=== PATIENT | male | born 1950 | race Caucasian/White ===

== ENCOUNTER 2019-08-08 20:47 | Emergency (ER) | payer MEDICARE, MEDICAID, SELFPAY ==
[2019-08-08 20:58] VITALS: BP 158/92; PULSE 85; RESP 20; TEMP 36.7; O2SAT 97; BMI 25.8
--- NOTE | 2019-08-08 21:12 | XR_ITS ---
PROCEDURE: XR HUMERUS RT CLINICAL INDICATION: fell off see-saw Posttraumatic pain COMPARISON: XR ELBOW RT MIN 3V from 08/08/2019 FINDINGS: No fracture or dislocation. No lytic or blastic change. There is normal mineralization. The joint spaces are well-preserved. No significant degenerative/arthritic changes. No erosive changes evident. Other findings:None. IMPRESSION: No acute findings. Dictated by: Andrea Calloway MD 08/09/2019 06:14 Electronically signed by Andrea Calloway MD in [place] 08/09/2019 06:14
--- NOTE | 2019-08-08 21:12 | XR_ITS ---
PROCEDURE: XR SHOULDER RT MIN 2V CLINICAL INDICATION: fell off see-saw Posttraumatic pain COMPARISON: No exams were available for comparison FINDINGS: No fracture, dislocation, lytic change, or blastic change evident. No significant degenerative change IMPRESSION: No acute findings. Dictated by: Andrea Calloway MD 08/09/2019 06:13 Electronically signed by Andrea Calloway MD in [place] 08/09/2019 06:13
--- NOTE | 2019-08-08 21:12 | CT_ITS ---
PROCEDURE: CT CHEST WO CON CLINICAL INDICATION: fell of see-saw Posttraumatic pain, fall with injury and pain, right anterior lower rib and chest pain COMPARISON: No exams were available for comparison TECHNIQUE: Axial images obtained with sagittal and coronal reformats. All CT scans at the facility use one or more dose reduction, viz: automated exposure control, ma/kV adjustment per patient size (including targeted exams where dose is matched to indication, i.e. head), or iterative reconstruction technique. FINDINGS: HEART AND MEDIASTINAL STRUCTURES: Coronary artery stents are noted. Mild dilatation ascending thoracic aorta at 4.3 cm LUNGS AND PLEURAL SPACES: Changes of COPD. There is some interlobular septal thickening in the periphery aspect of the lower lobes. 8 mm noncalcified nodules present in the central aspect of the right upper lobe image number 30. There is nodular thickening of the right major fissure medially. 3 mm subpleural nodules present in the left lower lobe image 49 BONY STRUCTURES: Mild wedging involves T8 vertebral body which may be chronic. UPPER ABDOMEN: Horseshoe kidney incompletely imaged ADDITIONAL FINDINGS: Gynecomastia IMPRESSION: 1. No acute finding. 2. COPD with 8 mm right upper lobe nodule. Suggest dedicated CT chest in 3 months without and with contrast. 3. Mild dilatation of the ascending aorta at 4.3 cm. 4. Mild wedging of T8 vertebral body. This may be chronic. This could be confirmed with MRI if clinically warranted. Dictated by: Andrea Calloway MD 08/09/2019 09:56 Electronically signed by Andrea Calloway MD in [facility] 08/09/2019 09:56
--- NOTE | 2019-08-08 21:12 | XR_ITS ---
PROCEDURE: XR PELVIS 1-2V CLINICAL INDICATION: fell off see-saw Posttraumatic pain COMPARISON: No exams were available for comparison TECHNIQUE: XR Pelvis AP View FINDINGS: No fracture or dislocation is evident. No significant degenerative change. No lytic or blastic change. IMPRESSION: No acute findings. Dictated by: Andrea Calloway MD 08/09/2019 06:15 Electronically signed by Andrea Calloway MD in [facility] 08/09/2019 06:15
--- NOTE | 2019-08-08 21:12 | XR_ITS ---
PROCEDURE: XR CHEST AP CLINICAL HISTORY: fell off see-saw Posttraumatic pain COMPARISON: CXR CHEST(2 VIEWS-NOT PORTABLE) from 11/10/2013 CT CHEST WO CON from 08/08/2019 FINDINGS: Borderline cardiomegaly without failure. The lungs are clear without infiltrates, suspicious nodules, or pleural effusions. No acute bony abnormalities. IMPRESSION: Borderline cardiomegaly otherwise negative Dictated by: Andrea Calloway MD 08/09/2019 06:16 Electronically signed by Andrea Calloway MD in [place] 08/09/2019 06:16
--- NOTE | 2019-08-08 21:12 | CT_ITS ---
PROCEDURE: CT CERVICAL SPINE WO CON CLINICAL INDICATION: fell of see-saw Neck injury with pain, contusion/abrasion or hematoma, cervical sprain/strain the COMPARISON: No exams were available for comparison TECHNIQUE: Axial images obtained with sagittal and coronal reformats. All CT scans at the facility use one or more dose reduction, viz: automated exposure control, ma/kV adjustment per patient size (including targeted exams where dose is matched to indication, i.e. head), or iterative reconstruction technique. Axial spiral CT scanning performed of the cervical spine beginning at the base of the skull and continuing to the upper T-spine. 3-D multiplanar reconstruction with 3-D manipulation of volumetric data set in image rendering was completed by the radiologist and/or technologist with the supervision of the radiologist on independent workstation. FINDINGS: Normal alignment. No fracture or dislocation. C2-C3: Mild bilateral foraminal narrowing from uncovertebral hypertrophy. C3-C4: Unremarkable. C4-C5: Mild left foraminal narrowing from uncovertebral hypertrophy. C5-C6: Degenerative disc disease with bulging disc with mild canal stenosis. Mild bilateral foraminal narrowing. C6-C7: Degenerative disc disease with bulging disc eccentric toward the left with mild canal stenosis. C7-T1: Unremarkable. There is 8 mm isodense left thyroid nodule IMPRESSION: 1. No acute fracture. 2. Cervical spondylosis as detailed above Dictated by: Andrea Calloway MD 08/09/2019 09:37 Electronically signed by Andrea Calloway MD in [place] 08/09/2019 09:37
--- NOTE | 2019-08-08 21:12 | CT_ITS ---
PROCEDURE: CT HEAD/BRAIN WO CON CLINICAL INDICATION: fell of see-saw , Head injury with headache/pain, contusion, abrasion or hematoma COMPARISON: [facility] CT HEAD W/O CONTRAST from 12/09/2013 TECHNIQUE: Axial images obtained. All CT scans at the facility use one or more dose reduction, viz: automated exposure control, ma/kV adjustment per patient size (including targeted exams where dose is matched to indication, i.e. head), or iterative reconstruction technique. FINDINGS: No midline shift, mass effect, intracranial hemorrhage, hydrocephalus, or extra-axial fluid collection is evident. The calvarium has an unremarkable appearance. No mastoid effusion. No sinus air-fluid level. IMPRESSION: No acute intracranial finding Dictated by: Andrea Calloway MD 08/09/2019 09:17 Electronically signed by Andrea Calloway MD in [place] 08/09/2019 09:17
--- NOTE | 2019-08-08 22:07 | HMH.EDFALL ---
ED Disposition Clinical Impression: Right shoulder injury Qualifiers: Encounter type: initial encounter Qualified Code(s): S49.91XA - Unspecified injury of right shoulder and upper arm, initial encounter Contusion of right chest wall Qualifiers: Encounter type: initial encounter Qualified Code(s): S20.211A - Contusion of right front wall of thorax, initial encounter Disposition: Home, Self-Care Condition on Discharge: Good Instructions: DI for Shoulder Pain Additional Instructions: ice and see pcp and ortho Referrals: Provider,MD Massiel [Primary Care Provider] - Sloane Garcia MD [Physician] - - Critical Care Critical Care Time: No Attestation: On 08/08/19, the high probability of a clinically significant, sudden or life threatening deterioration of the following system(s) required my full and direct attention, intervention and personal management. The time I documented below is in addition to time spent performing reported procedures but includes the following listed in this critical care notation. Medical Decision Making - Medical Records Medical records reviewed: Yes: I reviewed the patient's medical records. - Bobby Inquiry Pt receiving controlled substance: No Vital Signs: 08/08/19 20:58 Temperature 98.1 F Temperature Source Oral Pulse Rate [Right] 85 Respiratory Rate 20 Blood Pressure [Right Arm] 158/92 H Blood Pressure Mean [Right Arm] 114 Blood Pressure Source [Right Arm] Automatic Cuff Blood Pressure Position [Right Arm] Supine 02 Sat by Pulse Oximetry 97 Oxygen Delivery Method Room Air Orders (Tests/Meds): ED MEDICATIONS Generic Name Dose Route Start Last Admin Trade Name Freq PRN Reason Stop Dose Admin Sodium Chloride 1,000 mls @ 999 mls/hr 08/08/19 21:15 08/08/19 21:18 Sod Chlor 0.9% 1000ml Bag IV 08/08/19 22:15 999 mls/hr .Q1H1M MEMO Administration Discontinued Medications Generic Name Dose Route Start Last Admin Trade Name Freq PRN Reason Stop Dose Admin Ketorolac Tromethamine 30 mg 08/08/19 21:12 08/08/19 21:17 Toradol 30mg/Ml Vial IV 08/08/19 21:13 30 mg ONCE ONE Administration Morphine Sulfate 4 mg 08/08/19 21:16 08/08/19 21:18 Morphine 4mg/Ml Syringe IV 08/08/19 21:17 4 mg ONCE ONE Administration Ondansetron HCl 4 mg 08/08/19 21:12 08/08/19 21:17 Zofran 4mg/2ml Vial IV 08/08/19 21:13 4 mg ONCE ONE Administration ORDERS Category Date Time Status CT cervical spine wo con Stat Cat Scan 08/08/19 21:[address] chest wo con Stat Cat Scan 08/08/19 21:[address] head/brain wo con Stat Cat Scan 08/08/19 21:12 Taken XR chest AP Stat Exams 08/08/19 21:12 Taken XR elbow RT min 3V Stat Exams 08/08/19 21:12 Taken XR humerus RT Stat Exams 08/08/19 21:12 Taken XR pelvis 1-2V Stat Exams 08/08/19 21:12 Taken XR shoulder RT min 2V Stat Exams 08/08/19 21:12 Taken - Radiology Data #1 Image(s): Chest, Shoulder, Humerus, Elbow, Pelvis Image Reviewed: Yes I reviewed the patient's radiology image Preliminary Findings: No Fracture Seen - CT Data CT Scan: Head, C-Spine, Chest Time Received: 23:[address] Reviewed: Yes: I have viewed the radiologist's interpretation Preliminary Findings: No Fracture Seen Fall HPI - General Chief Complaint: Fall Stated Complaint: AO 0614 fell off injured R shoulder Time Seen by Provider: 08/08/19 21:15 Mode of Arrival: Wheelchair Source of Information: Patient, Medical Record Limitations: No Limitations Description of Symptoms (Recalled from ER Triage Doc. by RN): Pt states he fell off a see-saw and has right shoulder and rib pain, denies head injury. - History of Present Illness HPI Narrative: fell off see-saw with rt shoulder and rt rib pain - no loc and no abd pain - MD complaint: fall Onset (ago): hour(s) Fall from: from height (distance) Fall witnessed: yes, by family Place fall occurred: home Loss of consciousness: none Prolonged down time: no Contex
[2019-08-08 23:30] VITALS: BP 155/78; PULSE 82; RESP 18; TEMP 36.7; O2SAT 97
== END 2019-08-08 23:33 | disposition home or self-care (01) ==
PROVIDERS: Emergency Provider Emergency Medicine
DX: S20.211A Contusion of right front wall of thorax, initial encounter (principal); S49.91XA Unspecified injury of right shoulder and upper arm, initial encounter; W09.8XXA Fall on or from other playground equipment, initial encounter; Y92.019 Unspecified place in single-family (private) house as the place of occurrence of the external cause
CPT/HCPCS: 70450; 71045; 71250; 72125; 72170; 73030; 73060; 73080; 96365; 96367; 96375; 99282; J2405

== ENCOUNTER 2020-11-03 19:23 | Inpatient (IN) | payer MEDICAID, MEDICARE, SELFPAY ==
[2020-11-03] VITALS (13 sets, daily range): BP systolic 115–147; BP diastolic 63–83; PULSE 66–103; RESP 12–34; TEMP 38.6–39.5; O2SAT 90–99; BMI 33.1; BMI 33.3
--- NOTE | 2020-11-03 19:28 | ECG_ITS ---
APPROVED REPORT Exam: Resting ECG HR:101 bpm ECG Measurements Heart Rate 101 AXES MN 142 P 53 QRSd 144 QRS 47 QT 394 T 118 QTc 510 Conclusion Sinus tachycardia Left bundle branch block Abnormal ECG Electronically signed by : Alexx Salvador MD 11/05/2020 16:07:37
[2020-11-03 19:36] LABS: Influenza A, PCR Not Detected (NotDetected); Influenza B, PCR Not Detected (NotDetected)
--- NOTE | 2020-11-03 20:03 | XR_ITS ---
PROCEDURE INFORMATION: Exam: XR Chest Exam date and time: 11/03/2020 8:03 PM Age: 70 years old Clinical indication: Shortness of breath and other: Cough; Additional info: SOA cough TECHNIQUE: Imaging protocol: XR of the chest. Views: 1 view. COMPARISON: CR XR CHEST AP 08/08/2019 9:51 PM FINDINGS: Lungs: Patchy infiltrates identified within the peripheral aspects of the left mid lung zone and left base as well as along the peripheral aspect of the right base. Relative sparing of the medial and upper lung zee. These infiltrates appear new since prior examination of 08/08/2019. Pleural spaces: Unremarkable. No pleural effusion. No pneumothorax. Heart/Mediastinum: Unremarkable. Mild cardiomegaly noted. Bones/joints: Unremarkable. IMPRESSION: Interval development of bilateral patchy infiltrates which are peripheral in nature. Mild cardiomegaly without evidence of pulmonary vascular congestion. Progress examination is suggested.
[2020-11-03 20:10] LABS: Basophils % 0.3 % (0.1-2.0); Eosinophils # 0.1 K/mm3 (0.0-0.4); Eosinophils % 0.6 % (0.1-12.0); Hematocrit 36.4 % (42.0-52.0); Lymphocytes # 1.8 K/mm3 (0.7-4.5); Lymphocytes % 16.5 % (10-50); Mean Corpuscular Volume 93.8 fl (80-94); Mean Platelet Volume 9.3 fl (7.4-10.4); Monocytes # 0.5 K/mm3 (0.1-1.0); Monocytes % 4.5 % (1.7-9.3); Neutrophils # 8.4 K/mm3 (1.8-7.8); Neutrophils % 78.1 % (37.0-80.0); Platelet Count 256 K/mm3 (142-424); Red Blood Count 3.88 M/mm3 (4.60-6.20); Red Cell Distribution Width 13.1 % (11.5-17.5); White Blood Count 10.7 K/mm3 (4.8-10.8)
[2020-11-03 20:15] LABS: Coronavirus 19, PCR Detected (NotDetected)
[2020-11-03 20:15] LABS: Alanine Aminotransferase 41 U/L (12-78); Albumin Level 3.5 g/dl (3.5-5.0); Albumin/Globulin Ratio 0.7 (1.1-1.8); Alkaline Phosphatase 102 U/L (38-126); Aspartate Amino Transferase 51 U/L (17-59); Bilirubin,Total 1.1 mg/dl (0.2-1.3); Blood Urea Nitrogen 19 mg/dl (9-20); Calcium 8.6 mg/dl (8.4-10.2); Carbon Dioxide 24 mmol/L (22.0-30.0); Chloride 102 mmol/L (98-107); Creatinine Clearance Estimated 114 mL/min (50-200); Estimated Glomerular Filt Rate 96 ml/min (>60); GFR (African American) 116 ML/MIN (>60); Globulin 4.7 g/dL (1.3-3.2); Glucose 120 mg/dl (74-100); Sodium 140 mmol/L (136-145); Total Protein,Serum 8.2 g/dl (6.3-8.2)
[2020-11-03 20:20] LABS: C-Reactive Protein 223.1 mg/L (0-4)
[2020-11-03 20:33] LABS: Erythrocyte Sedimentation Rate 105 mm/hr (0-20)
[2020-11-03 20:34] LABS: Procalcitonin 0.233 ng/mL (0.0-2.0)
--- NOTE | 2020-11-03 20:34 | HMH.EDSOB ---
ED Disposition Clinical Impression: COVID-19 with pulmonary comorbidity, Pulmonary embolism associated with COVID-19, Elevated troponin I level, Elevated brain natriuretic peptide (BNP) level, Left bundle branch block (LBBB) Disposition: Admitted As Inpatient Condition on Discharge: Serious - Critical Care Critical Care Time: No Attestation: On 11/03/20, the high probability of a clinically significant, sudden or life threatening deterioration of the following system(s) required my full and direct attention, intervention and personal management. The time I documented below is in addition to time spent performing reported procedures but includes the following listed in this critical care notation. Medical Decision Making - Medical Records Medical records reviewed: Yes: I reviewed the patient's medical records. - Bobby Inquiry Pt receiving controlled substance: No Vital Signs: 11/03/20 19:32 11/03/20 19:38 11/03/20 19:43 Temperature 102.6 F H 103.1 F H Temperature Source Rectal Oral Pulse Rate 84 Pulse Rate [Right Brachial] 103 H Respiratory Rate 26 H 25 H Blood Pressure 138/82 Blood Pressure [Right Arm] 138/82 Blood Pressure Mean [Right Arm] 100 Blood Pressure Source [Right Arm] Automatic Cuff Blood Pressure Position [Right Arm] Sitting 02 Sat by Pulse Oximetry 91 L 90 L Oxygen Delivery Method Nasal Cannula Nasal Cannula Oxygen Flow Rate (LPM) 5 5 11/03/20 20:00 11/03/20 20:30 11/03/20 21:00 Temperature Temperature Source Pulse Rate 97 H 91 H 89 Pulse Rate [Right Brachial] Respiratory Rate 29 H 34 H 22 Blood Pressure 147/80 H 136/81 128/80 Blood Pressure [Right Arm] Blood Pressure Mean [Right Arm] Blood Pressure Source [Right Arm] Blood Pressure Position [Right Arm] 02 Sat by Pulse Oximetry 90 L 93 L 96 Oxygen Delivery Method Nasal Cannula Nasal Cannula Nasal Cannula Oxygen Flow Rate (LPM) 5 5 5 11/03/20 21:30 11/03/20 22:00 11/03/20 22:50 Temperature Temperature Source Pulse Rate 77 78 70 Pulse Rate [Right Brachial] Respiratory Rate 23 24 12 Blood Pressure 121/70 131/75 140/83 Blood Pressure [Right Arm] Blood Pressure Mean [Right Arm] Blood Pressure Source [Right Arm] Blood Pressure Position [Right Arm] 02 Sat by Pulse Oximetry 94 L 92 L 98 Oxygen Delivery Method Nasal Cannula Nasal Cannula Nasal Cannula Oxygen Flow Rate (LPM) 5 5 5 - Lab Data Lab results reviewed: Yes: I reviewed the patient's lab results. Lab Results 11/03/20 19:15: WBC 10.7, RBC 3.88 L, Hgb 12.0 L, Hct 36.4 L, MCV 93.8, MCH 31.0, MCHC 33.0, RDW 13.1, Plt Count 256, MPV 9.3, Neut % (Auto) 78.1, Lymph % (Auto) 16.5, Harris % (Auto) 4.5, Eos % (Auto) 0.6, Baso % (Auto) 0.3, Neut # (Auto) 8.4 H, Lymph # (Auto) 1.8, Harris # (Auto) 0.5, Eos # (Auto) 0.1, Baso # (Auto) 0.0, ESR 105 H 11/03/20 19:15: Sodium 140, Potassium 4.0, Chloride 102, Carbon Dioxide 24, Anion Gap 18.0 H, BUN 19, Creatinine 0.80, Estimated Creat Clear 114, Estimated GFR 96, Est GFR ( Amer) 116, Glucose 120 H, Calcium 8.6, Total Bilirubin 1.1, AST 51, ALT 41, Alkaline Phosphatase 102, C-Reactive Protein 223.1 H, Total Protein 8.2, Albumin 3.5, Globulin 4.7 H, Albumin/Globulin Ratio 0.7 L 11/03/20 19:15: Procalcitonin 0.233 11/03/20 19:15: Troponin I 0.13 H, NT-Pro-B Natriuret Pep 1860 H 11/03/20 19:32: SARS-CoV-2 (PCR) Detected A, Influenza A Untype (PCR) Not detected, Influenza Type B (PCR) Not detected Result diagrams: 11/03/20 19:15 11/03/20 19:15 Orders (Tests/Meds): ED MEDICATIONS Generic Name Dose Route Start Last Admin Trade Name Freq PRN Reason Stop Dose Admin Albuterol Sulfate 2 puffs 11/03/20 20:22 Albuterol-Hfa 90mcg/Puff Inhaler 8gm IH 12/03/20 20:21 Q4HP PRN Shortness Of Breath Lactated Ringer's 1,000 mls @ 999 mls/hr 11/03/20 20:15 11/03/20 20:29 Lactated Ringer's 1000 Ml Bag IV 11/03/20 21:15 999 mls/hr .Q1H1M MEMO Administration Discont
[2020-11-03 20:40] LABS: NT Pro Brain Natriuretic Pep. 1860 pg/mL (0-125); Troponin I 0.13 ng/ml (0.00-0.034)
--- NOTE | 2020-11-03 20:44 | CT_ITS ---
PROCEDURE INFORMATION: Exam: CTA Chest With Contrast Exam date and time: 11/03/2020 8:44 PM Age: 70 years old Clinical indication: Shortness of breath and other: Cough; Prior surgery; Surgery date: 6+ months; Surgery type: Cardiac stents; Additional info: Covid pneumonia, R/O pe TECHNIQUE: Imaging protocol: Computed tomographic angiography of the chest with contrast. 3D rendering (Not supervised by radiologist): MIP and/or 3D reconstructed images were created by the technologist. Radiation optimization: All CT scans at this facility use at least one of these dose optimization techniques: automated exposure control; mA and/or kV adjustment per patient size (includes targeted exams where dose is matched to clinical indication); or iterative reconstruction. Contrast material: ISOVUE 370; Contrast volume: 70 ml; Contrast route: INTRAVENOUS (IV); COMPARISON: CT CHEST WO CON 08/08/2019 9:36 PM FINDINGS: Pulmonary arteries: There is extensive nonocclusive pulmonary embolism present within right and left main pulmonary arteries as well as primary tributary branches of the right pulmonary artery and left descending pulmonary artery. Occlusive thrombus is identified at the junction of primary and secondary tributary branches within the left lower lobe. Aorta: Unremarkable. No aortic aneurysm. No aortic dissection. Lungs: There are peripheral amorphous infiltrates identified within both lung zee. Predilection for lower lobes. Findings are certainly compatible with viral interstitial pneumonitis such as could be caused by Covid 19. Pleural spaces: Unremarkable. No pneumothorax. No pleural effusion. Heart: No cardiomegaly. No pericardial effusion. Heart RV/LV ratio: Within normal limits. Coronary arteries: There is no evidence of significant coronary artery calcifications. Mediastinal space: No evidence of mediastinal or hilar mass. Lymph nodes: There are 1 or 2 calcified lymph nodes within the left infrahilar region. Visible unenlarged station 4 lymph nodes identified. Bones/joints: Unremarkable. No acute fracture. Soft tissues: Granulomatous calcifications within the spleen. IMPRESSION: 1. Bilateral pulmonary emboli are identified. 2. There are extensive amorphous peripheral interstitial infiltrates within both lung zee, compatible with viral interstitial pneumonitis, including pneumonitis caused by Covid19. 3. Evidence of old healed granulomatous disease within the left hilus and within the spleen.
--- NOTE | 2020-11-03 22:51 | PC.NURSE ---
RECEIVED CRITICIAL NOTIFICATION OF PE. NOTIFIED
[2020-11-03 23:22] LABS: Troponin I 0.15 ng/ml (0.00-0.034)
[2020-11-03 23:23] LABS: Activated Partial Thrombo Time 26.6 seconds (22.8-30.6); INR 1.19 (0.9-1.1); Prothrombin Time 13.9 seconds (10.1-12.5)
[2020-11-04] VITALS (11 sets, daily range): BP systolic 121–163; BP diastolic 72–96; PULSE 60–90; RESP 18–28; TEMP 36.9–37.6; O2SAT 88–100
--- NOTE | 2020-11-04 00:01 | PC.NURSE ---
PT ARRIVED TO FLOOR VIA STRETCHER FROM ED W/STAFF AT 0000
--- NOTE | 2020-11-04 03:09 | PC.NURSE ---
Pt is currently on 30L 45% Vapotherm with O2 sat of 95%. Has c/o a headache since arrival to floor. Crackles noted to (L) base. Pt is soa at times. VSS. Pt is sinus with BBB on telemetry. Will continue to monitor.
[2020-11-04 03:23] LABS: Chloride 106 mmol/L (98-107); Sodium 138 mmol/L (136-145)
[2020-11-04 03:26] LABS: Blood Urea Nitrogen 19 mg/dl (9-20); Carbon Dioxide 24 mmol/L (22.0-30.0); Cholesterol 124 mg/dl (140-200); Creatinine Clearance Estimated 114 mL/min (50-200); Estimated Glomerular Filt Rate 112 ml/min (>60); GFR (African American) 136 ML/MIN (>60); Triglycerides 109 mg/dl (30-150); VLDL Cholesterol 22 mg/dL (0-40)
[2020-11-04 03:27] LABS: Calcium 8.3 mg/dl (8.4-10.2); Chol/HDL Ratio 6.5 (1-3.5); Glucose 132 mg/dl (74-100); HDL Cholesterol 19 mg/dl (40-60); Magnesium 2.2 mg/dl (1.6-2.3)
[2020-11-04 03:29] LABS: Basophils % 0.2 % (0.1-2.0); Eosinophils % 0.3 % (0.1-12.0); Hematocrit 32.5 % (42.0-52.0); Hemoglobin 10.9 g/dL (14.1-18.0); Lymphocytes # 0.5 K/mm3 (0.7-4.5); Lymphocytes % 7.9 % (10-50); Mean Corpuscular HGB Conc 33.5 g/dL (31.8-35.4); Mean Corpuscular Hemoglobin 31.4 pg (27.0-31.2); Mean Corpuscular Volume 93.7 fl (80-94); Mean Platelet Volume 8.2 fl (7.4-10.4); Monocytes # 0.3 K/mm3 (0.1-1.0); Monocytes % 4.4 % (1.7-9.3); Neutrophils # 5.8 K/mm3 (1.8-7.8); Neutrophils % 87.3 % (37.0-80.0); Platelet Count 186 K/mm3 (142-424); Red Blood Count 3.47 M/mm3 (4.60-6.20); Red Cell Distribution Width 12.5 % (11.5-17.5); White Blood Count 6.7 K/mm3 (4.8-10.8)
[2020-11-04 03:38] LABS: Direct LDL Cholesterol 69.17 mg/dL (100-129); MANUAL DIFFERENTIAL MANUAL DIFFERENTIAL (MANUAL DIFF)
[2020-11-04 04:05] LABS: Lymphocytes % 3 % (10-50); Neutrophils % 84 % (42-76); Platelet Estimate Normal; RBC Morphology Normal; Rouleaux 1+; Total Cells Counted 100
--- NOTE | 2020-11-04 07:00 | XR_ITS ---
PROCEDURE INFORMATION: Exam: XR Chest Exam date and time: 11/04/2020 7:00 AM Age: 70 years old Clinical indication: Condition or disease; Other: Covid pulmonary emboli; Additional info: SOB covid pneumonia pulmonary emboli TECHNIQUE: Imaging protocol: XR of the chest. Views: 1 view. COMPARISON: CR XR CHEST PORTABLE 11/03/2020 8:18 PM FINDINGS: Lungs: There continues to be airspace disease in both lungs, unchanged. Pleural spaces: Unremarkable. No pleural effusion. No pneumothorax. Heart/Mediastinum: Unremarkable. No cardiomegaly. Bones/joints: Unremarkable. IMPRESSION: Stable chest.
--- NOTE | 2020-11-04 08:41 | CA_ITS ---
APPROVED REPORT Bilateral Lower Extremity Venous Study for DVT. Barrel Repairer: JUAN RVS Indications COVID breakthrough infection, Hx rt sided stroke, PE, Hypoxia Risk Factors Immobility CAD Vein Imaging CFV (R): compressive, spontaneous, phasic, augmentation SFJ (R): compressive, spontaneous, phasic, augmentation FEM (R): compressive, spontaneous, phasic, augmentation POP (R): compressive, spontaneous, phasic, augmentation PTV (R): Non-Compressible GSV (R): compressive, spontaneous, phasic, augmentation SSV (R): compressive, spontaneous, phasic, augmentation Peroneals (R):Thrombus, Rigid noncompressible GAS (R): compressive, spontaneous, phasic, augmentation CFV (L): compressive, spontaneous, phasic, augmentation SFJ (L): compressive, spontaneous, phasic, augmentation FEM (L): compressive, spontaneous, phasic, augmentation POP (L): compressive, spontaneous, phasic, augmentation DFV (L): compressive, spontaneous, phasic, augmentation PTV (L): Absent Flow, Non-Compressible GSV (L): compressive, spontaneous, phasic, augmentation SSV (L): compressive, spontaneous, phasic, augmentation Peroneals (L):Thrombus, Non-Compressible GAS (L): compressive, spontaneous, phasic, augmentation Findings The right Peroneal Veins are dilated with bright echoes and is non-compressible. The left Peroneal Vein is dilated with mixed echoes and is not fully compressible. Bilateral PTV'S are rigid and noncompressible with scant flow. Positive for DVT. Conclusion The right Peroneal Veins are dilated with bright echoes and is non-compressible. The left Peroneal Vein is dilated with mixed echoes and is not fully compressible. Bilateral PTV'S are rigid and noncompressible with scant flow. Positive for DVT. Critical Notification Critical Value: Yes Date: 11/04/2020 Time: 12:53 Other Discipline: Nurse Response Time: min Report Read Back Electronically signed by : Andrea Calloway MD 11/06/2020 15:30:44
--- NOTE | 2020-11-04 09:08 | HMH.HP ---
*Admission Date: 11/04/20 *Chief complaint: covid pneumonia, pulmonary embolism *History of present illness: Patient is a 70-year-old male with a history of asthma who presented to the emergency room with shortness of breath. Patient was vaccinated for Covid with the Moderiba x2. Was earlier in the year. He has been caring for 2 family members who are Covid positive. Over the last 2 days he has had shortness of breath chills nausea. He uses albuterol at home. Serology detected Covid. Chest x-ray showed views airspace disease. CTA chest demonstrated bilateral pulmonary emboli and features suggesting interstitial pneumonitis more likely the result of Covid. Patient is admitted for further treatment and evaluation, has been started on Xarelto for anticoagulation. I suspect his pulmonary emboli are a sequela of his Covid infection. Patient has a remote history of stroke. Patient is currently on Vapotherm in no respiratory distress. Patient is followed by an outside physician. Patient is treated for chronic pain. He has some tenderness to palpation his right calf and lower leg [facility] History Medical History: Reports:: Hypertension Denies:: Cancer, Diabetes Mellitus Type 1, Diabetes Mellitus Type 2, Internal Pacemaker, MRSA *Have you ever received a pneumonia vaccine?: No *Have you received a flu vaccine this season?: No Other Surgeries: Yes: Other. No: Pacemaker Amputation: No Fractures: No - *Social History Last grade of school completed: High school graduate Smoking Status: Current every day smoker Tobacco Type: cigarettes # Packs/Day (cigarettes): 1 #Yrs smoked (if former smoker): 20 Alcohol Intake: never Alcohol Intake Frequency:: 0-2 drinks per day Substance Use Type: denies use *Occupational Status:: employed *Travel in the last 8 weeks: None Family Hx:: Asthma, Cancer, Heart Attack, Hypertension, Stroke Review of Systems - Constitutional Reports body ache(s), Reports chills, Reports lack of energy, Reports malaise, Reports weakness - Eyes Denies change in vision - ENT Reports headache(s), Reports nasal congestion, Reports nasal discharge, Denies abnormal hearing - *Cardiovascular Reports leg pain with activity, Reports shortness of breath, Reports shortness of breath with activity - *Respiratory Reports chest congestion, Reports cough, Reports shortness of breath, Reports shortness of breath with activity, Reports pain with cough - *Gastrointestinal Reports feeling full early, Reports heartburn, Denies difficulty swallowing - *Genitourinary Denies difficulty urinating - *Musculoskeletal Reports muscle cramps, Reports muscle weakness, Reports stiffness - Integumentary/Breasts Denies yellowing of the skin - *Neurologic Reports abnormal walking, Denies abnormal speech, Denies behavioral changes, Denies confusion, Denies seizure-like activity, Denies headache(s), Denies seizure-like activity - Psychiatric Denies behavioral changes - Endocrine Reports flushing - Hematologic/Lymphatic Denies easy bleeding, Denies easy bruising - Allergic/Immunologic Denies itchy eyes, Denies hives Meds Home Medications Medication Instructions Recorded Confirmed Type Gabapentin [Gabapentin 400mg Cap] 400 mg PO TID 11/03/20 11/03/20 History Oxycodone HCl 5 mg PO BID 11/03/20 11/04/20 History Meloxicam 15 mg PO DAILY 11/04/20 11/04/20 History Metoprolol Succinate [Metoprolol 50 mg PO DAILY 11/04/20 11/04/20 History Succinate 50mg Tablet*] Tizanidine HCl 4 mg PO DAILY 11/04/20 11/04/20 History Allergies Allergy/AdvReac Type Severity Reaction Status Date / Time hydrocodone Allergy Unknown Unknown Verified 11/04/20 08:07 allergy reaction Iodinated Contrast Media Allergy Unknown Unknown Verified 11/04/20 08:07 allergy reaction propoxyphene Allergy Unknown Unknown Verified 11/04/20 08:07 allergy reaction Exam Vital signs and Labs for Last 24 Hours: Tem
[2020-11-04 10:42] LABS: D-Dimer > 8.10 ug/mL (0.0-0.5)
--- NOTE | 2020-11-04 13:01 | P.CONPHA_ITS ---
[facility] Pharmacy VTE Monitoring - Patient Demographics Admission date: 11/03/20 Report Date: 11/04/20 Time: 13:01 Allergies/Adverse Reactions: Patient Allergies hydrocodone Allergy (Unknown, Verified 11/04/20 08:07) Unknown allergy reaction Iodinated Contrast Media Allergy (Unknown, Verified 11/04/20 08:07) Unknown allergy reaction propoxyphene Allergy (Unknown, Verified 11/04/20 08:07) Unknown allergy reaction Height: 1.85 m Weight: 113.85 kg Patient Problems: Current Active Problems COVID-19 with pulmonary comorbidity (Acute) Pulmonary embolism associated with COVID-19 (Acute) Elevated troponin I level (Acute) Elevated brain natriuretic peptide (BNP) level (Acute) Left bundle branch block (LBBB) (Acute) History of stroke (Acute) - VTE Risk Labs: VTE Related Lab Results Hgb 10.9 g/dL (14.1-18.0) L 11/04/20 03:10 Hct 32.5 % (42.0-52.0) L 11/04/20 03:10 Plt Count 186 K/mm3 (142-424) D 11/04/20 03:10 PT 13.9 seconds (10.1-12.5) H 11/03/20 19:15 INR 1.19 (0.9-1.1) H 11/03/20 19:15 APTT 26.6 seconds (22.8-30.6) 11/03/20 19:15 BUN 19 mg/dl (9-20) 11/04/20 03:10 Creatinine 0.70 mg/dl (0.66-1.25) 11/04/20 03:10 Estimated Creat Clear 114 mL/min (50-200) 11/04/20 03:10 Was VTE Risk Assessment Performed: Yes VTE Score: 4 VTE Risk Level: Low Risk Clinical Trial Participant: No - Prophylaxis VTE Prophylaxis Ordered?: Yes Types of VTE Prophylaxis: TEDS Knee High Location of Applied Device: Bilateral Lower Extremeties Pharmacologic Type: Other (ON XARELTO)
--- NOTE | 2020-11-04 13:03 | HMH.PHAINT ---
MEDICATION RECONCILIATION COMPLETE USING EXTERNAL PHARMACY FILL HISTORY.
--- NOTE | 2020-11-04 18:37 | PC.NURSE ---
Notified that pt has bilateral peroneal dvt's per venous doppler tech.
--- NOTE | 2020-11-04 18:37 | PC.NURSE ---
Pt is alert and oriented x3. Crackles noted to lungs. He is currently on 30L/80% vapotherm with O2 sats in the 90's. He does desat when coughing or w/exertion but rebounds fairly quickly. He has a BBB on telemetry w/some st depression. He utilizes a urinal at the bedside. Appetite has been fair with pt eating approx 50% of meals. He is currently resting in bed watching TV.
[2020-11-05] VITALS (11 sets, daily range): BP systolic 124–154; BP diastolic 60–86; PULSE 60–77; RESP 18–28; TEMP 36.9–37.2; O2SAT 88–99
--- NOTE | 2020-11-05 03:25 | PC.NURSE ---
A&OX4. TOLERATING VAPOTHERM, O2 SAT IN MID 90S. PT INDEPENDENT IN ROOM. PT HAS INTERMITTENT COUGH PRODUCING LIGHT YELLOW PHLEGM. NO C/O THUS FAR THIS SHIFT. VSS WILL CONTINUE TO MONITOR.
--- NOTE | 2020-11-05 06:00 | XR_ITS ---
PROCEDURE INFORMATION: Exam: XR Chest Exam date and time: 11/05/2020 6:00 AM Age: 70 years old Clinical indication: Condition or disease; Other: Covid pneumonia SOB; Additional info: Covid SOB TECHNIQUE: Imaging protocol: XR of the chest. Views: 1 view. COMPARISON: CR XR CHEST PORTABLE 11/04/2020 5:52 AM FINDINGS: Extensive airspace opacities with mildly worsened consolidation in both lower lobes. Cardiac silhouette is stable. No enlarging pleural effusion. No pneumothorax. IMPRESSION: Mildly worsened multifocal pneumonia.
[2020-11-05 06:34] LABS: Alanine Aminotransferase 29 U/L (12-78); Albumin Level 2.6 g/dl (3.5-5.0); Albumin/Globulin Ratio 0.8 (1.1-1.8); Alkaline Phosphatase 86 U/L (38-126); Aspartate Amino Transferase 37 U/L (17-59); Bilirubin,Total 0.4 mg/dl (0.2-1.3); Blood Urea Nitrogen 24 mg/dl (9-20); Calcium 8.3 mg/dl (8.4-10.2); Carbon Dioxide 23 mmol/L (22.0-30.0); Chloride 109 mmol/L (98-107); Creatinine Clearance Estimated 114 mL/min (50-200); Estimated Glomerular Filt Rate 134 ml/min (>60); GFR (African American) 162 ML/MIN (>60); Globulin 3.3 g/dL (1.3-3.2); Glucose 112 mg/dl (74-100); Sodium 138 mmol/L (136-145); Total Protein,Serum 5.9 g/dl (6.3-8.2)
--- NOTE | 2020-11-05 09:13 | PC.NURSE ---
Vapotherm currently 25 L and 80%
[2020-11-05 11:38] LABS: Basophils % 0.3 % (0.1-2.0); Eosinophils % 0.2 % (0.1-12.0); Hematocrit 32.9 % (42.0-52.0); Hemoglobin 10.6 g/dL (14.1-18.0); Lymphocytes # 1.3 K/mm3 (0.7-4.5); Lymphocytes % 10.6 % (10-50); Mean Corpuscular HGB Conc 32.2 g/dL (31.8-35.4); Mean Corpuscular Hemoglobin 30.9 pg (27.0-31.2); Mean Platelet Volume 9.5 fl (7.4-10.4); Monocytes # 0.7 K/mm3 (0.1-1.0); Monocytes % 5.3 % (1.7-9.3); Neutrophils # 10.6 K/mm3 (1.8-7.8); Neutrophils % 83.6 % (37.0-80.0); Platelet Count 258 K/mm3 (142-424); Red Blood Count 3.43 M/mm3 (4.60-6.20); Red Cell Distribution Width 12.8 % (11.5-17.5); White Blood Count 12.7 K/mm3 (4.8-10.8)
--- NOTE | 2020-11-05 11:45 | HMH.ACPN2 ---
Internal Medicine - PN: Subj *Date: 11/05/20 *Time: 11:59 Interval history: Patient had a fairly uneventful night. Continues to cough, producing a white frothy sputum. Earlier sample was collected for culture. Patient has no respiratory distress. No labored breathing. He remains on Vapotherm. Patient was found to have bilateral pulmonary emboli on CTA during his initial work-up. Subsequent venous duplex revealed bilateral peroneal DVTs. Patient has a history of stroke and coronary disease with stent deployment. Exam Vital signs and Labs for Last 24 Hours: Temp Pulse Resp BP Pulse Ox 98.6 F 77 18 154/60 H 88 L 11/05/20 11:20 11/05/20 11:20 11/05/20 11:20 11/05/20 11:20 11/05/20 11:20 Laboratory Results - last 24 hr 11/05/20 05:40: Sodium 138, Potassium 4.0, Chloride 109 H, Carbon Dioxide 23, Anion Gap 10.0, BUN 24 H D, Creatinine 0.60 L, Estimated Creat Clear 114, Estimated GFR 134, Est GFR ( Amer) 162, Glucose 112 H, Calcium 8.3 L, Total Bilirubin 0.4, AST 37 D, ALT 29 D, Alkaline Phosphatase 86, Total Protein 5.9 L D, Albumin 2.6 L D, Globulin 3.3 H, Albumin/Globulin Ratio 0.8 L 11/05/20 05:40: WBC 12.7 H D, RBC 3.43 L, Hgb 10.6 L, Hct 32.9 L, MCV 96.0 H, MCH 30.9, MCHC 32.2, RDW 12.8, Plt Count 258 D, MPV 9.5, Neut % (Auto) 83.6 H, Lymph % (Auto) 10.6, Sumner % (Auto) 5.3, Eos % (Auto) 0.2, Baso % (Auto) 0.3, Neut # (Auto) 10.6 H, Lymph # (Auto) 1.3, Sumner # (Auto) 0.7, Eos # (Auto) 0.0, Baso # (Auto) 0.0 I & O for Last 24 hours: Intake & Output 11/02/20 11/03/20 11/04/20 11/05/20 23:59 23:59 23:59 23:59 Intake Total 1972 480 / 480 Output Total 1050 / 1650 900 / 900 Balance 923 / 323 -420 / -420 Weight 250 lb 15.94 oz Microbiology Reports for the Last 24 Hours: Microbiology 11/05/20 06:40 Sputum - Expectorated Sputum Gram Stain - Final - Constitutional no acute distress - *Routine HEENT Exam Head: Present: normocephalic Eye: Present: EOMI, PERRL ENT: Present: mucous membranes moist - *Routine Neck Exam Present: supple. Absent: lymphadenopathy - *Routine Respiratory Exam Present: rhonchi, crackles. Absent: accessory muscle use, wheezes - *Routine Cardiovascular Exam Present: RRR - *Routine Abdominal Exam Present: soft, normoactive bowel sounds. Absent: tenderness - *Routine Extremities Exam Present: tenderness. Absent: cyanosis, clubbing - *Routine Skin Exam Present: warm. Absent: rash - *Routine Neurological Exam Present: alert, oriented X3 Assessment and Plan (1) COVID-19 with pulmonary comorbidity Status: Acute Category: Medical Code(s): U07.1 - COVID-19; J98.4 - Other disorders of lung (2) Pulmonary embolism associated with COVID-19 Status: Acute Category: Medical Code(s): U07.1 - COVID-19; I26.99 - Other pulmonary embolism without acute cor pulmonale (3) Elevated troponin I level Status: Acute Category: Medical Code(s): R77.8 - Other specified abnormalities of plasma proteins (4) Left bundle branch block (LBBB) Status: Acute Category: Medical Code(s): I44.7 - Left bundle-branch block, unspecified (5) History of stroke Status: Acute Category: Medical Code(s): Z86.73 - Personal history of transient ischemic attack (TIA), and cerebral infarction without residual deficits (6) Elevated brain natriuretic peptide (BNP) level Status: Acute Category: Medical Code(s): R79.89 - Other specified abnormal findings of blood chemistry (7) Peroneal DVT (deep venous thrombosis) Status: Acute Qualifiers: Laterality: bilateral Category: Medical Code(s): I82.459 - Acute embolism and thrombosis of unspecified peroneal vein - Assessment and plan all Dx Assessment and Plan for all problems:: We will continue patient's current regimen occluding his Xarelto. We will ask for cardiology to consult even his elevated troponin, of stent deployment and pulmonary and peripheral emboli.
[2020-11-06] VITALS (19 sets, daily range): BP systolic 98–143; BP diastolic 47–75; PULSE 50–93; RESP 28–40; TEMP 36.7–37.3; O2SAT 80–94; BMI 33.3
--- NOTE | 2020-11-06 04:13 | PC.NURSE ---
A&OX4. AT BEGINNING OF SHIFT, PT WAS ON 25L 85% VAPOTHERM. PT O2 SAT IN LOW 80S. VAPOTHERM INCREASED TO 40L 100%. PT TOLERATED FOR QUITE SOME TIME, BUT EVENTUALLY DROPPED TO LOW 80S. NON-REBREATHER ADDED TO VAPOTHERM. PT HAS CONTINUED TO SAT LOW 80S, NOW HAVE PT IN PRONE POSITION. THIS HAS HELPED GREATLY, PT O2 SAT IN HIGH 90S AT THIS TIME. PT HAS HAD NO C/O THUS FAR. BEING VERY COOPERATIVE. VSS WILL CONTINUE TO MONITOR.
[2020-11-06 06:32] LABS: Alanine Aminotransferase 37 U/L (12-78); Albumin Level 2.9 g/dl (3.5-5.0); Albumin/Globulin Ratio 0.8 (1.1-1.8); Alkaline Phosphatase 96 U/L (38-126); Aspartate Amino Transferase 55 U/L (17-59); Bilirubin,Total 0.6 mg/dl (0.2-1.3); Blood Urea Nitrogen 22 mg/dl (9-20); Calcium 8.4 mg/dl (8.4-10.2); Carbon Dioxide 25 mmol/L (22.0-30.0); Chloride 105 mmol/L (98-107); Creatinine Clearance Estimated 114 mL/min (50-200); Estimated Glomerular Filt Rate 112 ml/min (>60); GFR (African American) 136 ML/MIN (>60); Globulin 3.7 g/dL (1.3-3.2); Glucose 89 mg/dl (74-100); Sodium 138 mmol/L (136-145); Total Protein,Serum 6.6 g/dl (6.3-8.2)
--- NOTE | 2020-11-06 08:27 | CA_ITS ---
APPROVED REPORT EXAM: Comprehensive 2D, Doppler, and color-flow Echocardiogram [place] Farmer: Marcia Ramires CRT Ht: 6 ft 0 in Wt: 250lbs BSA: 2.34 BP: 000/00 mmHg Indications: Hypertension/HDD, stents, PE, CVA, smoker 2D Dimensions LVOT 1.93 cm (M/F) 1.5-2.5 M-Mode Dimensions RVDd 3.19 cm (0.9-2.6) LA Diam 4.09 cm (1.9-4.0) LVDd 5.84 cm (3.5-5.7) Ao Diam 4.56 cm (2.0-3.7) LVDs 4.41 cm (3.5-5.7) IVSd 1.42 cm (0.6-1.1) PWd 0.76 cm (0.6-1.1) EF (Teich) 47.90% FS 24.50% EDV (Teich) 169.20 mL TAPSE 2.47 (<1.7) ESV (Teich) 88.20 mL LV Diastology E Decel Time 107.00 (160-240 msec) E/A Ratio 0.66 MED E' 7.60 (< 7 cm/sec) MED A' 9.60 cm/s E'/MED E' Ratio 6.87 (>14) LAT E' 5.30 (<10 cm/sec) LAT A' 13.10 cm/s E/LAT E' Ratio 9.85 (>14) Aortic Valve AO Peak GR. 6.70 mmHg Mitral Valve MV A Velocity 79.00 (40-130 cm/s) E/A Ratio 0.66 MV Decel. Time 107.00 (160-240 ms) Pulmonary Valve PV Peak Velocity 183.00 (50-150 cm/s) Tricuspid Valve TR P. Velocity 289.00 cm/s RAP Estimate 10.00 mmHg RVSP 43.30 mmHg Left Ventricle Technically very difficult and poor study, endocardial surfaces are very poorly visualized. Left atrium is mildly enlarged, left ventricle is normal size, borderline left ventricular systolic function, visually estimated ejection fraction probably 45 to 50%, with no obvious regional wall motion abnormality, endocardial surfaces are very poorly visualized. Grade 1 diastolic dysfunction seen without tissue Doppler evidence of raise left atrial pressure. Right Ventricle Right atrium and right ventricle mildly enlarged with normal contractility. Aortic Valve Aortic valve is thickened and calcified without Doppler evidence of aortic stenosis or aortic insufficiency. Mitral Valve Mitral valve leaflets are minimally thickened, there is mild mitral regurgitation. Tricuspid Valve Tricuspid valve is grossly normal, there is mild tricuspid regurgitation, tricuspid regurgitation jet velocity is inadequate for calculation of the right ventricular systolic pressure. Pulmonic Valve Pulmonic valve is poorly visualized. Great Vessels Aortic root is normal size. Inferior vena cava is not well visualized. Pericardium No significant pericardial effusion noted. Conclusion 1. Technically very difficult and poor study, endocardial surfaces are very poorly visualized, mild biatrial enlargement, normal left ventricular size, mild concentric left ventricular hypertrophy, estimated ejection fraction is probably between 45 to 50% with no obvious regional wall motion abnormality, grade 1 diastolic dysfunction seen without tissue Doppler evidence of raise left atrial pressure. 2. Mildly enlarged right ventricle with normal contractility. 3. Mild mitral and tricuspid regurgitation. 4. No significant pericardial effusion noted. Electronically signed by : Darryl Dillon MD 11/07/2020 07:08:29
--- NOTE | 2020-11-06 09:42 | HMH.PULMCON ---
*Admission Date: 11/03/20 *Reason for consult:: Acute hypoxic respiratory failure, pulmonary embolism, COVID-19 pneumonia *History of present illness: Mr. Maciel is 70-year-old male, yet to be vaccinated, no significant smoking no prior respiratory complaints not on any inhaler was presented to hospital with worsening respiratory distress and found to be having COVID-19 and CTA showed diffuse bilateral pulmonary plates along with pulmonary [place] regimental admitted to the hospital needing high flow nasal cannula to maintain his oxygen saturations and pulmonary was called for further management. [facility] History Medical History: Reports:: Hypertension Denies:: Cancer, Diabetes Mellitus Type 1, Diabetes Mellitus Type 2, Internal Pacemaker, MRSA *Have you ever received a pneumonia vaccine?: No *Have you received a flu vaccine this season?: No Other Surgeries: Yes: Other. No: Pacemaker Amputation: No Fractures: No - *Social History Last grade of school completed: High school graduate Smoking Status: Current every day smoker Tobacco Type: cigarettes # Packs/Day (cigarettes): 1 #Yrs smoked (if former smoker): 20 Alcohol Intake: never Alcohol Intake Frequency:: 0-2 drinks per day Substance Use Type: denies use *Occupational Status:: employed *Travel in the last 8 weeks: None Family Hx:: Asthma, Cancer, Heart Attack, Hypertension, Stroke ROS - Cons Reports anorexia, Reports body ache(s), Reports chills - Card Reports chest pain, Reports shortness of breath, Reports shortness of breath with activity - Resp Respiratory: Reports chest congestion, Reports cough, Reports non-productive cough, Reports dyspnea on exertion, Reports pain on inspiration - GI Gastrointestingal: Denies: abdominal pain - [place] Musculoskeletal: Reports muscle weakness - Psych Reports abnormal sleep pattern Meds Home Medications Medication Instructions Recorded Confirmed Type Gabapentin [Gabapentin 400mg Cap] 400 mg PO TID 11/03/20 11/03/20 History Oxycodone HCl 5 mg PO BID 11/03/20 11/04/20 History Meloxicam 15 mg PO DAILY 11/04/20 11/04/20 History Metoprolol Succinate [Metoprolol 50 mg PO DAILY 11/04/20 11/04/20 History Succinate 50mg Tablet*] Tizanidine HCl 4 mg PO BID 11/04/20 11/04/20 History Allergies Allergy/AdvReac Type Severity Reaction Status Date / Time hydrocodone Allergy Unknown Unknown Verified 11/04/20 08:07 allergy reaction Iodinated Contrast Media Allergy Unknown Unknown Verified 11/04/20 08:07 allergy reaction propoxyphene Allergy Unknown Unknown Verified 11/04/20 08:07 allergy reaction Exam - Constitutional Constitutional:: Absent: no acute distress, comfortable - HENMT Exam HENMT: Present: normocephalic - Eye Exam Eyes:: Present: normal appearance both eyes and related structures - Neck Exam Neck:: Present: normal visual inspection - Respiratory Exam Respiratory:: Present: respiratory distress, decreased breath sounds, crackles. Absent: able to speak in complete sentences - Cardiovascular Exam Cardiac:: Present: S1, S2 - GI Exam GI:: Present: soft - Skin Exam Skin: Present: warm, no rash - Neurological Exam Neurological: Present: alert, awake, normal cognition - Extremities Exam Extremities: Present: no cyanosis, no clubbing, no edema Internal Medicine - CN: Reslt - Labs CBC & Chem 7: 11/05/20 05:40 11/06/20 05:34 Labs: Short CBC 11/05/20 Range/Units 05:40 WBC 12.7 H D (4.8-10.8) K/mm3 Hgb 10.6 L (14.1-18.0) g/dL Hct 32.9 L (42.0-52.0) % Plt Count 258 D (142-424) K/mm3 [facility] 11/06/20 05:34 Sodium 138 Potassium 4.0 Chloride 105 Carbon Dioxide 25 BUN 22 H Creatinine 0.70 Glucose 89 D Calcium 8.4 Liver Function 11/06/20 Range/Units 05:34 Total Bilirubin 0.6 (0.2-1.3) mg/dl AST 55 D (17-59) U/L ALT 37 D (12-78) U/L Alkaline Phosphatase 96 (38-126) U/L Albumin 2.9 L D (3.5-5.0)
--- NOTE | 2020-11-06 10:29 | HMH.CNCARD ---
History of Present Illness Consult date: 11/06/20 Requesting physician: Pepe Dewey Consult reason: shortness of breath Chief complaint: SOA Additional Medical History:: 1. Hypertension 2. History of coronary artery disease with coronary stenting on 2 separate occasions greater than 5 years ago by his land measurer in [place], [place]. 3. COVID-19 pneumonia, 10/2020 4. Bilateral pulmonary emboli, 10/2020 History of present illness: Patient is a 70-year-old male with a history of asthma who presented to the emergency room with shortness of breath. Patient was vaccinated for Covid with the Moderiba x2. Was earlier in the year. He has been caring for 2 family members who are Covid positive. Over the last 2 days he has had shortness of breath chills nausea. He uses albuterol at home. Serology detected Covid. Chest x-ray showed views airspace disease. CTA chest demonstrated bilateral pulmonary emboli and features suggesting interstitial pneumonitis more likely the result of Covid. Patient is admitted for further treatment and evaluation, has been started on Xarelto for anticoagulation. I suspect his pulmonary emboli are a sequela of his Covid infection. Patient has a remote history of stroke. Patient is currently on Vapotherm in no respiratory distress. Patient is followed by an outside physician. Patient is treated for chronic pain. He has some tenderness to palpation his right calf and lower leg. The above per Dr. Dewey Patient is in stepdown on high flow oxygen at 40 L/min through nonrebreather with nasal cannula oxygen at high flow as well maintaining saturations between 84 to 88%. Patient's information is noted above. He does relate history of coronary disease with stents placed greater than 5 years ago on 2 separate occasions by his land measurer in [place], [place]. He received his second Covid vaccination approximately 2 to 3 months ago. Cardiology consulted due to elevated troponins in the setting of COVID-19 pneumonia and bilateral pulmonary emboli. Echocardiogram is being performed this morning with results pending at this time. His EKG is sinus rhythm with left bundle branch block. Age unknown. [facility] History Medical History: Reports:: Hypertension Denies:: Cancer, Diabetes Mellitus Type 1, Diabetes Mellitus Type 2, Internal Pacemaker, MRSA *Have you ever received a pneumonia vaccine?: No *Have you received a flu vaccine this season?: No Other Surgeries: Yes: Other. No: Pacemaker Amputation: No Fractures: No - *Social History Last grade of school completed: High school graduate Smoking Status: Current every day smoker Tobacco Type: cigarettes # Packs/Day (cigarettes): 1 #Yrs smoked (if former smoker): 20 Alcohol Intake: never Alcohol Intake Frequency:: 0-2 drinks per day Substance Use Type: denies use *Occupational Status:: employed *Travel in the last 8 weeks: None Family Hx:: Asthma, Cancer, Heart Attack, Hypertension, Stroke Meds Home Medications Medication Instructions Recorded Confirmed Type Gabapentin [Gabapentin 400mg Cap] 400 mg PO TID 11/03/20 11/03/20 History Oxycodone HCl 5 mg PO BID 11/03/20 11/04/20 History Meloxicam 15 mg PO DAILY 11/04/20 11/04/20 History Metoprolol Succinate [Metoprolol 50 mg PO DAILY 11/04/20 11/04/20 History Succinate 50mg Tablet*] Tizanidine HCl 4 mg PO BID 11/04/20 11/04/20 History Allergies Allergy/AdvReac Type Severity Reaction Status Date / Time hydrocodone Allergy Unknown Unknown Verified 11/04/20 08:07 allergy reaction Iodinated Contrast Media Allergy Unknown Unknown Verified 11/04/20 08:07 allergy reaction propoxyphene Allergy Unknown Unknown Verified 11/04/20 08:07 allergy reaction Exam Vital signs and Labs for Last 24 Hours: Temp Pulse Resp BP Pulse Ox 98.1 F 93 H 28 H 111/47 L 91 L 11/06/20 08:00 11/06/20 08:00 11/06/20 08:00 11/06/20 08:00 11/06/20 08:00 Laboratory Results - last 24 h
[2020-11-06 11:51] LABS: Activated Partial Thrombo Time 27.4 seconds (22.8-30.6)
--- NOTE | 2020-11-06 13:16 | HMH.ACPN2 ---
Internal Medicine - PN: Subj *Date: 11/06/20 *Time: 09:00 Interval history: pt laying in bed states feels about the same.c/o soa worse with any activity Exam Vital signs and Labs for Last 24 Hours: Temp Pulse Resp BP Pulse Ox 98.6 F 71 40 H 118/64 87 L 11/06/20 11:13 11/06/20 12:07 11/06/20 11:13 11/06/20 11:13 11/06/20 11:13 Laboratory Results - last 24 hr 11/06/20 05:34: Sodium 138, Potassium 4.0, Chloride 105, Carbon Dioxide 25, Anion Gap 12.0, BUN 22 H, Creatinine 0.70, Estimated Creat Clear 114, Estimated GFR 112, Est GFR ( Amer) 136, Glucose 89 D, Calcium 8.4, Total Bilirubin 0.6, AST 55 D, ALT 37 D, Alkaline Phosphatase 96, Total Protein 6.6, Albumin 2.9 L D, Globulin 3.7 H, Albumin/Globulin Ratio 0.8 L 11/06/20 11:20: APTT 27.4 I & O for Last 24 hours: Intake & Output 11/04/20 11/05/20 11/06/20 11/07/20 11:59 11:59 11:59 11:59 Intake Total 360 / 360 2093 / 2093 960 / 960 Output Total 700 / 700 1250 / 1250 1575 / 1575 Balance -340 / -340 843 / 843 -615 / -615 Weight 250 lb 15.94 oz 251 lb 5.231 oz Microbiology Reports for the Last 24 Hours: Microbiology 11/05/20 06:40 Sputum - Expectorated Sputum Gram Stain - Final 11/05/20 06:40 Sputum - Expectorated Sputum Sputum Culture - Preliminary 11/03/20 19:53 Blood Blood Culture - Preliminary NO GROWTH AFTER 48 HOURS 11/03/20 19:53 Blood Blood Culture - Preliminary NO GROWTH AFTER 48 HOURS - Constitutional mild distress - *Routine HEENT Exam Head: Present: normocephalic Eye: Present: PERRL ENT: Present: mucous membranes moist - *Routine Respiratory Exam Present: rhonchi, wheezes - *Routine Cardiovascular Exam Present: RRR - *Routine Abdominal Exam Present: soft, normoactive bowel sounds. Absent: tenderness - *Routine Extremities Exam Absent: cyanosis, clubbing, edema - *Routine Skin Exam Present: warm. Absent: rash - *Routine Neurological Exam Present: alert, oriented X3 Assessment and Plan (1) COVID-19 with pulmonary comorbidity Status: Acute Category: Medical Code(s): U07.1 - COVID-19; J98.4 - Other disorders of lung (2) Pulmonary embolism associated with COVID-19 Status: Acute Category: Medical Code(s): U07.1 - COVID-19; I26.99 - Other pulmonary embolism without acute cor pulmonale (3) Elevated troponin I level Status: Acute Category: Medical Code(s): R77.8 - Other specified abnormalities of plasma proteins (4) Left bundle branch block (LBBB) Status: Acute Category: Medical Code(s): I44.7 - Left bundle-branch block, unspecified (5) History of stroke Status: Acute Category: Medical Code(s): Z86.73 - Personal history of transient ischemic attack (TIA), and cerebral infarction without residual deficits (6) Elevated brain natriuretic peptide (BNP) level Status: Acute Category: Medical Code(s): R79.89 - Other specified abnormal findings of blood chemistry (7) Peroneal DVT (deep venous thrombosis) Status: Acute Qualifiers: Laterality: bilateral Category: Medical Code(s): I82.459 - Acute embolism and thrombosis of unspecified peroneal vein (8) Pneumonia due to COVID-19 virus Status: Acute Category: Medical Code(s): U07.1 - COVID-19; J12.82 - Pneumonia due to coronavirus disease 2019 - Assessment and plan all Dx Assessment and Plan for all problems:: rounded with dr chi all orders per dr chi pulm consult cardiology consult monitor labs
--- NOTE | 2020-11-06 14:51 | HMH.PHAHEP ---
<Louis Holloway - Last Filed: 11/06/20 14:51> [facility] Pharmacy Heparin Dosing - Demographic Data Admission date:: 11/06/20 Date: 11/06/20 (N) Time: 14:51 Allergies/Adverse Reactions: Allergies Allergy/AdvReac Type Severity Reaction Status Date / Time hydrocodone Allergy Unknown Unknown Verified 11/04/20 08:07 allergy reaction Iodinated Contrast Media Allergy Unknown Unknown Verified 11/04/20 08:07 allergy reaction propoxyphene Allergy Unknown Unknown Verified 11/04/20 08:07 allergy reaction - Indication Medication therapy:: Heparin Patient Problems: Current Active Problems COVID-19 with pulmonary comorbidity (Acute) Pulmonary embolism associated with COVID-19 (Acute) Elevated troponin I level (Acute) Elevated brain natriuretic peptide (BNP) level (Acute) Left bundle branch block (LBBB) (Acute) History of stroke (Acute) Peroneal DVT (deep venous thrombosis) (Acute) Pneumonia due to COVID-19 virus (Acute) Bradycardia (Acute) Anemia (Acute) Pneumothorax, right (Acute) Hyperkalemia (Acute) Cardiopulmonary arrest with successful resuscitation (Acute) Ventricular tachycardia (Acute) Left bundle branch block (LBBB) (Acute) Desired PTT range:: 50-70 seconds - Monitoring Dose Monitor 1 Date: 11/06/20 Time: 12:32 PTT Result:: PTT 27.4 Infusion Rate:: START WITH HEPARIN 9000 UNITS X1 DOSE IV THEN HEPARIN 2000 UNITS/HR (40 ML/HR). - Core Measures Most Recent Labs:: Laboratory Results - last 24 hr 11/06/20 05:34: Sodium 138, Potassium 4.0, Chloride 105, Carbon Dioxide 25, Anion Gap 12.0, BUN 22 H, Creatinine 0.70, Estimated Creat Clear 114, Estimated GFR 112, Est GFR ( Amer) 136, Glucose 89 D, Calcium 8.4, Total Bilirubin 0.6, AST 55 D, ALT 37 D, Alkaline Phosphatase 96, Total Protein 6.6, Albumin 2.9 L D, Globulin 3.7 H, Albumin/Globulin Ratio 0.8 L 11/06/20 11:20: APTT 27.4 <Pipe Magaña - Last Filed: 11/30/20 09:20> [facility] Pharmacy Heparin Dosing - Demographic Data Height: 1.85 m Weight: 94.4 kg - Indication CVA?: No Bleeding problem?: No Kidney disease?: No MS?: No Desired PTT range:: 50-70 seconds - Labs Anticoagulation Lab Results:: 11/07/20 05:40 Hgb 10.7 L Hct 33.5 L Plt Count 200 - Monitoring Dose Monitor 2 Date: 11/06/20 Time: 16:30 PTT Result:: 172.3 Infusion Rate:: DECREASE RATE BY 3 U/KG/HR TO 1550 U/HR = 31 ML/HR Dose Monitor 3 Date: 11/06/20 Time: 20:18 PTT Result:: 80.6 Infusion Rate:: DECREASE RATE BY 1 U/KG/HR TO 1450 U/HR = 29 ML/HR Dose Monitor 4 Date: 11/07/20 Time: 01:05 PTT Result:: 53.2 Infusion Rate:: CONTINUE CURRENT RATE OF 1450 U/HR = 29 ML/HR Dose Monitor 5 Date: 11/07/20 Time: 05:40 PTT Result:: 45.2 Infusion Rate:: INCREASE RATE BY 2 U/KG/HR TO 1775 U/HR = 35.5 ML/HR PLUS 3000 IU BOLUS Dose Monitor 6 Date: 11/07/20 Time: 11:05 PTT Result:: 75.7 Infusion Rate:: DECREASE RATE BY 1U/KG/HR TO 1600 U/HR = 32 ML/HR Dose Monitor 7 Date: 11/07/20 Time: 16:25 PTT Result:: 50.4 Infusion Rate:: CONTINUE CURRENT RATE OF 1600 U/HR = 32 ML/HR Dose Monitor 8 Date: 11/07/20 Time: 22:15 PTT Result:: 54.2 Infusion Rate:: CONTINUE CURRENT RATE OF 1600 U/HR = 32 ML/HR Dose Monitor 9 Date: 11/08/20 Time: 06:15 PTT Result:: 53.6 Infusion Rate:: CONTINUE CURRENT RATE OF 1600 U/HR = 32 ML/HR Dose Monitor 10 Date: 11/09/20 Time: 06:00 PTT Result:: 46.7 Infusion Rate:: BOLUS 3000 UNITS OF HEPARIN AND INCREASE RATE BY ~2U/KG/HR TO 1800 UNITS/HR = 36 ML/HR Dose Monitor 11 Date: 11/09/20 Time: 15:30 PTT Result:: 57.2 Infusion Rate:: CONTINUE CURRENT RATE OF 1800 UNITS/HR = 36 ML/HR Dose Monitor 12 Date: 11/10/20 Time: 02:40 PTT Result:: 62.8 Infusion Rate:: CONTINUE CURRENT RATE OF 1800 UNITS/HR = 36 ML/HR Dose Monitor 13 Date: 11/11/20 Time: 05:00 PTT Result:: 77.2 I
[2020-11-06 18:01] LABS: Activated Partial Thrombo Time 172.3 seconds (22.8-30.6)
[2020-11-06 21:05] LABS: Activated Partial Thrombo Time 80.6 seconds (22.8-30.6)
--- NOTE | 2020-11-06 23:07 | PC.NURSE ---
He is A&Ox4. He denies pain. He reports SOA but states no more than he has been. He has a productive cough with white, pink tinged sputum. His O2 sats decrease when he is coughing and take several times to rebound. He has been placed on the bipap.
--- NOTE | 2020-11-06 23:27 | PC.NURSE ---
He is A&Ox4. He denies pain. He reports SOA but states no more than he has been. He has a productive cough with white, pink tinged sputum. His O2 sats decrease when he is coughing and take several times to rebound. He continues on vapotherm @ 40LPM 100%FiO2 with a non-rebreather.
[2020-11-07] VITALS (36 sets, daily range): BP systolic 94–170; BP diastolic 54–97; PULSE 45–96; RESP 0–51; TEMP 36.1–39; O2SAT 85–99; BMI 30.2
[2020-11-07 01:52] LABS: Activated Partial Thrombo Time 53.2 seconds (22.8-30.6)
--- NOTE | 2020-11-07 05:51 | PC.NURSE ---
He was given acetaminophen for a fever. Respirations have decreased and O2 increased since his temperature decreased.
--- NOTE | 2020-11-07 06:00 | XR_ITS ---
PROCEDURE INFORMATION: Exam: XR Chest Exam date and time: 11/07/2020 6:00 AM Age: 70 years old Clinical indication: Shortness of breath; Additional info: Covid pneumpnia TECHNIQUE: Imaging protocol: XR of the chest. Views: 1 view. COMPARISON: CR XR CHEST PORTABLE 11/05/2020 5:42 AM FINDINGS: Lungs: Again noted is hazy airspace consolidation bilaterally. This finding is unchanged in the interval. No new pulmonary infiltrate or consolidation. Pleural spaces: Unremarkable. No pleural effusion. No pneumothorax. Heart/Mediastinum: Unremarkable. No cardiomegaly. Bones/joints: Unremarkable. IMPRESSION: Hazy bilateral airspace consolidation, unchanged in the interval.
[2020-11-07 06:45] LABS: Basophils % 0.2 % (0.1-2.0); Eosinophils % 0.3 % (0.1-12.0); Hematocrit 33.5 % (42.0-52.0); Hemoglobin 10.7 g/dL (14.1-18.0); Lymphocytes # 0.9 K/mm3 (0.7-4.5); Lymphocytes % 6.8 % (10-50); Mean Corpuscular HGB Conc 31.8 g/dL (31.8-35.4); Mean Corpuscular Hemoglobin 30.6 pg (27.0-31.2); Mean Corpuscular Volume 96.2 fl (80-94); Mean Platelet Volume 8.7 fl (7.4-10.4); Monocytes # 0.7 K/mm3 (0.1-1.0); Monocytes % 5.6 % (1.7-9.3); Neutrophils # 11.7 K/mm3 (1.8-7.8); Neutrophils % 87.1 % (37.0-80.0); Platelet Count 200 K/mm3 (142-424); Red Blood Count 3.48 M/mm3 (4.60-6.20); Red Cell Distribution Width 13.1 % (11.5-17.5); White Blood Count 13.4 K/mm3 (4.8-10.8)
[2020-11-07 06:48] LABS: Alanine Aminotransferase 31 U/L (12-78); Albumin Level 2.8 g/dl (3.5-5.0); Albumin/Globulin Ratio 0.7 (1.1-1.8); Alkaline Phosphatase 112 U/L (38-126); Anion Gap 11.1 mEq/L (5-15); Aspartate Amino Transferase 66 U/L (17-59); Bilirubin,Total 0.8 mg/dl (0.2-1.3); Blood Urea Nitrogen 20 mg/dl (9-20); Calcium 7.9 mg/dl (8.4-10.2); Carbon Dioxide 24 mmol/L (22.0-30.0); Chloride 105 mmol/L (98-107); Creatinine Clearance Estimated 78 mL/min (50-200); Estimated Glomerular Filt Rate 112 ml/min (>60); GFR (African American) 136 ML/MIN (>60); Globulin 3.8 g/dL (1.3-3.2); Glucose 112 mg/dl (74-100); Potassium 4.1 mmoL/L (3.5-5.1); Sodium 136 mmol/L (136-145); Total Protein,Serum 6.6 g/dl (6.3-8.2)
[2020-11-07 06:53] LABS: MANUAL DIFFERENTIAL MANUAL DIFFERENTIAL (MANUAL DIFF)
[2020-11-07 07:47] LABS: Activated Partial Thrombo Time 45.4 seconds (22.8-30.6)
--- NOTE | 2020-11-07 08:01 | HMH.PNCARD ---
Subjective Date: 11/07/20 Time: 08:01 Principal diagnosis: Covid, PE, CAD Interval history: 70 yo WM in ICU on BiPAP with O2 sat at 90%. Denies any chest pain. More awake and alert today. States he feels slightly better today. Maintaining sinus rhythm. Echo was a difficult study but shows LVEF of 45-50% without regional wall motion abnormalities and no significant valve disease. Exam Vital signs and Labs for Last 24 Hours: Temp Pulse Resp BP Pulse Ox 102.2 F H 86 41 H 118/64 90 L 11/07/20 04:00 11/07/20 06:36 11/07/20 06:00 11/07/20 06:36 11/07/20 06:36 Laboratory Results - last 24 hr 11/06/20 11:20: APTT 27.4 11/06/20 16:30: APTT 172.3 H* D 11/06/20 20:18: APTT 80.6 H* D 11/07/20 01:05: APTT 53.2 H 11/07/20 05:40: Sodium 136, Potassium 4.1, Chloride 105, Carbon Dioxide 24, Anion Gap 11.1, BUN 20, Creatinine 0.70, Estimated Creat Clear 78, Estimated GFR 112, Est GFR ( Amer) 136, Glucose 112 H, Calcium 7.9 L, Total Bilirubin 0.8, AST 66 H, ALT 31, Alkaline Phosphatase 112, Total Protein 6.6, Albumin 2.8 L, Globulin 3.8 H, Albumin/Globulin Ratio 0.7 L 11/07/20 05:40: WBC 13.4 H, RBC 3.48 L, Hgb 10.7 L, Hct 33.5 L, MCV 96.2 H, MCH 30.6, MCHC 31.8, RDW 13.1, Plt Count 200, MPV 8.7, Neut % (Auto) 87.1 H, Lymph % (Auto) 6.8 L, [place] % (Auto) 5.6, Eos % (Auto) 0.3, Baso % (Auto) 0.2, Neut # (Auto) 11.7 H, Lymph # (Auto) 0.9, [place] # (Auto) 0.7, Eos # (Auto) 0.0, Baso # (Auto) 0.0 11/07/20 05:40: APTT 45.4 H I & O for Last 24 hours: Intake & Output 11/04/20 11/05/20 11/06/20 11/07/20 11:59 11:59 11:59 11:59 Intake Total 360 / 360 2093 / 2093 960 / 960 3503 / 3503 Output Total 700 / 700 1250 / 1250 1575 / 1575 1650 / 1650 Balance -340 / -340 843 / 843 -615 / -615 1853 / 1853 Weight 250 lb 15.94 oz 251 lb 5.231 oz 361 lb 12.457 oz Microbiology Reports for the Last 24 Hours: Microbiology 11/05/20 06:40 Sputum - Expectorated Sputum Gram Stain - Final 11/05/20 06:40 Sputum - Expectorated Sputum Sputum Culture - Preliminary - Constitutional mild distress - *Routine HEENT Exam Head: Present: normocephalic Eye: Present: EOMI, PERRL ENT: Present: mucous membranes moist - *Routine Neck Exam Present: supple. Absent: lymphadenopathy - *Routine Respiratory Exam Present: rhonchi - *Routine Cardiovascular Exam Present: RRR - *Routine Abdominal Exam Present: soft, normoactive bowel sounds. Absent: tenderness - *Routine Extremities Exam Absent: cyanosis, clubbing, edema - *Routine Skin Exam Present: warm. Absent: rash - *Routine Neurological Exam Present: alert, oriented X3 Progress Note: A&P (1) COVID-19 with pulmonary comorbidity Status: Acute (2) Pulmonary embolism associated with COVID-19 Status: Acute (3) Elevated troponin I level Status: Acute (4) Left bundle branch block (LBBB) Status: Acute (5) History of stroke Status: Acute (6) Elevated brain natriuretic peptide (BNP) level Status: Acute (7) Peroneal DVT (deep venous thrombosis) Status: Acute (8) Pneumonia due to COVID-19 virus Status: Acute Assessment and Plan for All Diagnoses:: 1. COVID with pneumonia, per pulmonary considering intubation today. 2. History of CAD/coronary stenting with elevated troponins, related to COVID and pulmonary emboli, near normal LVEF by echo. No plans for further testing at this time. Continue metoprolol. 3. Pulmonary emboli with peroneal DVT, on heparin. Nothing further to add at this time. Please call if needed.
[2020-11-07 08:06] LABS: ABG Base Excess -2.5 mmol/L (-2.4-2.3); ABG Oxygen Saturation 89 % (90-100); ABG PCO2 34.6 mmhg (35.0-45.0); ABG PH 7.42 mmol/L (7.35-7.45); ABG PO2 59.3 mmhg (80-100); ABG TCO2 23.1 mmhg (23-27)
[2020-11-07 08:20] LABS: Allen's Test acceptable; Oxygen 100 %; Source Left Radial
[2020-11-07 08:31] LABS: Lymphocytes % 6 % (10-50); Monocytes % 2 % (2-9); Neutrophils % 92 % (42-76); Total Cells Counted 100
[2020-11-07 08:32] LABS: Anisocytosis 1+; Hypochromasia 1+; Platelet Estimate Normal
--- NOTE | 2020-11-07 09:44 | XR_ITS ---
PROCEDURE: XR CHEST PORTABLE CLINICAL HISTORY: post intubation COMPARISON: CT CT ANGIO CHEST PE PROTOCOL from 11/03/2020 CR XR CHEST PORTABLE from 11/04/2020 CR XR CHEST PORTABLE from 11/05/2020 CR XR CHEST PORTABLE from 11/07/2020 FINDINGS: 10:03 a.m.. Endotracheal tube is now present. The tip is in good position at the T3-T4 level 6 cm above the eloisa. Diffuse bilateral airspace disease once again noted not significantly changed. There is some sparing of the left upper lobe. No evidence of pneumothorax. No acute bony abnormalities. IMPRESSION: Status post interval intubation with endotracheal tube tip in good position. No change bilateral pneumonia Dictated by: Andrea Calloway MD 11/07/2020 10:35 Andrea Calloway MD in [place] 11/07/2020 10:35
--- NOTE | 2020-11-07 10:18 | PC.NURSE ---
0905: Dr. Sadler at bedside discussing intubation with patient. Patient agrees to be intubated. Multiple attempts made to family to notify of intubation. Noel Wets RN spoke to Carlos A (son) and TRUE (grandson) and informed them of plan to intubate. Noel West RN requested for them to have patient's call. They verbalized understanding. 0918: Dr. Wang, AUSTIN GIMENEZ, at bedside. Asked patient if he is ok with being intubated. Patient verbalized he was. He also addressed Code status with patient and he wishes to remain a FC. 1002: Resp. Team: Prashant Isaac, Prashant Edwards, Prashant Whalen at bedside. Noel West RN and SHANNA Humphrey at bedside. 1004: Dr. Wang pushed 30mg of Etomidate 1005: Dr. Wang pushed 100mg of Rocuronium Vitals as follows: 144/86 Hr: 87 RR:48 SPO2:95 1006: Patient intubated with 7.5 ETT, 28 at the teeth. Color change noted and bilateral breath sounds auscultated. Tube secured with a holister lara. Patient placed on vent: Settings as follows: TV: 440, PEEP: 14, Fio2: 100% RR: 24 Vitals as follows: BP: 140/87, HR:87, RR:52, SPO2: 85% 1008: Manual BP's: Left arm: 170/80, Right Arm: 162/94 1009:CXR at bedside to do STAT portable.
--- NOTE | 2020-11-07 10:20 | HMH.ACPN2 ---
Internal Medicine - PN: Subj *Date: 11/07/20 *Time: 13:51 Interval history: 70-year-old man sitting up in bed BiPAP intact and oxygen saturations 90%. Patient does get short of breath during conversations and reports feeling tired. Exam Vital signs and Labs for Last 24 Hours: Temp Pulse Resp BP Pulse Ox 99.7 F H 77 41 H 122/80 92 L 11/07/20 08:00 11/07/20 08:00 11/07/20 08:00 11/07/20 08:00 11/07/20 08:00 Laboratory Results - last 24 hr 11/06/20 11:20: APTT 27.4 11/06/20 16:30: APTT 172.3 H* D 11/06/20 20:18: APTT 80.6 H* D 11/07/20 01:05: APTT 53.2 H 11/07/20 05:40: Sodium 136, Potassium 4.1, Chloride 105, Carbon Dioxide 24, Anion Gap 11.1, BUN 20, Creatinine 0.70, Estimated Creat Clear 78, Estimated GFR 112, Est GFR ( Amer) 136, Glucose 112 H, Calcium 7.9 L, Total Bilirubin 0.8, AST 66 H, ALT 31, Alkaline Phosphatase 112, Total Protein 6.6, Albumin 2.8 L, Globulin 3.8 H, Albumin/Globulin Ratio 0.7 L 11/07/20 05:40: WBC 13.4 H, RBC 3.48 L, Hgb 10.7 L, Hct 33.5 L, MCV 96.2 H, MCH 30.6, MCHC 31.8, RDW 13.1, Plt Count 200, MPV 8.7, Neut % (Auto) 87.1 H, Lymph % (Auto) 6.8 L, [place] % (Auto) 5.6, Eos % (Auto) 0.3, Baso % (Auto) 0.2, Neut # (Auto) 11.7 H, Lymph # (Auto) 0.9, [place] # (Auto) 0.7, Eos # (Auto) 0.0, Baso # (Auto) 0.0, Total Counted 100, Neutrophils % (Manual) 92 H, Lymphocytes % (Manual) 6 L, Monocytes % (Manual) 2, Platelet Estimate Normal, Hypochromasia 1+, Anisocytosis 1+ 11/07/20 05:40: APTT 45.4 H 11/07/20 07:33: Specimen Source Left radial, O2 % 100, ABG pH 7.42, ABG pCO2 34.6 L, ABG pO2 59.3 L, ABG HCO3 22.0, ABG Total CO2 23.1, ABG O2 Saturation 89 L, ABG Base Excess -2.5 L, Andrea Test acceptable I & O for Last 24 hours: Intake & Output 11/04/20 11/05/20 11/06/20 11/07/20 23:59 23:59 23:59 23:59 Intake Total 1972 / 1972 1320 / 1440 240 / 240 3383 / 3383 Output Total 1050 / 1650 2075 / 2475 1250 / 1790 800 / 800 Balance 923 / 323 -755 / -1035 -1010 / -1550 2583 / 2583 Weight 251 lb 5.231 oz 361 lb 12.457 oz Microbiology Reports for the Last 24 Hours: Microbiology 11/05/20 06:40 Sputum - Expectorated Sputum Gram Stain - Final 11/05/20 06:40 Sputum - Expectorated Sputum Sputum Culture - Preliminary - Constitutional mild distress, chronically ill appearing - *Routine HEENT Exam Head: Present: normocephalic Eye: Present: EOMI ENT: Present: mucous membranes moist - *Routine Neck Exam Present: trachea midline. Absent: tracheal deviation - *Routine Respiratory Exam Present: rhonchi, crackles - *Routine Cardiovascular Exam Present: RRR - *Routine Abdominal Exam Present: soft, normoactive bowel sounds. Absent: tenderness - *Routine Extremities Exam Present: pulses intact. Absent: cyanosis, clubbing, calf tenderness - *Routine Skin Exam Present: intact, dry. Absent: cyanosis, erythema, jaundice - *Routine Neurological Exam Present: alert, normal speech. Absent: motor deficit - Routine Psychiatric Exam Present: normal affect, cooperative. Absent: depressed, anxious Assessment and Plan (1) COVID-19 with pulmonary comorbidity Status: Acute Category: Medical Code(s): U07.1 - COVID-19; J98.4 - Other disorders of lung (2) Pulmonary embolism associated with COVID-19 Status: Acute Category: Medical Code(s): U07.1 - COVID-19; I26.99 - Other pulmonary embolism without acute cor pulmonale (3) Elevated troponin I level Status: Acute Category: Medical Code(s): R77.8 - Other specified abnormalities of plasma proteins (4) Left bundle branch block (LBBB) Status: Acute Category: Medical Code(s): I44.7 - Left bundle-branch block, unspecified (5) History of stroke Status: Acute Category: Medical Code(s): Z86.73 - Personal history of transient ischemic attack (TIA), and cerebral infarction without residual deficits (6) Elevated brain natriuretic peptide (BNP) level Status: Acute Category: Medical Code(s): R79.89 - Other specif
--- NOTE | 2020-11-07 10:34 | PC.NURSE ---
1 hour post intubation order placed by Phoebe Brady
--- NOTE | 2020-11-07 10:47 | PC.NURSE ---
1040: Spoke with Dr. Sadler and updated him on patient's status. reviewed current vent settings and he is ok with settings at this time.
--- NOTE | 2020-11-07 11:19 | DIET.NUTRFU ---
Nutrition consult received that pt has been intubated. Prior to being intubated pt PO intake declined to 0% yesterday. Recommend beginning TF within 24-48 hours. Will monitor pt and provide TF recommendations as consulted.
[2020-11-07 11:21] LABS: ABG HCO3 22.9 mmhg (22.0-26.0); ABG Oxygen Saturation 94 % (90-100); ABG PH 7.21 mmol/L (7.35-7.45); ABG PO2 87.8 mmhg (80-100); ABG TCO2 24.8 mmhg (23-27); Oxygen 100 %
[2020-11-07 11:22] LABS: Allen's Test Patient Unable; PEEP 12; Source Right Radial; Tidal Volume 440; Vent Rate 24
[2020-11-07 11:25] LABS: ABG PCO2 59.2 mmhg (35.0-45.0)
[2020-11-07 11:26] LABS: Microscopic, Urine URINE MICROSCOPIC (MICROSCOPIC)
[2020-11-07 11:37] LABS: Activated Partial Thrombo Time 75.7 seconds (22.8-30.6)
[2020-11-07 11:48] LABS: Appearance,Urine CLEAR (Clear); Bilirubin,Urine Negative (Negative); Blood, Urine Negative (Negative); Color,Urine AMBER (Yellow); Glucose,Urine (UA) Negative (Negative); Ketones,Urine Negative (Negative); Leukocyte Esterase,Urine Negative (Negative); Nitrate,Urine Negative (Negative); Protein,Urine TRACE (Negative); Specific Gravity, Urine >= 1.030 (1.005-1.030); Urobilinogen,Urine 0.2 EU/dl (0.2)
[2020-11-07 11:51] LABS: Bacteria,Urine Trace /lpf
--- NOTE | 2020-11-07 12:04 | HMH.PULMPN ---
Internal Medicine - PN: Subj *Date: 11/07/20 *Time: 12:04 Interval history: Patient respiratory status continued to worsen. Exam - Constitutional Constitutional:: Absent: no acute distress, comfortable - HENMT Exam HENMT: Present: normocephalic - Eye Exam Eyes:: Present: normal appearance both eyes and related structures - Neck Exam Neck:: Present: normal visual inspection - Respiratory Exam Respiratory:: Present: respiratory distress, crackles, wheezing. Absent: able to speak in complete sentences - Cardiovascular Exam Cardiac:: Present: S1, S2 - GI Exam GI:: Present: soft - Skin Exam Skin: Present: warm, no rash - Neurological Exam Neurological: Present: alert, awake, normal cognition - Extremities Exam Extremities: Present: no cyanosis, no clubbing, no edema Assessment and Plan (1) COVID-19 with pulmonary comorbidity Status: Acute Category: Medical Code(s): U07.1 - COVID-19; J98.4 - Other disorders of lung (2) Pulmonary embolism associated with COVID-19 Status: Acute Category: Medical Code(s): U07.1 - COVID-19; I26.99 - Other pulmonary embolism without acute cor pulmonale (3) Elevated troponin I level Status: Acute Category: Medical Code(s): R77.8 - Other specified abnormalities of plasma proteins (4) Left bundle branch block (LBBB) Status: Acute Category: Medical Code(s): I44.7 - Left bundle-branch block, unspecified (5) History of stroke Status: Acute Category: Medical Code(s): Z86.73 - Personal history of transient ischemic attack (TIA), and cerebral infarction without residual deficits (6) Elevated brain natriuretic peptide (BNP) level Status: Acute Category: Medical Code(s): R79.89 - Other specified abnormal findings of blood chemistry (7) Peroneal DVT (deep venous thrombosis) Status: Acute Qualifiers: Laterality: bilateral Category: Medical Code(s): I82.459 - Acute embolism and thrombosis of unspecified peroneal vein (8) Pneumonia due to COVID-19 virus Status: Acute Category: Medical Code(s): U07.1 - COVID-19; J12.82 - Pneumonia due to coronavirus disease 2019 - Assessment and plan all Dx Assessment and Plan for all problems:: #COVID-19 pneumonia: #Pulmonary embolism: #Acute hypoxic respiratory failure: 70-year-old yet to vaccinate no prior respiratory complaint no significant smoking history. Positive for COVID-[address] on admission showed extensive pulmonary emboli both right and left main pulmonary arteries and distal arteries, nonocclusive along with airspace disease. Troponins elevated at 0.13 on admission. No echocardiogram available. Blood cultures no growth 48 hours. Moderate gram-positive cocci pairs and chains and rare gram-negative rods. Patient was initiated on remdesivir dexamethasone on broad-spectrum since admission. Will escalate his antibiotics from levofloxacin to ceftriaxone and azithromycin. Patient respiratory status on this hospital is continued to worsen initially needing high flow nasal cannula with nonrebreather and escalated to BiPAP to maintain his desired oxygen saturation. His respiratory distress and will continue to worsen and after discussions addition the patient is morning plan was made to intubate and provide mechanical ventilatory support. Plan: -Continue mechanical ventilatory support - Continue AnalgoSedation with Propofol and Fentanyl with CPOT gal less than or euqal to 2 and RASS goal of 0 to 1 (Deep sedation) - VAP bundle Elevate head of the bed at 30 to 45 degrees Oral care with chlorhexidne GI ulcer prophylaxis - Famotidine 20mg IV BID Intubated and sedated. Continue above ventilatory settings. Follow repeat tracheal aspirate. We will continue cefepime. We will also continue heparin drip for his pulmonary embolism. Continue remdesivir, dexamethasone and varsity neb for COVID-19 pneumonia Follow with tracheal aspirate. Blood cultures no growth 48 hours. F
--- NOTE | 2020-11-07 15:28 | XR_ITS ---
PROCEDURE: XR CHEST PORTABLE CLINICAL HISTORY: central line confirmation COMPARISON: No exams were available for comparison FINDINGS: New left subclavian central venous line tip is in the region the SVC. No evidence of pneumothorax. There is diffuse bilateral pneumonia with some sparing in the left upper lobe. Endotracheal tube and nasogastric tube are in good position. IMPRESSION: Tubes and lines in good position. No evidence of pneumothorax with diffuse bilateral pneumonia Dictated by: Andrea Calloway MD 11/07/2020 16:31 Andrea Calloway MD in [place] 11/07/2020 16:31
--- NOTE | 2020-11-07 15:52 | HMH.GSCON ---
*Admission Date: 11/06/20 *Reason for consult:: Central line placement *History of present illness: Patient is a 70-year-old male who had presented to the emergency department with worsening respiratory distress on Friday evening, 11/03/2020. Is found to have COVID-19 positivity. CTA showed diffuse bilateral pulmonary infiltrates along with pulmonary emboli. He was admitted to the hospital needing high flow oxygen. He had clinically deteriorated requiring intubation and mechanical ventilation this morning. Review of Systems - Review of Systems Review of systems:: unable to obtain - *Neurologic Reports abnormal walking, Reports headache(s), Reports weakness, Denies abnormal hearing, Denies abnormal speech, Denies behavioral changes, Denies confusion, Denies seizure-like activity, Denies seizure-like activity [facility] History I have reviewed the patient's past medical history: Yes Medical History: Reports:: Hypertension Denies:: Cancer, Diabetes Mellitus Type 1, Diabetes Mellitus Type 2, Internal Pacemaker, MRSA *Have you ever received a pneumonia vaccine?: No *Have you received a flu vaccine this season?: No Other Surgeries: Yes: Other. No: Pacemaker Amputation: No Fractures: No - *Social History Last grade of school completed: High school graduate Smoking Status: Current every day smoker Tobacco Type: cigarettes # Packs/Day (cigarettes): 1 #Yrs smoked (if former smoker): 20 Alcohol Intake: never Alcohol Intake Frequency:: 0-2 drinks per day Substance Use Type: denies use *Occupational Status:: employed *Travel in the last 8 weeks: None Family Hx:: Asthma, Cancer, Heart Attack, Hypertension, Stroke Meds Home Medications Medication Instructions Recorded Confirmed Type Gabapentin [Gabapentin 400mg Cap] 400 mg PO TID 11/03/20 11/03/20 History Oxycodone HCl 5 mg PO BID 11/03/20 11/04/20 History Meloxicam 15 mg PO DAILY 11/04/20 11/04/20 History Metoprolol Succinate [Metoprolol 50 mg PO DAILY 11/04/20 11/04/20 History Succinate 50mg Tablet*] Tizanidine HCl 4 mg PO BID 11/04/20 11/04/20 History Allergies Allergy/AdvReac Type Severity Reaction Status Date / Time hydrocodone Allergy Unknown Unknown Verified 11/04/20 08:07 allergy reaction Iodinated Contrast Media Allergy Unknown Unknown Verified 11/04/20 08:07 allergy reaction propoxyphene Allergy Unknown Unknown Verified 11/04/20 08:07 allergy reaction Exam Vital signs and Labs for Last 24 Hours: Temp Pulse Resp BP Pulse Ox 98.4 F 71 21 137/75 93 L 11/07/20 14:55 11/07/20 14:55 11/07/20 14:55 11/07/20 14:55 11/07/20 14:55 Laboratory Results - last 24 hr 11/06/20 16:30: APTT 172.3 H* D 11/06/20 20:18: APTT 80.6 H* D 11/07/20 01:05: APTT 53.2 H 11/07/20 05:40: Sodium 136, Potassium 4.1, Chloride 105, Carbon Dioxide 24, Anion Gap 11.1, BUN 20, Creatinine 0.70, Estimated Creat Clear 78, Estimated GFR 112, Est GFR ( Amer) 136, Glucose 112 H, Calcium 7.9 L, Total Bilirubin 0.8, AST 66 H, ALT 31, Alkaline Phosphatase 112, Total Protein 6.6, Albumin 2.8 L, Globulin 3.8 H, Albumin/Globulin Ratio 0.7 L 11/07/20 05:40: WBC 13.4 H, RBC 3.48 L, Hgb 10.7 L, Hct 33.5 L, MCV 96.2 H, MCH 30.6, MCHC 31.8, RDW 13.1, Plt Count 200, MPV 8.7, Neut % (Auto) 87.1 H, Lymph % (Auto) 6.8 L, [place] % (Auto) 5.6, Eos % (Auto) 0.3, Baso % (Auto) 0.2, Neut # (Auto) 11.7 H, Lymph # (Auto) 0.9, [place] # (Auto) 0.7, Eos # (Auto) 0.0, Baso # (Auto) 0.0, Total Counted 100, Neutrophils % (Manual) 92 H, Lymphocytes % (Manual) 6 L, Monocytes % (Manual) 2, Platelet Estimate Normal, Hypochromasia 1+, Anisocytosis 1+ 11/07/20 05:40: APTT 45.4 H 11/07/20 07:33: Specimen Source Left radial, O2 % 100, ABG pH 7.42, ABG pCO2 34.6 L, ABG pO2 59.3 L, ABG HCO3 22.0, ABG Total CO2 23.1, ABG O2 Saturation 89 L, ABG Base Excess -2.5 L, Andrea Test acceptable 11/07/20 10:35: Urine Color Lisette, Urine Appearance Clear, Urine pH 6.0, Ur Specific [place] >= 1.030, Urine Protein Tra
--- NOTE | 2020-11-07 15:55 | HMH.OPNOTE ---
Date of procedure: 11/07/20 Pre-op Diagnosis:: Need for central venous access Post-op Diagnosis:: Same Procedure performed:: Placement of 7 Monegasque triple-lumen nontunneled catheter in left subclavian vein Surgeon:: To Farris MD Anesthesia: local Estimated blood loss (mL): 15 Operative findings:: Seemingly normal anatomy Operative note:: Consent had been obtained. Patient was positioned in Trendelenburg position. Left neck and chest were prepped and draped in the standard surgical fashion. Local anesthetic was infiltrated inferior to the left clavicle medial to the deltopectoral groove. 18-gauge catheter was inserted manipulating this posterior to the clavicle. Left subclavian vein was cannulated with good return of venous blood flow. Guidewire was inserted. Small incision was made at the insertion site after the needle was removed. Subcutaneous tissues were dilated. 7 Monegasque triple-lumen catheter was inserted over the guidewire using Seldinger technique. It was secured to the skin at approximately the 15 cm maryam. All ports aspirated and flushed. Clean dry sterile dressing was applied. Chest x-ray pending at the time of this dictation. Condition: critical Disposition: no change Complications:: None immediately apparent
--- NOTE | 2020-11-07 16:49 | P.PCN_ITS ---
[facility] Procedure Note Procedure Note:: I was paged to the ICU to help with intubation of this patient. Patient is Covid positive and currently fatiguing on BiPAP. I was able to discuss the plan with the patient he is agreeable for intubation. He also notes that should he get worse he would want to be a full code. Patient received etomidate 30 mg IV followed by rocuronium 100 mg IV. [place] scope was utilized and a 7.5 cuffed ET tube was passed with direct visualization and without difficulty. Patient was placed on mechanical ventilator and a chest x-ray was obtained for confirmation. Chest x-ray showed the tip of the ET tube was approximately 7.6 cm above the eloisa and was therefore advanced 2 cm and chest x-ray re-shot. Patient bettye erated the procedure well.
[2020-11-07 17:11] LABS: Activated Partial Thrombo Time 50.4 seconds (22.8-30.6)
--- NOTE | 2020-11-07 18:07 | PC.NURSE ---
[address] benoit and received orders for pt to have 2 1000ml lr bolus. if pt bphas not improved,may place pt on levophed drip. if pt levo is greater than 5mcg, pt needs to have a central line placed. Dr farris paged at 1343 in reference to pt being on levophed with drip greater than [address] Farris arrived to start Central line at 1430. received notification from dr farris at approx 1640 that it is ok to use central line. xray also shows that ETT and NG/OG are in good position as well.
[2020-11-07 23:25] LABS: Activated Partial Thrombo Time 54.2 seconds (22.8-30.6)
[2020-11-08] VITALS (36 sets, daily range): BP systolic 92–144; BP diastolic 51–70; PULSE 39–67; RESP 22–28; TEMP 15.5–36.4; O2SAT 95–100; BMI 29.9
--- NOTE | 2020-11-08 02:06 | PC.NURSE ---
He continues to be intubated and sedated. Bradycardia with BBB on telemetry. F/c patent with yellow, clear urine. Trace edema of BLE. Heel protectors in placed. HOB elevated to 30 degrees. Vent settings are as follows: AC mode TV 440 PEEP 14 Rate 28 FiO2 100%
--- NOTE | 2020-11-08 05:28 | ECG_ITS ---
APPROVED REPORT Exam: Resting ECG HR:41 bpm ECG Measurements Heart Rate 41 AXES SD 162 P 30 QRSd 156 QRS 13 QT 614 T 55 QTc 506 Conclusion Marked sinus bradycardia Left bundle branch block Abnormal ECG Electronically signed by : Alexx Salvador MD 11/08/2020 07:27:24
--- NOTE | 2020-11-08 06:00 | XR_ITS ---
PROCEDURE INFORMATION: Exam: XR Chest Exam date and time: 11/08/2020 6:00 AM Age: 70 years old Clinical indication: Device placement; Ett placement (vent status); Shortness of breath; Patient HX: Covid; Additional info: Intubated TECHNIQUE: Imaging protocol: XR of the chest. Views: 1 view. COMPARISON: CR XR CHEST PORTABLE 11/07/2020 3:51 PM FINDINGS: Tubes, catheters and devices: Endotracheal tube is present with tip 5 cm above the eloisa. Gastric drainage tube passes below the diaphragm, side port in the proximal stomach and tip not included within field of view. Left subclavian approach central venous catheter with tip in the SVC. Support devices are unchanged. Lungs: Extensive bilateral airspace opacities, right greater than left. There is mildly improved aeration of the right lung compared to prior. Pleural spaces: Bilateral costophrenic angles are blunted, probably due to trace pleural effusions. No pneumothorax. Heart/Mediastinum: Heart size exaggerated by technique, but probably mildly enlarged. Bones/joints: Unremarkable. IMPRESSION: 1. Bilateral multifocal pneumonia. Mildly improved aeration of the right lung compared to prior. 2. Unchanged support devices.
--- NOTE | 2020-11-08 06:45 | PC.NURSE ---
Dopamine gtt started @ 5 mcg/kg/min
[2020-11-08 07:35] LABS: Basophils % 0.2 % (0.1-2.0); Eosinophils % 0.1 % (0.1-12.0); Hemoglobin 10.2 g/dL (14.1-18.0); Lymphocytes # 0.5 K/mm3 (0.7-4.5); Mean Corpuscular HGB Conc 31.8 g/dL (31.8-35.4); Mean Corpuscular Hemoglobin 31.5 pg (27.0-31.2); Mean Corpuscular Volume 99.1 fl (80-94); Mean Platelet Volume 9.3 fl (7.4-10.4); Monocytes # 0.5 K/mm3 (0.1-1.0); Monocytes % 4.3 % (1.7-9.3); Neutrophils # 11.3 K/mm3 (1.8-7.8); Neutrophils % 91.4 % (37.0-80.0); Platelet Count 189 K/mm3 (142-424); Red Blood Count 3.23 M/mm3 (4.60-6.20); Red Cell Distribution Width 13.2 % (11.5-17.5); White Blood Count 12.4 K/mm3 (4.8-10.8)
[2020-11-08 07:40] LABS: ABG Base Excess -3.1 mmol/L (-2.4-2.3); ABG Oxygen Saturation 99 % (90-100); ABG PCO2 45.6 mmhg (35.0-45.0); ABG PH 7.32 mmol/L (7.35-7.45); ABG PO2 136.1 mmhg (80-100); ABG TCO2 24.4 mmhg (23-27)
[2020-11-08 07:44] LABS: MANUAL DIFFERENTIAL MANUAL DIFFERENTIAL (MANUAL DIFF)
[2020-11-08 08:03] LABS: Alanine Aminotransferase 23 U/L (12-78); Albumin Level 2.6 g/dl (3.5-5.0); Albumin/Globulin Ratio 0.7 (1.1-1.8); Alkaline Phosphatase 105 U/L (38-126); Anion Gap 12.5 mEq/L (5-15); Aspartate Amino Transferase 30 U/L (17-59); Bilirubin,Total 0.8 mg/dl (0.2-1.3); Blood Urea Nitrogen 15 mg/dl (9-20); Calcium 8.4 mg/dl (8.4-10.2); Carbon Dioxide 25 mmol/L (22.0-30.0); Chloride 112 mmol/L (98-107); Creatinine Clearance Estimated 102 mL/min (50-200); Estimated Glomerular Filt Rate 112 ml/min (>60); GFR (African American) 136 ML/MIN (>60); Globulin 3.7 g/dL (1.3-3.2); Glucose 226 mg/dl (74-100); Potassium 4.5 mmoL/L (3.5-5.1); Sodium 145 mmol/L (136-145); Total Protein,Serum 6.3 g/dl (6.3-8.2)
[2020-11-08 08:24] LABS: Oxygen 100 %; PEEP 14; Tidal Volume 440; Vent Rate 28
[2020-11-08 08:25] LABS: Source R RADIAL
[2020-11-08 08:33] LABS: Activated Partial Thrombo Time 53.6 seconds (22.8-30.6)
--- NOTE | 2020-11-08 08:40 | HMH.ACPN2 ---
Internal Medicine - PN: Subj *Date: 11/08/20 *Time: 10:33 Interval history: 70-year-old male patient lying in bed, due to increasing oxygen requirements he was intubated yesterday he tolerated that without any difficulty. This morning he is sedated. During the night heart rate decreased into the 30s cardiology was notified and beta-sky was held. Patient did not tolerate dopamine IV and currently norepinephrine infusing. Exam Vital signs and Labs for Last 24 Hours: Temp Pulse Resp BP Pulse Ox 96.0 F L 47 L 28 H 102/61 L 99 11/08/20 04:00 11/08/20 06:30 11/08/20 06:50 11/08/20 06:17 11/08/20 06:50 Laboratory Results - last 24 hr 11/07/20 10:35: Urine Color Lisette, Urine Appearance Clear, Urine pH 6.0, Ur Specific [place] >= 1.030, Urine Protein Trace, Urine Glucose (UA) Negative, Urine Ketones Negative, Urine Blood Negative, Urine Nitrate Negative, Urine Bilirubin Negative, Urine Urobilinogen 0.2, Ur Leukocyte Esterase Negative, Urine RBC None, Urine WBC None, Ur Squamous Epith Cells None, Urine Bacteria Trace 11/07/20 11:05: APTT 75.7 H* D 11/07/20 11:10: Specimen Source Right radial, O2 % 100, ABG pH 7.21 L*, ABG pCO2 59.2 H, ABG pO2 87.8, ABG HCO3 22.9, ABG Total CO2 24.8, ABG O2 Saturation 94, ABG Base Excess -5.0 L, Andrea Test Patient unable, Vent Rate 24, Tidal Volume 440, PEEP 12 11/07/20 16:25: APTT 50.4 H 11/07/20 22:15: APTT 54.2 H 11/08/20 06:00: Specimen Source R radial, O2 % 100, ABG pH 7.32 L, ABG pCO2 45.6 H, ABG pO2 136.1 H, ABG HCO3 23.0, ABG Total CO2 24.4, ABG O2 Saturation 99, ABG Base Excess -3.1 L, Vent Rate 28, Tidal Volume 440, PEEP 14 11/08/20 06:15: Sodium 145, Potassium 4.5, Chloride 112 H, Carbon Dioxide 25, Anion Gap 12.5, BUN 15, Creatinine 0.70, Estimated Creat Clear 102, Estimated GFR 112, Est GFR ( Amer) 136, Glucose 226 H, Calcium 8.4, Total Bilirubin 0.8, AST 30 D, ALT 23 D, Alkaline Phosphatase 105, Total Protein 6.3, Albumin 2.6 L, Globulin 3.7 H, Albumin/Globulin Ratio 0.7 L 11/08/20 06:15: APTT 53.6 H 11/08/20 06:15: WBC 12.4 H, RBC 3.23 L, Hgb 10.2 L, Hct 32.0 L, MCV 99.1 H, MCH 31.5 H, MCHC 31.8, RDW 13.2, Plt Count 189, MPV 9.3, Neut % (Auto) 91.4 H, Lymph % (Auto) 4.0 L, [place] % (Auto) 4.3, Eos % (Auto) 0.1, Baso % (Auto) 0.2, Neut # (Auto) 11.3 H, Lymph # (Auto) 0.5 L, [place] # (Auto) 0.5, Eos # (Auto) 0.0, Baso # (Auto) 0.0 I & O for Last 24 hours: Intake & Output 11/05/20 11/06/20 11/07/20 11/08/20 23:59 23:59 23:59 23:59 Intake Total 1320 / 1440 240 / 240 5473.044 / 5473.044 1434.375 / 1434.375 Output Total 2075 / 2475 1250 / 1790 2474 / 2474 3200 / 3200 Balance -755 / -1035 -1010 / -1550 2999.044 / 2999.044 -1765.625 / -1765.625 Weight 251 lb 5.231 oz 228 lb 1.867 oz 225 lb 11.2 oz Microbiology Reports for the Last 24 Hours: Microbiology 11/07/20 10:35 Sputum - Endotracheal Tube Aspirate Gram Stain - Final 11/05/20 06:40 Sputum - Expectorated Sputum Gram Stain - Final 11/05/20 06:40 Sputum - Expectorated Sputum Sputum Culture - Preliminary - Constitutional no acute distress Comments: Sedated - *Routine HEENT Exam Head: Present: normocephalic Eye: Present: EOMI ENT: Present: mucous membranes moist - *Routine Neck Exam Present: trachea midline. Absent: tracheal deviation - *Routine Respiratory Exam Present: patient mechanically ventilated, crackles - *Routine Cardiovascular Exam Present: bradycardia - *Routine Abdominal Exam Present: soft, normoactive bowel sounds. Absent: distended, rigid - *Routine Extremities Exam Present: pulses intact. Absent: cyanosis, clubbing - *Routine Skin Exam Present: intact, warm. Absent: cyanosis, erythema Comments: LSC TLC - *Routine Neurological Exam Present: altered mental status Sedated - Routine Psychiatric Exam Present: unable to assess Assessment and Plan (1) COVID-19 with pulmonary comorbidity Status: Acute Category: Medical Code(s): U07.1 - COVID-19; J98.4 -
--- NOTE | 2020-11-08 09:53 | DIET.NUTRFU ---
Addendum entered by Yaneth Robert 11/10/20 16:51: TF at goal rate and tolerating well- hemodynamically stable, minimal GRV, electrolytes wnl, BG avg. 140, weight stable, pt has not had a BM t/o stay- 7d. Recommend bowel regimen if continues without BM 24h. No changes to regimen at this time. Original Note: Pt intubated, nutrition consult received for enteral nutrition orders. MAP>60, electrolytes wnl. Pt with 0% PO intakes since 11/06, previously 75% intakes. Weight stable. Pt currently receiving propofol and heparin, IVF dc'd. Upon MD order recommend initiating continuous TF regimen of Pulmocare 1.5 at 20ml/h and advancing by 10ml/h q 8h as tolerated to goal rate of 55ml/h. Water flushes of 240ml q 6h meet additional fluid needs not provided by formula. This regimen provides 2000kcal, 83g protein, 141g cho, 124g fat, and 1046ml free water(2000ml total fluids with water flushes.) Order put in. Will monitor pt tolerance, meds, fluids to alter regimen as indicated.
--- NOTE | 2020-11-08 09:58 | HMH.PNCARD ---
Subjective Date: 11/08/20 Time: 09:30 Principal diagnosis: Covid, PE, CAD Interval history: 70-year-old white male in the ICU currently sedated, intubated on mechanical ventilation. Nursing relates episodes of bradycardia into the 30s overnight. Metoprolol has been subsequently discontinued. Patient's heart rate currently is sinus bradycardia in the 40s. Systolic pressure is around 100 mmHg. Exam Vital signs and Labs for Last 24 Hours: Temp Pulse Resp BP Pulse Ox 96.0 F L 47 L 28 H 102/61 L 99 11/08/20 04:00 11/08/20 06:30 11/08/20 06:50 11/08/20 06:17 11/08/20 06:50 Laboratory Results - last 24 hr 11/07/20 10:35: Urine Color Lisette, Urine Appearance Clear, Urine pH 6.0, Ur Specific [place] >= 1.030, Urine Protein Trace, Urine Glucose (UA) Negative, Urine Ketones Negative, Urine Blood Negative, Urine Nitrate Negative, Urine Bilirubin Negative, Urine Urobilinogen 0.2, Ur Leukocyte Esterase Negative, Urine RBC None, Urine WBC None, Ur Squamous Epith Cells None, Urine Bacteria Trace 11/07/20 11:05: APTT 75.7 H* D 11/07/20 11:10: Specimen Source Right radial, O2 % 100, ABG pH 7.21 L*, ABG pCO2 59.2 H, ABG pO2 87.8, ABG HCO3 22.9, ABG Total CO2 24.8, ABG O2 Saturation 94, ABG Base Excess -5.0 L, Andrea Test Patient unable, Vent Rate 24, Tidal Volume 440, PEEP 12 11/07/20 16:25: APTT 50.4 H 11/07/20 22:15: APTT 54.2 H 11/08/20 06:00: Specimen Source R radial, O2 % 100, ABG pH 7.32 L, ABG pCO2 45.6 H, ABG pO2 136.1 H, ABG HCO3 23.0, ABG Total CO2 24.4, ABG O2 Saturation 99, ABG Base Excess -3.1 L, Vent Rate 28, Tidal Volume 440, PEEP 14 11/08/20 06:15: Sodium 145, Potassium 4.5, Chloride 112 H, Carbon Dioxide 25, Anion Gap 12.5, BUN 15, Creatinine 0.70, Estimated Creat Clear 102, Estimated GFR 112, Est GFR ( Amer) 136, Glucose 226 H, Calcium 8.4, Total Bilirubin 0.8, AST 30 D, ALT 23 D, Alkaline Phosphatase 105, Total Protein 6.3, Albumin 2.6 L, Globulin 3.7 H, Albumin/Globulin Ratio 0.7 L 11/08/20 06:15: APTT 53.6 H 11/08/20 06:15: WBC 12.4 H, RBC 3.23 L, Hgb 10.2 L, Hct 32.0 L, MCV 99.1 H, MCH 31.5 H, MCHC 31.8, RDW 13.2, Plt Count 189, MPV 9.3, Neut % (Auto) 91.4 H, Lymph % (Auto) 4.0 L, [place] % (Auto) 4.3, Eos % (Auto) 0.1, Baso % (Auto) 0.2, Neut # (Auto) 11.3 H, Lymph # (Auto) 0.5 L, [place] # (Auto) 0.5, Eos # (Auto) 0.0, Baso # (Auto) 0.0 I & O for Last 24 hours: Intake & Output 11/05/20 11/06/20 11/07/20 11/08/20 11:59 11:59 11:59 11:59 Intake Total 2093 / 2093 960 / 960 3503 / 3503 3524.419 / 3524.419 Output Total 1250 / 1250 1575 / 1575 1999 / 2032 4524 / 4524 Balance 843 / 843 -615 / -615 1503 / 1470 -999.581 / -999.581 Weight 251 lb 5.231 oz 228 lb 1.867 oz 225 lb 11.2 oz Microbiology Reports for the Last 24 Hours: Microbiology 11/07/20 10:35 Sputum - Endotracheal Tube Aspirate Gram Stain - Final 11/05/20 06:40 Sputum - Expectorated Sputum Gram Stain - Final 11/05/20 06:40 Sputum - Expectorated Sputum Sputum Culture - Preliminary - *Routine Respiratory Exam Present: patient mechanically ventilated - *Routine Cardiovascular Exam Present: RRR, bradycardia Progress Note: A&P (1) COVID-19 with pulmonary comorbidity Status: Acute (2) Pulmonary embolism associated with COVID-19 Status: Acute (3) Elevated troponin I level Status: Acute (4) Left bundle branch block (LBBB) Status: Acute (5) History of stroke Status: Acute (6) Elevated brain natriuretic peptide (BNP) level Status: Acute (7) Peroneal DVT (deep venous thrombosis) Status: Acute (8) Pneumonia due to COVID-19 virus Status: Acute Assessment and Plan for All Diagnoses:: 1. COVID-19 pneumonia, currently sedated and intubated on mechanical ventilation. Pulmonary managing. 2. Sinus bradycardia likely related to sedation on top of beta-sky therapy. Beta-sky therapy has now been discontinued. Continue to monitor on telemetry. 3. Hypotension, improved on low-dose Levophed 4. Pulmon
[2020-11-08 12:01] LABS: Lymphocytes % 3 % (10-50); Monocytes % 3 % (2-9); Neutrophils % 94 % (42-76); Total Cells Counted 100
[2020-11-08 12:02] LABS: Platelet Estimate Normal
--- NOTE | 2020-11-08 13:01 | HMH.PULMPN ---
Internal Medicine - PN: Subj *Date: 11/08/20 *Time: 13:01 Interval history: No acute respiratory vents overnight. Patient remained stable. Oxygenation improved. Exam - Constitutional Constitutional:: Present: comfortable - HENMT Exam HENMT: Present: normocephalic - Eye Exam Eyes:: Present: normal appearance both eyes and related structures - Neck Exam Neck:: Present: normal visual inspection - Respiratory Exam Respiratory:: Present: crackles. Absent: wheezing - Cardiovascular Exam Cardiac:: Present: S1, S2 - GI Exam GI:: Present: soft - Skin Exam Skin: Present: warm, no rash - Neurological Exam Intubated and sedated - Extremities Exam Extremities: Present: no cyanosis, no clubbing, edema Assessment and Plan (1) COVID-19 with pulmonary comorbidity Status: Acute Category: Medical Code(s): U07.1 - COVID-19; J98.4 - Other disorders of lung (2) Pulmonary embolism associated with COVID-19 Status: Acute Category: Medical Code(s): U07.1 - COVID-19; I26.99 - Other pulmonary embolism without acute cor pulmonale (3) Elevated troponin I level Status: Acute Category: Medical Code(s): R77.8 - Other specified abnormalities of plasma proteins (4) Left bundle branch block (LBBB) Status: Acute Category: Medical Code(s): I44.7 - Left bundle-branch block, unspecified (5) History of stroke Status: Acute Category: Medical Code(s): Z86.73 - Personal history of transient ischemic attack (TIA), and cerebral infarction without residual deficits (6) Elevated brain natriuretic peptide (BNP) level Status: Acute Category: Medical Code(s): R79.89 - Other specified abnormal findings of blood chemistry (7) Peroneal DVT (deep venous thrombosis) Status: Acute Qualifiers: Laterality: bilateral Category: Medical Code(s): I82.459 - Acute embolism and thrombosis of unspecified peroneal vein (8) Pneumonia due to COVID-19 virus Status: Acute Category: Medical Code(s): U07.1 - COVID-19; J12.82 - Pneumonia due to coronavirus disease 2019 (9) Bradycardia Status: Acute Category: Medical Code(s): R00.1 - Bradycardia, unspecified - Assessment and plan all Dx Assessment and Plan for all problems:: #COVID-19 pneumonia: #Pulmonary embolism: #Acute hypoxic respiratory failure: 70-year-old yet to vaccinate no prior respiratory complaint no significant smoking history. Positive for COVID-[address] on admission showed extensive pulmonary emboli both right and left main pulmonary arteries and distal arteries, nonocclusive along with airspace disease. Troponins elevated at 0.13 on admission. No echocardiogram available. Blood cultures no growth 48 hours. Sputum stain from 11/05 moderate gram-positive cocci pairs and chains and rare gram-negative rods. Patient respiratory status on this hospital is continued to worsen initially needing high flow nasal cannula with nonrebreather and escalated to BiPAP to maintain his desired oxygen saturation. His respiratory distress and will continue to worsen and after discussions addition the patient is morning plan was made to intubate and provide mechanical ventilatory support. Plan: -Continue mechanical ventilatory support - Continue AnalgoSedation with Propofol and Fentanyl with CPOT gal less than or euqal to 2 and RASS goal of 0 to 1 (Deep sedation) - VAP bundle Elevate head of the bed at 30 to 45 degrees Oral care with chlorhexidne GI ulcer prophylaxis - Famotidine 20mg IV BID Intubated and sedated. Continue above ventilatory settings. ABG this morning showed improved oxygenation, FiO2 decreased to 80%. Showed mild hypercarbia, increase the tidal volume to 460. Continue the rate of 28. Endotracheal aspirate 10-25 WBCs no organisms seen. Nasal MRSA PCR pending. We will continue cefepime. Afebrile. Leukocytosis stable around 12. We will also continue heparin drip for his pulmonary embolism. Continue r
--- NOTE | 2020-11-08 18:14 | PC.NURSE ---
No significant changes this shift. Lungs are diminished t/o. Bowel sounds are hypo x4. His flores is to bedside draining straw colored urine. Levo was turned off at the beginning of the shift and pt has tolerated well. SB w/prolonged qt wave on telemetry. HR has been as low as 38 but mainly in the 40's. Tube feeds initiated this afternoon at 20 mls/hr. No residuals at check so rate increased to 30 mls/hr. Vent settings and VS as documented.
[2020-11-08 20:09] LABS: Eosinophils % 0.1 % (0.1-12.0); Lymphocytes # 0.4 K/mm3 (0.7-4.5); Monocytes # 0.4 K/mm3 (0.1-1.0); Neutrophils # 8.5 K/mm3 (1.8-7.8); Neutrophils % 91.2 % (37.0-80.0); Platelet Count 173 K/mm3 (142-424); Red Cell Distribution Width 13.2 % (11.5-17.5)
[2020-11-08 20:16] LABS: Basophils % 0.2 % (0.1-2.0); Hematocrit 28.7 % (42.0-52.0); Lymphocytes % 4.5 % (10-50); Mean Corpuscular HGB Conc 30.7 g/dL (31.8-35.4); Mean Corpuscular Hemoglobin 30.5 pg (27.0-31.2); Mean Corpuscular Volume 99.3 fl (80-94); Red Blood Count 2.89 M/mm3 (4.60-6.20); White Blood Count 9.4 K/mm3 (4.8-10.8)
[2020-11-08 20:22] LABS: MANUAL DIFFERENTIAL MANUAL DIFFERENTIAL (MANUAL DIFF)
[2020-11-08 20:28] LABS: Activated Partial Thrombo Time 61.7 seconds (22.8-30.6)
[2020-11-08 20:48] LABS: Lymphocytes % 2 % (10-50); Monocytes % 5 % (2-9); Neutrophils % 92 % (42-76); Platelet Estimate Normal; RBC Morphology Normal; Total Cells Counted 100
[2020-11-08 21:47] LABS: Hemoglobin 8.8 g/dL (14.1-18.0)
[2020-11-09] VITALS (34 sets, daily range): BP systolic 91–116; BP diastolic 51–64; PULSE 50–87; RESP 22–30; TEMP 36.1–37.1; O2SAT 94–99; BMI 28.8
--- NOTE | 2020-11-09 02:57 | PC.NURSE ---
He continues to be intubated and sedated. HOB elevated 30 degrees. Bradycardia on telemetry. No change in vent settings.
--- NOTE | 2020-11-09 06:00 | XR_ITS ---
PROCEDURE INFORMATION: Exam: XR Chest Exam date and time: 11/09/2020 6:00 AM Age: 70 years old Clinical indication: Device placement; Ett placement (vent status); Patient HX: Covid; Additional info: Intubated TECHNIQUE: Imaging protocol: XR of the chest. Views: 1 view. COMPARISON: CR XR CHEST PORTABLE 11/08/2020 2:53 AM FINDINGS: Tubes, catheters and devices: There is a left-sided subclavian venous catheter with the tip located appropriate position. Endotracheal tube in appropriate position. Nasogastric tube is in appropriate position. Lungs: Diffuse consolidations throughout the bilateral lung zee, unchanged compared to the previous exam. Pleural spaces: Unremarkable. No pleural effusion. No pneumothorax. Heart/Mediastinum: Unremarkable. No cardiomegaly. Bones/joints: Unremarkable. There is no acute fracture present. IMPRESSION: 1. Lines and tubes are in appropriate position. 2. Diffuse consolidations throughout the bilateral lung zee, unchanged compared to the previous exam.
[2020-11-09 07:30] LABS: Basophils % 0.1 % (0.1-2.0); Eosinophils % 0.2 % (0.1-12.0); Hematocrit 28.6 % (42.0-52.0); Lymphocytes # 0.9 K/mm3 (0.7-4.5); Lymphocytes % 8.3 % (10-50); Mean Corpuscular HGB Conc 31.3 g/dL (31.8-35.4); Mean Corpuscular Volume 98.9 fl (80-94); Mean Platelet Volume 8.9 fl (7.4-10.4); Monocytes # 0.4 K/mm3 (0.1-1.0); Monocytes % 4.3 % (1.7-9.3); Neutrophils # 8.9 K/mm3 (1.8-7.8); Platelet Count 193 K/mm3 (142-424); Red Blood Count 2.89 M/mm3 (4.60-6.20); Red Cell Distribution Width 13.2 % (11.5-17.5); White Blood Count 10.2 K/mm3 (4.8-10.8)
[2020-11-09 07:35] LABS: MANUAL DIFFERENTIAL MANUAL DIFFERENTIAL (MANUAL DIFF)
[2020-11-09 07:42] LABS: Alanine Aminotransferase 19 U/L (12-78); Albumin Level 2.3 g/dl (3.5-5.0); Albumin/Globulin Ratio 0.7 (1.1-1.8); Alkaline Phosphatase 85 U/L (38-126); Anion Gap 8.9 mEq/L (5-15); Aspartate Amino Transferase 33 U/L (17-59); Bilirubin,Total 0.3 mg/dl (0.2-1.3); Blood Urea Nitrogen 20 mg/dl (9-20); Calcium 8.2 mg/dl (8.4-10.2); Carbon Dioxide 29 mmol/L (22.0-30.0); Chloride 112 mmol/L (98-107); Creatinine Clearance Estimated 99 mL/min (50-200); Estimated Glomerular Filt Rate 112 ml/min (>60); GFR (African American) 136 ML/MIN (>60); Globulin 3.5 g/dL (1.3-3.2); Glucose 129 mg/dl (74-100); Potassium 4.9 mmoL/L (3.5-5.1); Sodium 145 mmol/L (136-145); Total Protein,Serum 5.8 g/dl (6.3-8.2)
[2020-11-09 07:43] LABS: ABG Base Excess 0.9 mmol/L (-2.4-2.3); ABG HCO3 26.7 mmhg (22.0-26.0); ABG Oxygen Saturation 99 % (90-100); ABG PH 7.34 mmol/L (7.35-7.45); ABG TCO2 28.3 mmhg (23-27); Oxygen 90 %; Tidal Volume 460
[2020-11-09 07:44] LABS: PEEP 14; Source Right Radial; Vent Rate 28
[2020-11-09 07:45] LABS: ABG PCO2 50.8 mmhg (35.0-45.0)
[2020-11-09 07:55] LABS: Activated Partial Thrombo Time 46.7 seconds (22.8-30.6)
[2020-11-09 07:58] LABS: Hypochromasia 1+; Lymphocytes % 12 % (10-50); Monocytes % 4 % (2-9); Neutrophils % 84 % (42-76); Platelet Estimate Normal; Total Cells Counted 100
--- NOTE | 2020-11-09 09:24 | HMH.ACPN2 ---
Internal Medicine - PN: Subj *Date: 11/09/20 *Time: 15:14 Interval history: 70-year-old male patient lying in bed resting quietly, he is still intubated and sedated. Presently systolic blood pressure greater then 100 and map greater than 70, norepinephrine off. Exam Vital signs and Labs for Last 24 Hours: Temp Pulse Resp BP Pulse Ox 98.6 F 58 L 28 H 97/53 L 95 11/09/20 08:00 11/09/20 09:00 11/09/20 09:00 11/09/20 09:00 11/09/20 09:00 Laboratory Results - last 24 hr 11/08/20 06:15: Total Counted 100, Neutrophils % (Manual) 94 H, Lymphocytes % (Manual) 3 L, Monocytes % (Manual) 3, Platelet Estimate Normal 11/08/20 19:45: APTT 61.7 H* D 11/08/20 19:45: WBC 9.4, RBC 2.89 L, Hgb 8.8 L D, Hct 28.7 L, MCV 99.3 H, MCH 30.5, MCHC 30.7 L, RDW 13.2, Plt Count 173, MPV 9.0, Neut % (Auto) 91.2 H, Lymph % (Auto) 4.5 L, [place] % (Auto) 4.0, Eos % (Auto) 0.1, Baso % (Auto) 0.2, Neut # (Auto) 8.5 H, Lymph # (Auto) 0.4 L, [place] # (Auto) 0.4, Eos # (Auto) 0.0, Baso # (Auto) 0.0, Total Counted 100, Neutrophils % (Manual) 92 H, Band Neutrophils % 1.0, Lymphocytes % (Manual) 2 L, Monocytes % (Manual) 5, Platelet Estimate Normal, RBC Morphology Normal 11/09/20 05:55: APTT 46.7 H 11/09/20 05:55: WBC 10.2, RBC 2.89 L, Hgb 9.0 L, Hct 28.6 L, MCV 98.9 H, MCH 31.0, MCHC 31.3 L, RDW 13.2, Plt Count 193, MPV 8.9, Neut % (Auto) 87.0 H, Lymph % (Auto) 8.3 L, [place] % (Auto) 4.3, Eos % (Auto) 0.2, Baso % (Auto) 0.1, Neut # (Auto) 8.9 H, Lymph # (Auto) 0.9, [place] # (Auto) 0.4, Eos # (Auto) 0.0, Baso # (Auto) 0.0, Total Counted 100, Neutrophils % (Manual) 84 H, Lymphocytes % (Manual) 12, Monocytes % (Manual) 4, Platelet Estimate Normal, Hypochromasia 1+ 11/09/20 05:55: Sodium 145, Potassium 4.9, Chloride 112 H, Carbon Dioxide 29, Anion Gap 8.9, BUN 20 D, Creatinine 0.70, Estimated Creat Clear 99, Estimated GFR 112, Est GFR ( Amer) 136, Glucose 129 H D, Calcium 8.2 L, Total Bilirubin 0.3, AST 33, ALT 19, Alkaline Phosphatase 85, Total Protein 5.8 L, Albumin 2.3 L D, Globulin 3.5 H, Albumin/Globulin Ratio 0.7 L 11/09/20 07:07: Specimen Source Right radial, O2 % 90, ABG pH 7.34 L, ABG pCO2 50.8 H, ABG pO2 170.0 H, ABG HCO3 26.7 H, ABG Total CO2 28.3 H, ABG O2 Saturation 99, ABG Base Excess 0.9, Vent Rate 28, Tidal Volume 460, PEEP 14 I & O for Last 24 hours: Intake & Output 11/06/20 11/07/20 11/08/20 11/09/20 23:59 23:59 23:59 23:59 Intake Total 240 / 240 5473.044 / 5473.044 3355.125 / 3355.125 1247.417 / 1247.417 Output Total 1250 / 1790 2474 / 2474 4470 / 4500 1328 / 1328 Balance -1010 / -1550 2999.044 / 2999.044 -1114.875 / -1144.875 -80.583 / -80.583 Weight 251 lb 5.231 oz 228 lb 1.867 oz 225 lb 11.2 oz 218 lb Microbiology Reports for the Last 24 Hours: Microbiology 11/05/20 06:40 Sputum - Expectorated Sputum Gram Stain - Final 11/05/20 06:40 Sputum - Expectorated Sputum Sputum Culture - Preliminary 11/06/20 08:00 Nose - Nasal MRSA Culture - Final Negative 11/07/20 10:35 Anus CRE Surveillance Culture - Final Negative 11/03/20 19:53 Blood Blood Culture - Final NO GROWTH AFTER 5 DAYS 11/03/20 19:53 Blood Blood Culture - Final NO GROWTH AFTER 5 DAYS 11/07/20 10:35 Sputum - Endotracheal Tube Aspirate Gram Stain - Final 11/07/20 10:35 Sputum - Endotracheal Tube Aspirate Sputum Culture - Preliminary - *Routine HEENT Exam Head: Present: normocephalic Eye: Present: EOMI ENT: Present: mucous membranes moist - *Routine Neck Exam Present: trachea midline. Absent: tracheal deviation - *Routine Respiratory Exam Present: crackles - *Routine Cardiovascular Exam Present: RRR - *Routine Abdominal Exam Present: soft, normoactive bowel sounds. Absent: tenderness, distended - *Routine Extremities Exam Present: pulses intact. Absent: cyanosis, clubbing - *Routine Skin Exam Present: intact, dry, warm.
--- NOTE | 2020-11-09 09:44 | HMH.PULMPN ---
Internal Medicine - PN: Subj *Date: 11/09/20 *Time: 14:14 Interval history: No acute respiratory events overnight. Exam - Constitutional Constitutional:: Present: no acute distress, comfortable - HENMT Exam HENMT: Present: normocephalic, atraumatic - Eye Exam Eyes:: Present: normal appearance both eyes and related structures - Neck Exam Neck:: Present: normal visual inspection - Respiratory Exam Respiratory:: Present: respiratory distress, crackles - Cardiovascular Exam Cardiac:: Present: S1, S2 - GI Exam GI:: Present: soft - Skin Exam Skin: Present: warm, no rash - Neurological Exam Intubated and sedated - Extremities Exam Extremities: Present: no cyanosis, no clubbing, edema Assessment and Plan (1) COVID-19 with pulmonary comorbidity Status: Acute Category: Medical Code(s): U07.1 - COVID-19; J98.4 - Other disorders of lung (2) Pulmonary embolism associated with COVID-19 Status: Acute Category: Medical Code(s): U07.1 - COVID-19; I26.99 - Other pulmonary embolism without acute cor pulmonale (3) Elevated troponin I level Status: Acute Category: Medical Code(s): R77.8 - Other specified abnormalities of plasma proteins (4) Left bundle branch block (LBBB) Status: Acute Category: Medical Code(s): I44.7 - Left bundle-branch block, unspecified (5) History of stroke Status: Acute Category: Medical Code(s): Z86.73 - Personal history of transient ischemic attack (TIA), and cerebral infarction without residual deficits (6) Elevated brain natriuretic peptide (BNP) level Status: Acute Category: Medical Code(s): R79.89 - Other specified abnormal findings of blood chemistry (7) Peroneal DVT (deep venous thrombosis) Status: Acute Qualifiers: Laterality: bilateral Category: Medical Code(s): I82.459 - Acute embolism and thrombosis of unspecified peroneal vein (8) Pneumonia due to COVID-19 virus Status: Acute Category: Medical Code(s): U07.1 - COVID-19; J12.82 - Pneumonia due to coronavirus disease 2019 (9) Bradycardia Status: Acute Category: Medical Code(s): R00.1 - Bradycardia, unspecified - Assessment and plan all Dx Assessment and Plan for all problems:: #COVID-19 pneumonia: #Pulmonary embolism: #Acute hypoxic respiratory failure: 70-year-old yet to vaccinate no prior respiratory complaint no significant smoking history. Positive for COVID-[address] on admission showed extensive pulmonary emboli both right and left main pulmonary arteries and distal arteries, nonocclusive along with airspace disease. Troponins elevated at 0.13 on admission. No echocardiogram available. Blood cultures no growth 48 hours. Sputum stain from 11/05 moderate gram-positive cocci pairs and chains and rare gram-negative rods. Nasal MRSA PCR negative Plan: -Continue mechanical ventilatory support - Continue AnalgoSedation with Propofol and Fentanyl with CPOT gal less than or euqal to 2 and RASS goal of 0 to 1 (Deep sedation) - VAP bundle Elevate head of the bed at 30 to 45 degrees Oral care with chlorhexidne GI ulcer prophylaxis - Famotidine 20mg IV BID Intubated and sedated. Continue mechanical ventilatory support. ABG this morning continued showed improved oxygenation Showed mild hypercarbia, the pH is 7.34. We will continue current tidal volume and rate at 460 and 28 and will increase the PEEP to 16. Wean FiO2 as tolerated. Endotracheal aspirate 10-25 WBCs no organisms seen. Nasal MRSA PCR pending. We will continue cefepimex7 days. We will also continue heparin drip for his pulmonary embolism. Continue remdesivir, dexamethasone x 10 days and [id number] days for COVID-19 pneumonia Blood cultures no growth 48 hours. We will closely monitor his volume status and will determine the need for Lasix as needed Hemodynamically stable. Echocardiogram showed borderline LV systolic function with EF of 45 to 50% with grade 1 diastolic dy
--- NOTE | 2020-11-09 10:29 | HMH.PNCARD ---
Subjective Date: 11/09/20 Time: 10:29 Principal diagnosis: Covid, PE, CAD Interval history: 70 yo WM in ICU, sedated on the vent. Off pressors at this time. Exam Vital signs and Labs for Last 24 Hours: Temp Pulse Resp BP Pulse Ox 98.6 F 57 L 28 H 97/56 L 97 11/09/20 08:00 11/09/20 10:05 11/09/20 10:05 11/09/20 10:05 11/09/20 10:05 Laboratory Results - last 24 hr 11/08/20 06:15: Total Counted 100, Neutrophils % (Manual) 94 H, Lymphocytes % (Manual) 3 L, Monocytes % (Manual) 3, Platelet Estimate Normal 11/08/20 19:45: APTT 61.7 H* D 11/08/20 19:45: WBC 9.4, RBC 2.89 L, Hgb 8.8 L D, Hct 28.7 L, MCV 99.3 H, MCH 30.5, MCHC 30.7 L, RDW 13.2, Plt Count 173, MPV 9.0, Neut % (Auto) 91.2 H, Lymph % (Auto) 4.5 L, [place] % (Auto) 4.0, Eos % (Auto) 0.1, Baso % (Auto) 0.2, Neut # (Auto) 8.5 H, Lymph # (Auto) 0.4 L, [place] # (Auto) 0.4, Eos # (Auto) 0.0, Baso # (Auto) 0.0, Total Counted 100, Neutrophils % (Manual) 92 H, Band Neutrophils % 1.0, Lymphocytes % (Manual) 2 L, Monocytes % (Manual) 5, Platelet Estimate Normal, RBC Morphology Normal 11/09/20 05:55: APTT 46.7 H 11/09/20 05:55: WBC 10.2, RBC 2.89 L, Hgb 9.0 L, Hct 28.6 L, MCV 98.9 H, MCH 31.0, MCHC 31.3 L, RDW 13.2, Plt Count 193, MPV 8.9, Neut % (Auto) 87.0 H, Lymph % (Auto) 8.3 L, [place] % (Auto) 4.3, Eos % (Auto) 0.2, Baso % (Auto) 0.1, Neut # (Auto) 8.9 H, Lymph # (Auto) 0.9, [place] # (Auto) 0.4, Eos # (Auto) 0.0, Baso # (Auto) 0.0, Total Counted 100, Neutrophils % (Manual) 84 H, Lymphocytes % (Manual) 12, Monocytes % (Manual) 4, Platelet Estimate Normal, Hypochromasia 1+ 11/09/20 05:55: Sodium 145, Potassium 4.9, Chloride 112 H, Carbon Dioxide 29, Anion Gap 8.9, BUN 20 D, Creatinine 0.70, Estimated Creat Clear 99, Estimated GFR 112, Est GFR ( Amer) 136, Glucose 129 H D, Calcium 8.2 L, Total Bilirubin 0.3, AST 33, ALT 19, Alkaline Phosphatase 85, Total Protein 5.8 L, Albumin 2.3 L D, Globulin 3.5 H, Albumin/Globulin Ratio 0.7 L 11/09/20 07:07: Specimen Source Right radial, O2 % 90, ABG pH 7.34 L, ABG pCO2 50.8 H, ABG pO2 170.0 H, ABG HCO3 26.7 H, ABG Total CO2 28.3 H, ABG O2 Saturation 99, ABG Base Excess 0.9, Vent Rate 28, Tidal Volume 460, PEEP 14 I & O for Last 24 hours: Intake & Output 11/06/20 11/07/20 11/08/20 11/09/20 11:59 11:59 11:59 11:59 Intake Total 960 / 960 3503 / 3503 4092.169 / 4229.169 2600.417 / 2600.417 Output Total 1575 / 1575 1999 / 2032 5249 / 5324 1941 / 1941 Balance -615 / -615 1503 / 1470 -1156.831 / -1094.831 658.417 / 658.417 Weight 251 lb 5.231 oz 228 lb 1.867 oz 225 lb 11.2 oz 218 lb Microbiology Reports for the Last 24 Hours: Microbiology 11/05/20 06:40 Sputum - Expectorated Sputum Gram Stain - Final 11/05/20 06:40 Sputum - Expectorated Sputum Sputum Culture - Preliminary 11/06/20 08:00 Nose - Nasal MRSA Culture - Final Negative 11/07/20 10:35 Anus CRE Surveillance Culture - Final Negative 11/03/20 19:53 Blood Blood Culture - Final NO GROWTH AFTER 5 DAYS 11/03/20 19:53 Blood Blood Culture - Final NO GROWTH AFTER 5 DAYS 11/07/20 10:35 Sputum - Endotracheal Tube Aspirate Gram Stain - Final 11/07/20 10:35 Sputum - Endotracheal Tube Aspirate Sputum Culture - Preliminary - Constitutional no acute distress - *Routine Respiratory Exam Present: patient mechanically ventilated - *Routine Cardiovascular Exam Present: RRR Progress Note: A&P (1) COVID-19 with pulmonary comorbidity Status: Acute (2) Pulmonary embolism associated with COVID-19 Status: Acute (3) Elevated troponin I level Status: Acute (4) Left bundle branch block (LBBB) Status: Acute (5) History of stroke Status: Acute (6) Elevated brain natriuretic peptide (BNP) level Status: Acute (7) Peroneal DVT (deep venous thrombosis) Status: Acute (8) Pneumonia due to COVID-19 virus Status: Acute
--- NOTE | 2020-11-09 14:34 | PC.NURSE ---
Pt remains intubated. Lungs are clear but diminished. Bowel sounds hypoactive x4. He has been turned q2hrs and oral care provided. He has tolerated tube feeds thus far. Residuals have been < 5mls at checks. Currently running at 50 mls/hr. His flores is bedside draining clear yellow urine. NSR/SB on telemetry. Will continue to monitor.
[2020-11-09 16:48] LABS: Activated Partial Thrombo Time 57.2 seconds (22.8-30.6)
[2020-11-10] VITALS (36 sets, daily range): BP systolic 102–150; BP diastolic 56–90; PULSE 54–86; RESP 26–30; TEMP 36.2–37.4; O2SAT 91–99; BMI 29.9
[2020-11-10 03:03] LABS: Basophils # 0.1 K/mm3 (0-0.2); Basophils % 0.6 % (0.1-2.0); Eosinophils % 0.1 % (0.1-12.0); Hemoglobin 8.9 g/dL (14.1-18.0); Lymphocytes % 10.9 % (10-50); Mean Corpuscular HGB Conc 30.7 g/dL (31.8-35.4); Mean Corpuscular Volume 100.8 fl (80-94); Mean Platelet Volume 9.1 fl (7.4-10.4); Monocytes # 0.6 K/mm3 (0.1-1.0); Monocytes % 6.3 % (1.7-9.3); Neutrophils # 7.6 K/mm3 (1.8-7.8); Neutrophils % 82.1 % (37.0-80.0); Platelet Count 219 K/mm3 (142-424); Red Blood Count 2.88 M/mm3 (4.60-6.20); Red Cell Distribution Width 13.5 % (11.5-17.5); White Blood Count 9.3 K/mm3 (4.8-10.8)
[2020-11-10 03:12] LABS: Alanine Aminotransferase 28 U/L (12-78); Albumin Level 2.3 g/dl (3.5-5.0); Albumin/Globulin Ratio 0.7 (1.1-1.8); Alkaline Phosphatase 106 U/L (38-126); Anion Gap 8.1 mEq/L (5-15); Aspartate Amino Transferase 44 U/L (17-59); Bilirubin,Total 0.3 mg/dl (0.2-1.3); Blood Urea Nitrogen 24 mg/dl (9-20); Calcium 7.9 mg/dl (8.4-10.2); Carbon Dioxide 30 mmol/L (22.0-30.0); Chloride 109 mmol/L (98-107); Creatinine Clearance Estimated 99 mL/min (50-200); Estimated Glomerular Filt Rate 112 ml/min (>60); GFR (African American) 136 ML/MIN (>60); Globulin 3.3 g/dL (1.3-3.2); Glucose 163 mg/dl (74-100); Potassium 5.1 mmoL/L (3.5-5.1); Sodium 142 mmol/L (136-145); Total Protein,Serum 5.6 g/dl (6.3-8.2)
[2020-11-10 03:29] LABS: Activated Partial Thrombo Time 62.8 seconds (22.8-30.6)
--- NOTE | 2020-11-10 06:00 | XR_ITS ---
PROCEDURE INFORMATION: Exam: XR Chest Exam date and time: 11/10/2020 6:00 AM Age: 70 years old Clinical indication: Device placement; Ett placement (vent status); Patient HX: Covid; Additional info: Intubated TECHNIQUE: Imaging protocol: XR of the chest. Views: 1 view. COMPARISON: CR XR CHEST PORTABLE 11/09/2020 5:10 AM FINDINGS: Tubes, catheters and devices: Endotracheal tube tip is 5.7 cm from the eloisa. Enteric tube tip is in the left upper quadrant with the tip extending off the inferior aspect of the study, likely in the stomach. Left-sided subclavian central venous catheter with the tip projecting just to the left of midline. Lungs: There is limited depth of inspiration with bilateral airspace disease and consolidation, right greater than left. Pleural spaces: No pleural effusion. No pneumothorax. Heart/Mediastinum: Cardiomegaly. Bones/joints: No acute findings. IMPRESSION: 1. Bilateral airspace disease and consolidation similar to prior exam, right greater than left. 2. Endotracheal tube tip 5.7 cm from the eloisa. 3. Left subclavian central venous catheter tip is just to the left of midline, somewhat to the left of expected position. Correlate clinically.
[2020-11-10 07:37] LABS: ABG Base Excess -2.1 mmol/L (-2.4-2.3); ABG HCO3 24.4 mmhg (22.0-26.0); ABG Oxygen Saturation 98 % (90-100); ABG PH 7.29 mmol/L (7.35-7.45); Oxygen 70 %; Tidal Volume 460
[2020-11-10 07:38] LABS: Allen's Test Acceptable; PEEP 16; Source Right Radial; Vent Rate 28
[2020-11-10 07:39] LABS: ABG PCO2 51.7 mmhg (35.0-45.0)
--- NOTE | 2020-11-10 09:06 | HMH.PULMPN ---
Internal Medicine - PN: Subj *Date: 11/10/20 *Time: 13:40 Interval history: No acute respiratory events overnight. Exam - Constitutional Constitutional:: Present: no acute distress, comfortable - HENMT Exam HENMT: Present: normocephalic, atraumatic - Eye Exam Eyes:: Present: normal appearance both eyes and related structures - Neck Exam Neck:: Present: normal visual inspection - Respiratory Exam Respiratory:: Present: respiratory distress, crackles - Cardiovascular Exam Cardiac:: Present: S1, S2 - GI Exam GI:: Present: soft - Skin Exam Skin: Present: warm, no rash - Neurological Exam Intubated and sedated - Extremities Exam Extremities: Present: no cyanosis, no clubbing, edema Assessment and Plan (1) COVID-19 with pulmonary comorbidity Status: Acute Category: Medical Code(s): U07.1 - COVID-19; J98.4 - Other disorders of lung (2) Pulmonary embolism associated with COVID-19 Status: Acute Category: Medical Code(s): U07.1 - COVID-19; I26.99 - Other pulmonary embolism without acute cor pulmonale (3) Elevated troponin I level Status: Acute Category: Medical Code(s): R77.8 - Other specified abnormalities of plasma proteins (4) Left bundle branch block (LBBB) Status: Acute Category: Medical Code(s): I44.7 - Left bundle-branch block, unspecified (5) History of stroke Status: Acute Category: Medical Code(s): Z86.73 - Personal history of transient ischemic attack (TIA), and cerebral infarction without residual deficits (6) Elevated brain natriuretic peptide (BNP) level Status: Acute Category: Medical Code(s): R79.89 - Other specified abnormal findings of blood chemistry (7) Peroneal DVT (deep venous thrombosis) Status: Acute Qualifiers: Laterality: bilateral Category: Medical Code(s): I82.459 - Acute embolism and thrombosis of unspecified peroneal vein (8) Pneumonia due to COVID-19 virus Status: Acute Category: Medical Code(s): U07.1 - COVID-19; J12.82 - Pneumonia due to coronavirus disease 2019 (9) Bradycardia Status: Acute Category: Medical Code(s): R00.1 - Bradycardia, unspecified - Assessment and plan all Dx Assessment and Plan for all problems:: #COVID-19 pneumonia: #Pulmonary embolism: #Acute hypoxic respiratory failure: 70-year-old yet to vaccinate no prior respiratory complaint no significant smoking history. Positive for COVID-[address] on admission showed extensive pulmonary emboli both right and left main pulmonary arteries and distal arteries, nonocclusive along with airspace disease. Troponins elevated at 0.13 on admission. No echocardiogram available. Blood cultures no growth 48 hours. Sputum stain from 11/05 moderate gram-positive cocci pairs and chains and rare gram-negative rods. Nasal MRSA PCR negative Plan: - Continue AnalgoSedation with Propofol and Fentanyl with CPOT gal less than or euqal to 2 and RASS goal of 0 to 1 (Deep sedation) - VAP bundle Elevate head of the bed at 30 to 45 degrees Oral care with chlorhexidne GI ulcer prophylaxis - Famotidine 20mg IV BID Intubated and sedated. Lasix 40 mg IV once Continue mechanical ventilatory support currently on PEEP of 16, 60%, 480Vt and RR 30. ABG this morning continued showed improved oxygenation Showed mild worsening hypercarbia, the pH is 7.29. Ventilator settings changed to improve tidal volume Endotracheal aspirate 10-25 WBCs no organisms seen. Nasal MRSA PCR pending. We will continue cefepimex7 days. We will also continue heparin drip for his pulmonary embolism. Continue remdesivir, dexamethasone x 10 days and [id number] days for COVID-19 pneumonia Blood cultures no growth 48 hours. Hemodynamically stable. Not on pressors. echocardiogram showed borderline LV systolic function with EF of 45 to 50% with grade 1 diastolic dysfunction. RVSP at 43.0. Abdomen soft nondistended. Continue tube feeds Renal function stable. We will
--- NOTE | 2020-11-10 09:34 | HMH.ACPN2 ---
Internal Medicine - PN: Subj *Date: 11/10/20 *Time: 17:39 Interval history: 70-year-old male patient lying in bed continues ventilation and sedated. Heart rate has been 50s to 60s in sinus rhythm throughout night Exam Vital signs and Labs for Last 24 Hours: Temp Pulse Resp BP Pulse Ox 97.1 F L 58 L 28 H 110/60 98 11/10/20 08:00 11/10/20 08:00 11/10/20 08:00 11/10/20 08:00 11/10/20 08:00 Laboratory Results - last 24 hr 11/09/20 15:35: APTT 57.2 H 11/10/20 02:40: APTT 62.8 H* 11/10/20 02:40: WBC 9.3, RBC 2.88 L, Hgb 8.9 L, Hct 29.0 L, MCV 100.8 H, MCH 31.0, MCHC 30.7 L, RDW 13.5, Plt Count 219, MPV 9.1, Neut % (Auto) 82.1 H, Lymph % (Auto) 10.9, [place] % (Auto) 6.3, Eos % (Auto) 0.1, Baso % (Auto) 0.6, Neut # (Auto) 7.6, Lymph # (Auto) 1.0, [place] # (Auto) 0.6, Eos # (Auto) 0.0, Baso # (Auto) 0.1 11/10/20 02:40: Sodium 142, Potassium 5.1, Chloride 109 H, Carbon Dioxide 30, Anion Gap 8.1, BUN 24 H, Creatinine 0.70, Estimated Creat Clear 99, Estimated GFR 112, Est GFR ( Amer) 136, Glucose 163 H D, Calcium 7.9 L, Total Bilirubin 0.3, AST 44 D, ALT 28 D, Alkaline Phosphatase 106, Total Protein 5.6 L, Albumin 2.3 L, Globulin 3.3 H, Albumin/Globulin Ratio 0.7 L 11/10/20 06:00: Specimen Source Right radial, O2 % 70, ABG pH 7.29 L, ABG pCO2 51.7 H, ABG pO2 108.0 H, ABG HCO3 24.4, ABG Total CO2 26.0, ABG O2 Saturation 98, ABG Base Excess -2.1, Andrea Test Acceptable, Vent Rate 28, Tidal Volume 460, PEEP 16 I & O for Last 24 hours: Intake & Output 11/07/20 11/08/20 11/09/20 11/10/20 23:59 23:59 23:59 23:59 Intake Total 5473.044 / 5473.044 3355.125 / 3355.125 2870.458 / 2870.458 1041 / 1041 Output Total 2474 / 2474 4470 / 4500 1701 / 1701 1050 / 1050 Balance 2999.044 / 2999.044 -1114.875 / -0073.652 3414.458 / 1169.458 -9 / -9 Weight 228 lb 1.867 oz 225 lb 11.2 oz 218 lb 225 lb 12.8 oz Microbiology Reports for the Last 24 Hours: Microbiology 11/05/20 06:40 Sputum - Expectorated Sputum Gram Stain - Final 11/05/20 06:40 Sputum - Expectorated Sputum Sputum Culture - Preliminary 11/06/20 08:00 Nose - Nasal MRSA Culture - Final Negative 11/07/20 10:35 Anus CRE Surveillance Culture - Final Negative - *Routine HEENT Exam Head: Present: normocephalic Eye: Present: EOMI, PERRL ENT: Present: mucous membranes moist - *Routine Neck Exam Present: trachea midline. Absent: tracheal deviation - *Routine Respiratory Exam Present: patient mechanically ventilated, crackles - *Routine Cardiovascular Exam Present: RRR - *Routine Abdominal Exam Present: soft, normoactive bowel sounds. Absent: distended, firm - *Routine Extremities Exam Present: pulses intact. Absent: cyanosis, clubbing - *Routine Skin Exam Present: intact, cyanosis, dry, warm. Absent: erythema Comments: LSC TLC - *Routine Neurological Exam Present: altered mental status Sedated - Routine Psychiatric Exam Present: unable to assess Comments: Seated Assessment and Plan (1) COVID-19 with pulmonary comorbidity Status: Acute Category: Medical Code(s): U07.1 - COVID-19; J98.4 - Other disorders of lung (2) Pulmonary embolism associated with COVID-19 Status: Acute Category: Medical Code(s): U07.1 - COVID-19; I26.99 - Other pulmonary embolism without acute cor pulmonale (3) Elevated troponin I level Status: Acute Category: Medical Code(s): R77.8 - Other specified abnormalities of plasma proteins (4) Left bundle branch block (LBBB) Status: Acute Category: Medical Code(s): I44.7 - Left bundle-branch block, unspecified (5) History of stroke Status: Acute Category: Medical Code(s): Z86.73 - Personal history of transient ischemic attack (TIA), and cerebral infarction without residual deficits (6) Elevated brain natriuretic peptide (BNP) level Status: Acute Category: Medical Code(s): R79.89 - Other specified abnormal findings o
--- NOTE | 2020-11-10 10:18 | PC.NURSE ---
Dr. Sadler increased rate to 30 and decreased FIO2 to 60% @ this time
--- NOTE | 2020-11-10 10:37 | PC.NURSE ---
0900 - Spoke w/ pt's daughter this AM via phone. Updated on plan of care
--- NOTE | 2020-11-10 14:59 | HMH.PNCARD ---
Subjective Date: 11/10/20 Time: 14:59 Principal diagnosis: Covid, PE, CAD Interval history: Patient was not seen today. Discussed patient with the nurse that has taken care of him. Patient's heart rate is stable in the 60s. Blood pressure stable. Ventilator is being managed per pulmonary. Cardiac status is stable. Exam Vital signs and Labs for Last 24 Hours: Temp Pulse Resp BP Pulse Ox 97.4 F L 60 30 H 131/74 94 L 11/10/20 12:00 11/10/20 14:00 11/10/20 14:00 11/10/20 14:00 11/10/20 14:00 Laboratory Results - last 24 hr 11/09/20 15:35: APTT 57.2 H 11/10/20 02:40: APTT 62.8 H* 11/10/20 02:40: WBC 9.3, RBC 2.88 L, Hgb 8.9 L, Hct 29.0 L, MCV 100.8 H, MCH 31.0, MCHC 30.7 L, RDW 13.5, Plt Count 219, MPV 9.1, Neut % (Auto) 82.1 H, Lymph % (Auto) 10.9, [place] % (Auto) 6.3, Eos % (Auto) 0.1, Baso % (Auto) 0.6, Neut # (Auto) 7.6, Lymph # (Auto) 1.0, [place] # (Auto) 0.6, Eos # (Auto) 0.0, Baso # (Auto) 0.1 11/10/20 02:40: Sodium 142, Potassium 5.1, Chloride 109 H, Carbon Dioxide 30, Anion Gap 8.1, BUN 24 H, Creatinine 0.70, Estimated Creat Clear 99, Estimated GFR 112, Est GFR ( Amer) 136, Glucose 163 H D, Calcium 7.9 L, Total Bilirubin 0.3, AST 44 D, ALT 28 D, Alkaline Phosphatase 106, Total Protein 5.6 L, Albumin 2.3 L, Globulin 3.3 H, Albumin/Globulin Ratio 0.7 L 11/10/20 06:00: Specimen Source Right radial, O2 % 70, ABG pH 7.29 L, ABG pCO2 51.7 H, ABG pO2 108.0 H, ABG HCO3 24.4, ABG Total CO2 26.0, ABG O2 Saturation 98, ABG Base Excess -2.1, Andrea Test Acceptable, Vent Rate 28, Tidal Volume 460, PEEP 16 I & O for Last 24 hours: Intake & Output 11/08/20 11/09/20 11/10/20 11/11/20 11:59 11:59 11:59 11:59 Intake Total 4092.169 / 4229.169 2600.417 / 2600.417 3004.041 / 3409.041 515 / 515 Output Total 5249 / 5324 1510 / 1593 2066 / 2096 580 / 580 Balance -1156.831 / -2397.546 6585.417 / 1007.417 938.041 / 1313.041 -65 / -65 Weight 225 lb 11.2 oz 218 lb 225 lb 12.8 oz Microbiology Reports for the Last 24 Hours: Microbiology 11/07/20 10:35 Sputum - Endotracheal Tube Aspirate Gram Stain - Final 11/07/20 10:35 Sputum - Endotracheal Tube Aspirate Sputum Culture - Final Normal Respiratory [place] Narrative: Patient was not examined. Progress Note: A&P (1) COVID-19 with pulmonary comorbidity Status: Acute (2) Pulmonary embolism associated with COVID-19 Status: Acute (3) Elevated troponin I level Status: Acute (4) Left bundle branch block (LBBB) Status: Acute (5) History of stroke Status: Acute (6) Elevated brain natriuretic peptide (BNP) level Status: Acute (7) Peroneal DVT (deep venous thrombosis) Status: Acute (8) Pneumonia due to COVID-19 virus Status: Acute (9) Bradycardia Status: Acute Assessment and Plan for All Diagnoses:: Cardiac status stable. Nothing new to add. Please call if needed.
--- NOTE | 2020-11-10 15:14 | PC.NURSE ---
No acute changes. Remains intubated. ETT moved to midline this shift. Lungs diminished throughout. HR regular, 50-60. Generalized edema noted. Bowel sounds, hypoactive. Flores to drain @ bedside w/ clear yellow urine. TF @ goal rate infusing throughout NGT. Pt bathed this shift, flores care performed this shift. Pt turned Q2H, heels floating. Oral care and suctioning Q2Hprn. Minimal secretions noted. Pt's called this afternoon and was updated on plan of care.
[2020-11-11] VITALS (34 sets, daily range): BP systolic 112–161; BP diastolic 59–90; PULSE 58–75; RESP 23–33; TEMP 36.9–38; O2SAT 88–96; BMI 30.1; BMI 30.2
[2020-11-11 05:42] LABS: Chloride 103 mmol/L (98-107); Potassium 4.9 mmoL/L (3.5-5.1); Sodium 138 mmol/L (136-145)
[2020-11-11 05:44] LABS: Alanine Aminotransferase 33 U/L (12-78); Aspartate Amino Transferase 52 U/L (17-59); Blood Urea Nitrogen 30 mg/dl (9-20); Creatinine Clearance Estimated 103 mL/min (50-200); Estimated Glomerular Filt Rate 112 ml/min (>60); GFR (African American) 136 ML/MIN (>60)
[2020-11-11 05:45] LABS: Albumin Level 2.4 g/dl (3.5-5.0); Albumin/Globulin Ratio 0.7 (1.1-1.8); Alkaline Phosphatase 114 U/L (38-126); Anion Gap 6.9 mEq/L (5-15); Calcium 7.8 mg/dl (8.4-10.2); Carbon Dioxide 33 mmol/L (22.0-30.0); Globulin 3.5 g/dL (1.3-3.2); Glucose 118 mg/dl (74-100); Total Protein,Serum 5.9 g/dl (6.3-8.2)
[2020-11-11 05:46] LABS: Bilirubin,Total < 0.1 mg/dl (0.2-1.3)
--- NOTE | 2020-11-11 06:00 | XR_ITS ---
PROCEDURE INFORMATION: Exam: XR Chest Exam date and time: 11/11/2020 6:00 AM Age: 70 years old Clinical indication: Device placement; Ett placement (vent status); Additional info: Intubated TECHNIQUE: Imaging protocol: XR of the chest. Views: 1 view. COMPARISON: CR XR CHEST PORTABLE 11/10/2020 5:07 AM FINDINGS: Tubes, catheters and devices: Stable support tubes and catheter. Lungs: Stable bilateral infiltrates with peripheral and lower lung predominance. Pleural spaces: Unremarkable. No pleural effusion. No pneumothorax. Heart/Mediastinum: Unremarkable. No cardiomegaly. Bones/joints: Unremarkable. IMPRESSION: Essentially stable appearance compared to exam from the previous day, with findings above.
[2020-11-11 06:06] LABS: Activated Partial Thrombo Time 77.2 seconds (22.8-30.6)
[2020-11-11 07:06] LABS: ABG Base Excess 6.6 mmol/L (-2.4-2.3); ABG HCO3 32.3 mmhg (22.0-26.0); ABG Oxygen Saturation 91 % (90-100); ABG PH 7.34 mmol/L (7.35-7.45); ABG PO2 70.3 mmhg (80-100); ABG TCO2 34.2 mmhg (23-27)
[2020-11-11 07:32] LABS: Allen's Test Patient Unable; Oxygen 60% %; PEEP 16; Source Right Radial; Tidal Volume 480; Vent Rate 30
[2020-11-11 07:34] LABS: ABG PCO2 60.8 mmhg (35.0-45.0)
--- NOTE | 2020-11-11 08:45 | PC.NURSE ---
RESPIRATORY CARE: VENT CHANGES MADE PER . RR INCREASED TO 32. PT TOLERATED CHANGES WELL AT THIS TIME.
--- NOTE | 2020-11-11 11:22 | HMH.ACPN2 ---
Internal Medicine - PN: Subj *Date: 11/12/20 *Time: 01:00 Interval history: intubated and doing ok -labs and cxr ok Exam Vital signs and Labs for Last 24 Hours: Temp Pulse Resp BP Pulse Ox 100.4 F H 69 23 136/74 89 L 11/11/20 10:59 11/11/20 10:59 11/11/20 10:59 11/11/20 10:59 11/11/20 10:00 Laboratory Results - last 24 hr 11/11/20 05:00: APTT 77.2 H* D 11/11/20 05:00: Sodium 138, Potassium 4.9, Chloride 103, Carbon Dioxide 33 H, Anion Gap 6.9, BUN 30 H, Creatinine 0.70, Estimated Creat Clear 103, Estimated GFR 112, Est GFR ( Amer) 136, Glucose 118 H, Calcium 7.8 L, Total Bilirubin < 0.1 L, AST 52, ALT 33, Alkaline Phosphatase 114, Total Protein 5.9 L, Albumin 2.4 L, Globulin 3.5 H, Albumin/Globulin Ratio 0.7 L 11/11/20 06:00: Specimen Source Right radial, O2 % 60%, ABG pH 7.34 L, ABG pCO2 60.8 H, ABG pO2 70.3 L, ABG HCO3 32.3 H, ABG Total CO2 34.2 H, ABG O2 Saturation 91, ABG Base Excess 6.6 H, Andrea Test Patient unable, Vent Rate 30, Tidal Volume 480, PEEP 16 I & O for Last 24 hours: Intake & Output 11/08/20 11/09/20 11/10/20 11/11/20 11:59 11:59 11:59 11:59 Intake Total 4092.169 / 4229.169 2600.417 / 2600.417 3004.041 / 3409.041 4913.833 / 4913.833 Output Total 5249 / 5324 1510 / 1593 2066 / 2096 4575 / 4575 Balance -1156.831 / -9491.320 2686.417 / 1007.417 938.041 / 1313.041 338.833 / 338.833 Weight 225 lb 11.2 oz 218 lb 225 lb 12.8 oz 228 lb 6.382 oz Microbiology Reports for the Last 24 Hours: Microbiology 11/07/20 10:35 Sputum - Endotracheal Tube Aspirate Gram Stain - Final 11/07/20 10:35 Sputum - Endotracheal Tube Aspirate Sputum Culture - Final Normal Respiratory Min[place]a - Constitutional Comments: intubated - sedated - *Routine HEENT Exam Head: Present: normocephalic Eye: Present: PERRL ENT: Present: mucous membranes dry - *Routine Neck Exam Absent: JVD - *Routine Respiratory Exam Present: patient mechanically ventilated - *Routine Cardiovascular Exam Present: RRR - *Routine Extremities Exam Present: edema - *Routine Skin Exam Present: intact - *Routine Neurological Exam no posturing - Routine Psychiatric Exam Present: unable to assess Assessment and Plan (1) COVID-19 with pulmonary comorbidity Status: Acute Category: Medical Code(s): U07.1 - COVID-19; J98.4 - Other disorders of lung (2) Pulmonary embolism associated with COVID-19 Status: Acute Category: Medical Code(s): U07.1 - COVID-19; I26.99 - Other pulmonary embolism without acute cor pulmonale (3) Elevated troponin I level Status: Acute Category: Medical Code(s): R77.8 - Other specified abnormalities of plasma proteins (4) Left bundle branch block (LBBB) Status: Acute Category: Medical Code(s): I44.7 - Left bundle-branch block, unspecified (5) History of stroke Status: Acute Category: Medical Code(s): Z86.73 - Personal history of transient ischemic attack (TIA), and cerebral infarction without residual deficits (6) Elevated brain natriuretic peptide (BNP) level Status: Acute Category: Medical Code(s): R79.89 - Other specified abnormal findings of blood chemistry (7) Peroneal DVT (deep venous thrombosis) Status: Acute Qualifiers: Laterality: bilateral Category: Medical Code(s): I82.459 - Acute embolism and thrombosis of unspecified peroneal vein (8) Pneumonia due to COVID-19 virus Status: Acute Category: Medical Code(s): U07.1 - COVID-19; J12.82 - Pneumonia due to coronavirus disease 2019 (9) Bradycardia Status: Acute Category: Medical Code(s): R00.1 - Bradycardia, unspecified (10) Anemia Status: Acute Qualifiers: Anemia type: unspecified type Qualified Code(s): D64.9 - Anemia, unspecified Category: Medical Code(s): D64.9 - Anemia, unspecified
[2020-11-11 19:33] LABS: Activated Partial Thrombo Time 65.2 seconds (22.8-30.6)
--- NOTE | 2020-11-11 19:35 | PC.NURSE ---
No changes to heparin gtt per [facility].
[2020-11-12] VITALS (32 sets, daily range): BP systolic 102–135; BP diastolic 59–80; PULSE 57–84; RESP 23–34; TEMP 36.5–37.5; O2SAT 91–98; BMI 29.5
--- NOTE | 2020-11-12 06:00 | XR_ITS ---
PROCEDURE INFORMATION: Exam: XR Chest Exam date and time: 11/12/2020 6:00 AM Age: 70 years old Clinical indication: Device placement; Ett placement (vent status); Additional info: Intubated covid pneumonia TECHNIQUE: Imaging protocol: XR of the chest. Views: 1 view. COMPARISON: CR XR CHEST PORTABLE 11/11/2020 5:32 AM FINDINGS: Tubes, catheters and devices: The ET tube is just below the level of the clavicular heads. The nasogastric tube is in the stomach. The left subclavian central venous catheter peers to be in the left subclavian vein. Lungs: Some patchy airspace disease is noted, more prominent than on the prior study. Pleural spaces: Unremarkable. No pleural effusion. No pneumothorax. Heart/Mediastinum: Unremarkable. No cardiomegaly. Bones/joints: Unremarkable. IMPRESSION: Increasing airspace disease.
[2020-11-12 06:22] LABS: Basophils % 0.4 % (0.1-2.0); Eosinophils # 0.2 K/mm3 (0.0-0.4); Eosinophils % 1.4 % (0.1-12.0); Hemoglobin 8.9 g/dL (14.1-18.0); Lymphocytes # 1.3 K/mm3 (0.7-4.5); Lymphocytes % 12.1 % (10-50); Mean Corpuscular HGB Conc 30.8 g/dL (31.8-35.4); Mean Corpuscular Hemoglobin 30.4 pg (27.0-31.2); Mean Corpuscular Volume 98.7 fl (80-94); Mean Platelet Volume 9.8 fl (7.4-10.4); Monocytes # 0.5 K/mm3 (0.1-1.0); Monocytes % 4.5 % (1.7-9.3); Neutrophils % 81.6 % (37.0-80.0); Platelet Count 183 K/mm3 (142-424); Red Blood Count 2.93 M/mm3 (4.60-6.20); Red Cell Distribution Width 13.4 % (11.5-17.5)
[2020-11-12 06:24] LABS: Hematocrit 28.9 % (42.0-52.0)
[2020-11-12 06:37] LABS: Alanine Aminotransferase 41 U/L (12-78); Albumin Level 2.5 g/dl (3.5-5.0); Albumin/Globulin Ratio 0.7 (1.1-1.8); Alkaline Phosphatase 113 U/L (38-126); Anion Gap 6.8 mEq/L (5-15); Aspartate Amino Transferase 97 U/L (17-59); Bilirubin,Total 0.3 mg/dl (0.2-1.3); Blood Urea Nitrogen 32 mg/dl (9-20); Calcium 7.8 mg/dl (8.4-10.2); Carbon Dioxide 36 mmol/L (22.0-30.0); Chloride 100 mmol/L (98-107); Creatinine Clearance Estimated 101 mL/min (50-200); Estimated Glomerular Filt Rate 112 ml/min (>60); GFR (African American) 136 ML/MIN (>60); Globulin 3.6 g/dL (1.3-3.2); Glucose 136 mg/dl (74-100); Potassium 4.8 mmoL/L (3.5-5.1); Sodium 138 mmol/L (136-145); Total Protein,Serum 6.1 g/dl (6.3-8.2)
[2020-11-12 06:53] LABS: Activated Partial Thrombo Time 115.3 seconds (22.8-30.6)
--- NOTE | 2020-11-12 06:58 | PC.NURSE ---
Nightwatch consulted over PTT. Decrease heparin from 1700 units to 1400 units, 28 ml/hr.
[2020-11-12 07:27] LABS: ABG Base Excess 4.2 mmol/L (-2.4-2.3); ABG HCO3 29.5 mmhg (22.0-26.0); ABG Oxygen Saturation 95 % (90-100); ABG PH 7.37 mmol/L (7.35-7.45); ABG PO2 81.1 mmhg (80-100); ABG TCO2 31.2 mmhg (23-27)
[2020-11-12 07:44] LABS: Allen's Test Patient Unable; Oxygen 60 %; PEEP 16; Source Right Radial; Tidal Volume 480; Vent Rate 32
[2020-11-12 07:45] LABS: ABG PCO2 52.4 mmhg (35.0-45.0)
--- NOTE | 2020-11-12 08:00 | PC.NURSE ---
Spoke w/ Dr. Sadler via phone. ABG results provided. No changes to vent settings.
--- NOTE | 2020-11-12 09:18 | PC.NURSE ---
Pt's family called @ this time, updated on POC.
--- NOTE | 2020-11-12 12:36 | HMH.ACPN2 ---
Internal Medicine - PN: Subj *Date: 11/12/20 *Time: 09:00 Interval history: laying in bed sedated on vent Exam Vital signs and Labs for Last 24 Hours: Temp Pulse Resp BP Pulse Ox 97.7 F 63 33 H 120/72 92 L 11/12/20 11:00 11/12/20 11:00 11/12/20 11:39 11/12/20 11:00 11/12/20 11:39 Laboratory Results - last 24 hr 11/11/20 12:30: APTT 56.0 H 11/11/20 18:55: APTT 65.2 H* D 11/12/20 05:00: WBC 11.0 H, RBC 2.93 L, Hgb 8.9 L, Hct 28.9 L, MCV 98.7 H, MCH 30.4, MCHC 30.8 L, RDW 13.4, Plt Count 183, MPV 9.8, Neut % (Auto) 81.6 H, Lymph % (Auto) 12.1, [place] % (Auto) 4.5, Eos % (Auto) 1.4, Baso % (Auto) 0.4, Neut # (Auto) 9.0 H, Lymph # (Auto) 1.3, [place] # (Auto) 0.5, Eos # (Auto) 0.2, Baso # (Auto) 0.0 11/12/20 05:00: APTT 115.3 H* D 11/12/20 05:00: Sodium 138, Potassium 4.8, Chloride 100, Carbon Dioxide 36 H, Anion Gap 6.8, BUN 32 H, Creatinine 0.70, Estimated Creat Clear 101, Estimated GFR 112, Est GFR ( Amer) 136, Glucose 136 H, Calcium 7.8 L, Total Bilirubin 0.3, AST 97 H D, ALT 41, Alkaline Phosphatase 113, Total Protein 6.1 L, Albumin 2.5 L, Globulin 3.6 H, Albumin/Globulin Ratio 0.7 L 11/12/20 06:00: Specimen Source Right radial, O2 % 60, ABG pH 7.37, ABG pCO2 52.4 H, ABG pO2 81.1, ABG HCO3 29.5 H, ABG Total CO2 31.2 H, ABG O2 Saturation 95, ABG Base Excess 4.2 H, Andrea Test Patient unable, Vent Rate 32, Tidal Volume 480, PEEP 16 I & O for Last 24 hours: Intake & Output 11/10/20 11/11/20 11/12/20 11/13/20 11:59 11:59 11:59 11:59 Intake Total 3004.041 / 3409.041 4913.833 / 4913.833 4103.375 / 4103.375 Output Total 2066 / 2096 4575 / 5325 4555 / 4555 Balance 938.041 / 1313.041 338.833 / -411.167 -451.625 / -451.625 Weight 225 lb 12.8 oz 228 lb 6.382 oz 223 lb 4.8 oz - Constitutional no acute distress - *Routine HEENT Exam Head: Present: normocephalic Eye: Present: PERRL ENT: Present: mucous membranes moist - *Routine Neck Exam Present: supple. Absent: lymphadenopathy - *Routine Respiratory Exam Present: patient mechanically ventilated - *Routine Cardiovascular Exam Present: RRR - *Routine Abdominal Exam Present: soft, normoactive bowel sounds. Absent: tenderness - *Routine Extremities Exam Absent: cyanosis, clubbing, edema - *Routine Skin Exam Present: warm. Absent: rash - *Routine Neurological Exam sedated - Routine Psychiatric Exam Present: unable to assess Assessment and Plan (1) COVID-19 with pulmonary comorbidity Status: Acute Category: Medical Code(s): U07.1 - COVID-19; J98.4 - Other disorders of lung (2) Pulmonary embolism associated with COVID-19 Status: Acute Category: Medical Code(s): U07.1 - COVID-19; I26.99 - Other pulmonary embolism without acute cor pulmonale (3) Elevated troponin I level Status: Acute Category: Medical Code(s): R77.8 - Other specified abnormalities of plasma proteins (4) Left bundle branch block (LBBB) Status: Acute Category: Medical Code(s): I44.7 - Left bundle-branch block, unspecified (5) History of stroke Status: Acute Category: Medical Code(s): Z86.73 - Personal history of transient ischemic attack (TIA), and cerebral infarction without residual deficits (6) Elevated brain natriuretic peptide (BNP) level Status: Acute Category: Medical Code(s): R79.89 - Other specified abnormal findings of blood chemistry (7) Peroneal DVT (deep venous thrombosis) Status: Acute Qualifiers: Laterality: bilateral Category: Medical Code(s): I82.459 - Acute embolism and thrombosis of unspecified peroneal vein (8) Pneumonia due to COVID-19 virus Status: Acute Category: Medical Code(s): U07.1 - COVID-19; J12.82 - Pneumonia due to coronavirus disease 2019 (9) Bradycardia Status: Acute Category: Medical Code(s): R00.1 - Bradycardia, unspecified (10) Anemia Status: Acute Qualifiers: Anemia type: unspecified type Qualified Code(s): D64.9 - Anemia, unspecified Category
--- NOTE | 2020-11-12 16:54 | PC.NURSE ---
Pt's called @ 1630, updated on plan of care.
--- NOTE | 2020-11-12 17:44 | PC.NURSE ---
No acute changes. Remains intubated. Sat ranging low-mid 90's this shift. HR regular. Bowel sounds active. No BM this shift, colace started this shift. Wan to drain @ bedside w/ clear yellow urine. TF @ goal rate infusing throughout NGT w/o incident. Wan care performed this shift. Pt turned Q2H. Oral care and suctioning Q2Hprn. Stage II noted on buttock. Currently resting on R side. Propofol @ 50 mcg/kg/min Fentanyl @ 50 mcg/hr Heparin @ 1400 units/hr, PTT to be drawn @ 1900 per pharm
[2020-11-12 19:23] LABS: Activated Partial Thrombo Time 44.5 seconds (22.8-30.6)
[2020-11-13] VITALS (34 sets, daily range): BP systolic 107–135; BP diastolic 58–83; PULSE 63–88; RESP 32–96; TEMP 37.1–37.6; O2SAT 90–98; BMI 29.2
[2020-11-13 02:31] LABS: Basophils # 0.1 K/mm3 (0-0.2); Basophils % 0.6 % (0.1-2.0); Eosinophils # 0.1 K/mm3 (0.0-0.4); Eosinophils % 0.5 % (0.1-12.0); Hemoglobin 8.8 g/dL (14.1-18.0); Lymphocytes # 1.4 K/mm3 (0.7-4.5); Lymphocytes % 11.1 % (10-50); Mean Corpuscular HGB Conc 31.2 g/dL (31.8-35.4); Mean Corpuscular Hemoglobin 30.5 pg (27.0-31.2); Mean Corpuscular Volume 97.9 fl (80-94); Mean Platelet Volume 10.2 fl (7.4-10.4); Monocytes # 0.6 K/mm3 (0.1-1.0); Monocytes % 4.8 % (1.7-9.3); Neutrophils # 10.5 K/mm3 (1.8-7.8); Neutrophils % 83.1 % (37.0-80.0); Platelet Count 203 K/mm3 (142-424); Red Blood Count 2.89 M/mm3 (4.60-6.20); Red Cell Distribution Width 13.4 % (11.5-17.5); White Blood Count 12.6 K/mm3 (4.8-10.8)
[2020-11-13 02:34] LABS: Chloride 101 mmol/L (98-107); Potassium 5.4 mmoL/L (3.5-5.1); Sodium 139 mmol/L (136-145)
[2020-11-13 02:37] LABS: Alanine Aminotransferase 40 U/L (12-78); Albumin Level 2.6 g/dl (3.5-5.0); Albumin/Globulin Ratio 0.7 (1.1-1.8); Alkaline Phosphatase 108 U/L (38-126); Anion Gap 8.4 mEq/L (5-15); Aspartate Amino Transferase 85 U/L (17-59); Bilirubin,Total 0.2 mg/dl (0.2-1.3); Blood Urea Nitrogen 30 mg/dl (9-20); Carbon Dioxide 35 mmol/L (22.0-30.0); Creatinine Clearance Estimated 101 mL/min (50-200); Estimated Glomerular Filt Rate 112 ml/min (>60); GFR (African American) 136 ML/MIN (>60); Globulin 3.8 g/dL (1.3-3.2); Glucose 127 mg/dl (74-100); Total Protein,Serum 6.4 g/dl (6.3-8.2)
[2020-11-13 02:39] LABS: Activated Partial Thrombo Time 53.2 seconds (22.8-30.6)
[2020-11-13 02:43] LABS: Hematocrit 28.3 % (42.0-52.0)
--- NOTE | 2020-11-13 05:38 | PC.NURSE ---
Night watch consulted on heparin gtt. New orders early in shift to give 3000 unit bolus and increase gtt to 1600 units.No changes to heparin gtt this AM. Remains @ 1600 units.
--- NOTE | 2020-11-13 06:00 | XR_ITS ---
PROCEDURE INFORMATION: Exam: XR Chest Exam date and time: 11/13/2020 6:00 AM Age: 70 years old Clinical indication: Device placement; Ett placement (vent status); Additional info: Intubated covid TECHNIQUE: Imaging protocol: XR of the chest. Views: 1 view. Total images: 2 COMPARISON: CR XR CHEST PORTABLE 11/12/2020 4:08 AM FINDINGS: Tubes, catheters and devices: Endotracheal tube terminates above the eloisa by 7.8 cm. Nasogastric tube enters the abdominal cavity. A left subclavian central venous catheter is present, with its tip overlying the region of the left brachiocephalic vein in midline. Lungs: Patchy subpleural predominant pulmonary opacities are concerning for atypical infection, likely moderate changes of COVID-19. Pleural spaces: Unremarkable. No pleural effusion. No pneumothorax. Heart/Mediastinum: Unremarkable. No cardiomegaly. Bones/joints: Unremarkable. IMPRESSION: 1. Endotracheal tube terminates above the eloisa by 7.8 cm. 2. Patchy subpleural predominant pulmonary opacities are concerning for atypical infection, likely moderate changes of COVID-19. There is improving confluence in the right lower lung from recent comparison. However, the appearance is overall slightly worsened from 11/11/2020.
[2020-11-13 07:39] LABS: ABG Base Excess 6.6 mmol/L (-2.4-2.3); ABG Oxygen Saturation 96 % (90-100); ABG PCO2 48.4 mmhg (35.0-45.0); ABG PH 7.42 mmol/L (7.35-7.45); ABG PO2 84.4 mmhg (80-100); ABG TCO2 32.5 mmhg (23-27)
[2020-11-13 07:40] LABS: Allen's Test Patient Unable; Oxygen 60 %; PEEP 16; Source Right Radial; Tidal Volume 480; Vent Rate 32
[2020-11-13 08:40] LABS: Activated Partial Thrombo Time 58.4 seconds (22.8-30.6)
--- NOTE | 2020-11-13 11:16 | HMH.PULMPN ---
Internal Medicine - PN: Subj *Date: 11/13/20 *Time: 15:03 Interval history: No acute respiratory events over the weekend. Exam - Constitutional Constitutional:: Present: no acute distress, comfortable - HENMT Exam HENMT: Present: normocephalic, atraumatic - Eye Exam Eyes:: Present: normal appearance both eyes and related structures - Neck Exam Neck:: Present: normal visual inspection - Respiratory Exam Respiratory:: Present: no respiratory distress, crackles, rhonchi - Cardiovascular Exam Cardiac:: Present: S1, S2 - GI Exam GI:: Present: soft, no tenderness - Skin Exam Skin: Present: warm, no rash - Neurological Exam Neurological: Absent: alert, awake, normal cognition Intubated and sedated - Extremities Exam Extremities: Present: no cyanosis, no clubbing, edema Assessment and Plan (1) COVID-19 with pulmonary comorbidity Status: Acute Category: Medical Code(s): U07.1 - COVID-19; J98.4 - Other disorders of lung (2) Pulmonary embolism associated with COVID-19 Status: Acute Category: Medical Code(s): U07.1 - COVID-19; I26.99 - Other pulmonary embolism without acute cor pulmonale (3) Elevated troponin I level Status: Acute Category: Medical Code(s): R77.8 - Other specified abnormalities of plasma proteins (4) Left bundle branch block (LBBB) Status: Acute Category: Medical Code(s): I44.7 - Left bundle-branch block, unspecified (5) History of stroke Status: Acute Category: Medical Code(s): Z86.73 - Personal history of transient ischemic attack (TIA), and cerebral infarction without residual deficits (6) Elevated brain natriuretic peptide (BNP) level Status: Acute Category: Medical Code(s): R79.89 - Other specified abnormal findings of blood chemistry (7) Peroneal DVT (deep venous thrombosis) Status: Acute Qualifiers: Laterality: bilateral Category: Medical Code(s): I82.459 - Acute embolism and thrombosis of unspecified peroneal vein (8) Pneumonia due to COVID-19 virus Status: Acute Category: Medical Code(s): U07.1 - COVID-19; J12.82 - Pneumonia due to coronavirus disease 2019 (9) Bradycardia Status: Acute Category: Medical Code(s): R00.1 - Bradycardia, unspecified (10) Anemia Status: Acute Qualifiers: Anemia type: unspecified type Qualified Code(s): D64.9 - Anemia, unspecified Category: Medical Code(s): D64.9 - Anemia, unspecified - Assessment and plan all Dx Assessment and Plan for all problems:: #COVID-19 pneumonia: #Pulmonary embolism: #Acute hypoxic respiratory failure: 70-year-old yet to vaccinate no prior respiratory complaint no significant smoking history. Positive for COVID-[address] on admission showed extensive pulmonary emboli both right and left main pulmonary arteries and distal arteries, nonocclusive along with airspace disease. Troponins elevated at 0.13 on admission. No echocardiogram available. Blood cultures no growth 48 hours. Sputum stain from 11/05 moderate gram-positive cocci pairs and chains and rare gram-negative rods. Nasal MRSA PCR negative Plan: - Continue AnalgoSedation with Propofol and Fentanyl with CPOT gal less than or euqal to 2 and RASS goal of 1 to 2. Patient does not need deep sedation. We will continue to wean sedation - VAP bundle Elevate head of the bed at 30 to 45 degrees Oral care with chlorhexidne GI ulcer prophylaxis - Famotidine 20mg IV BID Intubated and sedated. Continue mechanical ventilatory support. ABG from this morning showed improved respiratory status. We will decrease the tidal volume to 460 and PEEP to 14 and FiiO2 to 90%. Continue rate of 32. Wean FiO2 as tolerated. We will proceed with a Lasix 40 mg IV again today. Endotracheal aspirate 10-25 WBCs no organisms seen. Nasal MRSA PCR negative We will continue cefepimex7 days. We will also continue heparin drip for his pulmonary embolism. Continue remdesivir, dexameth
--- NOTE | 2020-11-13 11:48 | DIET.NUTRFU ---
Pt TF is currently running at goal rate of 55mL/hr with good toleration. Pt renal function is currently stable and glucose running at 118, 136, 127. No changes to nutritional plan at this time. Will continue to monitor and make changes as needed.
--- NOTE | 2020-11-13 12:36 | HMH.ACPN2 ---
Internal Medicine - PN: Subj *Date: 11/13/20 *Time: 08:00 Interval history: no reported changes Exam Vital signs and Labs for Last 24 Hours: Temp Pulse Resp BP Pulse Ox 99.3 F 66 32 H 121/70 96 11/13/20 06:55 11/13/20 10:41 11/13/20 10:41 11/13/20 06:55 11/13/20 10:41 Laboratory Results - last 24 hr 11/12/20 13:23: APTT 52.0 H 11/12/20 18:50: APTT 44.5 H 11/13/20 02:20: APTT 53.2 H 11/13/20 02:20: Sodium 139, Potassium 5.4 H, Chloride 101, Carbon Dioxide 35 H, Anion Gap 8.4, BUN 30 H, Creatinine 0.70, Estimated Creat Clear 101, Estimated GFR 112, Est GFR ( Amer) 136, Glucose 127 H, Calcium 8.0 L, Total Bilirubin 0.2, AST 85 H, ALT 40, Alkaline Phosphatase 108, Total Protein 6.4, Albumin 2.6 L, Globulin 3.8 H, Albumin/Globulin Ratio 0.7 L 11/13/20 02:20: WBC 12.6 H, RBC 2.89 L, Hgb 8.8 L, Hct 28.3 L, MCV 97.9 H, MCH 30.5, MCHC 31.2 L, RDW 13.4, Plt Count 203, MPV 10.2, Neut % (Auto) 83.1 H, Lymph % (Auto) 11.1, [place] % (Auto) 4.8, Eos % (Auto) 0.5, Baso % (Auto) 0.6, Neut # (Auto) 10.5 H, Lymph # (Auto) 1.4, [place] # (Auto) 0.6, Eos # (Auto) 0.1, Baso # (Auto) 0.1 11/13/20 06:00: Specimen Source Right radial, O2 % 60, ABG pH 7.42, ABG pCO2 48.4 H, ABG pO2 84.4, ABG HCO3 31.0 H, ABG Total CO2 32.5 H, ABG O2 Saturation 96, ABG Base Excess 6.6 H, Andrea Test Patient unable, Vent Rate 32, Tidal Volume 480, PEEP 16 11/13/20 08:15: APTT 58.4 H I & O for Last 24 hours: Intake & Output 11/11/20 11/12/20 11/13/20 11/14/20 11:59 11:59 11:59 11:59 Intake Total 4913.833 / 4913.833 4103.375 / 5561.375 2815.167 / 2815.167 Output Total 4575 / 5325 4555 / 5005 3618 / 3618 Balance 338.833 / -411.167 -451.625 / 556.375 -802.833 / -802.833 Weight 228 lb 6.382 oz 223 lb 4.8 oz 220 lb 4 oz - Constitutional Comments: intubated and sedated - *Routine HEENT Exam Head: Present: normocephalic Eye: Present: PERRL ENT: Present: mucous membranes dry - *Routine Neck Exam Absent: JVD - *Routine Respiratory Exam Present: patient mechanically ventilated - *Routine Cardiovascular Exam Present: RRR - *Routine Abdominal Exam Present: soft - *Routine Extremities Exam Present: edema - *Routine Skin Exam Present: intact - *Routine Neurological Exam no posturing - Routine Psychiatric Exam Present: unable to assess Assessment and Plan (1) COVID-19 with pulmonary comorbidity Status: Acute Category: Medical Code(s): U07.1 - COVID-19; J98.4 - Other disorders of lung (2) Pulmonary embolism associated with COVID-19 Status: Acute Category: Medical Code(s): U07.1 - COVID-19; I26.99 - Other pulmonary embolism without acute cor pulmonale (3) Elevated troponin I level Status: Acute Category: Medical Code(s): R77.8 - Other specified abnormalities of plasma proteins (4) Left bundle branch block (LBBB) Status: Acute Category: Medical Code(s): I44.7 - Left bundle-branch block, unspecified (5) History of stroke Status: Acute Category: Medical Code(s): Z86.73 - Personal history of transient ischemic attack (TIA), and cerebral infarction without residual deficits (6) Elevated brain natriuretic peptide (BNP) level Status: Acute Category: Medical Code(s): R79.89 - Other specified abnormal findings of blood chemistry (7) Peroneal DVT (deep venous thrombosis) Status: Acute Qualifiers: Laterality: bilateral Category: Medical Code(s): I82.459 - Acute embolism and thrombosis of unspecified peroneal vein (8) Pneumonia due to COVID-19 virus Status: Acute Category: Medical Code(s): U07.1 - COVID-19; J12.82 - Pneumonia due to coronavirus disease 2019 (9) Bradycardia Status: Acute Category: Medical Code(s): R00.1 - Bradycardia, unspecified (10) Anemia Status: Acute Qualifiers: Anemia type: unspecified type Qualified Code(s): D64.9 - Anemia, unspecified Category: Medical Code(s): D64.9 - Anemia, unspecified
[2020-11-14] VITALS (33 sets, daily range): BP systolic 107–182; BP diastolic 64–96; PULSE 64–87; RESP 20–34; TEMP 37.1–38; O2SAT 86–98; BMI 28.8
--- NOTE | 2020-11-14 01:09 | PC.NURSE ---
He continues to be intubated and sedated. No acute changes. HOB elevated. F/c patent with yellow, clear urine.
[2020-11-14 05:09] LABS: Basophils # 0.1 K/mm3 (0-0.2); Basophils % 0.7 % (0.1-2.0); Eosinophils # 0.1 K/mm3 (0.0-0.4); Eosinophils % 0.6 % (0.1-12.0); Hematocrit 28.1 % (42.0-52.0); Hemoglobin 8.9 g/dL (14.1-18.0); Lymphocytes # 1.5 K/mm3 (0.7-4.5); Lymphocytes % 11.3 % (10-50); Mean Corpuscular HGB Conc 31.6 g/dL (31.8-35.4); Mean Corpuscular Volume 98.3 fl (80-94); Mean Platelet Volume 10.4 fl (7.4-10.4); Monocytes # 0.6 K/mm3 (0.1-1.0); Monocytes % 4.5 % (1.7-9.3); Neutrophils # 10.9 K/mm3 (1.8-7.8); Neutrophils % 82.9 % (37.0-80.0); Platelet Count 242 K/mm3 (142-424); Red Blood Count 2.86 M/mm3 (4.60-6.20); Red Cell Distribution Width 14.2 % (11.5-17.5); White Blood Count 13.2 K/mm3 (4.8-10.8)
[2020-11-14 05:21] LABS: Chloride 97 mmol/L (98-107); Sodium 138 mmol/L (136-145)
[2020-11-14 05:22] LABS: Potassium 4.9 mmoL/L (3.5-5.1)
[2020-11-14 05:24] LABS: Anion Gap 8.9 mEq/L (5-15); Blood Urea Nitrogen 38 mg/dl (9-20); Carbon Dioxide 37 mmol/L (22.0-30.0); Creatinine Clearance Estimated 99 mL/min (50-200); Estimated Glomerular Filt Rate 112 ml/min (>60); GFR (African American) 136 ML/MIN (>60)
[2020-11-14 05:25] LABS: Calcium 8.2 mg/dl (8.4-10.2); Glucose 135 mg/dl (74-100)
[2020-11-14 06:47] LABS: Activated Partial Thrombo Time 44.7 seconds (22.8-30.6)
--- NOTE | 2020-11-14 07:08 | XR_ITS ---
PROCEDURE: XR CHEST PORTABLE CLINICAL HISTORY: Pt intubated Covid19 pneumonia, respiratory failure COMPARISON: CT CT ANGIO CHEST PE PROTOCOL from 11/03/2020 CR XR CHEST PORTABLE from 11/11/2020 CR XR CHEST PORTABLE from 11/12/2020 CR XR CHEST PORTABLE from 11/13/2020 FINDINGS: 7:16 a.m.. Endotracheal tube, nasogastric tube, and left subclavian central venous line all are in good position. There has been interval development of pneumomediastinum and subcutaneous emphysema in left neck area and right lateral hemithorax. No definite pneumothorax. Air outlines the aortic knob and left heart border There is mild bilateral haziness of the lungs suggesting Covid19 pneumonia. IMPRESSION: Tubes and lines in good position. Interval development of pneumomediastinum and subcutaneous emphysema. No change bilateral pneumonia Katarina in the ICU was notified of these findings by telephone 11/14/2020 at 7:52 a.m. Dictated by: Andrea Calloway MD 11/14/2020 07:52 Andrea Calloway MD in [facility] 11/14/2020 07:52
[2020-11-14 07:25] LABS: ABG Base Excess 10.4 mmol/L (-2.4-2.3); ABG HCO3 35.3 mmhg (22.0-26.0); ABG Oxygen Saturation 95 % (90-100); ABG PO2 78.3 mmhg (80-100); ABG TCO2 37.1 mmhg (23-27)
[2020-11-14 07:31] LABS: Allen's Test ACCEPTABLE; Oxygen 60 %; PEEP 14; Source Right Radial; Tidal Volume 460; Vent Rate 32
[2020-11-14 07:32] LABS: ABG PCO2 58.9 mmhg (35.0-45.0)
--- NOTE | 2020-11-14 07:53 | PC.NURSE ---
received call from Dr. Calloway reporting the following: pneumo mediastinum, no obvious pneumothorax, and subcu emphysema on left neck/right chest. Dr. Sadler notified.
--- NOTE | 2020-11-14 09:03 | HMH.PULMPN ---
Internal Medicine - PN: Subj *Date: 11/14/20 *Time: 11:54 Interval history: No acute respiratory events overnight. Exam - Constitutional Constitutional:: Present: no acute distress, comfortable - HENMT Exam HENMT: Present: normocephalic - Eye Exam Eyes:: Present: normal appearance both eyes and related structures - Neck Exam Neck:: Present: normal visual inspection - Respiratory Exam Respiratory:: Present: respiratory distress, crackles - Cardiovascular Exam Cardiac:: Present: S1, S2 - GI Exam GI:: Present: soft, no hepatosplenomegaly - Skin Exam Skin: Present: warm, no rash - Neurological Exam Neurological: Absent: alert, awake, normal cognition Intubated today intubated and sedated. Unable to arouse. Will wean sedation. - Extremities Exam Extremities: Present: no cyanosis, no clubbing, edema Assessment and Plan (1) COVID-19 with pulmonary comorbidity Status: Acute Category: Medical Code(s): U07.1 - COVID-19; J98.4 - Other disorders of lung (2) Pulmonary embolism associated with COVID-19 Status: Acute Category: Medical Code(s): U07.1 - COVID-19; I26.99 - Other pulmonary embolism without acute cor pulmonale (3) Elevated troponin I level Status: Acute Category: Medical Code(s): R77.8 - Other specified abnormalities of plasma proteins (4) Left bundle branch block (LBBB) Status: Acute Category: Medical Code(s): I44.7 - Left bundle-branch block, unspecified (5) History of stroke Status: Acute Category: Medical Code(s): Z86.73 - Personal history of transient ischemic attack (TIA), and cerebral infarction without residual deficits (6) Elevated brain natriuretic peptide (BNP) level Status: Acute Category: Medical Code(s): R79.89 - Other specified abnormal findings of blood chemistry (7) Peroneal DVT (deep venous thrombosis) Status: Acute Qualifiers: Laterality: bilateral Category: Medical Code(s): I82.459 - Acute embolism and thrombosis of unspecified peroneal vein (8) Pneumonia due to COVID-19 virus Status: Acute Category: Medical Code(s): U07.1 - COVID-19; J12.82 - Pneumonia due to coronavirus disease 2019 (9) Bradycardia Status: Acute Category: Medical Code(s): R00.1 - Bradycardia, unspecified (10) Anemia Status: Acute Qualifiers: Anemia type: unspecified type Qualified Code(s): D64.9 - Anemia, unspecified Category: Medical Code(s): D64.9 - Anemia, unspecified - Assessment and plan all Dx Assessment and Plan for all problems:: #COVID-19 pneumonia: #Pulmonary embolism: #Acute hypoxic respiratory failure: 70-year-old yet to vaccinate no prior respiratory complaint no significant smoking history. Positive for COVID-[address] on admission showed extensive pulmonary emboli both right and left main pulmonary arteries and distal arteries, nonocclusive along with airspace disease. Troponins elevated at 0.13 on admission. No echocardiogram available. Blood cultures no growth 48 hours. Sputum stain from 11/05 moderate gram-positive cocci pairs and chains and rare gram-negative rods. Nasal MRSA PCR negative Plan: - Continue AnalgoSedation with Propofol and Fentanyl with CPOT gal less than or euqal to 2 and RASS goal of 1 to 2. Patient does not need deep sedation. We will continue to wean sedation - VAP bundle Elevate head of the bed at 30 to 45 degrees Oral care with chlorhexidne GI ulcer prophylaxis - Famotidine 20mg IV BID Intubated and sedated. Continue mechanical ventilatory support. ABG and chest x-ray reviewed. Chest x-ray showing development pneumomediastinum we will closely monitor no evidence of pneumothorax noted. We will proceed with weaning PEEP and FiO2. We will proceed with a Lasix 40 mg IV again today. SBT as tolerated. Patient currently on 60% FiO2 and 10 of PEEP. Endotracheal aspirate showed normal respiratory annabelle. CRE surveillance negative. Nasal MRSA PCR negative W
--- NOTE | 2020-11-14 09:07 | HMH.ACPN2 ---
Internal Medicine - PN: Subj *Date: 11/14/20 *Time: 12:47 Interval history: 70 YOM in bed intubated and sedated. Exam Vital signs and Labs for Last 24 Hours: Temp Pulse Resp BP Pulse Ox 98.8 F 77 34 H 143/79 H 95 11/14/20 06:48 11/14/20 06:48 11/14/20 06:48 11/14/20 06:48 11/14/20 06:48 Laboratory Results - last 24 hr 11/13/20 08:15: APTT 58.4 H 11/14/20 04:25: WBC 13.2 H, RBC 2.86 L, Hgb 8.9 L, Hct 28.1 L, MCV 98.3 H, MCH 31.0, MCHC 31.6 L, RDW 14.2, Plt Count 242, MPV 10.4, Neut % (Auto) 82.9 H, Lymph % (Auto) 11.3, Mcduffie % (Auto) 4.5, Eos % (Auto) 0.6, Baso % (Auto) 0.7, Neut # (Auto) 10.9 H, Lymph # (Auto) 1.5, Mcduffie # (Auto) 0.6, Eos # (Auto) 0.1, Baso # (Auto) 0.1 11/14/20 04:25: Sodium 138, Potassium 4.9, Chloride 97 L, Carbon Dioxide 37 H, Anion Gap 8.9, BUN 38 H D, Creatinine 0.70, Estimated Creat Clear 99, Estimated GFR 112, Est GFR ( Amer) 136, Glucose 135 H, Calcium 8.2 L 11/14/20 06:00: APTT 44.7 H 11/14/20 06:42: Specimen Source Right radial, O2 % 60, ABG pH 7.40, ABG pCO2 58.9 H, ABG pO2 78.3 L, ABG HCO3 35.3 H, ABG Total CO2 37.1 H, ABG O2 Saturation 95, ABG Base Excess 10.4 H, Andrea Test Acceptable, Vent Rate 32, Tidal Volume 460, PEEP 14 I & O for Last 24 hours: Intake & Output 11/11/20 11/12/20 11/13/20 11/14/20 23:59 23:59 23:59 23:59 Intake Total 3818.791 / 4279.791 4461.042 / 4461.042 1910.584 / 6518.016 1142 / 1292 Output Total 5515 / 5590 4158 / 4528 5015 / 5025 405 / 405 Balance -1696.209 / -1310.209 303.042 / -66.958 -3104.416 / -3114.416 887 / 887 Weight 228 lb 6.382 oz 223 lb 4.8 oz 220 lb 4 oz 218 lb - Constitutional no acute distress, chronically ill appearing - *Routine HEENT Exam Head: Present: normocephalic Eye: Present: EOMI ENT: Present: mucous membranes moist - *Routine Neck Exam Present: trachea midline. Absent: tracheal deviation - *Routine Respiratory Exam Present: patient mechanically ventilated, crackles. Absent: accessory muscle use - *Routine Cardiovascular Exam Present: RRR - *Routine Abdominal Exam Present: soft, normoactive bowel sounds. Absent: tenderness, distended - *Routine Extremities Exam Present: pulses intact. Absent: cyanosis, clubbing - *Routine Skin Exam Present: intact, dry, warm. Absent: cyanosis, erythema - *Routine Neurological Exam Present: altered mental status Sedated - Routine Psychiatric Exam Present: unable to assess Comments: Sedated Assessment and Plan (1) COVID-19 with pulmonary comorbidity Status: Acute Category: Medical Code(s): U07.1 - COVID-19; J98.4 - Other disorders of lung (2) Pulmonary embolism associated with COVID-19 Status: Acute Category: Medical Code(s): U07.1 - COVID-19; I26.99 - Other pulmonary embolism without acute cor pulmonale (3) Elevated troponin I level Status: Acute Category: Medical Code(s): R77.8 - Other specified abnormalities of plasma proteins (4) Left bundle branch block (LBBB) Status: Acute Category: Medical Code(s): I44.7 - Left bundle-branch block, unspecified (5) History of stroke Status: Acute Category: Medical Code(s): Z86.73 - Personal history of transient ischemic attack (TIA), and cerebral infarction without residual deficits (6) Elevated brain natriuretic peptide (BNP) level Status: Acute Category: Medical Code(s): R79.89 - Other specified abnormal findings of blood chemistry (7) Peroneal DVT (deep venous thrombosis) Status: Acute Qualifiers: Laterality: bilateral Category: Medical Code(s): I82.459 - Acute embolism and thrombosis of unspecified peroneal vein (8) Pneumonia due to COVID-19 virus Status: Acute Category: Medical Code(s): U07.1 - COVID-19; J12.82 - Pneumonia due to coronavirus disease 2019 (9) Bradycardia Status: Acute Category: Medical Code(s): R00.1 - Bradycardia, unspecified (10) Anemia Status: Acute Qualifiers: Anemia type: unspecified type Qualified
[2020-11-14 13:59] LABS: Activated Partial Thrombo Time 57.3 seconds (22.8-30.6)
[2020-11-14 14:14] LABS: ABG Base Excess 11.6 mmol/L (-2.4-2.3); ABG HCO3 34.3 mmhg (22.0-26.0); ABG Oxygen Saturation 94 % (90-100); ABG PCO2 42.1 mmhg (35.0-45.0); ABG PH 7.53 mmol/L (7.35-7.45); ABG PO2 65.8 mmhg (80-100); ABG TCO2 35.6 mmhg (23-27)
[2020-11-14 14:15] LABS: Allen's Test Acceptable; Oxygen 60 %; PEEP 10; Pressure Support 15; Source Right Radial
[2020-11-14 21:18] LABS: Activated Partial Thrombo Time 55.3 seconds (22.8-30.6)
[2020-11-15] VITALS (38 sets, daily range): BP systolic 110–195; BP diastolic 70–99; PULSE 68–100; RESP 19–35; TEMP 37–37.7; O2SAT 87–99; BMI 28.8
--- NOTE | 2020-11-15 01:40 | PC.NURSE ---
2100- contacted nightwatch for 2100 PTT, no change in heparin gtt.
--- NOTE | 2020-11-15 02:35 | PC.NURSE ---
pt restless, overbreathing the vent. Propofol increased from 20 to 35 to 50mcg/kg. pt resting comfortably at this time. not overbreathing.
--- NOTE | 2020-11-15 06:00 | XR_ITS ---
PROCEDURE INFORMATION: Exam: XR Chest Exam date and time: 11/15/2020 6:00 AM Age: 70 years old Clinical indication: Device placement; Ett placement (vent status); Patient HX: Covid; Additional info: Intubation TECHNIQUE: Imaging protocol: XR of the chest. Views: 1 view. COMPARISON: CR XR CHEST PORTABLE 11/14/2020 7:16 AM FINDINGS: Tubes, catheters and devices: Endotracheal tube lies approximately 5 cm above the eloisa. Nasogastric tube extends into the stomach. Left PICC line extends to the SVC. Lungs: Subpleural pulmonary opacities in both lungs have worsened slightly. Pleural spaces: Areas of lucency are noted along the periphery of both hemithoraces, but is uncertain if these are new small pneumothoraces or related to worsening overlying subcutaneous emphysema. Heart/Mediastinum: Mild pneumomediastinum. Stable cardiomegaly. Bones/joints: Unremarkable. Soft tissues: Subcutaneous emphysema has significantly worsened with a large amount of air in the base of the neck extending into the bilateral chest ceja. IMPRESSION: 1. Significant worsening of subcutaneous emphysema. Persistent pneumomediastinum. 2. Areas of lucency are noted along the periphery of both hemithoraces, but is uncertain if these are new small pneumothoraces or related to worsening overlying subcutaneous emphysema. 3. Slightly worsening airspace opacities. 4. Support tubes and lines as above.
[2020-11-15 06:33] LABS: Basophils % 0.3 % (0.1-2.0); Eosinophils # 0.2 K/mm3 (0.0-0.4); Eosinophils % 1.1 % (0.1-12.0); Hematocrit 29.5 % (42.0-52.0); Hemoglobin 9.2 g/dL (14.1-18.0); Lymphocytes # 1.8 K/mm3 (0.7-4.5); Lymphocytes % 12.2 % (10-50); Mean Corpuscular Hemoglobin 30.6 pg (27.0-31.2); Mean Corpuscular Volume 98.7 fl (80-94); Mean Platelet Volume 10.9 fl (7.4-10.4); Monocytes # 0.5 K/mm3 (0.1-1.0); Monocytes % 3.5 % (1.7-9.3); Neutrophils % 82.8 % (37.0-80.0); Platelet Count 226 K/mm3 (142-424); Red Blood Count 2.99 M/mm3 (4.60-6.20); Red Cell Distribution Width 14.7 % (11.5-17.5); White Blood Count 14.5 K/mm3 (4.8-10.8)
[2020-11-15 06:49] LABS: Alanine Aminotransferase 39 U/L (12-78); Albumin/Globulin Ratio 0.7 (1.1-1.8); Alkaline Phosphatase 113 U/L (38-126); Anion Gap 7.7 mEq/L (5-15); Aspartate Amino Transferase 61 U/L (17-59); Bilirubin,Total 0.3 mg/dl (0.2-1.3); Blood Urea Nitrogen 41 mg/dl (9-20); Calcium 8.3 mg/dl (8.4-10.2); Carbon Dioxide 38 mmol/L (22.0-30.0); Chloride 94 mmol/L (98-107); Creatinine Clearance Estimated 99 mL/min (50-200); Estimated Glomerular Filt Rate 134 ml/min (>60); GFR (African American) 162 ML/MIN (>60); Globulin 4.2 g/dL (1.3-3.2); Glucose 132 mg/dl (74-100); Potassium 4.7 mmoL/L (3.5-5.1); Sodium 135 mmol/L (136-145); Total Protein,Serum 7.2 g/dl (6.3-8.2)
[2020-11-15 07:25] LABS: ABG HCO3 32.4 mmhg (22.0-26.0); ABG Oxygen Saturation 92 % (90-100); ABG PH 7.42 mmol/L (7.35-7.45); ABG PO2 70.2 mmhg (80-100)
[2020-11-15 07:26] LABS: Allen's Test Patient Unable; Oxygen 60 %; PEEP 10; Source Left Radial; Tidal Volume 460; Vent Rate 32
[2020-11-15 07:28] LABS: Lactate Arterial 1.3 mmol/L (0.4-2.0)
--- NOTE | 2020-11-15 09:02 | HMH.PULMPN ---
Internal Medicine - PN: Subj *Date: 11/15/20 *Time: 13:57 Interval history: No acute respiratory events overnight. Exam - Constitutional Constitutional:: Present: comfortable - HENMT Exam HENMT: Present: normocephalic, atraumatic - Eye Exam Eyes:: Present: normal appearance both eyes and related structures - Neck Exam Neck:: Present: normal visual inspection - Respiratory Exam Respiratory:: Present: respiratory distress, crackles, rales Comments: Extensive subcutaneous emphysema noted - Cardiovascular Exam Cardiac:: Present: S1, S2 - GI Exam GI:: Present: soft - Skin Exam Skin: Present: warm - Neurological Exam Neurological: Absent: alert, awake, normal cognition - Extremities Exam Extremities: Present: no cyanosis, no clubbing, edema Assessment and Plan (1) COVID-19 with pulmonary comorbidity Status: Acute Category: Medical Code(s): U07.1 - COVID-19; J98.4 - Other disorders of lung (2) Pulmonary embolism associated with COVID-19 Status: Acute Category: Medical Code(s): U07.1 - COVID-19; I26.99 - Other pulmonary embolism without acute cor pulmonale (3) Elevated troponin I level Status: Acute Category: Medical Code(s): R77.8 - Other specified abnormalities of plasma proteins (4) Left bundle branch block (LBBB) Status: Acute Category: Medical Code(s): I44.7 - Left bundle-branch block, unspecified (5) History of stroke Status: Acute Category: Medical Code(s): Z86.73 - Personal history of transient ischemic attack (TIA), and cerebral infarction without residual deficits (6) Elevated brain natriuretic peptide (BNP) level Status: Acute Category: Medical Code(s): R79.89 - Other specified abnormal findings of blood chemistry (7) Peroneal DVT (deep venous thrombosis) Status: Acute Qualifiers: Laterality: bilateral Category: Medical Code(s): I82.459 - Acute embolism and thrombosis of unspecified peroneal vein (8) Pneumonia due to COVID-19 virus Status: Acute Category: Medical Code(s): U07.1 - COVID-19; J12.82 - Pneumonia due to coronavirus disease 2019 (9) Bradycardia Status: Acute Category: Medical Code(s): R00.1 - Bradycardia, unspecified (10) Anemia Status: Acute Qualifiers: Anemia type: unspecified type Qualified Code(s): D64.9 - Anemia, unspecified Category: Medical Code(s): D64.9 - Anemia, unspecified - Assessment and plan all Dx Assessment and Plan for all problems:: #COVID-19 pneumonia: #Pulmonary embolism: #Acute hypoxic respiratory failure: 70-year-old yet to vaccinate no prior respiratory complaint no significant smoking history. Positive for COVID-[address] on admission showed extensive pulmonary emboli both right and left main pulmonary arteries and distal arteries, nonocclusive along with airspace disease. Troponins elevated at 0.13 on admission. No echocardiogram available. Blood cultures no growth 48 hours. Sputum stain from 11/05 moderate gram-positive cocci pairs and chains and rare gram-negative rods. Nasal MRSA PCR negative Plan: - Continue AnalgoSedation with Propofol and Fentanyl with CPOT gal less than or euqal to 2 and RASS goal of 1 to 2. Patient sedation was weaned yesterday with no response. We will continue to hold off on his sedation at this point of time - VAP bundle Elevate head of the bed at 30 to 45 degrees Oral care with chlorhexidne GI ulcer prophylaxis - Famotidine 20mg IV BID Intubated and sedated. Continue mechanical ventilatory support. ABG and chest x-ray reviewed. Chest x-ray showing worsening pneumomediastinum subcutaneous emphysema and possible pneumothorax. CT chest without contrast showed extensive pneumomediastinum with subcu emphysema and mild pneumo pericardium. Minimal pneumothorax noted bilaterally. Along with thick parietal pleura. We will closely monitor patient's clinical status and will have a low threshold to place preemptive
--- NOTE | 2020-11-15 09:03 | CT_ITS ---
PROCEDURE: CT CHEST WO CON CLINICAL INDICATION: pneunothorax COMPARISON: CT CT ANGIO CHEST PE PROTOCOL from 11/03/2020 CR XR CHEST PORTABLE from 11/15/2020 TECHNIQUE: Axial images obtained with sagittal and coronal reformats. All CT scans at the facility use one or more dose reduction, viz: automated exposure control, ma/kV adjustment per patient size (including targeted exams where dose is matched to indication, i.e. head), or iterative reconstruction technique. FINDINGS: There is severe subcutaneous emphysema in the neck bilaterally and chest wall. There is extensive pneumomediastinum and pneumopericardium. There are small bilateral pneumothoraces. Diffuse ground-glass opacity noted throughout the lungs with consolidation in the lower lobes. There is an endotracheal tube present. The tip is 4 cm above the eloisa. Nasogastric tube is present with the tip in the region of the body of the stomach. Left subclavian central venous line is present with the tip in the left brachiocephalic vein. There is a coronary artery stent noted. There is mild bilateral gynecomastia. No significant effusion. IMPRESSION: 1. Severe subcutaneous emphysema. 2. Extensive pneumomediastinum with pneumopericardium with small bilateral pneumothoraces anteriorly and laterally. 3. Diffuse ground-glass attenuation of the lungs scattered areas of consolidation Dictated by: Andrea Calloway MD 11/15/2020 11:24 Andrea Calloway MD in [facility] 11/15/2020 11:24
--- NOTE | 2020-11-15 09:18 | HMH.ITSTN ---
RNs getting staff together to be able to bring patient down, will call when ready
[2020-11-15 09:30] LABS: Activated Partial Thrombo Time 77.9 seconds (22.8-30.6)
--- NOTE | 2020-11-15 09:37 | HMH.ACPN2 ---
Internal Medicine - PN: Subj *Date: 11/15/20 *Time: 21:15 Interval history: 70-year-old male patient lying in bed intubated and minimally sedated, vent settings AC 32/460/60 +10. Tube feed infusing at 55 cc an hour Exam Vital signs and Labs for Last 24 Hours: Temp Pulse Resp BP Pulse Ox 99.5 F 82 33 H 123/73 97 11/15/20 09:09 11/15/20 09:09 11/15/20 09:09 11/15/20 09:09 11/15/20 09:09 Laboratory Results - last 24 hr 11/14/20 13:28: APTT 57.3 H 11/14/20 14:12: Specimen Source Right radial, O2 % 60, ABG pH 7.53 H, ABG pCO2 42.1, ABG pO2 65.8 L, ABG HCO3 34.3 H, ABG Total CO2 35.6 H, ABG O2 Saturation 94, ABG Base Excess 11.6 H, Andrea Test Acceptable, PEEP 10 11/14/20 20:55: APTT 55.3 H 11/15/20 05:20: WBC 14.5 H, RBC 2.99 L, Hgb 9.2 L, Hct 29.5 L, MCV 98.7 H, MCH 30.6, MCHC 31.0 L, RDW 14.7, Plt Count 226, MPV 10.9 H, Neut % (Auto) 82.8 H, Lymph % (Auto) 12.2, Robertson % (Auto) 3.5, Eos % (Auto) 1.1, Baso % (Auto) 0.3, Neut # (Auto) 12.0 H, Lymph # (Auto) 1.8, Robertson # (Auto) 0.5, Eos # (Auto) 0.2, Baso # (Auto) 0.0 11/15/20 05:20: Sodium 135 L, Potassium 4.7, Chloride 94 L, Carbon Dioxide 38 H, Anion Gap 7.7, BUN 41 H, Creatinine 0.60 L, Estimated Creat Clear 99, Estimated GFR 134, Est GFR ( Amer) 162, Glucose 132 H, Calcium 8.3 L, Total Bilirubin 0.3, AST 61 H D, ALT 39, Alkaline Phosphatase 113, Total Protein 7.2, Albumin 3.0 L, Globulin 4.2 H, Albumin/Globulin Ratio 0.7 L 11/15/20 05:20: APTT 77.9 H* D 11/15/20 06:00: ABG Lactate 1.3 11/15/20 06:00: Specimen Source Left radial, O2 % 60, ABG pH 7.42, ABG pCO2 51.0 H, ABG pO2 70.2 L, ABG HCO3 32.4 H, ABG Total CO2 34.0 H, ABG O2 Saturation 92, ABG Base Excess 8.0 H, Andrea Test Patient unable, Vent Rate 32, Tidal Volume 460, PEEP 10 I & O for Last 24 hours: Intake & Output 11/12/20 11/13/20 11/14/20 11/15/20 23:59 23:59 23:59 23:59 Intake Total 4461.042 / 4461.042 1910.584 / 5646.422 6590.625 / 2539.625 Output Total 4158 / 4528 5015 / 5025 3780 / 4230 1115 / 1115 Balance 303.042 / -66.958 -3104.416 / -3114.416 -1240.375 / -1690.375 -1115 / -1115 Weight 223 lb 4.8 oz 220 lb 4 oz 218 lb 218 lb - Constitutional no acute distress, chronically ill appearing Comments: Sedated - *Routine HEENT Exam Head: Present: normocephalic Eye: Present: EOMI ENT: Present: mucous membranes moist - *Routine Neck Exam Present: trachea midline. Absent: tracheal deviation - *Routine Respiratory Exam Present: patient mechanically ventilated, crackles - *Routine Cardiovascular Exam Present: RRR - *Routine Abdominal Exam Present: soft, normoactive bowel sounds. Absent: firm - *Routine Extremities Exam Present: pulses intact. Absent: cyanosis - *Routine Skin Exam Present: dry, warm. Absent: cyanosis, erythema - *Routine Neurological Exam Present: altered mental status Sedated - Routine Psychiatric Exam Present: unable to assess Comments: Sedated Assessment and Plan (1) COVID-19 with pulmonary comorbidity Status: Acute Category: Medical Code(s): U07.1 - COVID-19; J98.4 - Other disorders of lung (2) Pulmonary embolism associated with COVID-19 Status: Acute Category: Medical Code(s): U07.1 - COVID-19; I26.99 - Other pulmonary embolism without acute cor pulmonale (3) Elevated troponin I level Status: Acute Category: Medical Code(s): R77.8 - Other specified abnormalities of plasma proteins (4) Left bundle branch block (LBBB) Status: Acute Category: Medical Code(s): I44.7 - Left bundle-branch block, unspecified (5) History of stroke Status: Acute Category: Medical Code(s): Z86.73 - Personal history of transient ischemic attack (TIA), and cerebral infarction without residual deficits (6) Elevated brain natriuretic peptide (BNP) level Status: Acute Category: Medical Code(s): R79.89 - Other specified abnormal findings of blood chemistry (7) Peroneal DVT (deep venous thrombosis) Status: Acute Qualifiers
--- NOTE | 2020-11-15 10:26 | PC.NURSE ---
Addendum entered by Lisbeth West RN 11/15/20 10:28: back on unit at 1028 Original Note: off unit with chi stephens rn, n tubes rt and radiology for stat ct of chest 1015
--- NOTE | 2020-11-15 11:48 | DIET.NUTRFU ---
Pt TF is running at goal rate and pt is tolerating per RN. Glucose running at 127, 135, 132. No changes to nutritional plan at this time. Will continue to monitor.
--- NOTE | 2020-11-15 14:04 | PC.NURSE ---
all sedation is off at this time r/t Dr Sadler order to turn off sedation for SBT trial. MD does not want pt sedated unless pt is coughing against the vent.
[2020-11-15 14:26] LABS: ABG Base Excess 11.3 mmol/L (-2.4-2.3); ABG HCO3 34.8 mmhg (22.0-26.0); ABG Oxygen Saturation 90 % (90-100); ABG PCO2 47.8 mmhg (35.0-45.0); ABG PH 7.48 mmol/L (7.35-7.45); ABG PO2 59.1 mmhg (80-100); ABG TCO2 36.3 mmhg (23-27)
[2020-11-15 14:29] LABS: Allen's Test ACCEPTABLE; Oxygen 60 %; PEEP 10; Pressure Support 15; Source Right Radial
--- NOTE | 2020-11-15 16:02 | PC.NURSE ---
pt placed back on propofol at this time r/t distress and apnea. elevated bp, hr tara at times.
[2020-11-15 16:18] LABS: Activated Partial Thrombo Time 49.5 seconds (22.8-30.6)
--- NOTE | 2020-11-15 18:32 | XR_ITS ---
PROCEDURE INFORMATION: Exam: XR Chest Exam date and time: 11/15/2020 6:32 PM Age: 70 years old Clinical indication: Dyspnea and shortness of breath; Patient HX: R/O pneumo PT has covid and is intubated TECHNIQUE: Imaging protocol: XR of the chest. Views: 1 view. COMPARISON: CT CHEST WO CON 11/15/2020 10:15 AM FINDINGS: Tubes, catheters and devices: Left-sided subclavian PICC line tip in the proximal SVC. NG tube is seen with its tip in the mid stomach. Endotracheal tube in good position above the eloisa. Lungs: Bilateral edema/pneumonia. Pleural spaces: No definite pneumothorax radiographically. Heart/Mediastinum: Pneumomediastinum. Bones/joints: Unremarkable. Soft tissues: Extensive soft tissue gas. IMPRESSION: 1. Extensive soft tissue gas. 2. Pneumomediastinum. 3. No definite pneumothorax radiographically. 4. Bilateral edema/pneumonia. 5. Left-sided subclavian PICC line tip in the proximal SVC. NG tube is seen with its tip in the mid stomach.
[2020-11-16] VITALS (31 sets, daily range): BP systolic 94–169; BP diastolic 63–94; PULSE 79–119; RESP 20–32; TEMP 37.1–38; O2SAT 90–100; BMI 27.8
--- NOTE | 2020-11-16 06:00 | XR_ITS ---
PROCEDURE INFORMATION: Exam: XR Chest Exam date and time: 11/16/2020 6:00 AM Age: 70 years old Clinical indication: Device placement; Ett placement (vent status); Patient HX: Covid; Additional info: Intubation TECHNIQUE: Imaging protocol: XR of the chest. Views: 1 view. COMPARISON: CR XR CHEST PORTABLE 11/15/2020 6:45 PM FINDINGS: Tubes, catheters and devices: The endotracheal tube tip is at the thoracic inlet and approximately 8.3 cm above the eloisa. The NG tube is positioned into the proximal stomach with the side port near the GE junction. The left subclavian central line is unchanged with the tip projecting over the aortic arch. It may be in the brachiocephalic vein but I cannot exclude an arterial line based on this exam. Lungs: The bilateral patchy infiltrates have not changed significantly. Pleural spaces: There are equivocal findings with the suggestion of a small to moderate right pneumothorax although the overlying soft tissue emphysema does limit detail significantly. Heart/Mediastinum: There is continued pneumomediastinum. Bones/joints: Osseous structures grossly intact. Soft tissues: The extensive soft tissue gas within the chest wall, shoulders and neck bilaterally is grossly unchanged. IMPRESSION: 1. Continued extensive soft tissue emphysema and pneumomediastinum limiting detail of the lungs. 2. Equivocal findings with a questionable small to moderate right apical pneumothorax. However, detail here is compromised by the soft tissue gas. 3. Supportive tubes and lines as above. 4. Persistent patchy infiltrates similar to the prior exam.
[2020-11-16 07:03] LABS: Basophils # 0.1 K/mm3 (0-0.2); Basophils % 0.4 % (0.1-2.0); Eosinophils # 0.2 K/mm3 (0.0-0.4); Hematocrit 32.3 % (42.0-52.0); Hemoglobin 9.9 g/dL (14.1-18.0); Lymphocytes # 1.6 K/mm3 (0.7-4.5); Lymphocytes % 9.4 % (10-50); Mean Corpuscular HGB Conc 30.7 g/dL (31.8-35.4); Mean Corpuscular Hemoglobin 30.6 pg (27.0-31.2); Mean Corpuscular Volume 99.8 fl (80-94); Mean Platelet Volume 10.9 fl (7.4-10.4); Monocytes # 0.6 K/mm3 (0.1-1.0); Monocytes % 3.8 % (1.7-9.3); Neutrophils # 14.3 K/mm3 (1.8-7.8); Neutrophils % 85.5 % (37.0-80.0); Platelet Count 268 K/mm3 (142-424); Red Blood Count 3.24 M/mm3 (4.60-6.20); Red Cell Distribution Width 14.8 % (11.5-17.5); White Blood Count 16.7 K/mm3 (4.8-10.8)
[2020-11-16 07:06] LABS: ABG Base Excess 11.9 mmol/L (-2.4-2.3); ABG HCO3 36.5 mmhg (22.0-26.0); ABG Oxygen Saturation 97 % (90-100); ABG PH 7.41 mmol/L (7.35-7.45); ABG PO2 92.1 mmhg (80-100); ABG TCO2 38.3 mmhg (23-27)
[2020-11-16 07:07] LABS: Allen's Test Patient Unable; Oxygen 70 %; PEEP 10; Source Right Radial; Tidal Volume 460; Vent Rate 26
[2020-11-16 07:09] LABS: ABG PCO2 58.9 mmhg (35.0-45.0)
[2020-11-16 07:15] LABS: Alanine Aminotransferase 38 U/L (12-78); Albumin Level 3.1 g/dl (3.5-5.0); Albumin/Globulin Ratio 0.8 (1.1-1.8); Alkaline Phosphatase 109 U/L (38-126); Aspartate Amino Transferase 52 U/L (17-59); Bilirubin,Total 0.4 mg/dl (0.2-1.3); Blood Urea Nitrogen 32 mg/dl (9-20); Calcium 8.8 mg/dl (8.4-10.2); Carbon Dioxide 39 mmol/L (22.0-30.0); Chloride 95 mmol/L (98-107); Creatinine Clearance Estimated 95 mL/min (50-200); Estimated Glomerular Filt Rate 134 ml/min (>60); GFR (African American) 162 ML/MIN (>60); Globulin 4.1 g/dL (1.3-3.2); Glucose 121 mg/dl (74-100); Sodium 137 mmol/L (136-145); Total Protein,Serum 7.2 g/dl (6.3-8.2)
[2020-11-16 07:16] LABS: Activated Partial Thrombo Time 53.6 seconds (22.8-30.6)
[2020-11-16 07:26] LABS: MANUAL DIFFERENTIAL MANUAL DIFFERENTIAL (MANUAL DIFF)
--- NOTE | 2020-11-16 07:52 | PC.NURSE ---
Addendum entered by Lisbeth West RN 11/16/20 07:55: Dr benoit notified at this time as well. along with abg results Original Note: notified Reji Luna face to face that pt has a questionable moderate r pneumothorax, detail is compromised r/t soft tissue gas
[2020-11-16 07:55] LABS: Hypochromasia 2+; Lymphocytes % 9 % (10-50); Macrocytosis 2+; Monocytes % 4 % (2-9); Neutrophils % 87 % (42-76); Platelet Estimate Normal; Total Cells Counted 100
--- NOTE | 2020-11-16 09:12 | HMH.PULMPN ---
Internal Medicine - PN: Subj *Date: 11/16/20 *Time: 12:58 Interval history: No acute respiratory events overnight. Exam - Constitutional Constitutional:: Present: no acute distress, comfortable - HENMT Exam HENMT: Present: normocephalic, atraumatic - Eye Exam Eyes:: Present: normal appearance both eyes and related structures - Neck Exam Neck:: Present: normal visual inspection - Respiratory Exam Respiratory:: Present: respiratory distress, rales - Cardiovascular Exam Cardiac:: Present: S1, S2 - GI Exam GI:: Present: soft - Skin Exam Skin: Present: warm, no rash - Neurological Exam Neurological: Absent: alert, awake, normal cognition - Extremities Exam Extremities: Present: no cyanosis, no clubbing, no edema Assessment and Plan (1) COVID-19 with pulmonary comorbidity Status: Acute Category: Medical Code(s): U07.1 - COVID-19; J98.4 - Other disorders of lung (2) Pulmonary embolism associated with COVID-19 Status: Acute Category: Medical Code(s): U07.1 - COVID-19; I26.99 - Other pulmonary embolism without acute cor pulmonale (3) Elevated troponin I level Status: Acute Category: Medical Code(s): R77.8 - Other specified abnormalities of plasma proteins (4) Left bundle branch block (LBBB) Status: Acute Category: Medical Code(s): I44.7 - Left bundle-branch block, unspecified (5) History of stroke Status: Acute Category: Medical Code(s): Z86.73 - Personal history of transient ischemic attack (TIA), and cerebral infarction without residual deficits (6) Elevated brain natriuretic peptide (BNP) level Status: Acute Category: Medical Code(s): R79.89 - Other specified abnormal findings of blood chemistry (7) Peroneal DVT (deep venous thrombosis) Status: Acute Qualifiers: Laterality: bilateral Category: Medical Code(s): I82.459 - Acute embolism and thrombosis of unspecified peroneal vein (8) Pneumonia due to COVID-19 virus Status: Acute Category: Medical Code(s): U07.1 - COVID-19; J12.82 - Pneumonia due to coronavirus disease 2019 (9) Bradycardia Status: Acute Category: Medical Code(s): R00.1 - Bradycardia, unspecified (10) Anemia Status: Acute Qualifiers: Anemia type: unspecified type Qualified Code(s): D64.9 - Anemia, unspecified Category: Medical Code(s): D64.9 - Anemia, unspecified - Assessment and plan all Dx Assessment and Plan for all problems:: #COVID-19 pneumonia: #Pulmonary embolism: #Acute hypoxic respiratory failure: 70-year-old yet to vaccinate no prior respiratory complaint no significant smoking history. Positive for COVID-[address] on admission showed extensive pulmonary emboli both right and left main pulmonary arteries and distal arteries, nonocclusive along with airspace disease. Troponins elevated at 0.13 on admission. No echocardiogram available. Blood cultures no growth 48 hours. Sputum stain from 11/05 moderate gram-positive cocci pairs and chains and rare gram-negative rods. Nasal MRSA PCR negative Plan: -Continue to hold sedation with as needed's as needed. - VAP bundle Elevate head of the bed at 30 to 45 degrees Oral care with chlorhexidne GI ulcer prophylaxis - Famotidine 20mg IV BID Intubated and sedated. Continue mechanical ventilatory support. ABG and chest x-ray reviewed. CT chest without contrast yesterday showed extensive pneumomediastinum with subcu emphysema and mild pneumo pericardium. Minimal pneumothorax noted bilaterally. Chest x-ray continued to show worsening pneumomediastinum subcutaneous emphysema and possible worsenig right pneumothorax. Will consult surgery for right-sided chest tube placement. Patient continue to perform SBT he is on minimal vent settings and 10 of PEEP and 50% FiO2 however patient not waking up appropriately despite being off sedation. We will continue to hold sedation at this point of time will consider CT head without contr
--- NOTE | 2020-11-16 14:32 | XR_ITS ---
PROCEDURE INFORMATION: Exam: XR Chest Exam date and time: 11/16/2020 2:32 PM Age: 70 years old Clinical indication: Device placement; Patient HX: Right chest tube placement TECHNIQUE: Imaging protocol: XR of the chest. Views: 1 view. COMPARISON: 1. CR XR CHEST PORTABLE 11/16/2020 5:[address] CHEST WO CON 11/15/2020 10:15:28 AM COMPARISON MORE: CT ANGIO CHEST PE PROTOCOL 11/03/2020 10:18:28 PM FINDINGS: Tubes, catheters and devices: Right pleural tube tip in the lateral right upper chest. Endotracheal tube tip approximately 6 cm above the eloisa. NG tube tip in the stomach. Left central venous catheter tip probably in the proximal brachiocephalic vein. Lungs: Bilateral opacities and partial consolidation unchanged. Pleural spaces: Possible small right apical pneumothorax. No definite pleural effusion. Heart/Mediastinum: Pneumomediastinum. No cardiomegaly. Bones/joints: No acute findings. Soft tissues: Extensive subcutaneous emphysema. IMPRESSION: Right pleural tube placement. Bilateral pneumonia unchanged.
--- NOTE | 2020-11-16 14:34 | HMH.GSCON ---
*Admission Date: 11/06/20 *Reason for consult:: Right pneumothorax *History of present illness: This is a 70-year-old gentleman being treated for respiratory failure/COVID-19 positivity. Recent chest x-rays have been consistent with likely moderate right apical pneumothorax. Subcutaneous emphysema also noted. Surgical service was consulted for chest tube placement. Forwarded from Dr. Farris's prior consult for deep line placement: Patient is a 70-year-old male who had presented to the emergency department with worsening respiratory distress on Friday evening, 11/03/2020. Is found to have COVID-19 positivity. CTA showed diffuse bilateral pulmonary infiltrates along with pulmonary emboli. He was admitted to the hospital needing high flow oxygen. He had clinically deteriorated requiring intubation and mechanical ventilation this morning. Review of Systems - Review of Systems Review of systems:: unable to obtain - *Neurologic Reports abnormal walking, Reports headache(s), Reports weakness, Denies abnormal hearing, Denies abnormal speech, Denies behavioral changes, Denies confusion, Denies seizure-like activity, Denies seizure-like activity [facility] History Medical History: Reports:: Hypertension Denies:: Cancer, Diabetes Mellitus Type 1, Diabetes Mellitus Type 2, Internal Pacemaker, MRSA *Have you ever received a pneumonia vaccine?: No *Have you received a flu vaccine this season?: No Other Surgeries: Yes: Other. No: Pacemaker Amputation: No Fractures: No - *Social History Last grade of school completed: High school graduate Smoking Status: Current every day smoker Tobacco Type: cigarettes # Packs/Day (cigarettes): 1 #Yrs smoked (if former smoker): 20 Alcohol Intake: never Alcohol Intake Frequency:: 0-2 drinks per day Substance Use Type: denies use *Occupational Status:: employed *Travel in the last 8 weeks: None Family Hx:: Asthma, Cancer, Heart Attack, Hypertension, Stroke Meds Home Medications Medication Instructions Recorded Confirmed Type Gabapentin [Gabapentin 400mg Cap] 400 mg PO TID 11/03/20 11/03/20 History Oxycodone HCl 5 mg PO BID 11/03/20 11/04/20 History Meloxicam 15 mg PO DAILY 11/04/20 11/04/20 History Metoprolol Succinate [Metoprolol 50 mg PO DAILY 11/04/20 11/04/20 History Succinate 50mg Tablet*] Tizanidine HCl 4 mg PO BID 11/04/20 11/04/20 History Allergies Allergy/AdvReac Type Severity Reaction Status Date / Time hydrocodone Allergy Unknown Unknown Verified 11/04/20 08:07 allergy reaction Iodinated Contrast Media Allergy Unknown Unknown Verified 11/04/20 08:07 allergy reaction propoxyphene Allergy Unknown Unknown Verified 11/04/20 08:07 allergy reaction Exam Vital signs and Labs for Last 24 Hours: Temp Pulse Resp BP Pulse Ox 100.2 F H 86 25 H 137/76 92 L 11/16/20 14:21 11/16/20 14:21 11/16/20 14:21 11/16/20 14:21 11/16/20 14:21 Laboratory Results - last 24 hr 11/15/20 15:47: APTT 49.5 H 11/16/20 01:00: APTT 51.0 H 11/16/20 05:45: WBC 16.7 H, RBC 3.24 L, Hgb 9.9 L, Hct 32.3 L, MCV 99.8 H, MCH 30.6, MCHC 30.7 L, RDW 14.8, Plt Count 268, MPV 10.9 H, Neut % (Auto) 85.5 H, Lymph % (Auto) 9.4 L, [place] % (Auto) 3.8, Eos % (Auto) 1.0, Baso % (Auto) 0.4, Neut # (Auto) 14.3 H, Lymph # (Auto) 1.6, [place] # (Auto) 0.6, Eos # (Auto) 0.2, Baso # (Auto) 0.1, Total Counted 100, Neutrophils % (Manual) 87 H, Lymphocytes % (Manual) 9 L, Monocytes % (Manual) 4, Platelet Estimate Normal, Hypochromasia 2+, Macrocytosis 2+ 11/16/20 05:45: Sodium 137, Potassium 5.0, Chloride 95 L, Carbon Dioxide 39 H, Anion Gap 8.0, BUN 32 H, Creatinine 0.60 L, Estimated Creat Clear 95, Estimated GFR 134, Est GFR ( Amer) 162, Glucose 121 H, Calcium 8.8, Total Bilirubin 0.4, AST 52, ALT 38, Alkaline Phosphatase 109, Total Protein 7.2, Albumin 3.1 L, Globulin 4.1 H, Albumin/Globulin Ratio 0.8 L 11/16/20 05:45: APTT 53.6 H 11/16/20 06:00: Specimen Source Right radial, O2 % 70, ABG pH 7.4
--- NOTE | 2020-11-16 14:39 | HMH.OPNOTE ---
Date of procedure: 11/16/20 Pre-op Diagnosis:: Right pneumothorax Post-op Diagnosis:: Same Procedure performed:: Right chest tube (28 Bulgarian) Surgeon:: Mainor Gallego MD Anesthesia: other (Ongoing sedation with propofol) Estimated blood loss (mL): 1 Operative findings:: Chest tube was anchored at 17 cm Operative note:: After consent was obtained from the family the right chest was prepped and draped in a sterile fashion. Transverse incision was made along the anterior axillary line below the region of the seventh interspace. The deep subcutaneous tissue was tunneled up and over the rib margin. A 28 Bulgarian chest tube was then secured in position at 17 cm with 0 Nurolon. Dressings were applied. Chest x-ray is pending. Condition: critical Disposition: no change Specimens:: None Complications:: No immediate. Chest x-ray pending.
--- NOTE | 2020-11-16 14:48 | HMH.ACPN2 ---
Internal Medicine - PN: Subj *Date: 11/16/20 *Time: 20:40 Interval history: 70-year-old male patient resting quietly in bed, currently sedation is off. Remains on ventilator AC 26/460/70+10. He does have increased subcutaneous emphysema in his chest and neck area Exam Vital signs and Labs for Last 24 Hours: Temp Pulse Resp BP Pulse Ox 100.2 F H 96 H 26 H 137/76 95 11/16/20 14:21 11/16/20 14:35 11/16/20 14:35 11/16/20 14:21 11/16/20 14:35 Laboratory Results - last 24 hr 11/15/20 15:47: APTT 49.5 H 11/16/20 01:00: APTT 51.0 H 11/16/20 05:45: WBC 16.7 H, RBC 3.24 L, Hgb 9.9 L, Hct 32.3 L, MCV 99.8 H, MCH 30.6, MCHC 30.7 L, RDW 14.8, Plt Count 268, MPV 10.9 H, Neut % (Auto) 85.5 H, Lymph % (Auto) 9.4 L, [place] % (Auto) 3.8, Eos % (Auto) 1.0, Baso % (Auto) 0.4, Neut # (Auto) 14.3 H, Lymph # (Auto) 1.6, [place] # (Auto) 0.6, Eos # (Auto) 0.2, Baso # (Auto) 0.1, Total Counted 100, Neutrophils % (Manual) 87 H, Lymphocytes % (Manual) 9 L, Monocytes % (Manual) 4, Platelet Estimate Normal, Hypochromasia 2+, Macrocytosis 2+ 11/16/20 05:45: Sodium 137, Potassium 5.0, Chloride 95 L, Carbon Dioxide 39 H, Anion Gap 8.0, BUN 32 H, Creatinine 0.60 L, Estimated Creat Clear 95, Estimated GFR 134, Est GFR ( Amer) 162, Glucose 121 H, Calcium 8.8, Total Bilirubin 0.4, AST 52, ALT 38, Alkaline Phosphatase 109, Total Protein 7.2, Albumin 3.1 L, Globulin 4.1 H, Albumin/Globulin Ratio 0.8 L 11/16/20 05:45: APTT 53.6 H 11/16/20 06:00: Specimen Source Right radial, O2 % 70, ABG pH 7.41, ABG pCO2 58.9 H, ABG pO2 92.1, ABG HCO3 36.5 H, ABG Total CO2 38.3 H, ABG O2 Saturation 97, ABG Base Excess 11.9 H, Andrea Test Patient unable, Vent Rate 26, Tidal Volume 460, PEEP 10 I & O for Last 24 hours: Intake & Output 11/13/20 11/14/20 11/15/20 11/16/20 23:59 23:59 23:59 23:59 Intake Total 1910.584 / 3979.174 5029.625 / 2539.625 2666 / 3127 926 / 926 Output Total 5015 / 5025 3780 / 4230 2595 / 2745 1795 / 1795 Balance -3104.416 / -3114.416 -1240.375 / -1690.375 71 / 382 -869 / -869 Weight 220 lb 4 oz 218 lb 218 lb 210 lb 8 oz - Constitutional no acute distress, chronically ill appearing - *Routine HEENT Exam Head: Present: normocephalic Eye: Present: EOMI ENT: Present: mucous membranes moist - *Routine Neck Exam Comments: Increasing subcutaneous emphysema - *Routine Respiratory Exam Present: patient mechanically ventilated, crackles. Absent: accessory muscle use - *Routine Cardiovascular Exam Present: RRR - *Routine Abdominal Exam Present: soft, normoactive bowel sounds. Absent: firm - *Routine Extremities Exam Present: clubbing, edema, pulses intact. Absent: cyanosis - *Routine Skin Exam Present: intact, dry, warm. Absent: cyanosis, erythema - *Routine Neurological Exam Present: altered mental status - Routine Psychiatric Exam Present: unable to assess Assessment and Plan (1) COVID-19 with pulmonary comorbidity Status: Acute Category: Medical Code(s): U07.1 - COVID-19; J98.4 - Other disorders of lung (2) Pulmonary embolism associated with COVID-19 Status: Acute Category: Medical Code(s): U07.1 - COVID-19; I26.99 - Other pulmonary embolism without acute cor pulmonale (3) Elevated troponin I level Status: Acute Category: Medical Code(s): R77.8 - Other specified abnormalities of plasma proteins (4) Left bundle branch block (LBBB) Status: Acute Category: Medical Code(s): I44.7 - Left bundle-branch block, unspecified (5) History of stroke Status: Acute Category: Medical Code(s): Z86.73 - Personal history of transient ischemic attack (TIA), and cerebral infarction without residual deficits (6) Elevated brain natriuretic peptide (BNP) level Status: Acute Category: Medical Code(s): R79.89 - Other specified abnormal findings of blood chemistry (7) Peroneal DVT (deep venous thrombosis) Status: Acute Qualifiers: Laterality: bilateral Category: Medical Code(s): I82.45
[2020-11-17] VITALS (32 sets, daily range): BP systolic 110–177; BP diastolic 69–104; PULSE 80–122; RESP 23–35; TEMP 36.9–37.8; O2SAT 92–99; BMI 27.8
--- NOTE | 2020-11-17 06:00 | XR_ITS ---
PROCEDURE INFORMATION: Exam: XR Chest Exam date and time: 11/17/2020 6:00 AM Age: 70 years old Clinical indication: Device placement; Ett placement (vent status); Patient HX: Covid; Additional info: Intubation TECHNIQUE: Imaging protocol: XR of the chest. Views: 1 view. COMPARISON: CR XR CHEST PORTABLE 11/16/2020 2:41 PM FINDINGS: Tubes, catheters and devices: The endotracheal tube tip is at the thoracic inlet and roughly 6.2 cm above the eloisa. The NG tube is positioned into the abdomen off the inferior margin of the film. The left subclavian central line tip projects near the junction of the brachiocephalic vein and superior vena cava. The right apical chest tube is unchanged. Lungs: The bilateral patchy infiltrates have not changed significantly. Pleural spaces: There is a small residual right apical pneumothorax stable since the prior exam. There is no definite pleural effusion. Heart/Mediastinum: The cardiac silhouette, mediastinal contours and hilar shadows appear unremarkable. Bones/joints: Osseous structures grossly intact. Soft tissues: The diffuse soft tissue gas is grossly unchanged. IMPRESSION: No significant interval change.
[2020-11-17 07:00] LABS: Basophils # 0.1 K/mm3 (0-0.2); Basophils % 0.5 % (0.1-2.0); Eosinophils # 0.1 K/mm3 (0.0-0.4); Eosinophils % 0.7 % (0.1-12.0); Hematocrit 33.6 % (42.0-52.0); Hemoglobin 10.3 g/dL (14.1-18.0); Lymphocytes # 1.7 K/mm3 (0.7-4.5); Lymphocytes % 9.2 % (10-50); Mean Corpuscular HGB Conc 30.5 g/dL (31.8-35.4); Mean Corpuscular Hemoglobin 31.1 pg (27.0-31.2); Mean Platelet Volume 10.8 fl (7.4-10.4); Monocytes # 0.8 K/mm3 (0.1-1.0); Monocytes % 4.3 % (1.7-9.3); Neutrophils # 15.3 K/mm3 (1.8-7.8); Neutrophils % 85.4 % (37.0-80.0); Platelet Count 302 K/mm3 (142-424); Red Cell Distribution Width 15.4 % (11.5-17.5)
[2020-11-17 07:01] LABS: MANUAL DIFFERENTIAL MANUAL DIFFERENTIAL (MANUAL DIFF)
[2020-11-17 07:04] LABS: Lactate Arterial 1.3 mmol/L (0.4-2.0)
[2020-11-17 07:07] LABS: ABG Base Excess 6.2 mmol/L (-2.4-2.3); ABG HCO3 30.5 mmhg (22.0-26.0); ABG Oxygen Saturation 95 % (90-100); ABG PCO2 47.5 mmhg (35.0-45.0); ABG PH 7.43 mmol/L (7.35-7.45); ABG PO2 77.6 mmhg (80-100)
[2020-11-17 07:07] LABS: Alanine Aminotransferase 41 U/L (12-78); Albumin Level 3.4 g/dl (3.5-5.0); Albumin/Globulin Ratio 0.9 (1.1-1.8); Alkaline Phosphatase 100 U/L (38-126); Anion Gap 10.9 mEq/L (5-15); Aspartate Amino Transferase 53 U/L (17-59); Bilirubin,Total 0.4 mg/dl (0.2-1.3); Blood Urea Nitrogen 47 mg/dl (9-20); Calcium 9.1 mg/dl (8.4-10.2); Carbon Dioxide 36 mmol/L (22.0-30.0); Chloride 94 mmol/L (98-107); Creatinine Clearance Estimated 95 mL/min (50-200); Estimated Glomerular Filt Rate 84 ml/min (>60); GFR (African American) 102 ML/MIN (>60); Globulin 3.9 g/dL (1.3-3.2); Glucose 117 mg/dl (74-100); Potassium 4.9 mmoL/L (3.5-5.1); Sodium 136 mmol/L (136-145); Total Protein,Serum 7.3 g/dl (6.3-8.2)
[2020-11-17 07:09] LABS: Allen's Test Patient Unable; Oxygen 60 %; PEEP 10; Pressure Support 8; Source Right Radial
[2020-11-17 07:19] LABS: Activated Partial Thrombo Time 46.6 seconds (22.8-30.6)
[2020-11-17 07:32] LABS: Hypochromasia 2+; Lymphocytes % 13 % (10-50); Macrocytosis 2+; Monocytes % 2 % (2-9); Neutrophils % 85 % (42-76); Platelet Estimate Normal; Total Cells Counted 100
--- NOTE | 2020-11-17 09:17 | HMH.PULMPN ---
Internal Medicine - PN: Subj *Date: 11/17/20 *Time: 12:44 Interval history: No acute respiratory events overnight. Exam - Constitutional Constitutional:: Present: no acute distress, comfortable - HENMT Exam HENMT: Present: normocephalic, atraumatic - Eye Exam Eyes:: Present: normal appearance both eyes and related structures - Neck Exam Neck:: Present: normal visual inspection - Respiratory Exam Respiratory:: Present: respiratory distress, crackles - Cardiovascular Exam Cardiac:: Present: S1, S2 - GI Exam GI:: Present: soft - Skin Exam Skin: Present: warm - Neurological Exam Neurological: Absent: alert, awake, normal cognition - Extremities Exam Extremities: Present: no cyanosis, no clubbing, edema Assessment and Plan (1) COVID-19 with pulmonary comorbidity Status: Acute Category: Medical Code(s): U07.1 - COVID-19; J98.4 - Other disorders of lung (2) Pulmonary embolism associated with COVID-19 Status: Acute Category: Medical Code(s): U07.1 - COVID-19; I26.99 - Other pulmonary embolism without acute cor pulmonale (3) Elevated troponin I level Status: Acute Category: Medical Code(s): R77.8 - Other specified abnormalities of plasma proteins (4) Left bundle branch block (LBBB) Status: Acute Category: Medical Code(s): I44.7 - Left bundle-branch block, unspecified (5) History of stroke Status: Acute Category: Medical Code(s): Z86.73 - Personal history of transient ischemic attack (TIA), and cerebral infarction without residual deficits (6) Elevated brain natriuretic peptide (BNP) level Status: Acute Category: Medical Code(s): R79.89 - Other specified abnormal findings of blood chemistry (7) Peroneal DVT (deep venous thrombosis) Status: Acute Qualifiers: Laterality: bilateral Category: Medical Code(s): I82.459 - Acute embolism and thrombosis of unspecified peroneal vein (8) Pneumonia due to COVID-19 virus Status: Acute Category: Medical Code(s): U07.1 - COVID-19; J12.82 - Pneumonia due to coronavirus disease 2019 (9) Bradycardia Status: Acute Category: Medical Code(s): R00.1 - Bradycardia, unspecified (10) Anemia Status: Acute Qualifiers: Anemia type: unspecified type Qualified Code(s): D64.9 - Anemia, unspecified Category: Medical Code(s): D64.9 - Anemia, unspecified (11) Pneumothorax, right Status: Acute Category: Medical Code(s): J93.9 - Pneumothorax, unspecified - Assessment and plan all Dx Assessment and Plan for all problems:: #COVID-19 pneumonia: #Pulmonary embolism: #Acute hypoxic respiratory failure: 70-year-old yet to vaccinate no prior respiratory complaint no significant smoking history. Positive for COVID-[address] on admission showed extensive pulmonary emboli both right and left main pulmonary arteries and distal arteries, nonocclusive along with airspace disease. Troponins elevated at 0.13 on admission. No echocardiogram available. Blood cultures no growth 48 hours. Sputum stain from 11/05 moderate gram-positive cocci pairs and chains and rare gram-negative rods. Nasal MRSA PCR negative Plan: -Continue to hold sedation. Follow with CT chest without contrast stat - VAP bundle Elevate head of the bed at 30 to 45 degrees Oral care with chlorhexidne GI ulcer prophylaxis - Famotidine 20mg IV BID Intubated and sedated. Continue mechanical ventilatory support. ABG and chest x-ray reviewed relatively unchanged from yesterday with a new chest tube placement. Chest tube was placed yesterday on the right side and with concerns for worsening pneumothorax., Appreciate surgery's help. Patient continue to perform SBT he is on minimal vent settings and 10 of PEEP and 50% FiO2. Patient only minimally responsive off sedation. Will follow with CT chest without contrast. We will also continue heparin drip for his pulmonary embolism. Continue remdesivir, dexamethasone x 10 days
--- NOTE | 2020-11-17 09:37 | HMH.ACPN2 ---
Internal Medicine - PN: Subj *Date: 11/17/20 *Time: 10:20 Interval history: 70-year-old male patient resting in bed sedation is off he is intubated. Ventilator settings AC 26/460/60 +10 still has subcutaneous emphysema. Right chest tube was placed for right-sided pneumothorax Exam Vital signs and Labs for Last 24 Hours: Temp Pulse Resp BP Pulse Ox 100 F H 122 H 35 H 151/95 H 94 L 11/17/20 07:50 11/17/20 09:00 11/17/20 09:00 11/17/20 09:00 11/17/20 09:00 Laboratory Results - last 24 hr 11/17/20 05:15: APTT 46.6 H 11/17/20 05:15: WBC 18.0 H, RBC 3.30 L, Hgb 10.3 L, Hct 33.6 L, MCV 102.0 H, MCH 31.1, MCHC 30.5 L, RDW 15.4, Plt Count 302, MPV 10.8 H, Neut % (Auto) 85.4 H, Lymph % (Auto) 9.2 L, [place] % (Auto) 4.3, Eos % (Auto) 0.7, Baso % (Auto) 0.5, Neut # (Auto) 15.3 H, Lymph # (Auto) 1.7, [place] # (Auto) 0.8, Eos # (Auto) 0.1, Baso # (Auto) 0.1, Total Counted 100, Neutrophils % (Manual) 85 H, Lymphocytes % (Manual) 13, Monocytes % (Manual) 2, Platelet Estimate Normal, Hypochromasia 2+, Macrocytosis 2+ 11/17/20 05:15: Sodium 136, Potassium 4.9, Chloride 94 L, Carbon Dioxide 36 H, Anion Gap 10.9, BUN 47 H D, Creatinine 0.90 D, Estimated Creat Clear 95, Estimated GFR 84, Est GFR ( Amer) 102 D, Glucose 117 H, Calcium 9.1, Total Bilirubin 0.4, AST 53, ALT 41, Alkaline Phosphatase 100, Total Protein 7.3, Albumin 3.4 L, Globulin 3.9 H, Albumin/Globulin Ratio 0.9 L 11/17/20 06:00: ABG Lactate 1.3 11/17/20 06:00: Specimen Source Right radial, O2 % 60, ABG pH 7.43, ABG pCO2 47.5 H, ABG pO2 77.6 L, ABG HCO3 30.5 H, ABG Total CO2 32.0 H, ABG O2 Saturation 95, ABG Base Excess 6.2 H, Andrea Test Patient unable, PEEP 10 I & O for Last 24 hours: Intake & Output 11/14/20 11/15/20 11/16/20 11/17/20 23:59 23:59 23:59 23:59 Intake Total 2539.625 / 2539.625 2666 / 3127 2481 / 2817 1226 / 1226 Output Total 3780 / 4230 2595 / 2745 194 / 2020 302 / 302 Balance -1240.375 / -1690.375 71 / 382 536 / 797 924 / 924 Weight 218 lb 218 lb 210 lb 8 oz 210 lb - Constitutional no acute distress, chronically ill appearing - *Routine HEENT Exam Head: Present: normocephalic Eye: Present: EOMI ENT: Present: mucous membranes moist - *Routine Neck Exam Present: trachea midline. Absent: tracheal deviation - *Routine Respiratory Exam Present: crackles. Absent: accessory muscle use - *Routine Cardiovascular Exam Present: RRR - *Routine Abdominal Exam Present: soft, normoactive bowel sounds. Absent: firm - *Routine Extremities Exam Present: pulses intact. Absent: cyanosis, clubbing - *Routine Skin Exam Present: intact, dry. Absent: cyanosis, erythema - *Routine Neurological Exam Present: altered mental status. Absent: alert - Routine Psychiatric Exam Present: unable to assess Assessment and Plan (1) COVID-19 with pulmonary comorbidity Status: Acute Category: Medical Code(s): U07.1 - COVID-19; J98.4 - Other disorders of lung (2) Pulmonary embolism associated with COVID-19 Status: Acute Category: Medical Code(s): U07.1 - COVID-19; I26.99 - Other pulmonary embolism without acute cor pulmonale (3) Elevated troponin I level Status: Acute Category: Medical Code(s): R77.8 - Other specified abnormalities of plasma proteins (4) Left bundle branch block (LBBB) Status: Acute Category: Medical Code(s): I44.7 - Left bundle-branch block, unspecified (5) History of stroke Status: Acute Category: Medical Code(s): Z86.73 - Personal history of transient ischemic attack (TIA), and cerebral infarction without residual deficits (6) Elevated brain natriuretic peptide (BNP) level Status: Acute Category: Medical Code(s): R79.89 - Other specified abnormal findings of blood chemistry (7) Peroneal DVT (deep venous thrombosis) Status: Acute Qualifiers: Laterality: bilateral Category: Medical Code(s): I82.459 - Acute embolism and thrombosis of unspecified peroneal vein (8) Pneumonia due
--- NOTE | 2020-11-17 12:04 | CT_ITS ---
PROCEDURE: CT HEAD/BRAIN WO CON CLINICAL INDICATION: AMS Altered mental status, altered level of consciousness, confusion, disorientation COMPARISON: CT CT HEAD/BRAIN WO CON from 08/08/2019 TECHNIQUE: Axial images obtained. All CT scans at the facility use one or more dose reduction, viz: automated exposure control, ma/kV adjustment per patient size (including targeted exams where dose is matched to indication, i.e. head), or iterative reconstruction technique. FINDINGS: No midline shift, mass effect, intracranial hemorrhage, hydrocephalus, or extra-axial fluid collection is evident. The calvarium has an unremarkable appearance. There are opacified right mastoid air cells. Mild sclerosis of the left mastoid sinus with opacified air cells. No sinus air-fluid level. IMPRESSION: No acute intracranial finding Dictated by: Andrea Calloway MD 11/17/2020 13:52 Andrea Calloway MD in [facility] 11/17/2020 13:52
--- NOTE | 2020-11-17 12:24 | HMH.ITSTN ---
nurse to call when ready, will need nurse and respiratory to transport
--- NOTE | 2020-11-17 14:40 | DIET.NUTRFU ---
Pt TF is running at goal rate and pt is tolerating per RN. Glucose running at 132, 121, 117. No changes to nutritional plan at this time. Will continue to monitor.
[2020-11-17 16:08] LABS: Activated Partial Thrombo Time 76.8 seconds (22.8-30.6)
--- NOTE | 2020-11-17 21:15 | PC.NURSE ---
RESPIRATORY CARE: PT PLACED BACK ON AC AT THIS TIME. VT 460, RR 26, PEEP 10, AND 60%. PT TOLERATING WELL.
[2020-11-17 23:54] LABS: Activated Partial Thrombo Time 60.1 seconds (22.8-30.6)
[2020-11-18] VITALS (31 sets, daily range): BP systolic 110–175; BP diastolic 73–104; PULSE 66–125; RESP 20–94; TEMP 37.1–37.6; O2SAT 93–98; BMI 27.3
--- NOTE | 2020-11-18 00:45 | PC.NURSE ---
He was switched back on AC mode at approx 2121. His current settings are: AC mode, TV 460, rate 26, PEEP 10, FiO2 60%. He continues on a heparin gtt. He is not on sedation but has not awakened. His HOB is elevated.
--- NOTE | 2020-11-18 01:28 | PC.NURSE ---
Central line DSG changed via sterile technique.
[2020-11-18 05:54] LABS: Basophils # 0.1 K/mm3 (0-0.2); Basophils % 0.3 % (0.1-2.0); Eosinophils # 0.1 K/mm3 (0.0-0.4); Eosinophils % 0.6 % (0.1-12.0); Hemoglobin 10.5 g/dL (14.1-18.0); Lymphocytes # 1.7 K/mm3 (0.7-4.5); Lymphocytes % 9.9 % (10-50); Mean Corpuscular HGB Conc 31.8 g/dL (31.8-35.4); Mean Corpuscular Hemoglobin 31.4 pg (27.0-31.2); Mean Corpuscular Volume 98.8 fl (80-94); Mean Platelet Volume 10.3 fl (7.4-10.4); Monocytes # 1.1 K/mm3 (0.1-1.0); Monocytes % 6.3 % (1.7-9.3); Neutrophils # 13.9 K/mm3 (1.8-7.8); Platelet Count 358 K/mm3 (142-424); Red Blood Count 3.34 M/mm3 (4.60-6.20); Red Cell Distribution Width 15.6 % (11.5-17.5); White Blood Count 16.7 K/mm3 (4.8-10.8)
--- NOTE | 2020-11-18 06:00 | XR_ITS ---
PROCEDURE INFORMATION: Exam: XR Chest Exam date and time: 11/18/2020 6:00 AM Age: 70 years old Clinical indication: Device placement; Ett placement (vent status); Additional info: Intubation covid TECHNIQUE: Imaging protocol: XR of the chest. Views: 1 view. COMPARISON: CR XR CHEST PORTABLE 11/17/2020 5:34 AM FINDINGS: Tubes, catheters and devices: ET tube is seen below the level of the clavicular heads. Central venous catheters in good position. A right-sided pleural tube is unchanged. Lungs: Patchy bilateral infiltrates are again noted without significant interval change. Pleural spaces: A trace right-sided pneumothorax is noted. Heart/Mediastinum: Unremarkable. No cardiomegaly. Bones/joints: Unremarkable. IMPRESSION: Trace right-sided pneumothorax unchanged. Right pleural tube in place. Stable patchy bilateral infiltrates.
[2020-11-18 06:02] LABS: MANUAL DIFFERENTIAL MANUAL DIFFERENTIAL (MANUAL DIFF)
[2020-11-18 06:05] LABS: Alanine Aminotransferase 46 U/L (12-78); Albumin Level 3.4 g/dl (3.5-5.0); Albumin/Globulin Ratio 0.8 (1.1-1.8); Alkaline Phosphatase 105 U/L (38-126); Anion Gap 11.9 mEq/L (5-15); Aspartate Amino Transferase 49 U/L (17-59); Bilirubin,Total 0.6 mg/dl (0.2-1.3); Blood Urea Nitrogen 50 mg/dl (9-20); Calcium 9.2 mg/dl (8.4-10.2); Carbon Dioxide 35 mmol/L (22.0-30.0); Chloride 97 mmol/L (98-107); Creatinine Clearance Estimated 94 mL/min (50-200); Estimated Glomerular Filt Rate 96 ml/min (>60); GFR (African American) 116 ML/MIN (>60); Globulin 4.3 g/dL (1.3-3.2); Glucose 131 mg/dl (74-100); Potassium 4.9 mmoL/L (3.5-5.1); Sodium 139 mmol/L (136-145); Total Protein,Serum 7.7 g/dl (6.3-8.2)
[2020-11-18 06:16] LABS: Activated Partial Thrombo Time 55.6 seconds (22.8-30.6)
[2020-11-18 06:27] LABS: Hypochromasia 1+; Lymphocytes % 11 % (10-50); Macrocytosis 1+; Neutrophils % 83 % (42-76); Platelet Estimate Normal; Total Cells Counted 100
[2020-11-18 07:35] LABS: ABG Base Excess 6.1 mmol/L (-2.4-2.3); ABG HCO3 30.6 mmhg (22.0-26.0); ABG PCO2 48.4 mmhg (35.0-45.0); ABG PH 7.42 mmol/L (7.35-7.45); ABG PO2 96.4 mmhg (80-100); ABG TCO2 32.1 mmhg (23-27)
[2020-11-18 07:51] LABS: Lactate Arterial 1.4 mmol/L (0.4-2.0)
[2020-11-18 08:06] LABS: Oxygen 60 %; PEEP 10; Tidal Volume 460; Vent Rate 26
[2020-11-18 08:07] LABS: Source Left Radial
--- NOTE | 2020-11-18 08:11 | HMH.GSPN ---
Subjective Narrative: Per nursing there have been no issues with the chest tube. They report no leak. Progress Note: A&P (1) COVID-19 with pulmonary comorbidity Status: Acute (2) Pulmonary embolism associated with COVID-19 Status: Acute (3) Elevated troponin I level Status: Acute (4) Left bundle branch block (LBBB) Status: Acute (5) History of stroke Status: Acute (6) Elevated brain natriuretic peptide (BNP) level Status: Acute (7) Peroneal DVT (deep venous thrombosis) Status: Acute (8) Pneumonia due to COVID-19 virus Status: Acute (9) Bradycardia Status: Acute (10) Anemia Status: Acute (11) Pneumothorax, right Status: Acute Assessment and plan: Trace apical pneumothorax remains. No obvious air leak. No need to remove chest tube while intubated (at least at the present time). Depending on his overall condition and follow-up films, placing chest tube to waterseal within the next 24 to 48 hours is likely reasonable. Exam Vital signs and Labs for Last 24 Hours: Temp Pulse Resp BP Pulse Ox 99.5 F 122 H 28 H 154/97 H 97 11/18/20 06:19 11/18/20 06:19 11/18/20 06:19 11/18/20 06:19 11/18/20 06:19 Laboratory Results - last 24 hr 11/17/20 15:00: APTT 76.8 H* D 11/17/20 23:00: APTT 60.1 H D 11/18/20 04:50: WBC 16.7 H, RBC 3.34 L, Hgb 10.5 L, Hct 33.0 L, MCV 98.8 H, MCH 31.4 H, MCHC 31.8, RDW 15.6, Plt Count 358, MPV 10.3, Neut % (Auto) 83.0 H, Lymph % (Auto) 9.9 L, [place] % (Auto) 6.3, Eos % (Auto) 0.6, Baso % (Auto) 0.3, Neut # (Auto) 13.9 H, Lymph # (Auto) 1.7, [place] # (Auto) 1.1 H, Eos # (Auto) 0.1, Baso # (Auto) 0.1, Total Counted 100, Neutrophils % (Manual) 83 H, Band Neutrophils % 6.0, Lymphocytes % (Manual) 11, Platelet Estimate Normal, Hypochromasia 1+, Macrocytosis 1+ 11/18/20 04:50: Sodium 139, Potassium 4.9, Chloride 97 L, Carbon Dioxide 35 H, Anion Gap 11.9, BUN 50 H, Creatinine 0.80, Estimated Creat Clear 94, Estimated GFR 96, Est GFR ( Amer) 116, Glucose 131 H, Calcium 9.2, Total Bilirubin 0.6, AST 49, ALT 46, Alkaline Phosphatase 105, Total Protein 7.7, Albumin 3.4 L, Globulin 4.3 H, Albumin/Globulin Ratio 0.8 L 11/18/20 04:50: APTT 55.6 H 11/18/20 06:00: ABG Lactate 1.4 11/18/20 06:00: Specimen Source Left radial, O2 % 60, ABG pH 7.42, ABG pCO2 48.4 H, ABG pO2 96.4, ABG HCO3 30.6 H, ABG Total CO2 32.1 H, ABG Base Excess 6.1 H, Andrea Test N/a, Vent Rate 26, Tidal Volume 460, PEEP 10 I & O for Last 24 hours: Intake & Output 11/15/20 11/16/20 11/17/20 11/18/20 11:59 11:59 11:59 11:59 Intake Total 1247.625 / 2251.326 4588 / 3592 2781 / 2781 1101 / 1101 Output Total 3220 / 3220 3135 / 3135 492 / 492 2314 / 2314 Balance -1971.375 / -1971.375 457 / 457 2289 / 2289 -1213 / -1213 Weight 218 lb 210 lb 8 oz 210 lb 206 lb 12.8 oz Microbiology Reports for the Last 24 Hours: Microbiology 11/17/20 20:22 Sputum - Endotracheal Tube Aspirate Gram Stain - Final Radiology Reports for the Last 24 Hours: Trace right apical pneumothorax noted on this morning's film - *Routine Respiratory Exam Comments: No air leak on chest tube per nursing. He remains on 20 of suction.
--- NOTE | 2020-11-18 08:58 | HMH.ACPN2 ---
Internal Medicine - PN: Subj *Date: 11/18/20 *Time: 08:58 Interval history: pt on vent - no acute event reported by staff Exam Vital signs and Labs for Last 24 Hours: Temp Pulse Resp BP Pulse Ox 99.5 F 122 H 28 H 154/97 H 97 11/18/20 06:19 11/18/20 06:19 11/18/20 06:19 11/18/20 06:19 11/18/20 06:19 Laboratory Results - last 24 hr 11/17/20 15:00: APTT 76.8 H* D 11/17/20 23:00: APTT 60.1 H D 11/18/20 04:50: WBC 16.7 H, RBC 3.34 L, Hgb 10.5 L, Hct 33.0 L, MCV 98.8 H, MCH 31.4 H, MCHC 31.8, RDW 15.6, Plt Count 358, MPV 10.3, Neut % (Auto) 83.0 H, Lymph % (Auto) 9.9 L, [place] % (Auto) 6.3, Eos % (Auto) 0.6, Baso % (Auto) 0.3, Neut # (Auto) 13.9 H, Lymph # (Auto) 1.7, [place] # (Auto) 1.1 H, Eos # (Auto) 0.1, Baso # (Auto) 0.1, Total Counted 100, Neutrophils % (Manual) 83 H, Band Neutrophils % 6.0, Lymphocytes % (Manual) 11, Platelet Estimate Normal, Hypochromasia 1+, Macrocytosis 1+ 11/18/20 04:50: Sodium 139, Potassium 4.9, Chloride 97 L, Carbon Dioxide 35 H, Anion Gap 11.9, BUN 50 H, Creatinine 0.80, Estimated Creat Clear 94, Estimated GFR 96, Est GFR ( Amer) 116, Glucose 131 H, Calcium 9.2, Total Bilirubin 0.6, AST 49, ALT 46, Alkaline Phosphatase 105, Total Protein 7.7, Albumin 3.4 L, Globulin 4.3 H, Albumin/Globulin Ratio 0.8 L 11/18/20 04:50: APTT 55.6 H 11/18/20 06:00: ABG Lactate 1.4 11/18/20 06:00: Specimen Source Left radial, O2 % 60, ABG pH 7.42, ABG pCO2 48.4 H, ABG pO2 96.4, ABG HCO3 30.6 H, ABG Total CO2 32.1 H, ABG Base Excess 6.1 H, Andrea Test N/a, Vent Rate 26, Tidal Volume 460, PEEP 10 I & O for Last 24 hours: Intake & Output 11/15/20 11/16/20 11/17/20 11/18/20 11:59 11:59 11:59 11:59 Intake Total 1247.625 / 7517.577 4926 / 3592 2781 / 2781 1101 / 1101 Output Total 3220 / 3220 3135 / 3135 492 / 492 2314 / 2314 Balance -1971.375 / -375 457 / 457 2289 / 2289 -1213 / -1213 Weight 218 lb 210 lb 8 oz 210 lb 206 lb 12.8 oz Microbiology Reports for the Last 24 Hours: Microbiology 11/17/20 20:22 Sputum - Endotracheal Tube Aspirate Gram Stain - Final - Constitutional Comments: intubated and sedated - *Routine HEENT Exam Head: Present: atraumatic Eye: Present: PERRL Comments: intubated - *Routine Neck Exam Absent: JVD - *Routine Respiratory Exam Present: patient mechanically ventilated - *Routine Cardiovascular Exam Present: RRR - *Routine Abdominal Exam Present: soft - *Routine Extremities Exam Present: edema - *Routine Skin Exam Absent: rash - *Routine Neurological Exam sedated - Routine Psychiatric Exam Present: unable to assess Assessment and Plan (1) COVID-19 with pulmonary comorbidity Status: Acute Category: Medical Code(s): U07.1 - COVID-19; J98.4 - Other disorders of lung (2) Pulmonary embolism associated with COVID-19 Status: Acute Category: Medical Code(s): U07.1 - COVID-19; I26.99 - Other pulmonary embolism without acute cor pulmonale (3) Elevated troponin I level Status: Acute Category: Medical Code(s): R77.8 - Other specified abnormalities of plasma proteins (4) Left bundle branch block (LBBB) Status: Acute Category: Medical Code(s): I44.7 - Left bundle-branch block, unspecified (5) History of stroke Status: Acute Category: Medical Code(s): Z86.73 - Personal history of transient ischemic attack (TIA), and cerebral infarction without residual deficits (6) Elevated brain natriuretic peptide (BNP) level Status: Acute Category: Medical Code(s): R79.89 - Other specified abnormal findings of blood chemistry (7) Peroneal DVT (deep venous thrombosis) Status: Acute Qualifiers: Laterality: bilateral Category: Medical Code(s): I82.459 - Acute embolism and thrombosis of unspecified peroneal vein (8) Pneumonia due to COVID-19 virus Status: Acute Category: Medical Code(s): U07.1 - COVID-19; J12.82 - Pneumonia due to coronavirus disease 2019 (9) Bradycardia Status: Acute C
[2020-11-18 11:42] LABS: Activated Partial Thrombo Time 52.3 seconds (22.8-30.6)
[2020-11-18 21:58] LABS: Activated Partial Thrombo Time 62.4 seconds (22.8-30.6)
--- NOTE | 2020-11-18 22:28 | PC.NURSE ---
RESPIRATORY CARE: PT TURNED BACK INTO AC AT THIS TIME. VT 460, RR26, PEEP 10, AND 60%. PT TOLERATING WELL.
[2020-11-19] VITALS (35 sets, daily range): BP systolic 101–154; BP diastolic 52–92; PULSE 96–129; RESP 16–95; TEMP 36.6–39; O2SAT 94–97; BMI 27.3
--- NOTE | 2020-11-19 04:10 | PC.NURSE ---
11/18/20 @ 7468 BENNIE contacted in regards to [facility]. BENNIE stated someone would call back. 11/18/20 @ [phone] BENNIE called back but request was made to call back in 30 mins by policy writer typist 11/18/20 @ [phone]-BENNIE Called r/t [facility]. BENNIE stated they would not follow but to call back with discussion of termination of care, time of , or if pallative treatment is discussed.
--- NOTE | 2020-11-19 06:00 | XR_ITS ---
PROCEDURE INFORMATION: Exam: XR Chest Exam date and time: 11/19/2020 6:00 AM Age: 70 years old Clinical indication: Device placement; Ett placement (vent status); Additional info: Intubation covid TECHNIQUE: Imaging protocol: XR of the chest. Views: 1 view. COMPARISON: CR XR CHEST PORTABLE 11/18/2020 5:31 AM FINDINGS: Tubes, catheters and devices: There is an endotracheal tube with its tip 5.6 cm above the eloisa. Other support lines and tubes are unchanged. Lungs: Patchy peripheral infiltrates throughout both lungs. Pleural spaces: Stable small bilateral pneumothoraces. Heart/Mediastinum: Unremarkable. No cardiomegaly. Bones/joints: Unremarkable. Soft tissues: There is extensive subcutaneous emphysema throughout the chest wall and shoulders. IMPRESSION: Endotracheal tube in appropriate position. Otherwise stable chest x-ray.
[2020-11-19 06:04] LABS: Basophils % 0.2 % (0.1-2.0); Eosinophils % 0.2 % (0.1-12.0); Hematocrit 31.6 % (42.0-52.0); Hemoglobin 9.4 g/dL (14.1-18.0); Lymphocytes # 1.3 K/mm3 (0.7-4.5); Lymphocytes % 7.1 % (10-50); Mean Corpuscular HGB Conc 29.8 g/dL (31.8-35.4); Mean Corpuscular Hemoglobin 30.6 pg (27.0-31.2); Mean Corpuscular Volume 102.9 fl (80-94); Monocytes # 1.3 K/mm3 (0.1-1.0); Monocytes % 7.2 % (1.7-9.3); Neutrophils % 85.3 % (37.0-80.0); Platelet Count 312 K/mm3 (142-424); Red Blood Count 3.07 M/mm3 (4.60-6.20); Red Cell Distribution Width 15.4 % (11.5-17.5); White Blood Count 17.5 K/mm3 (4.8-10.8)
[2020-11-19 06:13] LABS: Alanine Aminotransferase 54 U/L (12-78); Albumin Level 3.3 g/dl (3.5-5.0); Albumin/Globulin Ratio 0.8 (1.1-1.8); Alkaline Phosphatase 106 U/L (38-126); Anion Gap 10.3 mEq/L (5-15); Aspartate Amino Transferase 50 U/L (17-59); Bilirubin,Total 0.5 mg/dl (0.2-1.3); Blood Urea Nitrogen 53 mg/dl (9-20); Carbon Dioxide 37 mmol/L (22.0-30.0); Chloride 101 mmol/L (98-107); Creatinine Clearance Estimated 94 mL/min (50-200); Estimated Glomerular Filt Rate 112 ml/min (>60); GFR (African American) 136 ML/MIN (>60); Globulin 4.2 g/dL (1.3-3.2); Glucose 148 mg/dl (74-100); Potassium 5.3 mmoL/L (3.5-5.1); Sodium 143 mmol/L (136-145); Total Protein,Serum 7.5 g/dl (6.3-8.2)
[2020-11-19 06:15] LABS: MANUAL DIFFERENTIAL MANUAL DIFFERENTIAL (MANUAL DIFF)
[2020-11-19 06:27] LABS: Activated Partial Thrombo Time 58.6 seconds (22.8-30.6)
[2020-11-19 06:56] LABS: Hypochromasia 2+; Lymphocytes % 6 % (10-50); Macrocytosis 2+; Neutrophils % 82 % (42-76); Platelet Estimate Normal; Rouleaux 1+; Total Cells Counted 100
--- NOTE | 2020-11-19 08:16 | HMH.PHACONS ---
- Pharmacy Consult Date: 11/19/20 Time: 08:16 Referring provider: DR. JIMENES Reason for Consult:: VANCOMYCIN DOSING Allergies and ADEs:: Allergies Allergy/AdvReac Type Severity Reaction Status Date / Time hydrocodone Allergy Unknown Unknown Verified 11/04/20 08:07 allergy reaction Iodinated Contrast Media Allergy Unknown Unknown Verified 11/04/20 08:07 allergy reaction propoxyphene Allergy Unknown Unknown Verified 11/04/20 08:07 allergy reaction Home Medications:: Home Medications Medication Instructions Recorded Confirmed Type Gabapentin [Gabapentin 400mg Cap] 400 mg PO TID 11/03/20 11/03/20 History Oxycodone HCl 5 mg PO BID 11/03/20 11/04/20 History Meloxicam 15 mg PO DAILY 11/04/20 11/04/20 History Metoprolol Succinate [Metoprolol 50 mg PO DAILY 11/04/20 11/04/20 History Succinate 50mg Tablet*] Tizanidine HCl 4 mg PO BID 11/04/20 11/04/20 History Height: 1.85 m Weight: 93.638 kg Laboratory Results:: Laboratory Results - last 24 hr 11/18/20 11:21: APTT 52.3 H 11/18/20 21:07: APTT 62.4 H* D 11/19/20 05:10: APTT 58.6 H 11/19/20 05:10: WBC 17.5 H, RBC 3.07 L, Hgb 9.4 L, Hct 31.6 L, MCV 102.9 H, MCH 30.6, MCHC 29.8 L, RDW 15.4, Plt Count 312, MPV 10.0, Neut % (Auto) 85.3 H, Lymph % (Auto) 7.1 L, [place] % (Auto) 7.2, Eos % (Auto) 0.2, Baso % (Auto) 0.2, Neut # (Auto) 15.0 H, Lymph # (Auto) 1.3, [place] # (Auto) 1.3 H, Eos # (Auto) 0.0, Baso # (Auto) 0.0, Total Counted 100, Neutrophils % (Manual) 82 H, Band Neutrophils % 12.0 H, Lymphocytes % (Manual) 6 L, Platelet Estimate Normal, Hypochromasia 2+, Macrocytosis 2+, Rouleaux 1+ 11/19/20 05:10: Sodium 143, Potassium 5.3 H, Chloride 101, Carbon Dioxide 37 H, Anion Gap 10.3, BUN 53 H, Creatinine 0.70, Estimated Creat Clear 94, Estimated GFR 112, Est GFR ( Amer) 136, Glucose 148 H, Calcium 9.0, Total Bilirubin 0.5, AST 50, ALT 54, Alkaline Phosphatase 106, Total Protein 7.5, Albumin 3.3 L, Globulin 4.2 H, Albumin/Globulin Ratio 0.8 L Medical History: Reports:: Hypertension Denies:: Cancer, Diabetes Mellitus Type 1, Diabetes Mellitus Type 2, Internal Pacemaker, MRSA Assessment and Plan (1) COVID-19 with pulmonary comorbidity Status: Acute Category: Medical Code(s): U07.1 - COVID-19; J98.4 - Other disorders of lung (2) Pulmonary embolism associated with COVID-19 Status: Acute Category: Medical Code(s): U07.1 - COVID-19; I26.99 - Other pulmonary embolism without acute cor pulmonale (3) Elevated troponin I level Status: Acute Category: Medical Code(s): R77.8 - Other specified abnormalities of plasma proteins (4) Left bundle branch block (LBBB) Status: Acute Category: Medical Code(s): I44.7 - Left bundle-branch block, unspecified (5) History of stroke Status: Acute Category: Medical Code(s): Z86.73 - Personal history of transient ischemic attack (TIA), and cerebral infarction without residual deficits (6) Elevated brain natriuretic peptide (BNP) level Status: Acute Category: Medical Code(s): R79.89 - Other specified abnormal findings of blood chemistry (7) Peroneal DVT (deep venous thrombosis) Status: Acute Qualifiers: Laterality: bilateral Category: Medical Code(s): I82.459 - Acute embolism and thrombosis of unspecified peroneal vein (8) Pneumonia due to COVID-19 virus Status: Acute Category: Medical Code(s): U07.1 - COVID-19; J12.82 - Pneumonia due to coronavirus disease 2019 (9) Bradycardia Status: Acute Category: Medical Code(s): R00.1 - Bradycardia, unspecified (10) Anemia Status: Acute Qualifiers: Anemia type: unspecified type Qualified Code(s): D64.9 - Anemia, unspecified Category: Medical Code(s): D64.9 - Anemia, unspecified (11) Pneumothorax, right Status: Acute Category: Medical Code(s): J93.9 - Pneumothorax, unspecified - Assessment and plan all Dx Assessment and Plan for all problems:: Age: 70 yo Serum creatinine:
[2020-11-19 09:01] LABS: ABG Base Excess 10.6 mmol/L (-2.4-2.3); ABG HCO3 36.4 mmhg (22.0-26.0); ABG PH 7.34 mmol/L (7.35-7.45); ABG TCO2 38.6 mmhg (23-27)
[2020-11-19 09:10] LABS: Allen's Test Patient Unable; Oxygen 60 %; PEEP 10; Source Right Radial; Tidal Volume 460; Vent Rate 26
[2020-11-19 09:11] LABS: ABG PCO2 69.4 mmhg (35.0-45.0)
--- NOTE | 2020-11-19 09:15 | PC.NURSE ---
ABG results called to Dr. Sadler: pH 7.338, pCO2 63.5, pO2 76.7, and HCO3 33.3.
--- NOTE | 2020-11-19 09:44 | HMH.ACPN2 ---
Internal Medicine - PN: Subj *Date: 11/20/20 *Time: 06:40 Interval history: having episodes of tacycardia- 3rd spacing on exam Exam Vital signs and Labs for Last 24 Hours: Temp Pulse Resp BP Pulse Ox 99.1 F 128 H 22 150/90 H 95 11/19/20 07:00 11/19/20 07:00 11/19/20 07:00 11/19/20 07:00 11/19/20 07:00 Laboratory Results - last 24 hr 11/18/20 11:21: APTT 52.3 H 11/18/20 21:07: APTT 62.4 H* D 11/19/20 05:10: APTT 58.6 H 11/19/20 05:10: WBC 17.5 H, RBC 3.07 L, Hgb 9.4 L, Hct 31.6 L, MCV 102.9 H, MCH 30.6, MCHC 29.8 L, RDW 15.4, Plt Count 312, MPV 10.0, Neut % (Auto) 85.3 H, Lymph % (Auto) 7.1 L, [place] % (Auto) 7.2, Eos % (Auto) 0.2, Baso % (Auto) 0.2, Neut # (Auto) 15.0 H, Lymph # (Auto) 1.3, [place] # (Auto) 1.3 H, Eos # (Auto) 0.0, Baso # (Auto) 0.0, Total Counted 100, Neutrophils % (Manual) 82 H, Band Neutrophils % 12.0 H, Lymphocytes % (Manual) 6 L, Platelet Estimate Normal, Hypochromasia 2+, Macrocytosis 2+, Rouleaux 1+ 11/19/20 05:10: Sodium 143, Potassium 5.3 H, Chloride 101, Carbon Dioxide 37 H, Anion Gap 10.3, BUN 53 H, Creatinine 0.70, Estimated Creat Clear 94, Estimated GFR 112, Est GFR ( Amer) 136, Glucose 148 H, Calcium 9.0, Total Bilirubin 0.5, AST 50, ALT 54, Alkaline Phosphatase 106, Total Protein 7.5, Albumin 3.3 L, Globulin 4.2 H, Albumin/Globulin Ratio 0.8 L 11/19/20 06:00: Specimen Source Right radial, O2 % 60, ABG pH 7.34 L, ABG pCO2 69.4 H, ABG pO2 66.0 L, ABG HCO3 36.4 H, ABG Total CO2 38.6 H, ABG Base Excess 10.6 H, Andrea Test Patient unable, Vent Rate 26, Tidal Volume 460, PEEP 10 I & O for Last 24 hours: Intake & Output 11/16/20 11/17/20 11/18/20 11/19/20 11:59 11:59 11:59 11:59 Intake Total 3592 / 3592 2781 / 2781 1101 / 1101 2056 Output Total 3135 / 3135 492 / 492 2729 / 2894 1615 / 1615 Balance 457 / 457 2289 / 2289 -1628 / -1793 442 / 442 Weight 210 lb 8 oz 210 lb 206 lb 12.8 oz 206 lb 7 oz Microbiology Reports for the Last 24 Hours: Microbiology 11/17/20 20:22 Sputum - Endotracheal Tube Aspirate Gram Stain - Final 11/17/20 20:22 Sputum - Endotracheal Tube Aspirate Sputum Culture - Preliminary 11/17/20 15:00 Blood Blood Culture - Preliminary - Constitutional Comments: intubated and sedated - *Routine HEENT Exam Head: Present: normocephalic Eye: Present: EOMI, PERRL ENT: Present: mucous membranes dry - *Routine Neck Exam Absent: JVD - *Routine Respiratory Exam Present: patient mechanically ventilated - *Routine Cardiovascular Exam Present: tachycardia - *Routine Abdominal Exam Present: soft - *Routine Extremities Exam Present: edema - *Routine Skin Exam Present: intact - *Routine Neurological Exam sedated - Routine Psychiatric Exam Present: unable to assess Assessment and Plan (1) COVID-19 with pulmonary comorbidity Status: Acute Category: Medical Code(s): U07.1 - COVID-19; J98.4 - Other disorders of lung (2) Pulmonary embolism associated with COVID-19 Status: Acute Category: Medical Code(s): U07.1 - COVID-19; I26.99 - Other pulmonary embolism without acute cor pulmonale (3) Elevated troponin I level Status: Acute Category: Medical Code(s): R77.8 - Other specified abnormalities of plasma proteins (4) Left bundle branch block (LBBB) Status: Acute Category: Medical Code(s): I44.7 - Left bundle-branch block, unspecified (5) History of stroke Status: Acute Category: Medical Code(s): Z86.73 - Personal history of transient ischemic attack (TIA), and cerebral infarction without residual deficits (6) Elevated brain natriuretic peptide (BNP) level Status: Acute Category: Medical Code(s): R79.89 - Other specified abnormal findings of blood chemistry (7) Peroneal DVT (deep venous thrombosis) Status: Acute Qualifiers: Laterality: bilateral Category: Medical Code(s): I82.459 - Acute embolism and thrombosis of unspecified peroneal vein (8) Pneumonia due to COVID-19
--- NOTE | 2020-11-19 10:16 | ECG_ITS ---
APPROVED REPORT Exam: Resting ECG HR:106 bpm ECG Measurements Heart Rate 106 AXES UT 134 P 56 QRSd 128 QRS -3 QT 338 T 147 QTc 448 Conclusion Sinus tachycardia Left bundle branch block Abnormal ECG Electronically signed by : Alexx Salvador MD 11/19/2020 20:51:03
--- NOTE | 2020-11-19 10:24 | PC.NURSE ---
Patient placed on SBT at the time. 12/03 60%.
--- NOTE | 2020-11-19 11:17 | PC.NURSE ---
received call from Dr. Gallego to put chest tube on water seal.
--- NOTE | 2020-11-19 11:18 | HMH.GSPN ---
Subjective Narrative: Nursing reports no issues with the chest tube . No airleak per report. Progress Note: A&P (1) COVID-19 with pulmonary comorbidity Status: Acute (2) Pulmonary embolism associated with COVID-19 Status: Acute (3) Elevated troponin I level Status: Acute (4) Left bundle branch block (LBBB) Status: Acute (5) History of stroke Status: Acute (6) Elevated brain natriuretic peptide (BNP) level Status: Acute (7) Peroneal DVT (deep venous thrombosis) Status: Acute (8) Pneumonia due to COVID-19 virus Status: Acute (9) Bradycardia Status: Acute (10) Anemia Status: Acute (11) Pneumothorax, right Status: Acute Assessment and plan: No change radiographically. No airleak noted. Chest tube to waterseal Follow-up x-ray in 4 to 6 hours Exam Vital signs and Labs for Last 24 Hours: Temp Pulse Resp BP Pulse Ox 99.1 F 107 H 29 H 150/90 H 94 L 11/19/20 07:00 11/19/20 10:24 11/19/20 10:24 11/19/20 07:00 11/19/20 10:24 Laboratory Results - last 24 hr 11/18/20 11:21: APTT 52.3 H 11/18/20 21:07: APTT 62.4 H* D 11/19/20 05:10: APTT 58.6 H 11/19/20 05:10: WBC 17.5 H, RBC 3.07 L, Hgb 9.4 L, Hct 31.6 L, MCV 102.9 H, MCH 30.6, MCHC 29.8 L, RDW 15.4, Plt Count 312, MPV 10.0, Neut % (Auto) 85.3 H, Lymph % (Auto) 7.1 L, [place] % (Auto) 7.2, Eos % (Auto) 0.2, Baso % (Auto) 0.2, Neut # (Auto) 15.0 H, Lymph # (Auto) 1.3, [place] # (Auto) 1.3 H, Eos # (Auto) 0.0, Baso # (Auto) 0.0, Total Counted 100, Neutrophils % (Manual) 82 H, Band Neutrophils % 12.0 H, Lymphocytes % (Manual) 6 L, Platelet Estimate Normal, Hypochromasia 2+, Macrocytosis 2+, Rouleaux 1+ 11/19/20 05:10: Sodium 143, Potassium 5.3 H, Chloride 101, Carbon Dioxide 37 H, Anion Gap 10.3, BUN 53 H, Creatinine 0.70, Estimated Creat Clear 94, Estimated GFR 112, Est GFR ( Amer) 136, Glucose 148 H, Calcium 9.0, Total Bilirubin 0.5, AST 50, ALT 54, Alkaline Phosphatase 106, Total Protein 7.5, Albumin 3.3 L, Globulin 4.2 H, Albumin/Globulin Ratio 0.8 L 11/19/20 06:00: Specimen Source Right radial, O2 % 60, ABG pH 7.34 L, ABG pCO2 69.4 H, ABG pO2 66.0 L, ABG HCO3 36.4 H, ABG Total CO2 38.6 H, ABG Base Excess 10.6 H, Andrea Test Patient unable, Vent Rate 26, Tidal Volume 460, PEEP 10 I & O for Last 24 hours: Intake & Output 11/16/20 11/17/20 11/18/20 11/19/20 11:59 11:59 11:59 11:59 Intake Total 3592 / 3592 2781 / 2781 1101 / 1101 205 / 2056 Output Total 3135 / 3135 492 / 492 2729 / 2894 1615 / 1615 Balance 457 / 457 2289 / 2289 -1628 / -1793 442 / 442 Weight 210 lb 8 oz 210 lb 206 lb 12.8 oz 206 lb 7 oz Microbiology Reports for the Last 24 Hours: Microbiology 11/17/20 20:22 Sputum - Endotracheal Tube Aspirate Gram Stain - Final 11/17/20 20:22 Sputum - Endotracheal Tube Aspirate Sputum Culture - Preliminary 11/17/20 15:00 Blood Blood Culture - Preliminary - *Routine Respiratory Exam Comments: No air leak per nursing report
[2020-11-19 11:40] LABS: VBG Base Excess 4.2 mmol/L (-2.4-2.3); VBG HCO3 31.2 mmol/L (23-30); VBG Oxygen Saturation 98.1 % (50-70); VBG PCO2 69.4 mmol/L (35-51); VBG PH 7.27 mmol/L (7.31-7.41); VBG PO2 126.1 mmol/L (28-40); VBG Total CO2 33.3 mmol/L (23-27)
--- NOTE | 2020-11-19 13:15 | PC.NURSE ---
pt's temp is 102.2 axillary despite giving Acetaminophen 650mg rectally @ 12pm. Ice packs to bilateral axilla and bilateral groin were placed. Fan also on in the room. Contacted Dr. Martines, who ordered Ibuprofen 400mg Q4 prn via NG tube. Order faxed to pharmacy.
--- NOTE | 2020-11-19 17:00 | XR_ITS ---
PROCEDURE INFORMATION: Exam: XR Chest Exam date and time: 11/19/2020 5:00 PM Age: 70 years old Clinical indication: Other: Covid in icu; Additional info: Chest tube to water seal TECHNIQUE: Imaging protocol: XR of the chest. Views: 1 view. COMPARISON: CR XR CHEST PORTABLE 11/19/2020 5:24 AM FINDINGS: Tubes, catheters and devices: There are bilateral chest tubes in place. The tip of the endotracheal tube is 5 cm above the eloisa. The NG tube extends below the diaphragm the stomach. Lungs: Probable areas of consolidation partially obscured by overlying emphysema. No change from prior x-ray Pleural spaces: There is a residual small pneumothorax seen medially on the left unchanged from the prior x-ray. There is a decrease in size of small pneumothorax on the right. Heart/Mediastinum: Unremarkable. No cardiomegaly. Bones/joints: Unremarkable. Soft tissues: There is extensive soft tissue emphysema throughout the chest and lower neck. This was also present on the prior x-ray and has not signal unchanged. IMPRESSION: 1. Bilateral chest tubes. Stable small left pneumothorax and decrease in small right pneumothorax. 2. Persistent extensive soft tissue emphysema. 3. No new findings
[2020-11-19 17:40] LABS: Activated Partial Thrombo Time 75.6 seconds (22.8-30.6)
--- NOTE | 2020-11-19 17:46 | PC.NURSE ---
received call from lab (Robyn) reporting PTT 75.6. Name and verified. Paged [facility] (Rojas), who ordered no changes. He will enter next PTT order.
--- NOTE | 2020-11-19 23:36 | PC.NURSE ---
patients called to check on patient - she was updated on plan of care by KIRSTEN Acevedo.
[2020-11-20] VITALS (28 sets, daily range): BP systolic 101–142; BP diastolic 62–86; PULSE 90–132; RESP 18–32; TEMP 37.1–37.8; O2SAT 87–96; BMI 27.3
--- NOTE | 2020-11-20 | ECG_ITS ---
APPROVED REPORT Exam: Resting ECG HR:104 bpm ECG Measurements Heart Rate 104 AXES MA 134 P 55 QRSd 132 QRS -6 QT 352 T 134 QTc 462 Conclusion Sinus tachycardia Left bundle branch block Abnormal ECG Electronically signed by : Alexx Salvador MD 11/22/2020 21:10:36
--- NOTE | 2020-11-20 03:04 | PC.NURSE ---
Pt has been tachycardic this shift. [place] with couplets also noted briefly this AM. BP stable. O2 sat currently 96%. Vent settings are as follows: FiO2 60%, R 26, TV 460, PEEP 10. Pt is not on any sedation at this time. Chest tube to water seal. Heparin gtt @ 1800 units/hr. Pulmocare @ goal rate of 55 ml/hr. 0 residual. F/C draining to bedside. Will continue to monitor.
--- NOTE | 2020-11-20 03:18 | PC.NURSE ---
Patient received bath and bed change this shift.
--- NOTE | 2020-11-20 05:17 | PC.NURSE ---
labs drawn from central line at this time
--- NOTE | 2020-11-20 06:00 | XR_ITS ---
PROCEDURE INFORMATION: Exam: XR Chest Exam date and time: 11/20/2020 6:00 AM Age: 70 years old Clinical indication: Device placement; Ett placement (vent status); Additional info: Intubation covid TECHNIQUE: Imaging protocol: XR of the chest. Views: 1 view. COMPARISON: CR XR CHEST PORTABLE 11/19/2020 5:03 PM FINDINGS: Tubes, catheters and devices: ET tube is 7.5 cm from the eloisa. Left-sided subclavian central venous catheter is in the brachiocephalic vein. A right-sided pleural tube is unchanged. Lungs: Some patchy airspace opacities are present bilaterally. Pleural spaces: Unremarkable. No pleural effusion. No pneumothorax. Heart/Mediastinum: Unremarkable. No cardiomegaly. Bones/joints: Unremarkable. Soft tissues: Extensive subcutaneous emphysema is noted. IMPRESSION: Patchy airspace disease unchanged.
[2020-11-20 06:06] LABS: Basophils % 0.1 % (0.1-2.0); Eosinophils % 0.1 % (0.1-12.0); Hematocrit 28.4 % (42.0-52.0); Lymphocytes # 1.1 K/mm3 (0.7-4.5); Lymphocytes % 7.1 % (10-50); Mean Corpuscular HGB Conc 29.1 g/dL (31.8-35.4); Mean Corpuscular Hemoglobin 30.4 pg (27.0-31.2); Mean Corpuscular Volume 104.5 fl (80-94); Mean Platelet Volume 9.9 fl (7.4-10.4); Monocytes # 1.1 K/mm3 (0.1-1.0); Neutrophils # 13.7 K/mm3 (1.8-7.8); Neutrophils % 85.7 % (37.0-80.0); Platelet Count 270 K/mm3 (142-424); Red Blood Count 2.72 M/mm3 (4.60-6.20); Red Cell Distribution Width 15.5 % (11.5-17.5); White Blood Count 15.9 K/mm3 (4.8-10.8)
[2020-11-20 06:18] LABS: MANUAL DIFFERENTIAL MANUAL DIFFERENTIAL (MANUAL DIFF)
[2020-11-20 06:23] LABS: Potassium 4.9 mmoL/L (3.5-5.1)
[2020-11-20 06:24] LABS: Alanine Aminotransferase 70 U/L (12-78); Albumin Level 2.9 g/dl (3.5-5.0); Albumin/Globulin Ratio 0.8 (1.1-1.8); Alkaline Phosphatase 91 U/L (38-126); Aspartate Amino Transferase 57 U/L (17-59); Bilirubin,Total 0.4 mg/dl (0.2-1.3); Blood Urea Nitrogen 65 mg/dl (9-20); Calcium 8.3 mg/dl (8.4-10.2); Carbon Dioxide 38 mmol/L (22.0-30.0); Chloride 106 mmol/L (98-107); Creatinine Clearance Estimated 93 mL/min (50-200); Estimated Glomerular Filt Rate 112 ml/min (>60); GFR (African American) 136 ML/MIN (>60); Globulin 3.7 g/dL (1.3-3.2); Glucose 161 mg/dl (74-100); Sodium 143 mmol/L (136-145); Total Protein,Serum 6.6 g/dl (6.3-8.2)
--- NOTE | 2020-11-20 06:25 | PC.NURSE ---
Spoke with family about pt status. Family will get back with hospital about coming in to see pt.
[2020-11-20 06:27] LABS: Anion Gap 3.9 mEq/L (5-15)
[2020-11-20 06:39] LABS: Activated Partial Thrombo Time 78.3 seconds (22.8-30.6)
--- NOTE | 2020-11-20 06:40 | PC.NURSE ---
Received lab notification of PTT 78.3. [facility] paged.
--- NOTE | 2020-11-20 06:44 | PC.NURSE ---
Spoke to [facility] pharmacy regarding PTT for heparin gtt. Stated to change rate from 36ml/hr (1800 units/hr) to 34ml/hr (1700 units/hr). Redraw PTT @ 1300. [facility] orders.
[2020-11-20 06:49] LABS: Lymphocytes % 7 % (10-50); Macrocytosis 2+; Neutrophils % 88 % (42-76); Platelet Estimate Normal; Total Cells Counted 100
[2020-11-20 06:50] LABS: Hypochromasia 2+
[2020-11-20 06:54] LABS: Hemoglobin 8.3 g/dL (14.1-18.0)
[2020-11-20 06:58] LABS: ABG Base Excess 7.3 mmol/L (-2.4-2.3); ABG HCO3 32.7 mmhg (22.0-26.0); ABG Oxygen Saturation 98 % (90-100); ABG PH 7.37 mmol/L (7.35-7.45); ABG PO2 104.2 mmhg (80-100); ABG TCO2 34.5 mmhg (23-27)
[2020-11-20 07:00] LABS: Allen's Test Patient Unable; Oxygen 60 %; PEEP 10; Tidal Volume 460; Vent Rate 26
[2020-11-20 07:01] LABS: Source Right Radial
[2020-11-20 07:02] LABS: ABG PCO2 58.5 mmhg (35.0-45.0)
[2020-11-20 07:09] LABS: Lactate Arterial 0.9 mmol/L (0.4-2.0)
--- NOTE | 2020-11-20 07:14 | HMH.GSPN ---
Subjective Narrative: Chest tube placed to waterseal yesterday. Per nursing, there has been no increase in SQ emphysema or acute respiratory changes secondary to this change. Progress Note: A&P (1) COVID-19 with pulmonary comorbidity Status: Acute (2) Pulmonary embolism associated with COVID-19 Status: Acute (3) Elevated troponin I level Status: Acute (4) Left bundle branch block (LBBB) Status: Acute (5) History of stroke Status: Acute (6) Elevated brain natriuretic peptide (BNP) level Status: Acute (7) Peroneal DVT (deep venous thrombosis) Status: Acute (8) Pneumonia due to COVID-19 virus Status: Acute (9) Bradycardia Status: Acute (10) Anemia Status: Acute (11) Pneumothorax, right Status: Acute Assessment and plan: Chest tube now to waterseal. No plans to remove chest tube unless patient improves and is extubated. The chest tube can be placed to waterseal or suction as needed based upon the patient's overall status and follow-up films. Exam Vital signs and Labs for Last 24 Hours: Temp Pulse Resp BP Pulse Ox 99.7 F H 113 H 26 H 129/75 95 11/20/20 06:49 11/20/20 06:49 11/20/20 06:49 11/20/20 06:49 11/20/20 06:49 Laboratory Results - last 24 hr 11/19/20 06:00: Specimen Source Right radial, O2 % 60, ABG pH 7.34 L, ABG pCO2 69.4 H, ABG pO2 66.0 L, ABG HCO3 36.4 H, ABG Total CO2 38.6 H, ABG Base Excess 10.6 H, Andrea Test Patient unable, Vent Rate 26, Tidal Volume 460, PEEP 10 11/19/20 10:09: VBG pH 7.27 L, VBG pCO2 69.4 H, VBG pO2 126.1 H, VBG HCO3 31.2 H, VBG Total CO2 33.3 H, VBG O2 Saturation 98.1 H, VBG Base Excess 4.2 H 11/19/20 16:57: APTT 75.6 H* D 11/20/20 05:05: APTT 78.3 H* 11/20/20 05:05: WBC 15.9 H, RBC 2.72 L, Hgb 8.3 L D, Hct 28.4 L, MCV 104.5 H, MCH 30.4, MCHC 29.1 L, RDW 15.5, Plt Count 270, MPV 9.9, Neut % (Auto) 85.7 H, Lymph % (Auto) 7.1 L, [place] % (Auto) 7.0, Eos % (Auto) 0.1, Baso % (Auto) 0.1, Neut # (Auto) 13.7 H, Lymph # (Auto) 1.1, [place] # (Auto) 1.1 H, Eos # (Auto) 0.0, Baso # (Auto) 0.0, Total Counted 100, Neutrophils % (Manual) 88 H, Band Neutrophils % 5.0, Lymphocytes % (Manual) 7 L, Platelet Estimate Normal, Hypochromasia 2+, Macrocytosis 2+ 11/20/20 05:05: Sodium 143, Potassium 4.9, Chloride 106, Carbon Dioxide 38 H, Anion Gap 3.9 L, BUN 65 H, Creatinine 0.70, Estimated Creat Clear 93, Estimated GFR 112, Est GFR ( Amer) 136, Glucose 161 H, Calcium 8.3 L, Total Bilirubin 0.4, AST 57, ALT 70 D, Alkaline Phosphatase 91, Total Protein 6.6, Albumin 2.9 L D, Globulin 3.7 H, Albumin/Globulin Ratio 0.8 L 11/20/20 06:00: ABG Lactate 0.9 11/20/20 06:00: Specimen Source Right radial, O2 % 60, ABG pH 7.37, ABG pCO2 58.5 H, ABG pO2 104.2 H, ABG HCO3 32.7 H, ABG Total CO2 34.5 H, ABG O2 Saturation 98, ABG Base Excess 7.3 H, Andrea Test Patient unable, Vent Rate 26, Tidal Volume 460, PEEP 10 I & O for Last 24 hours: Intake & Output 11/17/20 11/18/20 11/19/20 11/20/20 11:59 11:59 11:59 11:59 Intake Total 2781 / 2781 1101 / 1101 2056 / 2056 4279 / 4279 Output Total 492 / 492 2729 / 2894 2039 / 5 2073 / 2073 Balance 2289 / 2289 -1628 / -1793 17 / -158 2205 / 2205 Weight 210 lb 206 lb 12.8 oz 206 lb 7 oz 206 lb Microbiology Reports for the Last 24 Hours: Microbiology 11/17/20 15:00 Blood Blood Culture - Preliminary NO GROWTH AFTER 48 HOURS 11/17/20 20:22 Sputum - Endotracheal Tube Aspirate Gram Stain - Final 11/17/20 20:22 Sputum - Endotracheal Tube Aspirate Sputum Culture - Preliminary - *Routine Respiratory Exam Present: patient mechanically ventilated
[2020-11-20 09:52] LABS: VBG Base Excess 7.1 mmol/L (-2.4-2.3); VBG HCO3 32.4 mmol/L (23-30); VBG Oxygen Saturation 83.8 % (50-70); VBG PCO2 57.9 mmol/L (35-51); VBG PH 7.37 mmol/L (7.31-7.41); VBG PO2 48.9 mmol/L (28-40); VBG Total CO2 34.2 mmol/L (23-27)
[2020-11-20 10:02] LABS: Vancomycin,Trough 15.3 ug/mL (5.0-10.0)
--- NOTE | 2020-11-20 11:03 | PC.NURSE ---
pt belongings, (keys, wallet and rings) given to and daughter at this time.
[2020-11-20 11:55] LABS: Magnesium 2.8 mg/dl (1.6-2.3); Phosphorous 2.5 mg/dl (2.5-4.5)
--- NOTE | 2020-11-20 13:28 | DIET.NUTRFU ---
TFs continue at goal rate, tolerating well. Propofol dc'd. Pt given bolus 500ml LR today. BG avg. 150. Magnesium and Phosphorus labs taken today, Magnesium elevated at 2.8, recommend continuing to monitor these. K and Na wnl. BUN has continued to rise. Weight is stable. No changes regimen/nutritional care plan at this time, continuing to monitor.
--- NOTE | 2020-11-20 14:30 | HMH.PULMPN ---
Internal Medicine - PN: Subj *Date: 11/20/20 *Time: 14:30 Interval history: No acute respiratory events over the weekend. Exam - Constitutional Constitutional:: Present: no acute distress, comfortable - HENMT Exam HENMT: Present: normocephalic - Eye Exam Eyes:: Present: normal appearance both eyes and related structures - Neck Exam Neck:: Present: normal visual inspection - Respiratory Exam Respiratory:: Present: no respiratory distress, crackles - Cardiovascular Exam Cardiac:: Present: S1, S2 - GI Exam GI:: Present: soft - Skin Exam Skin: Present: warm - Neurological Exam Neurological: Absent: alert, awake, normal cognition - Extremities Exam Extremities: Present: no cyanosis, no clubbing, edema Assessment and Plan (1) COVID-19 with pulmonary comorbidity Status: Acute Category: Medical Code(s): U07.1 - COVID-19; J98.4 - Other disorders of lung (2) Pulmonary embolism associated with COVID-19 Status: Acute Category: Medical Code(s): U07.1 - COVID-19; I26.99 - Other pulmonary embolism without acute cor pulmonale (3) Elevated troponin I level Status: Acute Category: Medical Code(s): R77.8 - Other specified abnormalities of plasma proteins (4) Left bundle branch block (LBBB) Status: Acute Category: Medical Code(s): I44.7 - Left bundle-branch block, unspecified (5) History of stroke Status: Acute Category: Medical Code(s): Z86.73 - Personal history of transient ischemic attack (TIA), and cerebral infarction without residual deficits (6) Elevated brain natriuretic peptide (BNP) level Status: Acute Category: Medical Code(s): R79.89 - Other specified abnormal findings of blood chemistry (7) Peroneal DVT (deep venous thrombosis) Status: Acute Qualifiers: Laterality: bilateral Category: Medical Code(s): I82.459 - Acute embolism and thrombosis of unspecified peroneal vein (8) Pneumonia due to COVID-19 virus Status: Acute Category: Medical Code(s): U07.1 - COVID-19; J12.82 - Pneumonia due to coronavirus disease 2019 (9) Bradycardia Status: Acute Category: Medical Code(s): R00.1 - Bradycardia, unspecified (10) Anemia Status: Acute Qualifiers: Anemia type: unspecified type Qualified Code(s): D64.9 - Anemia, unspecified Category: Medical Code(s): D64.9 - Anemia, unspecified (11) Pneumothorax, right Status: Acute Category: Medical Code(s): J93.9 - Pneumothorax, unspecified - Assessment and plan all Dx Assessment and Plan for all problems:: #COVID-19 pneumonia: #Pulmonary embolism: #Acute hypoxic respiratory failure: 70-year-old yet to vaccinate no prior respiratory complaint no significant smoking history. Positive for COVID-[address] on admission showed extensive pulmonary emboli both right and left main pulmonary arteries and distal arteries, nonocclusive along with airspace disease. Troponins elevated at 0.13 on admission. No echocardiogram available. Blood cultures no growth 48 hours. Sputum stain from 11/05 moderate gram-positive cocci pairs and chains and rare gram-negative rods. Nasal MRSA PCR negative Patient respiratory status has been stable however his not waking appropriate despite off sedation. Will evaluate for his altered mentation. I had an extensive discussion with the patient's who is the POA along with her extensive family and her daughters and brothers after extensive discussions with the family patient's family want the patient to be a full code. They do not want to pursue transfer at this point of time. Patient's daughter Ms. Nhung Pal would be the point of contact going forward on the patient's /POA is agreeable for that Plan: -Continue to hold sedation. Follow with CT chest without contrast stat - VAP bundle Elevate head of the bed at 30 to 45 degrees Oral care with chlorhexidne GI ulcer prophylaxis - Famotidine 20mg IV BID Intubated . Off sedation for
[2020-11-20 15:45] LABS: Ammonia 15 umol/L (9-30)
[2020-11-20 16:13] LABS: Thyroid Stimulating Hormone 0.59 uIU/mL (0.465-4.68)
[2020-11-20 18:51] LABS: Vancomycin,Peak 23.4 ug/ml (11-39)
--- NOTE | 2020-11-20 19:40 | HMH.ACPN2 ---
Internal Medicine - PN: Subj *Date: 11/20/20 *Time: 08:45 Interval history: pt intubated, chest tube draining at bedside. flores to bedside. family at bedside Exam Vital signs and Labs for Last 24 Hours: Temp Pulse Resp BP Pulse Ox 99.7 F H 113 H 31 H 105/64 L 87 L 11/20/20 06:49 11/20/20 18:32 11/20/20 18:32 11/20/20 09:00 11/20/20 18:32 Laboratory Results - last 24 hr 11/20/20 05:05: APTT 78.3 H* 11/20/20 05:05: WBC 15.9 H, RBC 2.72 L, Hgb 8.3 L D, Hct 28.4 L, MCV 104.5 H, MCH 30.4, MCHC 29.1 L, RDW 15.5, Plt Count 270, MPV 9.9, Neut % (Auto) 85.7 H, Lymph % (Auto) 7.1 L, [place] % (Auto) 7.0, Eos % (Auto) 0.1, Baso % (Auto) 0.1, Neut # (Auto) 13.7 H, Lymph # (Auto) 1.1, [place] # (Auto) 1.1 H, Eos # (Auto) 0.0, Baso # (Auto) 0.0, Total Counted 100, Neutrophils % (Manual) 88 H, Band Neutrophils % 5.0, Lymphocytes % (Manual) 7 L, Platelet Estimate Normal, Hypochromasia 2+, Macrocytosis 2+ 11/20/20 05:05: Sodium 143, Potassium 4.9, Chloride 106, Carbon Dioxide 38 H, Anion Gap 3.9 L, BUN 65 H, Creatinine 0.70, Estimated Creat Clear 93, Estimated GFR 112, Est GFR ( Amer) 136, Glucose 161 H, Calcium 8.3 L, Total Bilirubin 0.4, AST 57, ALT 70 D, Alkaline Phosphatase 91, Total Protein 6.6, Albumin 2.9 L D, Globulin 3.7 H, Albumin/Globulin Ratio 0.8 L 11/20/20 05:50: Phosphorus 2.5, Magnesium 2.8 H 11/20/20 06:00: ABG Lactate 0.9 11/20/20 06:00: Specimen Source Right radial, O2 % 60, ABG pH 7.37, ABG pCO2 58.5 H, ABG pO2 104.2 H, ABG HCO3 32.7 H, ABG Total CO2 34.5 H, ABG O2 Saturation 98, ABG Base Excess 7.3 H, Andrea Test Patient unable, Vent Rate 26, Tidal Volume 460, PEEP 10 11/20/20 09:05: Vancomycin Trough 15.3 H 11/20/20 09:08: VBG pH 7.37, VBG pCO2 57.9 H, VBG pO2 48.9 H, VBG HCO3 32.4 H, VBG Total CO2 34.2 H, VBG O2 Saturation 83.8 H, VBG Base Excess 7.1 H 11/20/20 15:08: APTT 64.0 H* D 11/20/20 15:08: Folate 10.80, TSH 0.59 11/20/20 15:08: Ammonia 15 11/20/20 16:08: Vancomycin Peak 23.4 I & O for Last 24 hours: Intake & Output 11/18/20 11/19/20 11/20/20 11/21/20 11:59 11:59 11:59 11:59 Intake Total 1101 / 1101 2057 / 2057 4279 / 4279 Output Total 2729 / 2894 2040 / 2215 2074 / 2074 Balance -1628 / -1793 17 / -158 2205 / 2205 Weight 206 lb 12.8 oz 206 lb 7 oz 206 lb Microbiology Reports for the Last 24 Hours: Microbiology 11/17/20 15:00 Blood Blood Culture - Preliminary Gram Positive Cocci 11/17/20 20:22 Sputum - Endotracheal Tube Aspirate Gram Stain - Final 11/17/20 20:22 Sputum - Endotracheal Tube Aspirate Sputum Culture - Preliminary - Constitutional no acute distress - *Routine HEENT Exam Head: Present: normocephalic ENT: Present: mucous membranes moist - *Routine Neck Exam Present: supple. Absent: lymphadenopathy - *Routine Respiratory Exam Present: patient mechanically ventilated Comments: chest tube at bedside - *Routine Cardiovascular Exam Present: RRR - *Routine Abdominal Exam Present: soft, normoactive bowel sounds. Absent: tenderness - *Routine Exam Comments: flores to bedside - *Routine Extremities Exam Absent: cyanosis, clubbing, edema - *Routine Skin Exam Present: warm. Absent: rash Comments: red area to buttocks dressing to chest c/d/i - *Routine Neurological Exam unresponsive Assessment and Plan (1) COVID-19 with pulmonary comorbidity Status: Acute Category: Medical Code(s): U07.1 - COVID-19; J98.4 - Other disorders of lung (2) Pulmonary embolism associated with COVID-19 Status: Acute Category: Medical Code(s): U07.1 - COVID-19; I26.99 - Other pulmonary embolism without acute cor pulmonale (3) Elevated troponin I level Status: Acute Category: Medical Code(s): R77.8 - Other specified abnormalities of plasma proteins (4) Left bundle branch block (LBBB) Status: Acute Category: Medical Code(s): I44.7 - Left bundle-branch block, unspecified (5) History of stroke S
[2020-11-20 22:26] LABS: Activated Partial Thrombo Time 57.3 seconds (22.8-30.6)
[2020-11-21] VITALS (33 sets, daily range): BP systolic 103–133; BP diastolic 56–83; PULSE 90–128; RESP 21–33; TEMP 36.9–38.8; O2SAT 86–95; BMI 27.0
--- NOTE | 2020-11-21 06:00 | XR_ITS ---
PROCEDURE INFORMATION: Exam: XR Chest Exam date and time: 11/21/2020 6:00 AM Age: 70 years old Clinical indication: Device placement; Ett placement (vent status); Patient HX: Covid; Additional info: Intubation TECHNIQUE: Imaging protocol: XR of the chest. Views: 1 view. COMPARISON: CR XR CHEST PORTABLE 11/20/2020 5:29 AM FINDINGS: Tubes, catheters and devices: Support lines and tubes are unchanged. Endotracheal tube is 6.7 cm above the eloisa. Lungs: Stable infiltrates throughout both lungs. Pleural spaces: Unremarkable. No pleural effusion. No pneumothorax. Heart/Mediastinum: Unremarkable. No cardiomegaly. Bones/joints: Unremarkable. Soft tissues: Unchanged subcutaneous emphysema throughout the chest wall and neck. IMPRESSION: Endotracheal tube in appropriate position. Otherwise stable chest x-ray.
[2020-11-21 07:03] LABS: Basophils % 0.2 % (0.1-2.0); Hematocrit 27.3 % (42.0-52.0); Hemoglobin 8.1 g/dL (14.1-18.0); Lymphocytes # 0.9 K/mm3 (0.7-4.5); Lymphocytes % 4.8 % (10-50); Mean Corpuscular HGB Conc 29.5 g/dL (31.8-35.4); Mean Corpuscular Hemoglobin 30.6 pg (27.0-31.2); Mean Corpuscular Volume 103.7 fl (80-94); Mean Platelet Volume 10.1 fl (7.4-10.4); Monocytes # 0.7 K/mm3 (0.1-1.0); Monocytes % 3.5 % (1.7-9.3); Neutrophils # 17.4 K/mm3 (1.8-7.8); Neutrophils % 91.5 % (37.0-80.0); Platelet Count 277 K/mm3 (142-424); Red Blood Count 2.63 M/mm3 (4.60-6.20); Red Cell Distribution Width 15.7 % (11.5-17.5)
[2020-11-21 07:27] LABS: Alanine Aminotransferase 57 U/L (12-78); Albumin Level 2.9 g/dl (3.5-5.0); Albumin/Globulin Ratio 0.8 (1.1-1.8); Alkaline Phosphatase 89 U/L (38-126); Anion Gap 6.2 mEq/L (5-15); Aspartate Amino Transferase 43 U/L (17-59); Bilirubin,Total 0.5 mg/dl (0.2-1.3); Blood Urea Nitrogen 55 mg/dl (9-20); Calcium 8.3 mg/dl (8.4-10.2); Carbon Dioxide 39 mmol/L (22.0-30.0); Chloride 107 mmol/L (98-107); Creatinine Clearance Estimated 93 mL/min (50-200); Estimated Glomerular Filt Rate 134 ml/min (>60); GFR (African American) 162 ML/MIN (>60); Globulin 3.6 g/dL (1.3-3.2); Glucose 186 mg/dl (74-100); Potassium 5.2 mmoL/L (3.5-5.1); Sodium 147 mmol/L (136-145); Total Protein,Serum 6.5 g/dl (6.3-8.2)
[2020-11-21 07:28] LABS: Activated Partial Thrombo Time 58.9 seconds (22.8-30.6)
[2020-11-21 07:29] LABS: ABG Base Excess 10.2 mmol/L (-2.4-2.3); ABG HCO3 35.4 mmhg (22.0-26.0); ABG Oxygen Saturation 96 % (90-100); ABG PH 7.37 mmol/L (7.35-7.45); ABG PO2 83.7 mmhg (80-100); ABG TCO2 37.3 mmhg (23-27)
[2020-11-21 07:32] LABS: Lactate Arterial 1.3 mmol/L (0.4-2.0); MANUAL DIFFERENTIAL MANUAL DIFFERENTIAL (MANUAL DIFF)
[2020-11-21 08:11] LABS: Oxygen 70 %; Tidal Volume 460
[2020-11-21 08:12] LABS: Vent Rate 26
--- NOTE | 2020-11-21 08:20 | PC.NURSE ---
Pt placed on STB at this time. 02/02 70%
[2020-11-21 08:22] LABS: PEEP 10
[2020-11-21 08:23] LABS: Source Left Radial
[2020-11-21 08:24] LABS: ABG PCO2 62.1 mmhg (35.0-45.0)
[2020-11-21 08:29] LABS: Hypochromasia 3+; Lymphocytes % 5 % (10-50); Macrocytosis 3+; Monocytes % 3 % (2-9); Neutrophils % 92 % (42-76); Platelet Estimate Normal; Total Cells Counted 100
--- NOTE | 2020-11-21 08:49 | HMH.ACPN2 ---
Internal Medicine - PN: Subj *Date: 11/21/20 *Time: 08:49 Interval history: on vent and has chest tube with labs sl worse - family with recent visit Exam Vital signs and Labs for Last 24 Hours: Temp Pulse Resp BP Pulse Ox 100.5 F H 120 H 32 H 130/75 94 L 11/21/20 08:00 11/21/20 08:00 11/21/20 08:00 11/21/20 08:00 11/21/20 08:00 Laboratory Results - last 24 hr 11/20/20 05:50: Phosphorus 2.5, Magnesium 2.8 H 11/20/20 09:05: Vancomycin Trough 15.3 H 11/20/20 09:08: VBG pH 7.37, VBG pCO2 57.9 H, VBG pO2 48.9 H, VBG HCO3 32.4 H, VBG Total CO2 34.2 H, VBG O2 Saturation 83.8 H, VBG Base Excess 7.1 H 11/20/20 15:08: APTT 64.0 H* D 11/20/20 15:08: Folate 10.80, TSH 0.59 11/20/20 15:08: Ammonia 15 11/20/20 16:08: Vancomycin Peak 23.4 11/20/20 21:55: APTT 57.3 H 11/21/20 06:00: ABG Lactate 1.3 11/21/20 06:00: Specimen Source Left radial, O2 % 70, ABG pH 7.37, ABG pCO2 62.1 H, ABG pO2 83.7, ABG HCO3 35.4 H, ABG Total CO2 37.3 H, ABG O2 Saturation 96, ABG Base Excess 10.2 H, Andrea Test N/a, Vent Rate 26, Tidal Volume 460, PEEP 10 11/21/20 06:00: WBC 19.0 H, RBC 2.63 L, Hgb 8.1 L, Hct 27.3 L, MCV 103.7 H, MCH 30.6, MCHC 29.5 L, RDW 15.7, Plt Count 277, MPV 10.1, Neut % (Auto) 91.5 H, Lymph % (Auto) 4.8 L, [place] % (Auto) 3.5, Eos % (Auto) 0.0 L, Baso % (Auto) 0.2, Neut # (Auto) 17.4 H, Lymph # (Auto) 0.9, [place] # (Auto) 0.7, Eos # (Auto) 0.0, Baso # (Auto) 0.0, Total Counted 100, Neutrophils % (Manual) 92 H, Lymphocytes % (Manual) 5 L, Monocytes % (Manual) 3, Platelet Estimate Normal, Hypochromasia 3+, Macrocytosis 3+ 11/21/20 06:00: Sodium 147 H, Potassium 5.2 H, Chloride 107, Carbon Dioxide 39 H, Anion Gap 6.2, BUN 55 H, Creatinine 0.60 L, Estimated Creat Clear 93, Estimated GFR 134, Est GFR ( Amer) 162, Glucose 186 H, Calcium 8.3 L, Total Bilirubin 0.5, AST 43, ALT 57, Alkaline Phosphatase 89, Total Protein 6.5, Albumin 2.9 L, Globulin 3.6 H, Albumin/Globulin Ratio 0.8 L I & O for Last 24 hours: Intake & Output 11/18/20 11/19/20 11/20/20 11/21/20 11:59 11:59 11:59 11:59 Intake Total 1101 / 1101 2057 / 2057 4279 / 4279 2248 / 2248 Output Total 2729 / 2894 2040 / 2215 2074 / 2074 2195 / 2195 Balance -1628 / -1793 17 / -158 2205 / 2205 53 / 53 Weight 206 lb 12.8 oz 206 lb 7 oz 206 lb 204 lb 1 oz Microbiology Reports for the Last 24 Hours: Microbiology 11/17/20 15:00 Blood Blood Culture - Preliminary Gram Positive Cocci 11/17/20 20:22 Sputum - Endotracheal Tube Aspirate Gram Stain - Final 11/17/20 20:22 Sputum - Endotracheal Tube Aspirate Sputum Culture - Preliminary - Constitutional obtunded - *Routine HEENT Exam Head: Present: normocephalic Eye: Present: PERRL ENT: Present: mucous membranes dry - *Routine Neck Exam Absent: JVD - *Routine Respiratory Exam Present: patient mechanically ventilated - *Routine Cardiovascular Exam Present: tachycardia - *Routine Abdominal Exam Present: soft - *Routine Extremities Exam Present: edema - *Routine Skin Exam Comments: has some sq air - *Routine Neurological Exam no posturing - Routine Psychiatric Exam Present: unable to assess Assessment and Plan (1) COVID-19 with pulmonary comorbidity Status: Acute Category: Medical Code(s): U07.1 - COVID-19; J98.4 - Other disorders of lung (2) Pulmonary embolism associated with COVID-19 Status: Acute Category: Medical Code(s): U07.1 - COVID-19; I26.99 - Other pulmonary embolism without acute cor pulmonale (3) Elevated troponin I level Status: Acute Category: Medical Code(s): R77.8 - Other specified abnormalities of plasma proteins (4) Left bundle branch block (LBBB) Status: Acute Category: Medical Code(s): I44.7 - Left bundle-branch block, unspecified (5) History of stroke Status: Acute Category: Medical Code(s): Z86.73 - Personal history of transient ischemic attack (TIA), and cerebral infarction without residual deficits
--- NOTE | 2020-11-21 09:16 | HMH.PULMPN ---
Internal Medicine - PN: Subj *Date: 11/21/20 *Time: 10:53 Interval history: No acute respiratory vents overnight. No improvement in mentation noted. Exam - Constitutional Constitutional:: Present: no acute distress, comfortable - HENMT Exam HENMT: Present: normocephalic, atraumatic - Eye Exam Eyes:: Present: normal appearance both eyes and related structures - Neck Exam Neck:: Present: normal visual inspection - Respiratory Exam Respiratory:: Present: respiratory distress, crackles - Cardiovascular Exam Cardiac:: Present: S1, S2 - GI Exam GI:: Present: soft - Neurological Exam Neurological: Absent: alert, awake, normal cognition - Extremities Exam Extremities: Present: no cyanosis, no clubbing, edema Assessment and Plan (1) COVID-19 with pulmonary comorbidity Status: Acute Category: Medical Code(s): U07.1 - COVID-19; J98.4 - Other disorders of lung (2) Pulmonary embolism associated with COVID-19 Status: Acute Category: Medical Code(s): U07.1 - COVID-19; I26.99 - Other pulmonary embolism without acute cor pulmonale (3) Elevated troponin I level Status: Acute Category: Medical Code(s): R77.8 - Other specified abnormalities of plasma proteins (4) Left bundle branch block (LBBB) Status: Acute Category: Medical Code(s): I44.7 - Left bundle-branch block, unspecified (5) History of stroke Status: Acute Category: Medical Code(s): Z86.73 - Personal history of transient ischemic attack (TIA), and cerebral infarction without residual deficits (6) Elevated brain natriuretic peptide (BNP) level Status: Acute Category: Medical Code(s): R79.89 - Other specified abnormal findings of blood chemistry (7) Peroneal DVT (deep venous thrombosis) Status: Acute Qualifiers: Laterality: bilateral Category: Medical Code(s): I82.459 - Acute embolism and thrombosis of unspecified peroneal vein (8) Pneumonia due to COVID-19 virus Status: Acute Category: Medical Code(s): U07.1 - COVID-19; J12.82 - Pneumonia due to coronavirus disease 2019 (9) Bradycardia Status: Acute Category: Medical Code(s): R00.1 - Bradycardia, unspecified (10) Anemia Status: Acute Qualifiers: Anemia type: unspecified type Qualified Code(s): D64.9 - Anemia, unspecified Category: Medical Code(s): D64.9 - Anemia, unspecified (11) Pneumothorax, right Status: Acute Category: Medical Code(s): J93.9 - Pneumothorax, unspecified - Assessment and plan all Dx Assessment and Plan for all problems:: #COVID-19 pneumonia: #Pulmonary embolism: #Acute hypoxic respiratory failure: 70-year-old yet to vaccinate no prior respiratory complaint no significant smoking history. Positive for COVID-[address] on admission showed extensive pulmonary emboli both right and left main pulmonary arteries and distal arteries, nonocclusive along with airspace disease. Troponins elevated at 0.13 on admission. No echocardiogram available. Blood cultures no growth 48 hours. Sputum stain from 11/05 moderate gram-positive cocci pairs and chains and rare gram-negative rods. Nasal MRSA PCR negative Patient respiratory status has been stable however his not waking appropriate despite off sedation. Will evaluate for his altered mentation. I had an extensive discussion with the patient's who is the POA along with her extensive family and her daughters and brothers after extensive discussions with the family patient's family want the patient to be a full code. They do not want to pursue transfer at this point of time. Patient's daughter Ms. Nhung Pal would be the point of contact going forward on the patient's /POA is agreeable for that Plan: -Continue to hold sedation. Follow with CT chest without contrast stat - VAP bundle Elevate head of the bed at 30 to 45 degrees Oral care with chlorhexidne GI ulcer prophylaxis - Famotidine 20mg IV BID Intubated . Off sedation for
--- NOTE | 2020-11-21 11:08 | DIET.NUTRFU ---
Addendum entered by Yaneth Robert 12/06/20 14:52: Pt awaiting transfer, he continues to tolerate TFs well, recommend continuing regimen of Glucerna at 79ml/h with water flushes of 70ml q 6h as stated in original note below and adding additional protein as renal function and GI bleed stabilize. increase in K 6.2 and BUN 126 today. BG moderate avg. 120. Weight stable. No BM since 12/03. Addendum entered by Yaneth Robert 12/04/20 15:28: Continues with good toleration TFs at goal rate. He is receiving water flushes as ordered. Slight improvement in BUN and K though both remain high, Na wnl past 48h. Concern for possible GI bleed noted, pt had bloody stools on 11/28 and a normal BM on 12/01, he was given stool softener today but no BM thus far. Weight went up another 6# and remained stable past 72h. BG moderate- avg. 130. Trace BLE edema noted. No changes to regimen at this time. Continuing to monitor BUN/K/bowels and other s/s GI bleed to add additional protein to regimen when appropriate. Addendum entered by Yaneth Robert 12/01/20 17:04: Continues to tolerate well at goal rate. BUN continues to increase and K high today, Na remains high with slight improvement, will continue to monitor these closely. Weight documented to be up 10# past 24h. No changes to regimen at this time. Addendum entered by Yaneth Robert 11/29/20 14:30: Tolerating well at goal rate. Na and BUN with increase today, possibly dt lack of fluids as TFs/flushes were stopped all of friday and slowly advanced over past 72h. He now has a stage II on coccyx. If pt continues to tolerate well over next 24h and Na/BUN stabilize, will add additional protein. Weight has stabilized. He continues without a BM. BG are moderate avg. 150. No changes to regimen at this time. Addendum entered by Yaneth Robert 11/27/20 15:08: Continues to tolerate TFs well. TF was stopped dt cardiac arrest and restarted today at 20ml/h. Weight up 12# past 72h, has continued without a BM, BG moderate avg. 170. No changes to regimen, continuing to monitor. Addendum entered by Yaneth Robert 11/24/20 13:02: TFs almost to goal rate (70ml/h) and tolerating well. BUN decreased, Na stable, BG moderate- avg. 160. Weight down 6#, still no BM. No changes to regimen at this time. Addendum entered by Yaneth Robert 11/22/20 14:24: Glucerna feedings started at 20:00 last night, up to 40ml/h and tolerating well. Labs not taken today. Weight stable. Please note pt has not had a BM t/o stay, recommend bowel regimen. Original Note: Pt with rising BUN, Na, K. Possible dehydration secondary to Renal solute load. TF regimen altered to lower protein/renal solute load formula with added free water. Pt has not been having water flushes as ordered, please note importance flushes for fluid needs not provided by formula as well as tube irrigation. New formula will provide more flluids, pt will still require flushes q 6h. Order altered and entered. Recommend initiating continuous TF regimen of Glucerna 1.0 at 30ml/h and advancing by 10ml/h q 8h as tolerated to goal rate of 79ml/h. Water flushes of 70ml q 6h meet additional fluid needs not provided by formula. This regimen provides 1900kcal, 79g protein, 182g cho, 103g fat, and 1621ml free water(1900ml total fluids with flushes.) Will monitor pt labs, tolerance, meds, fluids to alter as indicated.
--- NOTE | 2020-11-21 11:20 | PC.NURSE ---
Addendum entered by Marlin Bowles, RT 11/21/20 11:22: Pt ET tube advanced 2 cm to 28@ lip. Per Dr Sadler verbal order. Previous note of withdrawl was an error. Original Note: RESP CARE NOTE:Pt ET tube withdrawn 2 cm to 28 @ lip. V/O Dr Sadler.
--- NOTE | 2020-11-21 14:09 | HMH.PHACONS ---
- Pharmacy Consult Date: 11/21/20 Time: 14:09 Referring provider: DR. CHAMBERS Reason for Consult:: VANCOMYCIN LEVELS Allergies and ADEs:: Allergies Allergy/AdvReac Type Severity Reaction Status Date / Time hydrocodone Allergy Unknown Unknown Verified 11/04/20 08:07 allergy reaction Iodinated Contrast Media Allergy Unknown Unknown Verified 11/04/20 08:07 allergy reaction propoxyphene Allergy Unknown Unknown Verified 11/04/20 08:07 allergy reaction Home Medications:: Home Medications Medication Instructions Recorded Confirmed Type Gabapentin [Gabapentin 400mg Cap] 400 mg PO TID 11/03/20 11/03/20 History Oxycodone HCl 5 mg PO BID 11/03/20 11/04/20 History Meloxicam 15 mg PO DAILY 11/04/20 11/04/20 History Metoprolol Succinate [Metoprolol 50 mg PO DAILY 11/04/20 11/04/20 History Succinate 50mg Tablet*] Tizanidine HCl 4 mg PO BID 11/04/20 11/04/20 History Height: 1.85 m Weight: 92.561 kg Laboratory Results:: Laboratory Results - last 24 hr 11/20/20 15:08: APTT 64.0 H* D 11/20/20 15:08: Folate 10.80, TSH 0.59 11/20/20 15:08: Ammonia 15 11/20/20 16:08: Vancomycin Peak 23.4 11/20/20 21:55: APTT 57.3 H 11/21/20 06:00: ABG Lactate 1.3 11/21/20 06:00: Specimen Source Left radial, O2 % 70, ABG pH 7.37, ABG pCO2 62.1 H, ABG pO2 83.7, ABG HCO3 35.4 H, ABG Total CO2 37.3 H, ABG O2 Saturation 96, ABG Base Excess 10.2 H, Andrea Test N/a, Vent Rate 26, Tidal Volume 460, PEEP 10 11/21/20 06:00: WBC 19.0 H, RBC 2.63 L, Hgb 8.1 L, Hct 27.3 L, MCV 103.7 H, MCH 30.6, MCHC 29.5 L, RDW 15.7, Plt Count 277, MPV 10.1, Neut % (Auto) 91.5 H, Lymph % (Auto) 4.8 L, Will % (Auto) 3.5, Eos % (Auto) 0.0 L, Baso % (Auto) 0.2, Neut # (Auto) 17.4 H, Lymph # (Auto) 0.9, Will # (Auto) 0.7, Eos # (Auto) 0.0, Baso # (Auto) 0.0, Total Counted 100, Neutrophils % (Manual) 92 H, Lymphocytes % (Manual) 5 L, Monocytes % (Manual) 3, Platelet Estimate Normal, Hypochromasia 3+, Macrocytosis 3+ 11/21/20 06:00: Sodium 147 H, Potassium 5.2 H, Chloride 107, Carbon Dioxide 39 H, Anion Gap 6.2, BUN 55 H, Creatinine 0.60 L, Estimated Creat Clear 93, Estimated GFR 134, Est GFR ( Amer) 162, Glucose 186 H, Calcium 8.3 L, Total Bilirubin 0.5, AST 43, ALT 57, Alkaline Phosphatase 89, Total Protein 6.5, Albumin 2.9 L, Globulin 3.6 H, Albumin/Globulin Ratio 0.8 L 11/21/20 06:00: APTT 58.9 H Medical History: Reports:: Hypertension Denies:: Cancer, Diabetes Mellitus Type 1, Diabetes Mellitus Type 2, Internal Pacemaker, MRSA Assessment and Plan (1) COVID-19 with pulmonary comorbidity Status: Acute Category: Medical Code(s): U07.1 - COVID-19; J98.4 - Other disorders of lung (2) Pulmonary embolism associated with COVID-19 Status: Acute Category: Medical Code(s): U07.1 - COVID-19; I26.99 - Other pulmonary embolism without acute cor pulmonale (3) Elevated troponin I level Status: Acute Category: Medical Code(s): R77.8 - Other specified abnormalities of plasma proteins (4) Left bundle branch block (LBBB) Status: Acute Category: Medical Code(s): I44.7 - Left bundle-branch block, unspecified (5) History of stroke Status: Acute Category: Medical Code(s): Z86.73 - Personal history of transient ischemic attack (TIA), and cerebral infarction without residual deficits (6) Elevated brain natriuretic peptide (BNP) level Status: Acute Category: Medical Code(s): R79.89 - Other specified abnormal findings of blood chemistry (7) Peroneal DVT (deep venous thrombosis) Status: Acute Qualifiers: Laterality: bilateral Category: Medical Code(s): I82.459 - Acute embolism and thrombosis of unspecified peroneal vein (8) Pneumonia due to COVID-19 virus Status: Acute Category: Medical Code(s): U07.1 - COVID-19; J12.82 - Pneumonia due to coronavirus disease 2019 (9) Bradycardia Status: Acute Category: Medical Code(s): R00.1 - Bradycardia, unspecified (10) Anemia Status: Acute Qualifiers:
--- NOTE | 2020-11-21 15:25 | PC.NURSE ---
called and spoke to patient and daughter per DR Sadler request. MD wishes to perform a lumbar puncture to locate source of infection. both are agreeable. conversation witnessed by Roslyn Coughlin RN as well.
--- NOTE | 2020-11-21 16:15 | P.PCN_ITS ---
[facility] Procedure Note Procedure Note:: Lumbar Puncture Procedure Notes: Indication: Encephalopathy, Altered mentation Date: 11/21/2020 A time-out was completed verifying correct patient, procedure, site, positioning, and special equipment if applicable. All the indications and potential side effects of the procedure were discussed in details (including but not limited to risk of bleeding, infection, nerve injury and post LP headache). Patient family/NOK understanding, agreeable and all questions were answered. The patient was placed in the Left lateral decubitus position in a semi- position with help from the nursing staff. The area was cleansed and draped in usual sterile fashion. A 3.5-inch spinal needle was placed in the L3-L4 interspace. Clear cerebral spinal fluid was obtained and the opening pressure was noted to be 29 cm. Four tubes were filled with 4 mL of clear CSF. These were sent for the usual tests, including 1 tube to be held for further analysis if needed. Patient tolerated procedure well. Follow with results. Estimated blood loss: 0 ml.
[2020-11-21 17:04] LABS: Glucose,CSF 137 mg/dl (40-70)
--- NOTE | 2020-11-21 17:57 | PC.NURSE ---
per Dr Sadler pt is to remain flat until approx 193. tube feeds held at this time as well r/t being flat/hob <30
--- NOTE | 2020-11-21 19:46 | PC.NURSE ---
Nights rn made aware of 3 sets of cultures to be drawn. 1 set from central line, 2 sets from peripheral. cy also wants location drawn from to be labeled/put on information. also made rn aware that new orders exist for new tube feeds to be started once pt is able to have hob 30 degrees
[2020-11-21 20:03] LABS: Appearance,CSF Clear (Clear); Volume,CSF 20 mL
[2020-11-21 20:07] LABS: Mononuclear WBCs,CSF 0 %; Polynuclear WBCs,CSF 0 %
--- NOTE | 2020-11-21 22:14 | PC.NURSE ---
Glucerna 1.0 TF initiated at 30ml/hr, water flush of 70ml given.
--- NOTE | 2020-11-21 22:45 | PC.NURSE ---
labs drawn from central line using aseptic technique and labeled accordingly.
[2020-11-21 23:20] LABS: Activated Partial Thrombo Time 77.3 seconds (22.8-30.6)
--- NOTE | 2020-11-21 23:23 | PC.NURSE ---
paged nightwatch for PTT of 77. decreasing heparin rate to 1600 units per hour.
[2020-11-22] VITALS (32 sets, daily range): BP systolic 116–146; BP diastolic 59–78; PULSE 62–129; RESP 25–34; TEMP 36.6–38.2; O2SAT 88–98; BMI 27.1
--- NOTE | 2020-11-22 06:00 | XR_ITS ---
PROCEDURE INFORMATION: Exam: XR Chest Exam date and time: 11/22/2020 6:00 AM Age: 70 years old Clinical indication: Device placement; Ett placement (vent status); Patient HX: Covid; Additional info: Intubation TECHNIQUE: Imaging protocol: XR of the chest. Views: 1 view. COMPARISON: CR XR CHEST PORTABLE 11/21/2020 4:43 AM FINDINGS: Tubes, catheters and devices: Right-sided pleural tube is unchanged. ET tube central venous catheter and nasogastric tube are also stable in appearance. Lungs: Patchy diffuse infiltrates are present bilaterally. Pleural spaces: No pneumothorax is noted. Heart/Mediastinum: Unremarkable. No cardiomegaly. Bones/joints: Unremarkable. Soft tissues: Diffuse subcutaneous emphysema is noted. IMPRESSION: Stable diffuse infiltrates.
[2020-11-22 06:27] LABS: Activated Partial Thrombo Time 59.2 seconds (22.5-28.5)
--- NOTE | 2020-11-22 07:28 | HMH.ACPN2 ---
Internal Medicine - PN: Subj *Date: 11/22/20 *Time: 07:28 Interval history: on vent, tube feeding infusing, flores at bedside Exam Vital signs and Labs for Last 24 Hours: Temp Pulse Resp BP Pulse Ox 98.5 F 104 H 29 H 128/70 94 L 11/22/20 04:00 11/22/20 06:53 11/22/20 06:53 11/22/20 06:53 11/22/20 06:53 Laboratory Results - last 24 hr 11/21/20 06:00: ABG Lactate 1.3 11/21/20 06:00: Specimen Source Left radial, O2 % 70, ABG pH 7.37, ABG pCO2 62.1 H, ABG pO2 83.7, ABG HCO3 35.4 H, ABG Total CO2 37.3 H, ABG O2 Saturation 96, ABG Base Excess 10.2 H, Andrea Test N/a, Vent Rate 26, Tidal Volume 460, PEEP 10 11/21/20 06:00: WBC 19.0 H, RBC 2.63 L, Hgb 8.1 L, Hct 27.3 L, MCV 103.7 H, MCH 30.6, MCHC 29.5 L, RDW 15.7, Plt Count 277, MPV 10.1, Neut % (Auto) 91.5 H, Lymph % (Auto) 4.8 L, [place] % (Auto) 3.5, Eos % (Auto) 0.0 L, Baso % (Auto) 0.2, Neut # (Auto) 17.4 H, Lymph # (Auto) 0.9, [place] # (Auto) 0.7, Eos # (Auto) 0.0, Baso # (Auto) 0.0, Total Counted 100, Neutrophils % (Manual) 92 H, Lymphocytes % (Manual) 5 L, Monocytes % (Manual) 3, Platelet Estimate Normal, Hypochromasia 3+, Macrocytosis 3+ 11/21/20 06:00: APTT 58.9 H 11/21/20 16:00: CSF Volume 20, CSF Appearance Clear, CSF Mononuclear WBCs % 0, CSF Polynuclear WBCs % 0 11/21/20 16:00: CSF Glucose 137 H, CSF Total Protein 46.0 11/21/20 21:30: APTT 77.3 H* D 11/22/20 05:40: APTT 59.2 H I & O for Last 24 hours: Intake & Output 11/19/20 11/20/20 11/21/20 11/22/20 11:59 11:59 11:59 11:59 Intake Total 2056 / 2056 4279 / 4279 2248 / 2248 1355 / 1355 Output Total 0 / 5 2074 / 2074 2195 / 2495 1380 / 1380 Balance 17 / -158 2205 / 2205 53 / -247 -25 / -25 Weight 206 lb 7 oz 206 lb 204 lb 1 oz 204 lb 4.132 oz Microbiology Reports for the Last 24 Hours: Microbiology 11/21/20 16:00 Cerebral Spinal Fluid Gram Stain - Final 11/17/20 20:22 Sputum - Endotracheal Tube Aspirate Gram Stain - Final 11/17/20 20:22 Sputum - Endotracheal Tube Aspirate Sputum Culture - Preliminary 11/17/20 15:00 Blood Blood Culture - Preliminary Staphylococcus hominis - Constitutional chronically ill appearing - *Routine HEENT Exam Head: Present: normocephalic Eye: Present: PERRL ENT: Present: mucous membranes moist - *Routine Neck Exam Present: supple. Absent: lymphadenopathy - *Routine Respiratory Exam Present: patient mechanically ventilated - *Routine Cardiovascular Exam Present: RRR - *Routine Abdominal Exam Present: soft, normoactive bowel sounds. Absent: tenderness - *Routine Extremities Exam Present: normal capillary refill. Absent: cyanosis, clubbing, edema - *Routine Skin Exam Present: warm. Absent: rash - *Routine Neurological Exam unresponsive - Routine Psychiatric Exam Present: normal affect Assessment and Plan (1) COVID-19 with pulmonary comorbidity Status: Acute Category: Medical Code(s): U07.1 - COVID-19; J98.4 - Other disorders of lung (2) Pulmonary embolism associated with COVID-19 Status: Acute Category: Medical Code(s): U07.1 - COVID-19; I26.99 - Other pulmonary embolism without acute cor pulmonale (3) Elevated troponin I level Status: Acute Category: Medical Code(s): R77.8 - Other specified abnormalities of plasma proteins (4) Left bundle branch block (LBBB) Status: Acute Category: Medical Code(s): I44.7 - Left bundle-branch block, unspecified (5) History of stroke Status: Acute Category: Medical Code(s): Z86.73 - Personal history of transient ischemic attack (TIA), and cerebral infarction without residual deficits (6) Elevated brain natriuretic peptide (BNP) level Status: Acute Category: Medical Code(s): R79.89 - Other specified abnormal findings of blood chemistry (7) Peroneal DVT (deep venous thrombosis) Status: Acute Qualifiers: Laterality: bilateral Category: Medical Code(s): I82.459 - Acute embolism and thrombosis of unspecified
[2020-11-22 07:36] LABS: ABG Base Excess 8.5 mmol/L (-2.4-2.3); ABG HCO3 33.4 mmhg (22.0-26.0); ABG Oxygen Saturation 96 % (90-100); ABG PH 7.39 mmol/L (7.35-7.45); ABG PO2 91.6 mmhg (80-100); ABG TCO2 35.1 mmhg (23-27)
--- NOTE | 2020-11-22 08:52 | HMH.PULMPN ---
Internal Medicine - PN: Subj *Date: 11/22/20 *Time: 14:39 Interval history: No acute respiratory events overnight Exam - Constitutional Constitutional:: Present: no acute distress, comfortable - HENMT Exam HENMT: Present: normocephalic, atraumatic - Eye Exam Eyes:: Present: normal appearance both eyes and related structures - Neck Exam Neck:: Present: normal visual inspection - Respiratory Exam Respiratory:: Present: able to speak in complete sentences, respiratory distress, crackles - Cardiovascular Exam Cardiac:: Present: S1, S2 - GI Exam GI:: Present: soft - Skin Exam Skin: Present: warm - Neurological Exam Neurological: Absent: alert, awake, normal cognition Assessment and Plan (1) COVID-19 with pulmonary comorbidity Status: Acute Category: Medical Code(s): U07.1 - COVID-19; J98.4 - Other disorders of lung (2) Pulmonary embolism associated with COVID-19 Status: Acute Category: Medical Code(s): U07.1 - COVID-19; I26.99 - Other pulmonary embolism without acute cor pulmonale (3) Elevated troponin I level Status: Acute Category: Medical Code(s): R77.8 - Other specified abnormalities of plasma proteins (4) Left bundle branch block (LBBB) Status: Acute Category: Medical Code(s): I44.7 - Left bundle-branch block, unspecified (5) History of stroke Status: Acute Category: Medical Code(s): Z86.73 - Personal history of transient ischemic attack (TIA), and cerebral infarction without residual deficits (6) Elevated brain natriuretic peptide (BNP) level Status: Acute Category: Medical Code(s): R79.89 - Other specified abnormal findings of blood chemistry (7) Peroneal DVT (deep venous thrombosis) Status: Acute Qualifiers: Laterality: bilateral Category: Medical Code(s): I82.459 - Acute embolism and thrombosis of unspecified peroneal vein (8) Pneumonia due to COVID-19 virus Status: Acute Category: Medical Code(s): U07.1 - COVID-19; J12.82 - Pneumonia due to coronavirus disease 2019 (9) Bradycardia Status: Acute Category: Medical Code(s): R00.1 - Bradycardia, unspecified (10) Anemia Status: Acute Qualifiers: Anemia type: unspecified type Qualified Code(s): D64.9 - Anemia, unspecified Category: Medical Code(s): D64.9 - Anemia, unspecified (11) Pneumothorax, right Status: Acute Category: Medical Code(s): J93.9 - Pneumothorax, unspecified - Assessment and plan all Dx Assessment and Plan for all problems:: #COVID-19 pneumonia: #Pulmonary embolism: #Acute hypoxic respiratory failure: 70-year-old yet to vaccinate no prior respiratory complaint no significant smoking history. Positive for COVID-[address] on admission showed extensive pulmonary emboli both right and left main pulmonary arteries and distal arteries, nonocclusive along with airspace disease. Troponins elevated at 0.13 on admission. No echocardiogram available. Blood cultures no growth 48 hours. Sputum stain from 11/05 moderate gram-positive cocci pairs and chains and rare gram-negative rods. Nasal MRSA PCR negative Patient respiratory status has been stable however his not waking appropriate despite off sedation. Will evaluate for his altered mentation. I had an extensive discussion with the patient's who is the POA along with her extensive family and her daughters and brothers after extensive discussions with the family patient's family want the patient to be a full code. They do not want to pursue transfer at this point of time. Patient's daughter Ms. Nhung Pal would be the point of contact going forward on the patient's /POA is agreeable for that Plan: -Continue to hold sedation. Follow with CT chest without contrast stat - VAP bundle Elevate head of the bed at 30 to 45 degrees Oral care with chlorhexidne GI ulcer prophylaxis - Famotidine 20mg IV BID Intubated . Off sedation for > 72 hours completely. Patient still n
[2020-11-22 08:53] LABS: Oxygen 60 %; PEEP 10; Source Right Radial; Tidal Volume 460; Vent Rate 26
[2020-11-22 08:54] LABS: Lactate Arterial 0.7 mmol/L (0.4-2.0)
--- NOTE | 2020-11-22 10:54 | HMH.ACPN2 ---
Internal Medicine - PN: Subj *Date: 11/22/20 *Time: 10:54 Exam Vital signs and Labs for Last 24 Hours: Temp Pulse Resp BP Pulse Ox 100.0 F H 109 H 30 H 116/65 96 11/22/20 10:00 11/22/20 10:00 11/22/20 10:00 11/22/20 10:00 11/22/20 10:00 Laboratory Results - last 24 hr 11/21/20 16:00: CSF Volume 20, CSF Appearance Clear, CSF Mononuclear WBCs % 0, CSF Polynuclear WBCs % 0 11/21/20 16:00: CSF Glucose 137 H, CSF Total Protein 46.0 11/21/20 21:30: APTT 77.3 H* D 11/22/20 05:40: APTT 59.2 H 11/22/20 07:03: Specimen Source Right radial, O2 % 60, ABG pH 7.39, ABG pCO2 56.0 H, ABG pO2 91.6, ABG HCO3 33.4 H, ABG Total CO2 35.1 H, ABG O2 Saturation 96, ABG Base Excess 8.5 H, ABG Lactate 0.7, Vent Rate 26, Tidal Volume 460, PEEP 10 I & O for Last 24 hours: Intake & Output 11/19/20 11/20/20 11/21/20 11/22/20 23:59 23:59 23:59 23:59 Intake Total 3738 / 3738 2739 / 2739 1694 / 1694 765 / 765 Output Total 2294 / 2544 2520 / 2520 1400 / 1500 685 / 685 Balance 1444 / 1194 219 / 219 294 / 194 80 / 80 Weight 93.638 kg 93.44 kg 92.561 kg 92.65 kg Microbiology Reports for the Last 24 Hours: Microbiology 11/20/20 10:08 Blood Blood Culture - Preliminary NO GROWTH AFTER 48 HOURS 11/20/20 09:55 Blood Blood Culture - Preliminary NO GROWTH AFTER 48 HOURS 11/21/20 16:00 Cerebral Spinal Fluid Gram Stain - Final 11/17/20 20:22 Sputum - Endotracheal Tube Aspirate Gram Stain - Final 11/17/20 20:22 Sputum - Endotracheal Tube Aspirate Sputum Culture - Preliminary 11/17/20 15:00 Blood Blood Culture - Preliminary Staphylococcus hominis Assessment and Plan (1) COVID-19 with pulmonary comorbidity Status: Acute Category: Medical Code(s): U07.1 - COVID-19; J98.4 - Other disorders of lung (2) Pulmonary embolism associated with COVID-19 Status: Acute Category: Medical Code(s): U07.1 - COVID-19; I26.99 - Other pulmonary embolism without acute cor pulmonale (3) Elevated troponin I level Status: Acute Category: Medical Code(s): R77.8 - Other specified abnormalities of plasma proteins (4) Left bundle branch block (LBBB) Status: Acute Category: Medical Code(s): I44.7 - Left bundle-branch block, unspecified (5) History of stroke Status: Acute Category: Medical Code(s): Z86.73 - Personal history of transient ischemic attack (TIA), and cerebral infarction without residual deficits (6) Elevated brain natriuretic peptide (BNP) level Status: Acute Category: Medical Code(s): R79.89 - Other specified abnormal findings of blood chemistry (7) Peroneal DVT (deep venous thrombosis) Status: Acute Qualifiers: Laterality: bilateral Category: Medical Code(s): I82.459 - Acute embolism and thrombosis of unspecified peroneal vein (8) Pneumonia due to COVID-19 virus Status: Acute Category: Medical Code(s): U07.1 - COVID-19; J12.82 - Pneumonia due to coronavirus disease 2019 (9) Bradycardia Status: Acute Category: Medical Code(s): R00.1 - Bradycardia, unspecified (10) Anemia Status: Acute Qualifiers: Anemia type: unspecified type Qualified Code(s): D64.9 - Anemia, unspecified Category: Medical Code(s): D64.9 - Anemia, unspecified (11) Pneumothorax, right Status: Acute Category: Medical Code(s): J93.9 - Pneumothorax, unspecified The patient's infection will respond to the chosen ABx?: Yes Is the patient receiving the right drug, dose, and route?: Yes Could a more targeted ABx be ordered?: No
[2020-11-22 11:41] LABS: Vancomycin,Trough 18.9 ug/mL (5.0-10.0)
[2020-11-22 12:52] LABS: Activated Partial Thrombo Time 49.6 seconds (22.5-28.5)
[2020-11-22 18:56] LABS: Activated Partial Thrombo Time 53.4 seconds (22.5-28.5)
--- NOTE | 2020-11-22 23:00 | PC.NURSE ---
Tube feed rate increased to 50ml/hr at this time
[2020-11-23] VITALS (33 sets, daily range): BP systolic 106–140; BP diastolic 54–82; PULSE 47–129; RESP 24–46; TEMP 37.1–38.2; O2SAT 89–107; BMI 27.1
--- NOTE | 2020-11-23 06:00 | XR_ITS ---
PROCEDURE INFORMATION: Exam: XR Chest Exam date and time: 11/23/2020 6:00 AM Age: 70 years old Clinical indication: Device placement; Ett placement (vent status); Patient HX: Intubation TECHNIQUE: Imaging protocol: XR of the chest. Views: 1 view. COMPARISON: CR XR CHEST PORTABLE 11/22/2020 5:09 AM FINDINGS: Tubes, catheters and devices: Endotracheal tube remains in place with the tip 6.2 above the eloisa. Nasogastric tube remains in place. Right chest tube remains in place, unchanged. Lungs: There continues to be airspace disease scattered throughout both lungs, unchanged. Pleural spaces: Unremarkable. No pleural effusion. No pneumothorax. Heart/Mediastinum: Unremarkable. No cardiomegaly. Bones/joints: Unremarkable. Soft tissues: There is subcutaneous air throughout the chest neck, unchanged. IMPRESSION: Stable chest.
[2020-11-23 06:14] LABS: Basophils % 0.1 % (0.1-2.0); Eosinophils % 0.2 % (0.1-12.0); Hematocrit 24.7 % (42.0-52.0); Hemoglobin 7.6 g/dL (14.1-18.0); Lymphocytes # 1.1 K/mm3 (0.7-4.5); Lymphocytes % 6.8 % (10-50); Mean Corpuscular HGB Conc 30.7 g/dL (31.8-35.4); Mean Corpuscular Volume 101.1 fl (80-94); Mean Platelet Volume 9.6 fl (7.4-10.4); Monocytes # 0.8 K/mm3 (0.1-1.0); Monocytes % 4.8 % (1.7-9.3); Neutrophils # 13.8 K/mm3 (1.8-7.8); Platelet Count 257 K/mm3 (142-424); Red Blood Count 2.44 M/mm3 (4.60-6.20); Red Cell Distribution Width 16.3 % (11.5-17.5); White Blood Count 15.7 K/mm3 (4.8-10.8)
[2020-11-23 06:22] LABS: MANUAL DIFFERENTIAL MANUAL DIFFERENTIAL (MANUAL DIFF)
[2020-11-23 06:34] LABS: Anion Gap 8.2 mEq/L (5-15); Blood Urea Nitrogen 54 mg/dl (9-20); Calcium 8.6 mg/dl (8.4-10.2); Carbon Dioxide 38 mmol/L (22.0-30.0); Chloride 108 mmol/L (98-107); Creatinine Clearance Estimated 93 mL/min (50-200); Estimated Glomerular Filt Rate 96 ml/min (>60); GFR (African American) 116 ML/MIN (>60); Glucose 151 mg/dl (74-100); Potassium 5.2 mmoL/L (3.5-5.1); Sodium 149 mmol/L (136-145)
[2020-11-23 06:59] LABS: Activated Partial Thrombo Time 56.5 seconds (22.5-28.5)
--- NOTE | 2020-11-23 07:03 | HMH.ACPN2 ---
Internal Medicine - PN: Subj *Date: 11/23/20 *Time: 07:03 Interval history: pt with no resp event last pm but has dec hgb and inc bun - possible ugi stress - cxr about same and no def change on exam Exam Vital signs and Labs for Last 24 Hours: Temp Pulse Resp BP Pulse Ox 100.1 F H 120 H 31 H 122/71 96 11/23/20 06:31 11/23/20 06:31 11/23/20 06:31 11/23/20 06:31 11/23/20 06:31 Laboratory Results - last 24 hr 11/22/20 05:40: APTT 59.2 H 11/22/20 07:03: Specimen Source Right radial, O2 % 60, ABG pH 7.39, ABG pCO2 56.0 H, ABG pO2 91.6, ABG HCO3 33.4 H, ABG Total CO2 35.1 H, ABG O2 Saturation 96, ABG Base Excess 8.5 H, ABG Lactate 0.7, Vent Rate 26, Tidal Volume 460, PEEP 10 11/22/20 08:54: Vancomycin Trough 18.9 H 11/22/20 12:30: APTT 49.6 H 11/22/20 18:30: APTT 53.4 H 11/23/20 05:10: APTT 56.5 H 11/23/20 05:10: WBC 15.7 H, RBC 2.44 L, Hgb 7.6 L, Hct 24.7 L, MCV 101.1 H, MCH 31.0, MCHC 30.7 L, RDW 16.3, Plt Count 257, MPV 9.6, Neut % (Auto) 88.0 H, Lymph % (Auto) 6.8 L, [place] % (Auto) 4.8, Eos % (Auto) 0.2, Baso % (Auto) 0.1, Neut # (Auto) 13.8 H, Lymph # (Auto) 1.1, [place] # (Auto) 0.8, Eos # (Auto) 0.0, Baso # (Auto) 0.0 11/23/20 05:10: Sodium 149 H, Potassium 5.2 H, Chloride 108 H, Carbon Dioxide 38 H, Anion Gap 8.2, BUN 54 H, Creatinine 0.80 D, Estimated Creat Clear 93, Estimated GFR 96, Est GFR ( Amer) 116 D, Glucose 151 H, Calcium 8.6 I & O for Last 24 hours: Intake & Output 11/20/20 11/21/20 11/22/20 11/23/20 11:59 11:59 11:59 11:59 Intake Total 4279 / 4279 2248 / 2248 1559 / 1559 195 / 1955 Output Total 2073 / 2074 2195 / 2495 1605 / 1605 3860 / 3860 Balance 2204 / 2205 53 / -247 -46 / -46 -1904 / -1904 Weight 206 lb 204 lb 1 oz 204 lb 4.132 oz 204 lb 11.2 oz Microbiology Reports for the Last 24 Hours: Microbiology 11/21/20 16:00 Cerebral Spinal Fluid Gram Stain - Final 11/21/20 16:00 Cerebral Spinal Fluid CSF Culture - Preliminary NO GROWTH AFTER 24 HOURS 11/17/20 15:00 Blood Blood Culture - Final NO GROWTH AFTER 5 DAYS 11/17/20 20:22 Sputum - Endotracheal Tube Aspirate Gram Stain - Final 11/17/20 20:22 Sputum - Endotracheal Tube Aspirate Sputum Culture - Final Yeast 11/20/20 10:08 Blood Blood Culture - Preliminary NO GROWTH AFTER 48 HOURS 11/20/20 09:55 Blood Blood Culture - Preliminary NO GROWTH AFTER 48 HOURS - Constitutional somnolent - *Routine HEENT Exam Head: Present: normocephalic Eye: Present: PERRL ENT: Present: other (intubated ) - *Routine Neck Exam Absent: JVD - *Routine Respiratory Exam Present: patient mechanically ventilated, other (some sq air ) - *Routine Cardiovascular Exam Present: RRR - *Routine Abdominal Exam Present: soft - *Routine Extremities Exam Present: edema - *Routine Skin Exam Absent: jaundice - *Routine Neurological Exam Present: altered mental status - Routine Psychiatric Exam Present: unable to assess Assessment and Plan (1) COVID-19 with pulmonary comorbidity Status: Acute Category: Medical Code(s): U07.1 - COVID-19; J98.4 - Other disorders of lung (2) Pulmonary embolism associated with COVID-19 Status: Acute Category: Medical Code(s): U07.1 - COVID-19; I26.99 - Other pulmonary embolism without acute cor pulmonale (3) Elevated troponin I level Status: Acute Category: Medical Code(s): R77.8 - Other specified abnormalities of plasma proteins (4) Left bundle branch block (LBBB) Status: Acute Category: Medical Code(s): I44.7 - Left bundle-branch block, unspecified (5) History of stroke Status: Acute Category: Medical Code(s): Z86.73 - Personal history of transient ischemic attack (TIA), and cerebral infarction without residual deficits (6) Elevated brain natriuretic peptide (BNP) level Status: Acute Category: Medical C
[2020-11-23 07:30] LABS: Anisocytosis 1+; Lymphocytes % 8 % (10-50); Macrocytosis 1+; Monocytes % 4 % (2-9); Neutrophils % 88 % (42-76); Platelet Estimate Normal; Total Cells Counted 100
--- NOTE | 2020-11-23 09:11 | HMH.PULMPN ---
Internal Medicine - PN: Subj *Date: 11/23/20 *Time: 15:36 Interval history: No acute respiratory events overnight. Exam - Constitutional Constitutional:: Present: no acute distress, comfortable - HENMT Exam HENMT: Present: normocephalic - Eye Exam Eyes:: Present: normal appearance both eyes and related structures - Neck Exam Neck:: Present: normal visual inspection - Respiratory Exam Respiratory:: Present: respiratory distress, crackles - Cardiovascular Exam Cardiac:: Present: S1, S2 - GI Exam GI:: Present: soft - Skin Exam Skin: Present: warm, no rash - Neurological Exam Neurological: Absent: alert, awake, normal cognition - Extremities Exam Extremities: Present: no cyanosis, no clubbing Assessment and Plan (1) COVID-19 with pulmonary comorbidity Status: Acute Category: Medical Code(s): U07.1 - COVID-19; J98.4 - Other disorders of lung (2) Pulmonary embolism associated with COVID-19 Status: Acute Category: Medical Code(s): U07.1 - COVID-19; I26.99 - Other pulmonary embolism without acute cor pulmonale (3) Elevated troponin I level Status: Acute Category: Medical Code(s): R77.8 - Other specified abnormalities of plasma proteins (4) Left bundle branch block (LBBB) Status: Acute Category: Medical Code(s): I44.7 - Left bundle-branch block, unspecified (5) History of stroke Status: Acute Category: Medical Code(s): Z86.73 - Personal history of transient ischemic attack (TIA), and cerebral infarction without residual deficits (6) Elevated brain natriuretic peptide (BNP) level Status: Acute Category: Medical Code(s): R79.89 - Other specified abnormal findings of blood chemistry (7) Peroneal DVT (deep venous thrombosis) Status: Acute Qualifiers: Laterality: bilateral Category: Medical Code(s): I82.459 - Acute embolism and thrombosis of unspecified peroneal vein (8) Pneumonia due to COVID-19 virus Status: Acute Category: Medical Code(s): U07.1 - COVID-19; J12.82 - Pneumonia due to coronavirus disease 2019 (9) Bradycardia Status: Acute Category: Medical Code(s): R00.1 - Bradycardia, unspecified (10) Anemia Status: Acute Qualifiers: Anemia type: unspecified type Qualified Code(s): D64.9 - Anemia, unspecified Category: Medical Code(s): D64.9 - Anemia, unspecified (11) Pneumothorax, right Status: Acute Category: Medical Code(s): J93.9 - Pneumothorax, unspecified - Assessment and plan all Dx Assessment and Plan for all problems:: #COVID-19 pneumonia: #Pulmonary embolism: #Acute hypoxic respiratory failure: 70-year-old yet to vaccinate no prior respiratory complaint no significant smoking history. Positive for COVID-[address] on admission showed extensive pulmonary emboli both right and left main pulmonary arteries and distal arteries, nonocclusive along with airspace disease. Troponins elevated at 0.13 on admission. No echocardiogram available. Blood cultures no growth 48 hours. Sputum stain from 11/05 moderate gram-positive cocci pairs and chains and rare gram-negative rods. Nasal MRSA PCR negative Patient respiratory status has been stable however his not waking appropriate despite off sedation. Will evaluate for his altered mentation. I had an extensive discussion with the patient's who is the POA along with her extensive family and her daughters and brothers after extensive discussions with the family patient's family want the patient to be a full code. They do not want to pursue transfer at this point of time. Patient's daughter Ms. Nhung Pal would be the point of contact going forward on the patient's /POA is agreeable for that Assessment: -Continue to hold sedation. Follow with CT chest without contrast stat - VAP bundle Elevate head of the bed at 30 to 45 degrees Oral care with chlorhexidne GI ulcer prophylaxis - Famotidine 20mg IV BID Intubated . Off sedation for >
[2020-11-23 10:10] LABS: Lactate Arterial 1.3 mmol/L (0.4-2.0)
[2020-11-23 10:14] LABS: Lactate Arterial 1.4 mmol/L (0.4-2.0)
--- NOTE | 2020-11-23 11:21 | HMH.CONS ---
*Admission Date: 11/06/20 *Reason for consult:: possible surgery to remove vent and apply trach *History of present illness: This is a 70-year-old gentleman being treated for respiratory failure/COVID-19 positivity. Recent chest x-rays have been consistent with likely moderate right apical pneumothorax. Subcutaneous emphysema also noted. Surgical service was consulted for chest tube placement. Forwarded from Dr. Farris's prior consult for deep line placement: Patient is a 70-year-old male who had presented to the emergency department with worsening respiratory distress on Friday evening, 11/03/2020. Is found to have COVID-19 positivity. CTA showed diffuse bilateral pulmonary infiltrates along with pulmonary emboli. He was admitted to the hospital needing high flow oxygen. He had clinically deteriorated requiring intubation and mechanical ventilation this morning. [facility] History I have reviewed the patient's past medical history: Yes Medical History: Reports:: Hypertension Denies:: Cancer, Diabetes Mellitus Type 1, Diabetes Mellitus Type 2, Internal Pacemaker, MRSA *Have you ever received a pneumonia vaccine?: No *Have you received a flu vaccine this season?: No Other Surgeries: Yes: Other. No: Pacemaker Amputation: No Fractures: No - *Social History Last grade of school completed: High school graduate Smoking Status: Current every day smoker Tobacco Type: cigarettes # Packs/Day (cigarettes): 1 #Yrs smoked (if former smoker): 20 Alcohol Intake: never Alcohol Intake Frequency:: 0-2 drinks per day Substance Use Type: denies use *Occupational Status:: employed *Travel in the last 8 weeks: None Family Hx:: Asthma, Cancer, Heart Attack, Hypertension, Stroke Review of Systems - ENT Comments: see exam notes - *Neurologic Reports abnormal walking, Reports headache(s), Reports weakness, Denies abnormal hearing, Denies abnormal speech, Denies behavioral changes, Denies confusion, Denies seizure-like activity, Denies seizure-like activity Meds Home Medications Medication Instructions Recorded Confirmed Type Gabapentin [Gabapentin 400mg Cap] 400 mg PO TID 11/03/20 11/03/20 History Oxycodone HCl 5 mg PO BID 11/03/20 11/04/20 History Meloxicam 15 mg PO DAILY 11/04/20 11/04/20 History Metoprolol Succinate [Metoprolol 50 mg PO DAILY 11/04/20 11/04/20 History Succinate 50mg Tablet*] Tizanidine HCl 4 mg PO BID 11/04/20 11/04/20 History Allergies Allergy/AdvReac Type Severity Reaction Status Date / Time hydrocodone Allergy Unknown Unknown Verified 11/04/20 08:07 allergy reaction Iodinated Contrast Media Allergy Unknown Unknown Verified 11/04/20 08:07 allergy reaction propoxyphene Allergy Unknown Unknown Verified 11/04/20 08:07 allergy reaction Exam Vital signs and Labs for Last 24 Hours: Temp Pulse Resp BP Pulse Ox 100.1 F H 126 H 29 H 128/72 91 L 11/23/20 06:31 11/23/20 08:00 11/23/20 08:00 11/23/20 08:00 11/23/20 08:00 Laboratory Results - last 24 hr 11/16/20 06:00: ABG Lactate 1.3 11/18/20 06:00: ABG O2 Saturation Not Reportable 11/18/20 07:43: ABG Lactate 1.4 11/19/20 06:00: ABG O2 Saturation Not Reportable 11/22/20 08:54: Vancomycin Trough 18.9 H 11/22/20 12:30: APTT 49.6 H 11/22/20 18:30: APTT 53.4 H 11/23/20 05:10: APTT 56.5 H 11/23/20 05:10: WBC 15.7 H, RBC 2.44 L, Hgb 7.6 L, Hct 24.7 L, MCV 101.1 H, MCH 31.0, MCHC 30.7 L, RDW 16.3, Plt Count 257, MPV 9.6, Neut % (Auto) 88.0 H, Lymph % (Auto) 6.8 L, [place] % (Auto) 4.8, Eos % (Auto) 0.2, Baso % (Auto) 0.1, Neut # (Auto) 13.8 H, Lymph # (Auto) 1.1, [place] # (Auto) 0.8, Eos # (Auto) 0.0, Baso # (Auto) 0.0, Total Counted 100, Neutrophils % (Manual) 88 H, Lymphocytes % (Manual) 8 L, Monocytes % (Manual) 4, Platelet Estimate Normal, Anisocytosis 1+, Macrocytosis 1+ 11/23/20 05:10: Sodium 149 H, Potassium 5.2 H, Chloride 108 H, Carbon Dioxide 38 H, Anion Gap 8.2, BUN 54 H, Creatinine 0.80 D, Estimated Creat Clear 93, Estimate
[2020-11-23 11:53] LABS: Activated Partial Thrombo Time 52.1 seconds (22.8-30.6)
[2020-11-23 12:51] LABS: Basophils # 0.1 K/mm3 (0-0.2); Basophils % 0.3 % (0.1-2.0); Eosinophils # 0.1 K/mm3 (0.0-0.4); Eosinophils % 0.7 % (0.1-12.0); Hematocrit 26.6 % (42.0-52.0); Mean Corpuscular HGB Conc 30.1 g/dL (31.8-35.4); Mean Corpuscular Hemoglobin 30.8 pg (27.0-31.2); Mean Corpuscular Volume 102.5 fl (80-94); Mean Platelet Volume 9.7 fl (7.4-10.4); Monocytes # 0.7 K/mm3 (0.1-1.0); Monocytes % 3.9 % (1.7-9.3); Neutrophils # 15.4 K/mm3 (1.8-7.8); Platelet Count 277 K/mm3 (142-424); Red Blood Count 2.59 M/mm3 (4.60-6.20); Red Cell Distribution Width 16.5 % (11.5-17.5); White Blood Count 17.3 K/mm3 (4.8-10.8)
--- NOTE | 2020-11-23 14:53 | SW/DCPLANNER ---
Patient information has been faxed to Martine trujillo/ [facility] for oil heaterman trach/peg care. Martine has stated that patient will have to have a trach/peg prior to admission. Discharge date is unknown at this time. Martine has stated that she will have a bed available at the first of next week. Martine has stated that she will follow up with me once patient information is reviewed.
--- NOTE | 2020-11-23 15:38 | CT_ITS ---
PROCEDURE: CT HEAD/BRAIN WO CON CLINICAL INDICATION: AMS Altered mental status, altered level of consciousness, confusion, disorientation COMPARISON: CT HDWO CT HEAD W/O CONTRAST from 12/09/[address] HEAD/BRAIN WO CON from 11/17/2020 TECHNIQUE: Axial images obtained. All CT scans at the facility use one or more dose reduction, viz: automated exposure control, ma/kV adjustment per patient size (including targeted exams where dose is matched to indication, i.e. head), or iterative reconstruction technique. FINDINGS: No midline shift, mass effect, intracranial hemorrhage, hydrocephalus, or extra-axial fluid collection is evident. Fluid is present within the nasopharynx and there small air-fluid levels within the bilateral maxillary sinuses and the right ethmoid sinus. The calvarium has an unremarkable appearance. There is opacification of the mastoid air cells. IMPRESSION: No acute intracranial findings. Bilateral mastoid sinus opacification with fluid in the nasopharynx and small bilateral air-fluid levels in the maxillary sinuses Dictated by: Andrea Calloway MD 11/23/2020 17:31 Andrea Calloway MD in [place] 11/23/2020 17:31
--- NOTE | 2020-11-23 15:39 | CT_ITS ---
Procedure: CT ANGIO NECK CT ANGIO HEAD CLINICAL HISTORY: AMS COMPARISON: CT CT ANGIO HEAD from 11/23/2020 CR XR CHEST PORTABLE from 11/23/2020 TECHNIQUE: IV Contrast: 100ml Isovue 370 Axial images obtained with sagittal and coronal reformats. All CT scans at the facility use one or more dose reduction, viz: automated exposure control, ma/kV adjustment per patient size (including targeted exams where dose is matched to indication, i.e. head), or iterative reconstruction technique. FINDINGS: CT angio neck: The aortic arch and great vessels have an unremarkable appearance. Carotids: The right common carotid shows no stenosis or dissection. Mild atheromatous plaque is present at the ostium of the right internal carotid artery with less than 20 percent stenosis. The mid distal aspect of the cervical portion of the right ICA is otherwise unremarkable. Left carotid: Common carotid is unremarkable. Small amount of plaque is present and the carotid bulb without significant stenosis. The cervical portion of the internal carotid otherwise has an unremarkable appearance. The vertebrals are unremarkable. No stenosis or dissection. CT angio head: No aneurysm or AVM. No major vascular occlusion or to section. The vertebral basilar system has an unremarkable appearance. A minimal amount of eccentric plaque is present in the intracranial portion of the left vertebral artery without significant stenosis. There is extensive pneumomediastinum and subcutaneous emphysema dissecting into the neck and chest. No obvious pneumothorax. There is mild diffuse ground-glass opacification of the lungs right greater than left. There is a nasogastric tube and an endotracheal tube in place. The endotracheal tube tip is well above the eloisa. No intracranial enhancement. No hydrocephalus. No sinus thrombosis. Fluid is present in the nasopharynx and a small amount fluid is present in the maxillary sinuses and there is opacification of the mastoid sinuses. IMPRESSION: Essentially negative CTA of the neck. Minimal amount of calcific plaque in the proximal right ICA and the left bulb without significant stenosis. No dissection or aneurysm. Negative CTA of the head Extensive pneumomediastinum and subcutaneous emphysema with ground-glass opacification of the lung apices. Dictated by: Andrea Calloway MD 11/23/2020 17:42 Andrea Calloway MD in [place] 11/23/2020 17:42
[2020-11-23 19:54] LABS: Activated Partial Thrombo Time 66.4 seconds (22.8-30.6)
[2020-11-24] VITALS (30 sets, daily range): BP systolic 72–146; BP diastolic 40–82; PULSE 90–131; RESP 23–37; TEMP 37.1–38.8; O2SAT 90–99; BMI 26.2
--- NOTE | 2020-11-24 04:09 | PC.NURSE ---
No acute changes. Pt has been agitated at times this shift. Has tossed head around frequently. BP stable. HR elevated at times. O2 sats stable. Pt has been febrile this shift. Glucerna currently infusing @ 70 ml/hr. 0 residual. F/C draining to bedside. 28 fr chest tube to water seal. No other concerns. Will continue to monitor.
--- NOTE | 2020-11-24 06:00 | XR_ITS ---
PROCEDURE INFORMATION: Exam: XR Chest Exam date and time: 11/24/2020 6:00 AM Age: 70 years old Clinical indication: Condition or disease; Lung condition and disease; Pneumonia; Patient HX: Covid, intubation TECHNIQUE: Imaging protocol: XR of the chest. Views: 1 view. COMPARISON: CR XR CHEST PORTABLE 11/23/2020 5:23 AM FINDINGS: Tubes, catheters and devices: The endotracheal tube terminates at the level of the clavicular heads, approximately 6.2 cm above the eloisa. NG tube terminates in the region of the gastric fundus. Right chest tube is in similar position. Lungs: Similar patchy opacities in the lung bases bilaterally. Pleural spaces: Unremarkable. No pleural effusion. No pneumothorax. Heart/Mediastinum: Mediastinal structures appear similar with similar degree of pneumomediastinum. Bones/joints: Unremarkable. Soft tissues: Similar subcutaneous emphysema over the chest and neck. IMPRESSION: 1. Similar patchy opacities in the lung bases bilaterally. 2. Stable support apparatus positioning.
[2020-11-24 07:06] LABS: ABG Base Excess 11.9 mmol/L (-2.4-2.3); ABG HCO3 37.2 mmhg (22.0-26.0); ABG Oxygen Saturation 94 % (90-100); ABG PH 7.37 mmol/L (7.35-7.45); ABG PO2 75.5 mmhg (80-100); ABG TCO2 39.3 mmhg (23-27)
[2020-11-24 07:12] LABS: Allen's Test ACCEPTABLE; Lactate Arterial 1.1 mmol/L (0.4-2.0); Oxygen 60 %; PEEP 10; Pressure Support 12; Source LRADIAL
[2020-11-24 07:13] LABS: Basophils # 0.1 K/mm3 (0-0.2); Basophils % 0.6 % (0.1-2.0); Eosinophils # 0.2 K/mm3 (0.0-0.4); Hematocrit 23.9 % (42.0-52.0); Hemoglobin 7.2 g/dL (14.1-18.0); Lymphocytes # 1.1 K/mm3 (0.7-4.5); Lymphocytes % 9.6 % (10-50); Mean Corpuscular HGB Conc 30.1 g/dL (31.8-35.4); Mean Corpuscular Hemoglobin 30.7 pg (27.0-31.2); Mean Corpuscular Volume 102.3 fl (80-94); Mean Platelet Volume 10.1 fl (7.4-10.4); Monocytes # 0.3 K/mm3 (0.1-1.0); Monocytes % 2.8 % (1.7-9.3); Neutrophils # 9.9 K/mm3 (1.8-7.8); Platelet Count 220 K/mm3 (142-424); Red Blood Count 2.34 M/mm3 (4.60-6.20); Red Cell Distribution Width 16.4 % (11.5-17.5); White Blood Count 11.7 K/mm3 (4.8-10.8)
[2020-11-24 07:13] LABS: ABG PCO2 66.2 mmhg (35.0-45.0)
[2020-11-24 07:17] LABS: MANUAL DIFFERENTIAL MANUAL DIFFERENTIAL (MANUAL DIFF)
[2020-11-24 07:42] LABS: Activated Partial Thrombo Time 62.1 seconds (22.8-30.6)
[2020-11-24 07:51] LABS: Chloride 107 mmol/L (98-107)
[2020-11-24 07:52] LABS: Potassium 4.6 mmoL/L (3.5-5.1); Sodium 149 mmol/L (136-145)
--- NOTE | 2020-11-24 07:52 | PC.NURSE ---
received call from lab reporting PTT 62.1. Name and verified. Dr. Dominguez notified.
[2020-11-24 07:55] LABS: Anion Gap 6.6 mEq/L (5-15); Blood Urea Nitrogen 45 mg/dl (9-20); Calcium 8.5 mg/dl (8.4-10.2); Carbon Dioxide 40 mmol/L (22.0-30.0); Creatinine Clearance Estimated 90 mL/min (50-200); Estimated Glomerular Filt Rate 134 ml/min (>60); GFR (African American) 162 ML/MIN (>60); Glucose 161 mg/dl (74-100)
[2020-11-24 08:02] LABS: Anisocytosis 1+; Eosinophils % 2 % (0-3); Hypochromasia 2+; Lymphocytes % 8 % (10-50); Macrocytosis 2+; Monocytes % 5 % (2-9); Neutrophils % 85 % (42-76); Nucleated Red Blood Cells 2; Platelet Estimate Normal; Total Cells Counted 100
[2020-11-24 09:15] LABS: Lactate Arterial 1.4 mmol/L (0.4-2.0)
--- NOTE | 2020-11-24 09:34 | HMH.ACPN2 ---
Internal Medicine - PN: Subj *Date: 11/25/20 *Time: 09:06 Interval history: pt appears more alssert - but no sig pul change Exam Vital signs and Labs for Last 24 Hours: Temp Pulse Resp BP Pulse Ox 99.8 F H 98 H 26 H 120/40 L 95 11/24/20 06:50 11/24/20 06:50 11/24/20 06:50 11/24/20 06:50 11/24/20 06:50 Laboratory Results - last 24 hr 11/16/20 06:00: ABG Lactate 1.3 11/18/20 06:00: ABG O2 Saturation Not Reportable 11/18/20 07:43: ABG Lactate 1.4 11/19/20 06:00: ABG Lactate 1.4 11/19/20 06:00: ABG O2 Saturation Not Reportable 11/23/20 11:00: APTT 52.1 H 11/23/20 12:38: WBC 17.3 H, RBC 2.59 L, Hgb 8.0 L, Hct 26.6 L, MCV 102.5 H, MCH 30.8, MCHC 30.1 L, RDW 16.5, Plt Count 277, MPV 9.7, Neut % (Auto) 89.0 H, Lymph % (Auto) 6.0 L, [place] % (Auto) 3.9, Eos % (Auto) 0.7, Baso % (Auto) 0.3, Neut # (Auto) 15.4 H, Lymph # (Auto) 1.0, [place] # (Auto) 0.7, Eos # (Auto) 0.1, Baso # (Auto) 0.1 11/23/20 18:45: APTT 66.4 H* D 11/24/20 06:43: Specimen Source Lradial, O2 % 60, ABG pH 7.37, ABG pCO2 66.2 H, ABG pO2 75.5 L, ABG HCO3 37.2 H, ABG Total CO2 39.3 H, ABG O2 Saturation 94, ABG Base Excess 11.9 H, Andrea Test Acceptable, ABG Lactate 1.1, PEEP 10 11/24/20 06:53: APTT 62.1 H* 11/24/20 06:53: WBC 11.7 H D, RBC 2.34 L, Hgb 7.2 L, Hct 23.9 L, MCV 102.3 H, MCH 30.7, MCHC 30.1 L, RDW 16.4, Plt Count 220, MPV 10.1, Neut % (Auto) 85.0 H, Lymph % (Auto) 9.6 L, [place] % (Auto) 2.8, Eos % (Auto) 2.0, Baso % (Auto) 0.6, Neut # (Auto) 9.9 H, Lymph # (Auto) 1.1, [place] # (Auto) 0.3, Eos # (Auto) 0.2, Baso # (Auto) 0.1, Total Counted 100, Neutrophils % (Manual) 85 H, Lymphocytes % (Manual) 8 L, Monocytes % (Manual) 5, Eosinophils % (Manual) 2, Nucleated RBCs 2, Platelet Estimate Normal, Hypochromasia 2+, Anisocytosis 1+, Macrocytosis 2+ 11/24/20 06:53: Sodium 149 H, Potassium 4.6, Chloride 107, Carbon Dioxide 40 H, Anion Gap 6.6, BUN 45 H, Creatinine 0.60 L D, Estimated Creat Clear 90, Estimated GFR 134, Est GFR ( Amer) 162 D, Glucose 161 H, Calcium 8.5 I & O for Last 24 hours: Intake & Output 11/21/20 11/22/20 11/23/20 11/24/20 11:59 11:59 11:59 11:59 Intake Total 2248 / 2248 1559 / 1559 1956 / 2376 1712 / 1712 Output Total 2195 / 2495 1605 / 1605 4275 / 4440 1979 / 1979 Balance 53 / -247 -46 / -46 -2319 / -2064 -268 / -268 Weight 204 lb 1 oz 204 lb 4.132 oz 204 lb 11.2 oz 198 lb 3 oz Microbiology Reports for the Last 24 Hours: Microbiology 11/21/20 00:15 Blood - Other Blood Culture - Preliminary NO GROWTH AFTER 48 HOURS 11/21/20 00:15 Blood - Other Blood Culture - Preliminary NO GROWTH AFTER 48 HOURS 11/21/20 20:00 Blood - Other Blood Culture - Preliminary NO GROWTH AFTER 48 HOURS 11/21/20 16:00 Cerebral Spinal Fluid Gram Stain - Final 11/21/20 16:00 Cerebral Spinal Fluid CSF Culture - Preliminary NO GROWTH AFTER 48 HOURS - Constitutional Comments: sedated on vent - *Routine HEENT Exam Head: Present: normocephalic Eye: Present: EOMI, PERRL ENT: Present: mucous membranes dry - *Routine Neck Exam Absent: JVD - *Routine Respiratory Exam Present: decreased breath sounds - *Routine Cardiovascular Exam Present: RRR - *Routine Abdominal Exam Present: soft - *Routine Extremities Exam Present: edema - *Routine Skin Exam Comments: sacral decubitus - *Routine Neurological Exam Present: altered mental status no def posturing - Routine Psychiatric Exam Present: unable to assess Assessment and Plan (1) COVID-19 with pulmonary comorbidity Status: Acute Category: Medical Code(s): U07.1 - COVID-19; J98.4 - Other disorders of lung (2) Pulmonary embolism associated with COVID-19 Status: Acute Category: Medical Code(s): U07.1 - COVID-19; I26.99 - Other pulmonary embolism without acute cor pulmonale (3) Elevated troponin I level Status: Acute Category: Medical
[2020-11-24 12:23] LABS: POC Glucose,Bedside 79 (70-110)
[2020-11-24 14:12] LABS: Albumin, CSF 9 mg/dL (15-55)
--- NOTE | 2020-11-24 14:25 | ECG_ITS ---
APPROVED REPORT Exam: Resting ECG HR:129 bpm ECG Measurements Heart Rate 129 AXES ND 132 P QRSd 118 QRS -16 QT 304 T 162 QTc 445 Conclusion Demand pacemaker, interpretation is based on intrinsic rhythm Sinus tachycardia with fusion complexes Left ventricular hypertrophy with QRS widening and repolarization abnormality Abnormal ECG Electronically signed by : Alexx Salvador MD 11/24/2020 19:55:20
[2020-11-24 15:39] LABS: Basophils # 0.1 K/mm3 (0-0.2); Basophils % 0.4 % (0.1-2.0); Eosinophils # 0.1 K/mm3 (0.0-0.4); Eosinophils % 0.8 % (0.1-12.0); Hematocrit 24.8 % (42.0-52.0); Hemoglobin 7.6 g/dL (14.1-18.0); Lymphocytes # 0.8 K/mm3 (0.7-4.5); Lymphocytes % 4.8 % (10-50); Mean Corpuscular HGB Conc 30.4 g/dL (31.8-35.4); Mean Corpuscular Hemoglobin 31.3 pg (27.0-31.2); Mean Corpuscular Volume 102.9 fl (80-94); Mean Platelet Volume 9.7 fl (7.4-10.4); Monocytes # 0.5 K/mm3 (0.1-1.0); Neutrophils # 15.7 K/mm3 (1.8-7.8); Platelet Count 235 K/mm3 (142-424); Red Blood Count 2.41 M/mm3 (4.60-6.20); Red Cell Distribution Width 16.1 % (11.5-17.5); White Blood Count 17.2 K/mm3 (4.8-10.8)
[2020-11-24 15:43] LABS: MANUAL DIFFERENTIAL MANUAL DIFFERENTIAL (MANUAL DIFF)
[2020-11-24 16:00] LABS: Magnesium 2.4 mg/dl (1.6-2.3); Phosphorous 4.9 mg/dl (2.5-4.5)
[2020-11-24 16:21] LABS: Lymphocytes % 5 % (10-50); Monocytes % 4 % (2-9); Neutrophils % 91 % (42-76); Nucleated Red Blood Cells 1; Platelet Estimate Normal; Total Cells Counted 100
[2020-11-24 16:23] LABS: Macrocytosis 1+
--- NOTE | 2020-11-24 16:29 | PC.NURSE ---
received call from lab ([facility]) reporting the following: QNS on HSV [address] Dominguez notified.
--- NOTE | 2020-11-24 16:35 | HMH.PULMPN ---
Internal Medicine - PN: Subj *Date: 11/24/20 *Time: 16:35 Interval history: No acute respiratory events overnight. Exam - Constitutional Constitutional:: Absent: no acute distress, comfortable - HENMT Exam HENMT: Present: normocephalic, cushingoid faces - Eye Exam Eyes:: Present: normal appearance both eyes and related structures - Neck Exam Neck:: Present: normal visual inspection - Respiratory Exam Respiratory:: Present: respiratory distress, crackles - Cardiovascular Exam Cardiac:: Present: S1, S2 - GI Exam GI:: Present: soft - Skin Exam Skin: Present: warm, no rash - Neurological Exam Neurological: Absent: alert, awake, normal cognition - Extremities Exam Extremities: Present: no cyanosis, no clubbing, edema Assessment and Plan (1) COVID-19 with pulmonary comorbidity Status: Acute Category: Medical Code(s): U07.1 - COVID-19; J98.4 - Other disorders of lung (2) Pulmonary embolism associated with COVID-19 Status: Acute Category: Medical Code(s): U07.1 - COVID-19; I26.99 - Other pulmonary embolism without acute cor pulmonale (3) Elevated troponin I level Status: Acute Category: Medical Code(s): R77.8 - Other specified abnormalities of plasma proteins (4) Left bundle branch block (LBBB) Status: Acute Category: Medical Code(s): I44.7 - Left bundle-branch block, unspecified (5) History of stroke Status: Acute Category: Medical Code(s): Z86.73 - Personal history of transient ischemic attack (TIA), and cerebral infarction without residual deficits (6) Elevated brain natriuretic peptide (BNP) level Status: Acute Category: Medical Code(s): R79.89 - Other specified abnormal findings of blood chemistry (7) Peroneal DVT (deep venous thrombosis) Status: Acute Qualifiers: Laterality: bilateral Category: Medical Code(s): I82.459 - Acute embolism and thrombosis of unspecified peroneal vein (8) Pneumonia due to COVID-19 virus Status: Acute Category: Medical Code(s): U07.1 - COVID-19; J12.82 - Pneumonia due to coronavirus disease 2019 (9) Bradycardia Status: Acute Category: Medical Code(s): R00.1 - Bradycardia, unspecified (10) Anemia Status: Acute Qualifiers: Anemia type: unspecified type Qualified Code(s): D64.9 - Anemia, unspecified Category: Medical Code(s): D64.9 - Anemia, unspecified (11) Pneumothorax, right Status: Acute Category: Medical Code(s): J93.9 - Pneumothorax, unspecified - Assessment and plan all Dx Assessment and Plan for all problems:: #COVID-19 pneumonia: #Pulmonary embolism: #Acute hypoxic respiratory failure: 70-year-old yet to vaccinate no prior respiratory complaint no significant smoking history. Positive for COVID-[address] on admission showed extensive pulmonary emboli both right and left main pulmonary arteries and distal arteries, nonocclusive along with airspace disease. Troponins elevated at 0.13 on admission. No echocardiogram available. Blood cultures no growth 48 hours. Sputum stain from 11/05 moderate gram-positive cocci pairs and chains and rare gram-negative rods. Nasal MRSA PCR negative Patient respiratory status has been stable however his not waking appropriate despite off sedation. Will evaluate for his altered mentation. I had an extensive discussion with the patient's who is the POA along with her extensive family and her daughters and brothers after extensive discussions with the family patient's family want the patient to be a full code. They do not want to pursue transfer at this point of time. Patient's daughter Ms. Nhung Pal would be the point of contact going forward on the patient's /POA is agreeable for that Assessment: - VAP bundle Elevate head of the bed at 30 to 45 degrees Oral care with chlorhexidne GI ulcer prophylaxis - Famotidine 20mg IV BID Intubated . Off sedation for > 96 hours completely. Patient still not wak
[2020-11-24 19:48] LABS: Activated Partial Thrombo Time 68.8 seconds (22.8-30.6)
[2020-11-24 20:46] LABS: CAP Mandated Reflex to Culture Not Indicated (.); Cryptococcus Antigen, CSF Negative (Negative)
[2020-11-25] VITALS (40 sets, daily range): BP systolic 99–151; BP diastolic 47–85; PULSE 80–133; RESP 26–34; TEMP 36.4–38.1; O2SAT 92–100; BMI 27.3
--- NOTE | 2020-11-25 06:00 | XR_ITS ---
PROCEDURE INFORMATION: Exam: XR Chest Exam date and time: 11/25/2020 6:00 AM Age: 70 years old Clinical indication: Patient HX: Covid unit patient icu- intubation check TECHNIQUE: Imaging protocol: XR of the chest. Views: 1 view. COMPARISON: CR XR CHEST PORTABLE 11/24/2020 5:05 AM FINDINGS: Tubes, catheters and devices: Endotracheal tube, feeding tube, and right thoracostomy tube. The endotracheal tube terminates 6.3 cm above the eloisa. Lungs: Emphysematous change, interstitial prominence, and bilateral airspace disease. Pleural spaces: No significant pneumothorax or pleural effusion. Heart/Mediastinum: Residual pneumomediastinum. No cardiomegaly. Bones/joints: Mild degenerative change. Soft tissues: Extensive subcutaneous emphysema again demonstrated. IMPRESSION: Emphysematous change, interstitial prominence, and bilateral airspace disease.
[2020-11-25 07:12] LABS: ABG Base Excess 3.3 mmol/L (-2.4-2.3); ABG Oxygen Saturation 93 % (90-100); ABG PH 7.23 mmol/L (7.35-7.45); ABG PO2 78.6 mmhg (80-100); ABG TCO2 33.3 mmhg (23-27)
[2020-11-25 07:29] LABS: Basophils # 0.1 K/mm3 (0-0.2); Basophils % 0.3 % (0.1-2.0); Eosinophils # 0.2 K/mm3 (0.0-0.4); Eosinophils % 0.9 % (0.1-12.0); Hematocrit 24.6 % (42.0-52.0); Hemoglobin 7.3 g/dL (14.1-18.0); Lymphocytes # 1.4 K/mm3 (0.7-4.5); Lymphocytes % 8.5 % (10-50); Mean Corpuscular HGB Conc 29.8 g/dL (31.8-35.4); Mean Corpuscular Hemoglobin 31.2 pg (27.0-31.2); Mean Corpuscular Volume 104.5 fl (80-94); Mean Platelet Volume 10.4 fl (7.4-10.4); Monocytes # 0.5 K/mm3 (0.1-1.0); Monocytes % 3.3 % (1.7-9.3); Platelet Count 204 K/mm3 (142-424); Red Blood Count 2.35 M/mm3 (4.60-6.20); Red Cell Distribution Width 16.4 % (11.5-17.5)
[2020-11-25 07:30] LABS: Allen's Test ACCEPTABLE; Oxygen 60 %; PEEP 12; Tidal Volume 460; Vent Rate 26
[2020-11-25 07:31] LABS: MANUAL DIFFERENTIAL MANUAL DIFFERENTIAL (MANUAL DIFF)
[2020-11-25 07:31] LABS: ABG PCO2 76.3 mmhg (35.0-45.0); Source R RADIAL
[2020-11-25 07:47] LABS: Activated Partial Thrombo Time 67.7 seconds (22.8-30.6)
[2020-11-25 07:59] LABS: Acanthocytes 1+; Anisocytosis 1+; Lymphocytes % 12 % (10-50); Macrocytosis 1+; Monocytes % 2 % (2-9); Neutrophils % 86 % (42-76); Nucleated Red Blood Cells 3; Platelet Estimate Normal; Poikilocytosis 1+; Total Cells Counted 100
[2020-11-25 09:03] LABS: Anion Gap 9.9 mEq/L (5-15); Blood Urea Nitrogen 73 mg/dl (9-20); Carbon Dioxide 33 mmol/L (22.0-30.0); Chloride 107 mmol/L (98-107); Creatinine Clearance Estimated 85 mL/min (50-200); Estimated Glomerular Filt Rate 67 ml/min (>60); GFR (African American) 81 ML/MIN (>60); Glucose 171 mg/dl (74-100); Potassium 5.9 mmoL/L (3.5-5.1); Sodium 144 mmol/L (136-145)
--- NOTE | 2020-11-25 09:09 | HMH.ACPN2 ---
Internal Medicine - PN: Subj *Date: 11/25/20 *Time: 10:29 Interval history: sedated with abn labs but labile blood pressure Exam Vital signs and Labs for Last 24 Hours: Temp Pulse Resp BP Pulse Ox 98.9 F 118 H 28 H 105/56 L 96 11/25/20 07:00 11/25/20 07:00 11/25/20 07:00 11/25/20 07:00 11/25/20 07:00 Laboratory Results - last 24 hr 11/19/20 06:00: ABG Lactate 1.4 11/21/20 16:00: CSF Albumin 9 L 11/21/20 16:00: CSF Cryptococcus Ag Negative, CSF Cryptoco Ag Clt Rfx Not indicated 11/24/20 12:16: POC Glucose 79 11/24/20 15:25: WBC 17.2 H D, RBC 2.41 L, Hgb 7.6 L, Hct 24.8 L, MCV 102.9 H, MCH 31.3 H, MCHC 30.4 L, RDW 16.1, Plt Count 235, MPV 9.7, Neut % (Auto) 91.0 H, Lymph % (Auto) 4.8 L, [place] % (Auto) 3.0, Eos % (Auto) 0.8, Baso % (Auto) 0.4, Neut # (Auto) 15.7 H, Lymph # (Auto) 0.8, [place] # (Auto) 0.5, Eos # (Auto) 0.1, Baso # (Auto) 0.1, Total Counted 100, Neutrophils % (Manual) 91 H, Lymphocytes % (Manual) 5 L, Monocytes % (Manual) 4, Nucleated RBCs 1, Platelet Estimate Normal, Macrocytosis 1+ 11/24/20 15:25: Phosphorus 4.9 H, Magnesium 2.4 H 11/24/20 18:42: APTT 68.8 H* D 11/25/20 06:00: Specimen Source R radial, O2 % 60, ABG pH 7.23 L*, ABG pCO2 76.3 H, ABG pO2 78.6 L, ABG HCO3 31.0 H, ABG Total CO2 33.3 H, ABG O2 Saturation 93, ABG Base Excess 3.3 H, Andrea Test Acceptable, Vent Rate 26, Tidal Volume 460, PEEP 12 11/25/20 06:30: APTT 67.7 H* 11/25/20 06:30: WBC 16.0 H, RBC 2.35 L, Hgb 7.3 L, Hct 24.6 L, MCV 104.5 H, MCH 31.2, MCHC 29.8 L, RDW 16.4, Plt Count 204, MPV 10.4, Neut % (Auto) 87.0 H, Lymph % (Auto) 8.5 L, [place] % (Auto) 3.3, Eos % (Auto) 0.9, Baso % (Auto) 0.3, Neut # (Auto) 14.0 H, Lymph # (Auto) 1.4, [place] # (Auto) 0.5, Eos # (Auto) 0.2, Baso # (Auto) 0.1, Total Counted 100, Neutrophils % (Manual) 86 H, Lymphocytes % (Manual) 12, Monocytes % (Manual) 2, Nucleated RBCs 3, Platelet Estimate Normal, Poikilocytosis 1+, Anisocytosis 1+, Macrocytosis 1+, Acanthocytes (Spur) 1+ 11/25/20 06:30: Sodium 144, Potassium 5.9 H D, Chloride 107, Carbon Dioxide 33 H, Anion Gap 9.9, BUN 73 H D, Creatinine 1.10 D, Estimated Creat Clear 85, Estimated GFR 67, Est GFR ( Amer) 81 D, Glucose 171 H, Calcium 8.0 L 11/25/20 07:47: ABG Lactate 1.0 I & O for Last 24 hours: Intake & Output 11/22/20 11/23/20 11/24/20 11/25/20 11:59 11:59 11:59 11:59 Intake Total 1559 / 1559 1956 / 2376 1832 / 1832 2959.987 / 2959.987 Output Total 1605 / 1605 4275 / 4440 2280 / 2375 605 / 605 Balance -46 / -46 -2319 / -2064 -448 / -543 2354.987 / 2354.987 Weight 204 lb 4.132 oz 204 lb 11.2 oz 198 lb 3 oz 206 lb 2 oz Microbiology Reports for the Last 24 Hours: Microbiology 11/21/20 16:00 Cerebral Spinal Fluid Gram Stain - Final 11/21/20 16:00 Cerebral Spinal Fluid CSF Culture - Preliminary NO GROWTH AFTER 72 HOURS - Constitutional Comments: sedated on vent - *Routine HEENT Exam Head: Present: normocephalic Eye: Present: other (no focal changes ) ENT: Present: mucous membranes dry - *Routine Neck Exam Absent: JVD - *Routine Respiratory Exam Present: decreased breath sounds, other (has sq air) - *Routine Cardiovascular Exam Present: irregular rhythm - *Routine Abdominal Exam Present: soft - *Routine Extremities Exam Present: edema - *Routine Skin Exam Present: dry - *Routine Neurological Exam no posturing - Routine Psychiatric Exam Present: unable to assess Assessment and Plan (1) COVID-19 with pulmonary comorbidity Status: Acute Category: Medical Code(s): U07.1 - COVID-19; J98.4 - Other disorders of lung (2) Pulmonary embolism associated with COVID-19 Status: Acute Category: Medical Code(s): U07.1 - COVID-19; I26.99 - Other pulmonary embolism without acute cor pulmonale (3) Elevated troponin I level Status: Acute Category: Medical Code(s): R77.8 - Other specified abnormalities of plasma proteins (4) Left bundle branch block (LBBB) Statu
[2020-11-25 10:47] LABS: POC Glucose,Bedside 241 (70-110)
--- NOTE | 2020-11-25 11:33 | HMH.ACPN2 ---
Internal Medicine - PN: Subj *Date: 11/25/20 *Time: 11:33 Exam Vital signs and Labs for Last 24 Hours: Temp Pulse Resp BP Pulse Ox 98.9 F 118 H 28 H 105/56 L 96 11/25/20 07:00 11/25/20 07:00 11/25/20 07:00 11/25/20 07:00 11/25/20 07:00 Laboratory Results - last 24 hr 11/21/20 16:00: CSF Albumin 9 L 11/21/20 16:00: CSF Cryptococcus Ag Negative, CSF Cryptoco Ag Clt Rfx Not indicated 11/24/20 12:16: POC Glucose 79 11/24/20 15:25: WBC 17.2 H D, RBC 2.41 L, Hgb 7.6 L, Hct 24.8 L, MCV 102.9 H, MCH 31.3 H, MCHC 30.4 L, RDW 16.1, Plt Count 235, MPV 9.7, Neut % (Auto) 91.0 H, Lymph % (Auto) 4.8 L, [place] % (Auto) 3.0, Eos % (Auto) 0.8, Baso % (Auto) 0.4, Neut # (Auto) 15.7 H, Lymph # (Auto) 0.8, [place] # (Auto) 0.5, Eos # (Auto) 0.1, Baso # (Auto) 0.1, Total Counted 100, Neutrophils % (Manual) 91 H, Lymphocytes % (Manual) 5 L, Monocytes % (Manual) 4, Nucleated RBCs 1, Platelet Estimate Normal, Macrocytosis 1+ 11/24/20 15:25: Phosphorus 4.9 H, Magnesium 2.4 H 11/24/20 18:42: APTT 68.8 H* D 11/25/20 06:00: Specimen Source R radial, O2 % 60, ABG pH 7.23 L*, ABG pCO2 76.3 H, ABG pO2 78.6 L, ABG HCO3 31.0 H, ABG Total CO2 33.3 H, ABG O2 Saturation 93, ABG Base Excess 3.3 H, Nadrea Test Acceptable, Vent Rate 26, Tidal Volume 460, PEEP 12 11/25/20 06:30: APTT 67.7 H* 11/25/20 06:30: WBC 16.0 H, RBC 2.35 L, Hgb 7.3 L, Hct 24.6 L, MCV 104.5 H, MCH 31.2, MCHC 29.8 L, RDW 16.4, Plt Count 204, MPV 10.4, Neut % (Auto) 87.0 H, Lymph % (Auto) 8.5 L, [place] % (Auto) 3.3, Eos % (Auto) 0.9, Baso % (Auto) 0.3, Neut # (Auto) 14.0 H, Lymph # (Auto) 1.4, [place] # (Auto) 0.5, Eos # (Auto) 0.2, Baso # (Auto) 0.1, Total Counted 100, Neutrophils % (Manual) 86 H, Lymphocytes % (Manual) 12, Monocytes % (Manual) 2, Nucleated RBCs 3, Platelet Estimate Normal, Poikilocytosis 1+, Anisocytosis 1+, Macrocytosis 1+, Acanthocytes (Spur) 1+ 11/25/20 06:30: Sodium 144, Potassium 5.9 H D, Chloride 107, Carbon Dioxide 33 H, Anion Gap 9.9, BUN 73 H D, Creatinine 1.10 D, Estimated Creat Clear 85, Estimated GFR 67, Est GFR ( Amer) 81 D, Glucose 171 H, Calcium 8.0 L 11/25/20 07:47: ABG Lactate 1.0 11/25/20 10:06: POC Glucose 241 H I & O for Last 24 hours: Intake & Output 11/22/20 11/23/20 11/24/20 11/25/20 23:59 23:59 23:59 23:59 Intake Total 1856 / 2077 1861 / 2062 2465 / 2972 1330.987 / 1330.987 Output Total 2945 / 3170 2870 / 3370 1760 / 1760 270 / 270 Balance -1089 / -1093 -1009 / -1308 705 / 1212 1060.987 / 1060.987 Weight 92.65 kg 92.85 kg 89.896 kg 93.497 kg Microbiology Reports for the Last 24 Hours: Microbiology 11/20/20 10:08 Blood Blood Culture - Final NO GROWTH AFTER 5 DAYS 11/20/20 09:55 Blood Blood Culture - Final NO GROWTH AFTER 5 DAYS 11/21/20 16:00 Cerebral Spinal Fluid Gram Stain - Final 11/21/20 16:00 Cerebral Spinal Fluid CSF Culture - Preliminary NO GROWTH AFTER 72 HOURS Assessment and Plan (1) COVID-19 with pulmonary comorbidity Status: Acute Category: Medical Code(s): U07.1 - COVID-19; J98.4 - Other disorders of lung (2) Pulmonary embolism associated with COVID-19 Status: Acute Category: Medical Code(s): U07.1 - COVID-19; I26.99 - Other pulmonary embolism without acute cor pulmonale (3) Elevated troponin I level Status: Acute Category: Medical Code(s): R77.8 - Other specified abnormalities of plasma proteins (4) Left bundle branch block (LBBB) Status: Acute Category: Medical Code(s): I44.7 - Left bundle-branch block, unspecified (5) History of stroke Status: Acute Category: Medical Code(s): Z86.73 - Personal history of transient ischemic attack (TIA), and cerebral infarction without residual deficits (6) Elevated brain natriuretic peptide (BNP) level Status: Acute Category: Medical Code(s): R79.89 - Other specified abnormal findings of blood chemistry (7) Peroneal DVT (deep venous thrombosis)
[2020-11-25 14:27] LABS: Basophils # 0.1 K/mm3 (0-0.2); Basophils % 0.3 % (0.1-2.0); Eosinophils # 0.1 K/mm3 (0.0-0.4); Eosinophils % 0.4 % (0.1-12.0); Hematocrit 23.5 % (42.0-52.0); Lymphocytes # 1.1 K/mm3 (0.7-4.5); Lymphocytes % 5.8 % (10-50); Mean Corpuscular HGB Conc 29.6 g/dL (31.8-35.4); Mean Corpuscular Hemoglobin 30.5 pg (27.0-31.2); Mean Corpuscular Volume 103.1 fl (80-94); Mean Platelet Volume 10.2 fl (7.4-10.4); Monocytes # 0.7 K/mm3 (0.1-1.0); Monocytes % 3.8 % (1.7-9.3); Neutrophils # 16.5 K/mm3 (1.8-7.8); Neutrophils % 89.7 % (37.0-80.0); Platelet Count 224 K/mm3 (142-424); Red Blood Count 2.28 M/mm3 (4.60-6.20); Red Cell Distribution Width 16.9 % (11.5-17.5); White Blood Count 18.4 K/mm3 (4.8-10.8)
[2020-11-25 14:47] LABS: Chloride 104 mmol/L (98-107); Sodium 144 mmol/L (136-145)
[2020-11-25 14:50] LABS: Blood Urea Nitrogen 77 mg/dl (9-20); Calcium 7.9 mg/dl (8.4-10.2); Carbon Dioxide 34 mmol/L (22.0-30.0); Creatinine Clearance Estimated 78 mL/min (50-200); Estimated Glomerular Filt Rate 60 ml/min (>60); GFR (African American) 73 ML/MIN (>60); Glucose 191 mg/dl (74-100)
[2020-11-25 19:27] LABS: Activated Partial Thrombo Time 45.5 seconds (22.8-30.6)
--- NOTE | 2020-11-25 19:37 | PC.NURSE ---
1935 - PTT called to [facility] @ [facility]. States he will place order for PTT to be ordered @ 2199. No changes to gtt @ this time.
--- NOTE | 2020-11-25 19:38 | PC.NURSE ---
1500 - Potassium and H/H called to Dr. Dominguez @ this time. New orders for 1 unit PRBC's and BID kayexalate per NGT.
[2020-11-25 22:32] LABS: Hematocrit 25.4 % (42.0-52.0); Hemoglobin 7.7 g/dL (14.1-18.0)
[2020-11-25 22:44] LABS: Activated Partial Thrombo Time 63.2 seconds (22.8-30.6)
--- NOTE | 2020-11-25 22:46 | PC.NURSE ---
[facility] with [facility] result of 63.2, no changes, he states he will put next order in for a PTT at 0600
[2020-11-26] VITALS (33 sets, daily range): BP systolic 70–151; BP diastolic 49–79; PULSE 80–130; RESP 26–34; TEMP 37.1–38; O2SAT 91–100; BMI 27.3
--- NOTE | 2020-11-26 00:28 | PC.NURSE ---
Called lab to check on results of vanc trough. Still awaiting results.
[2020-11-26 01:01] LABS: Vancomycin,Trough 16.2 ug/mL (5.0-10.0)
--- NOTE | 2020-11-26 01:23 | PC.NURSE ---
Vanc trough resulted. [facility] called for consultation. Orders received to skip this dose.
--- NOTE | 2020-11-26 06:00 | XR_ITS ---
PROCEDURE INFORMATION: Exam: XR Chest Exam date and time: 11/26/2020 6:00 AM Age: 70 years old Clinical indication: Other: Covid; Additional info: Intubation TECHNIQUE: Imaging protocol: XR of the chest. Views: 1 view. COMPARISON: CR XR CHEST PORTABLE 11/25/2020 6:11 AM FINDINGS: Tubes, catheters and devices: Right-sided chest tube in stable position. Endotracheal tube tip is 5 cm from the eloisa. Enteric tube extends into the left upper quadrant in the tip is not seen. Surgical tube projects over the upper aspect of the heart centrally and inferiorly off the edge of the study may represent the mediastinal tube. Lungs: Persistent bilateral airspace disease, similar to or slightly improved compared to the prior exam. Pleural spaces: No significant pneumothorax. No significant effusion. Heart/Mediastinum: No acute findings or cardiomegaly. Bones/joints: No acute findings. Soft tissues: There is persistent extensive soft tissue emphysema. IMPRESSION: 1. Bilateral airspace disease, similar to or slightly improved. 2. Lines tubes and catheters as described. Additional tube projecting over the heart near the midline may be related to mediastinal drain or alternatively represent the and tear 2 folded on itself and extending back up into the lower esophagus. Correlate clinically. 3. Extensive soft tissue/subcutaneous emphysema.
[2020-11-26 06:13] LABS: Basophils # 0.1 K/mm3 (0-0.2); Basophils % 0.3 % (0.1-2.0); Eosinophils # 0.2 K/mm3 (0.0-0.4); Hemoglobin 7.8 g/dL (14.1-18.0); Lymphocytes # 1.1 K/mm3 (0.7-4.5); Lymphocytes % 6.9 % (10-50); Mean Corpuscular HGB Conc 30.7 g/dL (31.8-35.4); Mean Corpuscular Hemoglobin 30.3 pg (27.0-31.2); Mean Corpuscular Volume 98.8 fl (80-94); Mean Platelet Volume 10.5 fl (7.4-10.4); Monocytes # 0.8 K/mm3 (0.1-1.0); Monocytes % 4.9 % (1.7-9.3); Neutrophils # 13.7 K/mm3 (1.8-7.8); Neutrophils % 86.9 % (37.0-80.0); Platelet Count 183 K/mm3 (142-424); Red Blood Count 2.57 M/mm3 (4.60-6.20); Red Cell Distribution Width 18.7 % (11.5-17.5); White Blood Count 15.8 K/mm3 (4.8-10.8)
[2020-11-26 06:18] LABS: Hematocrit 25.4 % (42.0-52.0)
[2020-11-26 06:19] LABS: MANUAL DIFFERENTIAL MANUAL DIFFERENTIAL (MANUAL DIFF)
[2020-11-26 06:23] LABS: Chloride 106 mmol/L (98-107); Potassium 4.9 mmoL/L (3.5-5.1); Sodium 147 mmol/L (136-145)
[2020-11-26 06:26] LABS: Activated Partial Thrombo Time 48.7 seconds (22.8-30.6); Anion Gap 10.9 mEq/L (5-15); Blood Urea Nitrogen 77 mg/dl (9-20); Carbon Dioxide 35 mmol/L (22.0-30.0); Creatinine Clearance Estimated 85 mL/min (50-200); Estimated Glomerular Filt Rate 67 ml/min (>60); GFR (African American) 81 ML/MIN (>60)
[2020-11-26 06:27] LABS: Calcium 7.9 mg/dl (8.4-10.2); Glucose 147 mg/dl (74-100)
[2020-11-26 07:10] LABS: Hypochromasia 2+; Lymphocytes % 11 % (10-50); Macrocytosis 1+; Neutrophils % 77 % (42-76); Platelet Estimate Normal; Total Cells Counted 100
[2020-11-26 07:15] LABS: ABG Base Excess 7.2 mmol/L (-2.4-2.3); ABG HCO3 35.7 mmhg (22.0-26.0); ABG Oxygen Saturation 92 % (90-100); ABG PO2 76.8 mmhg (80-100); ABG TCO2 38.7 mmhg (23-27)
--- NOTE | 2020-11-26 07:31 | PC.NURSE ---
Spoke with [facility]. Heparin to be increased from 1800 units to 1950 units/hr
--- NOTE | 2020-11-26 07:52 | ECG_ITS ---
APPROVED REPORT Exam: Resting ECG HR:131 bpm ECG Measurements Heart Rate 131 AXES MA 138 P 60 QRSd 134 QRS 16 QT 316 T 186 QTc 466 Conclusion Sinus tachycardia Left bundle branch block Abnormal ECG Electronically signed by : Alexx Salvador MD 11/28/2020 10:58:24
--- NOTE | 2020-11-26 07:53 | XR_ITS ---
PROCEDURE INFORMATION: Exam: XR Chest Exam date and time: 11/26/2020 7:53 AM Age: 70 years old Clinical indication: Other: Icu code; Patient HX: S/P code icu covid unit --; Additional info: Post code TECHNIQUE: Imaging protocol: XR of the chest. Views: 1 view. COMPARISON: CR XR CHEST PORTABLE 11/26/2020 4:30 AM FINDINGS: Tubes, catheters and devices: Endotracheal tube remains in place with the tip above the eloisa. Nasogastric tube remains in place. Right chest tube remains in place, unchanged. Lungs: There continues to be airspace disease throughout both lungs, unchanged. Pleural spaces: Unremarkable. No pleural effusion. No pneumothorax. Heart/Mediastinum: Unremarkable. No cardiomegaly. Bones/joints: Unremarkable. Soft tissues: There is subcutaneous air throughout the chest neck, unchanged. IMPRESSION: Stable chest.
[2020-11-26 08:02] LABS: ABG Base Excess 5.3 mmol/L (-2.4-2.3); ABG HCO3 33.7 mmhg (22.0-26.0); ABG Oxygen Saturation 99 % (90-100); ABG PO2 143.2 mmhg (80-100); ABG TCO2 36.6 mmhg (23-27); Oxygen 100% %
[2020-11-26 08:03] LABS: ABG PH 7.18 mmol/L (7.35-7.45); Allen's Test Patient Unable; PEEP 10; Source Right Femoral; Tidal Volume 460; Vent Rate 26
[2020-11-26 08:08] LABS: ABG PH 7.18 mmol/L (7.35-7.45); Allen's Test Patient Unable; Oxygen 60 %; PEEP 10; Source Right Radial; Tidal Volume 460; Vent Rate 26
[2020-11-26 08:09] LABS: ABG PCO2 98.4 mmhg (35.0-45.0)
[2020-11-26 08:17] LABS: Basophils # 0.1 K/mm3 (0-0.2); Basophils % 0.5 % (0.1-2.0); Eosinophils # 0.2 K/mm3 (0.0-0.4); Eosinophils % 0.9 % (0.1-12.0); Hematocrit 25.9 % (42.0-52.0); Hemoglobin 7.9 g/dL (14.1-18.0); Lymphocytes # 2.8 K/mm3 (0.7-4.5); Lymphocytes % 14.3 % (10-50); Mean Corpuscular HGB Conc 30.5 g/dL (31.8-35.4); Mean Corpuscular Hemoglobin 30.5 pg (27.0-31.2); Mean Corpuscular Volume 100.2 fl (80-94); Mean Platelet Volume 10.1 fl (7.4-10.4); Monocytes # 0.8 K/mm3 (0.1-1.0); Monocytes % 4.3 % (1.7-9.3); Neutrophils # 15.4 K/mm3 (1.8-7.8); Platelet Count 218 K/mm3 (142-424); Red Blood Count 2.58 M/mm3 (4.60-6.20); Red Cell Distribution Width 18.8 % (11.5-17.5); White Blood Count 19.2 K/mm3 (4.8-10.8)
[2020-11-26 08:35] LABS: Anion Gap 12.1 mEq/L (5-15); Blood Urea Nitrogen 78 mg/dl (9-20); Carbon Dioxide 32 mmol/L (22.0-30.0); Chloride 108 mmol/L (98-107); Creatinine Clearance Estimated 85 mL/min (50-200); Estimated Glomerular Filt Rate 67 ml/min (>60); GFR (African American) 81 ML/MIN (>60); Glucose 195 mg/dl (74-100); Potassium 5.1 mmoL/L (3.5-5.1); Sodium 147 mmol/L (136-145)
[2020-11-26 08:47] LABS: Troponin I 0.08 ng/ml (0.00-0.034)
--- NOTE | 2020-11-26 08:52 | PC.NURSE ---
RESP CARE NOTE: Rate increased to 30 bpm, and VT to 500ml per verbal order of Dr Sadler.
--- NOTE | 2020-11-26 09:04 | PC.NURSE ---
0736 - HR increased to 150-160's, RT called for EKG for suspicion for SVT. 0741 - BP 70/49, HR 152 w/ weak pulse. Rapid Response Red called @ this time 0742 - Lost pulse, CPR started. Code blue called over head @ this time. 0744 - 1 mg Epi given @ this time. Dr. Dominguez @ bedside. Noted that pt in Vtach on Zoll. Shock given @ 0745. Mikaela OlsonRN spoke w/ pt's family via phone @ this time, update given. 0747 - Amio bolus given @ this time per Dr. Dominguez CBC, BMP, ABG drawn by Dr. Dominguez. EKG obtained, sent to Dr. Garcia CXR obtained Levo currently @ 15 mcg/min 0900 - Family currently @ bedside.
--- NOTE | 2020-11-26 10:28 | HMH.ACPN2 ---
Internal Medicine - PN: Subj *Date: 11/26/20 *Time: 10:28 Interval history: pt with code blue today and had what appeared as v tach which responded to defib - pt has known lbbb and has resp failure with sq air known - has h/h ok but increased bun Exam Vital signs and Labs for Last 24 Hours: Temp Pulse Resp BP Pulse Ox 99.7 F H 130 H 28 H 133/70 92 L 11/26/20 07:00 11/26/20 07:00 11/26/20 07:00 11/26/20 07:00 11/26/20 07:00 Laboratory Results - last 24 hr 11/25/20 06:30: Blood Type Confirm A Negative 11/25/20 10:06: POC Glucose 241 H 11/25/20 14:23: WBC 18.4 H, RBC 2.28 L, Hgb 7.0 L, Hct 23.5 L, MCV 103.1 H, MCH 30.5, MCHC 29.6 L, RDW 16.9, Plt Count 224, MPV 10.2, Neut % (Auto) 89.7 H, Lymph % (Auto) 5.8 L, [place] % (Auto) 3.8, Eos % (Auto) 0.4, Baso % (Auto) 0.3, Neut # (Auto) 16.5 H, Lymph # (Auto) 1.1, [place] # (Auto) 0.7, Eos # (Auto) 0.1, Baso # (Auto) 0.1 11/25/20 14:23: Sodium 144, Potassium 6.0 H, Chloride 104, Carbon Dioxide 34 H, Anion Gap 12.0, BUN 77 H, Creatinine 1.20, Estimated Creat Clear 78, Estimated GFR 60, Est GFR ( Amer) 73, Glucose 191 H, Calcium 7.9 L 11/25/20 16:00: Blood Type A Negative, Antibody Screen Negative, Crossmatch (AHG) See Detail 11/25/20 18:45: APTT 45.5 H 11/25/20 22:17: Vancomycin Trough 16.2 H 11/25/20 22:17: APTT 63.2 H* D 11/25/20 22:17: Hgb 7.7 L, Hct 25.4 L 11/26/20 05:15: WBC 15.8 H, RBC 2.57 L, Hgb 7.8 L, Hct 25.4 L, MCV 98.8 H, MCH 30.3, MCHC 30.7 L, RDW 18.7 H, Plt Count 183, MPV 10.5 H, Neut % (Auto) 86.9 H, Lymph % (Auto) 6.9 L, [place] % (Auto) 4.9, Eos % (Auto) 1.0, Baso % (Auto) 0.3, Neut # (Auto) 13.7 H, Lymph # (Auto) 1.1, [place] # (Auto) 0.8, Eos # (Auto) 0.2, Baso # (Auto) 0.1, Total Counted 100, Neutrophils % (Manual) 77 H, Band Neutrophils % 12.0 H, Lymphocytes % (Manual) 11, Platelet Estimate Normal, Hypochromasia 2+, Macrocytosis 1+ 11/26/20 05:15: Sodium 147 H, Potassium 4.9, Chloride 106, Carbon Dioxide 35 H, Anion Gap 10.9, BUN 77 H, Creatinine 1.10, Estimated Creat Clear 85, Estimated GFR 67, Est GFR ( Amer) 81, Glucose 147 H D, Calcium 7.9 L 11/26/20 05:15: APTT 48.7 H 11/26/20 06:39: Specimen Source Right radial, O2 % 60, ABG pH 7.18 L*, ABG pCO2 98.4 H, ABG pO2 76.8 L, ABG HCO3 35.7 H, ABG Total CO2 38.7 H, ABG O2 Saturation 92, ABG Base Excess 7.2 H, Andrea Test Patient unable, Vent Rate 26, Tidal Volume 460, PEEP 10 11/26/20 08:00: WBC 19.2 H, RBC 2.58 L, Hgb 7.9 L, Hct 25.9 L, MCV 100.2 H, MCH 30.5, MCHC 30.5 L, RDW 18.8 H, Plt Count 218, MPV 10.1, Neut % (Auto) 80.0, Lymph % (Auto) 14.3, [place] % (Auto) 4.3, Eos % (Auto) 0.9, Baso % (Auto) 0.5, Neut # (Auto) 15.4 H, Lymph # (Auto) 2.8, [place] # (Auto) 0.8, Eos # (Auto) 0.2, Baso # (Auto) 0.1 11/26/20 08:00: Sodium 147 H, Potassium 5.1, Chloride 108 H, Carbon Dioxide 32 H, Anion Gap 12.1, BUN 78 H, Creatinine 1.10, Estimated Creat Clear 85, Estimated GFR 67, Est GFR ( Amer) 81, Glucose 195 H D, Calcium 8.0 L, Troponin I 0.08 H 11/26/20 08:01: Specimen Source Right femoral, O2 % 100%, ABG pH 7.18 L*, ABG pCO2 93.0 H, ABG pO2 143.2 H, ABG HCO3 33.7 H, ABG Total CO2 36.6 H, ABG O2 Saturation 99, ABG Base Excess 5.3 H, Andrea Test Patient unable, Vent Rate 26, Tidal Volume 460, PEEP 10 I & O for Last 24 hours: Intake & Output 11/23/20 11/24/20 11/25/20 11/26/20 11:59 11:59 11:59 11:59 Intake Total 1956 / 2376 1832 / 1832 2959.987 / 2959.987 1672.166 / 1672.166 Output Total 4275 / 4440 2280 / 2375 695 / 695 1555 / 1555 Balance -2319 / -2064 -448 / -543 2264.987 / 2264.987 117.166 / 117.166 Weight 204 lb 11.2 oz 198 lb 3 oz 206 lb 2 oz 206 lb Microbiology Reports for the Last 24 Hours: Microbiology 11/21/20 16:00 Cerebral Spinal Fluid Gram Stain - Final 11/21/20 16:00 Cerebral Spinal Fluid CSF Culture - Preliminary NO GROWTH AFTER 4 DAYS 11/20/20 10:08 Blood Blood Culture - Final NO GROWTH AFTER 5 DAYS 11/20/20 09:55 Blood Blood Cul
--- NOTE | 2020-11-26 10:39 | HMH.RR ---
Acute Rapid Response Note - Subjective Date Responded: 11/26/20 Time Responded: 07:40 Provider Note: code blue in covid-19 unit -pt with dec bp and what appears as v tachy- on vent - Objective Findings: Vital Signs - Last 4 Hours Temperature 99.7 F H 11/26/20 07:00 Temperature Source Axillary 11/26/20 07:00 Pulse Rate 130 H 11/26/20 07:00 Respiratory Rate 28 H 11/26/20 07:00 TAR Vitals Timing 1 Hour Post Infusion 11/25/20 21:40 Blood Pressure 133/70 11/26/20 07:00 Blood Pressure Mean 91 11/26/20 07:00 Blood Pressure Source Automatic Cuff 11/26/20 07:00 Blood Pressure Position Supine 11/26/20 07:00 02 Sat by Pulse Oximetry 92 L 11/26/20 07:00 Oxygen Delivery Method 11/26/20 07:00 Oxygen Flow Rate (LPM) 70 11/20/20 23:00 Lab Results for Past 12 Hours 11/26/20 08:01: Specimen Source Right femoral, O2 % 100%, ABG pH 7.18 L*, ABG pCO2 93.0 H, ABG pO2 143.2 H, ABG HCO3 33.7 H, ABG Total CO2 36.6 H, ABG O2 Saturation 99, ABG Base Excess 5.3 H, Andrea Test Patient unable, Vent Rate 26, Tidal Volume 460, PEEP 10 11/26/20 08:00: Sodium 147 H, Potassium 5.1, Chloride 108 H, Carbon Dioxide 32 H, Anion Gap 12.1, BUN 78 H, Creatinine 1.10, Estimated Creat Clear 85, Estimated GFR 67, Est GFR ( Amer) 81, Glucose 195 H D, Calcium 8.0 L, Troponin I 0.08 H 11/26/20 08:00: WBC 19.2 H, RBC 2.58 L, Hgb 7.9 L, Hct 25.9 L, MCV 100.2 H, MCH 30.5, MCHC 30.5 L, RDW 18.8 H, Plt Count 218, MPV 10.1, Neut % (Auto) 80.0, Lymph % (Auto) 14.3, [place] % (Auto) 4.3, Eos % (Auto) 0.9, Baso % (Auto) 0.5, Neut # (Auto) 15.4 H, Lymph # (Auto) 2.8, [place] # (Auto) 0.8, Eos # (Auto) 0.2, Baso # (Auto) 0.1 11/26/20 06:39: Specimen Source Right radial, O2 % 60, ABG pH 7.18 L*, ABG pCO2 98.4 H, ABG pO2 76.8 L, ABG HCO3 35.7 H, ABG Total CO2 38.7 H, ABG O2 Saturation 92, ABG Base Excess 7.2 H, Andrea Test Patient unable, Vent Rate 26, Tidal Volume 460, PEEP 10 11/26/20 05:15: APTT 48.7 H 11/26/20 05:15: Sodium 147 H, Potassium 4.9, Chloride 106, Carbon Dioxide 35 H, Anion Gap 10.9, BUN 77 H, Creatinine 1.10, Estimated Creat Clear 85, Estimated GFR 67, Est GFR ( Amer) 81, Glucose 147 H D, Calcium 7.9 L 11/26/20 05:15: WBC 15.8 H, RBC 2.57 L, Hgb 7.8 L, Hct 25.4 L, MCV 98.8 H, MCH 30.3, MCHC 30.7 L, RDW 18.7 H, Plt Count 183, MPV 10.5 H, Neut % (Auto) 86.9 H, Lymph % (Auto) 6.9 L, [place] % (Auto) 4.9, Eos % (Auto) 1.0, Baso % (Auto) 0.3, Neut # (Auto) 13.7 H, Lymph # (Auto) 1.1, [place] # (Auto) 0.8, Eos # (Auto) 0.2, Baso # (Auto) 0.1, Total Counted 100, Neutrophils % (Manual) 77 H, Band Neutrophils % 12.0 H, Lymphocytes % (Manual) 11, Platelet Estimate Normal, Hypochromasia 2+, Macrocytosis 1+ 11/25/20 22:17: APTT 63.2 H* D 11/25/20 22:17: Vancomycin Trough 16.2 H My Orders Category Date Time Status Chest XR -- portable [XR chest portable] Stat Exams 11/26/20 07:53 Completed Basic Metabolic Panel Stat Lab 11/26/20 08:00 Completed Complete Blood Count Auto Diff Stat Lab 11/26/20 08:00 Completed Troponin I Stat Lab 11/26/20 08:00 Completed ABG [Arterial Blood Gas] Stat RT 11/26/20 08:05 Ordered ECG Request by /Gordo Stat Y 11/26/20 08:05 Ordered - Radiology Findings #1 Xray Reviewed: Chest Image Reviewed: Yes I have reviewed radiologist's interpretation ED XR Results: Abnormal - ECG Data Tracing #1 Arrhythmias present: sinus tach Conduction abnormalities present: LBBB Rapid Response Exam - General General appearance: other (on vent ) - Head Head exam: atraumatic - Eye Eye exam: Present: other (no acute pupil changes ) - ENT ENT exam: Present: other (has et and ng tube ) - Neck Neck exam: Present: trachea midline, other (has sq air ) - Chest Chest inspection: Present: other (sq air ) - Respiratory Respiratory exam: Present: respiratory distress, other (intubated ) - Cardiovascular Cardiovascular exam: Present: tachycardia - Abdominal Exam Abdominal exam: Present: soft - Skin Skin exam
--- NOTE | 2020-11-26 13:12 | PC.NURSE ---
HS spoke w/ Dr. Farris about CXR, concern for dislodgment of R chest tube post code. Dr. Farris states chest tube is in good placement. Aware of increase subq air, no new orders @ this time.
[2020-11-26 15:56] LABS: Activated Partial Thrombo Time 40.7 seconds (22.8-30.6)
--- NOTE | 2020-11-26 16:08 | PC.NURSE ---
PTT called to nightwatch @ this time. Nightwatch pharmacist to enter appropriate orders.
[2020-11-26 21:06] LABS: Activated Partial Thrombo Time 136.1 seconds (22.8-30.6)
[2020-11-27] VITALS (33 sets, daily range): BP systolic 122–169; BP diastolic 40–76; PULSE 78–118; RESP 21–34; TEMP 36.1–37.1; O2SAT 87–100; BMI 28.1
[2020-11-27 01:43] LABS: Activated Partial Thrombo Time 122.1 seconds (22.8-30.6)
--- NOTE | 2020-11-27 06:00 | XR_ITS ---
PROCEDURE INFORMATION: Exam: XR Chest Exam date and time: 11/27/2020 6:00 AM Age: 70 years old Clinical indication: Device placement; Ett placement (vent status); Additional info: Ett placement covid chest tube TECHNIQUE: Imaging protocol: XR of the chest. Views: 1 view. COMPARISON: CR XR CHEST PORTABLE 11/26/2020 7:47 AM FINDINGS: Tubes, catheters and devices: There is an endotracheal tube with its tip approximately 6.4 cm above the eloisa. Other support lines and tubes appear unchanged. Lungs: Stable poorly defined airspace disease in both lower lungs. Pleural spaces: Unremarkable. No pleural effusion. No pneumothorax. Heart/Mediastinum: Unremarkable. No cardiomegaly. Bones/joints: Unremarkable. Soft tissues: Extensive subcutaneous emphysema throughout the chest and lower. IMPRESSION: Stable chest x-ray.
[2020-11-27 06:21] LABS: Anion Gap 6.6 mEq/L (5-15); Blood Urea Nitrogen 77 mg/dl (9-20); Calcium 7.8 mg/dl (8.4-10.2); Carbon Dioxide 34 mmol/L (22.0-30.0); Chloride 107 mmol/L (98-107); Creatinine Clearance Estimated 93 mL/min (50-200); Estimated Glomerular Filt Rate 74 ml/min (>60); GFR (African American) 90 ML/MIN (>60); Glucose 109 mg/dl (74-100); Potassium 3.6 mmoL/L (3.5-5.1); Sodium 144 mmol/L (136-145)
[2020-11-27 06:31] LABS: Basophils # 0.2 K/mm3 (0-0.2); Basophils % 1.2 % (0.1-2.0); Eosinophils # 0.6 K/mm3 (0.0-0.4); Eosinophils % 4.9 % (0.1-12.0); Hematocrit 27.6 % (42.0-52.0); Lymphocytes # 0.7 K/mm3 (0.7-4.5); Lymphocytes % 5.5 % (10-50); Mean Corpuscular HGB Conc 31.9 g/dL (31.8-35.4); Mean Corpuscular Volume 97.2 fl (80-94); Mean Platelet Volume 11.6 fl (7.4-10.4); Monocytes # 0.6 K/mm3 (0.1-1.0); Monocytes % 4.4 % (1.7-9.3); Neutrophils # 11.1 K/mm3 (1.8-7.8); Neutrophils % 84.1 % (37.0-80.0); Platelet Count 145 K/mm3 (142-424); Red Blood Count 2.84 M/mm3 (4.60-6.20); Red Cell Distribution Width 18.6 % (11.5-17.5); White Blood Count 13.2 K/mm3 (4.8-10.8)
[2020-11-27 06:53] LABS: Hemoglobin 8.8 g/dL (14.1-18.0)
--- NOTE | 2020-11-27 11:01 | PC.NURSE ---
tubefeeds restarted @ 20mL/hr (Glucerna). No gastric residual prior to restarting feeds.
--- NOTE | 2020-11-27 11:40 | HMH.PULMPN ---
Internal Medicine - PN: Subj *Date: 11/27/20 *Time: 11:40 Interval history: No acute respiratory vents overnight. Patient experienced a cardiac pulmonary arrest yesterday status post ROSC Exam - Constitutional Constitutional:: Present: no acute distress, comfortable - Eye Exam Eyes:: Present: normal appearance both eyes and related structures - Neck Exam Neck:: Present: normal visual inspection - Respiratory Exam Respiratory:: Present: bibailar crackels heard, crackles Comments: Worsening subcutaneous emphysema on the left neck - Cardiovascular Exam Cardiac:: Present: S1, S2 - GI Exam GI:: Present: soft - Skin Exam Skin: Present: warm - Neurological Exam Neurological: Absent: alert, awake, normal cognition - Extremities Exam Extremities: Present: no cyanosis, no clubbing, edema Assessment and Plan (1) COVID-19 with pulmonary comorbidity Status: Acute Category: Medical Code(s): U07.1 - COVID-19; J98.4 - Other disorders of lung (2) Pulmonary embolism associated with COVID-19 Status: Acute Category: Medical Code(s): U07.1 - COVID-19; I26.99 - Other pulmonary embolism without acute cor pulmonale (3) Elevated troponin I level Status: Acute Category: Medical Code(s): R77.8 - Other specified abnormalities of plasma proteins (4) Left bundle branch block (LBBB) Status: Acute Category: Medical Code(s): I44.7 - Left bundle-branch block, unspecified (5) History of stroke Status: Acute Category: Medical Code(s): Z86.73 - Personal history of transient ischemic attack (TIA), and cerebral infarction without residual deficits (6) Elevated brain natriuretic peptide (BNP) level Status: Acute Category: Medical Code(s): R79.89 - Other specified abnormal findings of blood chemistry (7) Peroneal DVT (deep venous thrombosis) Status: Acute Qualifiers: Laterality: bilateral Category: Medical Code(s): I82.459 - Acute embolism and thrombosis of unspecified peroneal vein (8) Pneumonia due to COVID-19 virus Status: Acute Category: Medical Code(s): U07.1 - COVID-19; J12.82 - Pneumonia due to coronavirus disease 2019 (9) Bradycardia Status: Acute Category: Medical Code(s): R00.1 - Bradycardia, unspecified (10) Anemia Status: Acute Qualifiers: Anemia type: unspecified type Qualified Code(s): D64.9 - Anemia, unspecified Category: Medical Code(s): D64.9 - Anemia, unspecified (11) Pneumothorax, right Status: Acute Category: Medical Code(s): J93.9 - Pneumothorax, unspecified (12) Hyperkalemia Status: Acute Category: Medical Code(s): E87.5 - Hyperkalemia (13) Cardiopulmonary arrest with successful resuscitation Status: Acute Category: Medical Code(s): I46.9 - Cardiac arrest, cause unspecified (14) Ventricular tachycardia Status: Acute Category: Medical Code(s): I47.2 - Ventricular tachycardia (15) Left bundle branch block (LBBB) Status: Acute Category: Medical Code(s): I44.7 - Left bundle-branch block, unspecified - Assessment and plan all Dx Assessment and Plan for all problems:: #COVID-19 pneumonia: #Pulmonary embolism: #Acute hypoxic respiratory failure: 70-year-old yet to vaccinate no prior respiratory complaint no significant smoking history found to be COVID-19 positive needing mechanical ventilator support initial high ventilator settings, progressively improved currently on minimal vent settings however patient's mentation currently precluding extubation. Assessment: - VAP bundle Elevate head of the bed at 30 to 45 degrees Oral care with chlorhexidne GI ulcer prophylaxis - Famotidine 20mg IV BID Intubated . CT head from 11/17 and CTA head and neck with and without contrast also did not show any acute intracranial abnormalities per lumbar 1 did not show any evidence of infection. TSH folate and serum ammonia within normal limits. Stat EEG done twice 1 for 30 minutes in 1-2
--- NOTE | 2020-11-27 11:51 | HMH.ACPN2 ---
Internal Medicine - PN: Subj *Date: 11/27/20 *Time: 08:45 Interval history: No acute respiratory vents overnight. Patient experienced a cardiac pulmonary arrest yesterday status post ROSC Exam Vital signs and Labs for Last 24 Hours: Temp Pulse Resp BP Pulse Ox 97.0 F L 86 32 H 146/62 H 96 11/27/20 08:00 11/27/20 10:29 11/27/20 10:00 11/27/20 10:00 11/27/20 10:00 Laboratory Results - last 24 hr 11/21/20 16:00: CSF Albumin 9 L 11/26/20 15:23: APTT 40.7 H 11/26/20 20:25: APTT 136.1 H* D 11/27/20 00:55: APTT 122.1 H* D 11/27/20 05:25: WBC 13.2 H D, RBC 2.84 L, Hgb 8.8 L D, Hct 27.6 L, MCV 97.2 H, MCH 31.0, MCHC 31.9, RDW 18.6 H, Plt Count 145 D, MPV 11.6 H, Neut % (Auto) 84.1 H, Lymph % (Auto) 5.5 L, [place] % (Auto) 4.4, Eos % (Auto) 4.9, Baso % (Auto) 1.2, Neut # (Auto) 11.1 H, Lymph # (Auto) 0.7, [place] # (Auto) 0.6, Eos # (Auto) 0.6 H, Baso # (Auto) 0.2 11/27/20 05:25: Sodium 144, Potassium 3.6 D, Chloride 107, Carbon Dioxide 34 H, Anion Gap 6.6, BUN 77 H, Creatinine 1.00, Estimated Creat Clear 93, Estimated GFR 74, Est GFR ( Amer) 90, Glucose 109 H D, Calcium 7.8 L I & O for Last 24 hours: Intake & Output 11/24/20 11/25/20 11/26/20 11/27/20 11:59 11:59 11:59 11:59 Intake Total 1832 / 1832 2959.987 / 2959.987 1772.166 / 3808.316 8328.666 / 2049.666 Output Total 2280 / 2375 695 / 695 1605 / 1730 1167 / 1167 Balance -448 / -543 2264.987 / 2264.987 167.166 / 42.166 883.666 / 883.666 Weight 198 lb 3 oz 206 lb 2 oz 206 lb 212 lb 4 oz Microbiology Reports for the Last 24 Hours: Microbiology 11/21/20 00:15 Blood - Other Blood Culture - Final NO GROWTH AFTER 5 DAYS 11/21/20 00:15 Blood - Other Blood Culture - Final NO GROWTH AFTER 5 DAYS 11/21/20 20:00 Blood - Other Blood Culture - Final NO GROWTH AFTER 5 DAYS 11/21/20 16:00 Cerebral Spinal Fluid Gram Stain - Final 11/21/20 16:00 Cerebral Spinal Fluid CSF Culture - Final NO GROWTH AFTER 5 DAYS - Constitutional no acute distress, chronically ill appearing - *Routine HEENT Exam Head: Present: normocephalic ENT: Present: mucous membranes moist - *Routine Neck Exam Present: supple. Absent: lymphadenopathy Comments: swollen air - *Routine Respiratory Exam Present: patient mechanically ventilated, decreased breath sounds - *Routine Cardiovascular Exam Present: RRR Comments: chest tube in place - *Routine Abdominal Exam Present: soft, normoactive bowel sounds. Absent: tenderness - *Routine Extremities Exam Present: edema. Absent: cyanosis, clubbing - *Routine Skin Exam Present: warm. Absent: rash - *Routine Neurological Exam sedated Assessment and Plan (1) COVID-19 with pulmonary comorbidity Status: Acute Category: Medical Code(s): U07.1 - COVID-19; J98.4 - Other disorders of lung (2) Pulmonary embolism associated with COVID-19 Status: Acute Category: Medical Code(s): U07.1 - COVID-19; I26.99 - Other pulmonary embolism without acute cor pulmonale (3) Elevated troponin I level Status: Acute Category: Medical Code(s): R77.8 - Other specified abnormalities of plasma proteins (4) Left bundle branch block (LBBB) Status: Acute Category: Medical Code(s): I44.7 - Left bundle-branch block, unspecified (5) History of stroke Status: Acute Category: Medical Code(s): Z86.73 - Personal history of transient ischemic attack (TIA), and cerebral infarction without residual deficits (6) Elevated brain natriuretic peptide (BNP) level Status: Acute Category: Medical Code(s): R79.89 - Other specified abnormal findings of blood chemistry (7) Peroneal DVT (deep venous thrombosis) Status: Acute Qualifiers: Laterality: bilateral Category: Medical Code(s): I82.459 - Acute embolism and thrombosis of unspecified peroneal vein (8) Pneumonia due to COVID-1
--- NOTE | 2020-11-27 12:34 | PC.NURSE ---
RESP CARE NOTE: 1135 11/27/2020 Pt placed on SBT per Dr Sadler verbal order and FIO2 decreased to 50%.
--- NOTE | 2020-11-27 13:03 | PC.NURSE ---
Dr. Dominguez's office notified of PTT 65.
--- NOTE | 2020-11-27 15:35 | PC.NURSE ---
RESP CARE NOTE: Pt switched back to AC mode of ventilation per Dr Sadler verbal order. 1530 11/27/2020
--- NOTE | 2020-11-27 19:05 | PC.NURSE ---
Report received from Jose Antonio Webb RN at this time
[2020-11-27 21:51] LABS: Activated Partial Thrombo Time 48.9 seconds (22.8-30.6)
[2020-11-28] VITALS (38 sets, daily range): BP systolic 103–145; BP diastolic 52–77; PULSE 88–120; RESP 23–38; TEMP 36.9–37.8; O2SAT 90–99; BMI 27.5
--- NOTE | 2020-11-28 00:08 | PC.NURSE ---
Addendum entered by Sera Freed RN 11/28/20 00:09: Notification at 2200 Original Note: Notified nightwatch of PTT. Orders given to give a 3,000 unit Heparin bolus, and then increase Heparin gtt to 1,800 units/hr. Draw a repeat PTT at 0230. Orders repeated and verified.
--- NOTE | 2020-11-28 00:09 | PC.NURSE ---
1301 - pt called to check on pt. updated on current status and plan of care.
--- NOTE | 2020-11-28 03:04 | PC.NURSE ---
Notified lab that pt was a difficult stick and he had a PTT due. Lab stated they would be up to draw.
[2020-11-28 04:00] LABS: Anion Gap 7.4 mEq/L (5-15); Blood Urea Nitrogen 73 mg/dl (9-20); Calcium 8.1 mg/dl (8.4-10.2); Carbon Dioxide 35 mmol/L (22.0-30.0); Chloride 107 mmol/L (98-107); Creatinine Clearance Estimated 69 mL/min (50-200); Estimated Glomerular Filt Rate 50 ml/min (>60); GFR (African American) 61 ML/MIN (>60); Glucose 115 mg/dl (74-100); Potassium 3.4 mmoL/L (3.5-5.1); Sodium 146 mmol/L (136-145)
[2020-11-28 04:01] LABS: Activated Partial Thrombo Time 61.8 seconds (22.8-30.6); Basophils % 0.2 % (0.1-2.0); Eosinophils # 0.2 K/mm3 (0.0-0.4); Eosinophils % 1.8 % (0.1-12.0); Lymphocytes # 0.6 K/mm3 (0.7-4.5); Lymphocytes % 4.9 % (10-50); Mean Corpuscular HGB Conc 30.3 g/dL (31.8-35.4); Mean Corpuscular Volume 99.1 fl (80-94); Mean Platelet Volume 10.7 fl (7.4-10.4); Monocytes # 0.4 K/mm3 (0.1-1.0); Monocytes % 3.3 % (1.7-9.3); Neutrophils # 11.2 K/mm3 (1.8-7.8); Neutrophils % 89.8 % (37.0-80.0); Platelet Count 156 K/mm3 (142-424); Red Blood Count 2.11 M/mm3 (4.60-6.20); Red Cell Distribution Width 18.7 % (11.5-17.5); White Blood Count 12.5 K/mm3 (4.8-10.8)
[2020-11-28 04:02] LABS: Hematocrit 20.9 % (42.0-52.0)
[2020-11-28 04:03] LABS: MANUAL DIFFERENTIAL MANUAL DIFFERENTIAL (MANUAL DIFF)
--- NOTE | 2020-11-28 04:05 | PC.NURSE ---
Reported critical H&H at this time to Dr Chavira who is agronomy professor for Dr Dewey, no new orders at this time, stated to let Dr. Dewey know on am rounds.
--- NOTE | 2020-11-28 05:21 | PC.NURSE ---
Pt has been extremely restless and agitated since approx 0400. Pt has been shaking his head back and forth vigourously, and disconnected his vent circuit, resulting in oxygen saturations decreasing to 49%. RT immediately at bedside, reattached vent circuit, and patient saturations rebounded. Pt attempting to bite on the ET tube frequently as well. Medicated per with with breakthrough fentanyl dose. Pt eyes are open, he will open his eyes to his name being called, but does not follow commands. Pt unable to squeeze my hands when instructed to, but shook his head no when asked if he was doing ok. LS remain diminished t/o with faint wheezing noted. Improved with morning breathing tx. Edema remains unchanged since previous 2 assessments. BP has remained stable without Levophed. Tolerating tube feeds well. Rate increased to 40 ml/hr at 0000. F/c remains patent, with adequate UOP this shift. Pt did have one BM, but a stool specimen was unable to be collected from it as the chux absorbed it. There were faint specks of red tinged stool noted on the chux. Polymem applied to the mid back area d/t a shear like wound. Dressing to coccyx remains intact. Pt remains in sinus tach on telemetry with wide QRS. No other changes noted, will continue to monitor.
[2020-11-28 05:35] LABS: Lymphocytes % 7 % (10-50); Neutrophils % 93 % (42-76); Total Cells Counted 100
[2020-11-28 05:36] LABS: Macrocytosis 1+; Platelet Estimate Normal; Stomatocytes 1+
[2020-11-28 05:43] LABS: Hemoglobin 6.3 g/dL (14.1-18.0)
--- NOTE | 2020-11-28 06:55 | PC.NURSE ---
SBT started this morning at approx 0600. Pt at 12/10 with 60% FiO2. At this time, tolerating well.
--- NOTE | 2020-11-28 07:00 | PC.NURSE ---
RESP CARE NOTE: Pt placed on SBT of 02/02 and 60% FIO2 at 0630 11/28/2020
[2020-11-28 09:09] LABS: Occult Blood,Stool Positive (Negative)
--- NOTE | 2020-11-28 09:22 | HMH.ACPN2 ---
Internal Medicine - PN: Subj *Date: 11/28/20 *Time: 16:45 Interval history: 70-year-old male patient resting in bed intubated and sedated. Eyes are open patient is looking around room he does not follow any verbal commands. Spontaneous breathing trial underway 02/02 60%. Patient's hemoglobin this morning is 6.6, when patient was turned for occult stool blood test there was visible evidence of a GI bleed. Long discussion today with patient's regarding patient's condition, discussed patient's poor prognosis, increasing subcutaneous emphysema, GI bleed, and respiratory status. Patient's very unrealistic in belief of patient's medical condition and states he will get better in time. Patient's condition again explained to very in depth, verbalizes understanding and still states he will be better Exam Vital signs and Labs for Last 24 Hours: Temp Pulse Resp BP Pulse Ox 98.7 F 109 H 38 H 135/64 93 L 11/28/20 04:00 11/28/20 06:53 11/28/20 06:53 11/28/20 06:53 11/28/20 06:53 Laboratory Results - last 24 hr 11/23/20 08:49: Stool Occult Blood Positive A 11/27/20 11:30: APTT 65.0 H* D 11/27/20 21:30: APTT 48.9 H 11/28/20 03:35: WBC 12.5 H, RBC 2.11 L D, Hgb 6.3 L* D, Hct 20.9 L*, MCV 99.1 H, MCH 30.0, MCHC 30.3 L, RDW 18.7 H, Plt Count 156, MPV 10.7 H, Neut % (Auto) 89.8 H, Lymph % (Auto) 4.9 L, [place] % (Auto) 3.3, Eos % (Auto) 1.8, Baso % (Auto) 0.2, Neut # (Auto) 11.2 H, Lymph # (Auto) 0.6 L, [place] # (Auto) 0.4, Eos # (Auto) 0.2, Baso # (Auto) 0.0, Total Counted 100, Neutrophils % (Manual) 93 H, Lymphocytes % (Manual) 7 L, Platelet Estimate Normal, Macrocytosis 1+, Stomatocytes 1+ 11/28/20 03:35: Sodium 146 H, Potassium 3.4 L, Chloride 107, Carbon Dioxide 35 H, Anion Gap 7.4, BUN 73 H, Creatinine 1.40 H D, Estimated Creat Clear 69, Estimated GFR 50 L, Est GFR ( Amer) 61 D, Glucose 115 H, Calcium 8.1 L 11/28/20 03:35: APTT 61.8 H* D 11/28/20 08:39: Stool Occult Blood Cancelled I & O for Last 24 hours: Intake & Output 11/25/20 11/26/20 11/27/20 11/28/20 23:59 23:59 23:59 23:59 Intake Total 2288.040 / 2288.040 1523.779 / 8458.960 0582 / 2416 670 / 670 Output Total 1410 / 1435 1000 / 1000 1398 / 1468 195 / 195 Balance 878.040 / 853.040 523.779 / 523.779 886 / 948 475 / 475 Weight 206 lb 2 oz 206 lb 212 lb 4 oz 207 lb 8 oz - Constitutional no acute distress, chronically ill appearing - *Routine HEENT Exam Head: Present: normocephalic Eye: Present: EOMI ENT: Present: mucous membranes moist - *Routine Respiratory Exam Present: patient mechanically ventilated, crackles - *Routine Cardiovascular Exam Present: RRR - *Routine Abdominal Exam Present: soft, normoactive bowel sounds. Absent: distended - *Routine Extremities Exam Present: edema. Absent: cyanosis - *Routine Skin Exam Present: wounds. Absent: intact Comments: Multiple wounds to coccyx and bilateral buttocks - *Routine Neurological Exam Present: alert, altered mental status. Absent: oriented X3 - Routine Psychiatric Exam Present: unable to assess Assessment and Plan (1) COVID-19 with pulmonary comorbidity Status: Acute Category: Medical Code(s): U07.1 - COVID-19; J98.4 - Other disorders of lung (2) Pulmonary embolism associated with COVID-19 Status: Acute Category: Medical Code(s): U07.1 - COVID-19; I26.99 - Other pulmonary embolism without acute cor pulmonale (3) Elevated troponin I level Status: Acute Category: Medical Code(s): R77.8 - Other specified abnormalities of plasma proteins (4) Left bundle branch block (LBBB) Status: Acute Category: Medical Code(s): I44.7 - Left bundle-branch block, unspecified (5) History of stroke Status: Acute Category: Medical Code(s): Z86.73 - Personal history of transient ischemic attack (TIA), and cerebral infarction without residual deficits (6) Elevated brain natriuretic peptide (BNP) level Status: Acute Category: Medical Code(s):
--- NOTE | 2020-11-28 09:29 | HMH.PULMPN ---
Internal Medicine - PN: Subj *Date: 11/28/20 *Time: 11:18 Interval history: No acute respiratory events overnight. Exam - Constitutional Constitutional:: Present: comfortable - HENMT Exam HENMT: Present: normocephalic - Eye Exam Eyes:: Present: normal appearance both eyes and related structures - Neck Exam Comments: Worsening subcutaneous emphysema, left greater than right - Respiratory Exam Respiratory:: Present: respiratory distress, decreased breath sounds, crackles, rales - Cardiovascular Exam Cardiac:: Present: S1, S2 - GI Exam GI:: Present: soft - Skin Exam Skin: Present: warm - Neurological Exam Neurological: Absent: alert, awake, normal cognition - Extremities Exam Extremities: Present: no cyanosis, no clubbing, edema Assessment and Plan (1) COVID-19 with pulmonary comorbidity Status: Acute Category: Medical Code(s): U07.1 - COVID-19; J98.4 - Other disorders of lung (2) Pulmonary embolism associated with COVID-19 Status: Acute Category: Medical Code(s): U07.1 - COVID-19; I26.99 - Other pulmonary embolism without acute cor pulmonale (3) Elevated troponin I level Status: Acute Category: Medical Code(s): R77.8 - Other specified abnormalities of plasma proteins (4) Left bundle branch block (LBBB) Status: Acute Category: Medical Code(s): I44.7 - Left bundle-branch block, unspecified (5) History of stroke Status: Acute Category: Medical Code(s): Z86.73 - Personal history of transient ischemic attack (TIA), and cerebral infarction without residual deficits (6) Elevated brain natriuretic peptide (BNP) level Status: Acute Category: Medical Code(s): R79.89 - Other specified abnormal findings of blood chemistry (7) Peroneal DVT (deep venous thrombosis) Status: Acute Qualifiers: Laterality: bilateral Category: Medical Code(s): I82.459 - Acute embolism and thrombosis of unspecified peroneal vein (8) Pneumonia due to COVID-19 virus Status: Acute Category: Medical Code(s): U07.1 - COVID-19; J12.82 - Pneumonia due to coronavirus disease 2019 (9) Bradycardia Status: Acute Category: Medical Code(s): R00.1 - Bradycardia, unspecified (10) Anemia Status: Acute Qualifiers: Anemia type: unspecified type Qualified Code(s): D64.9 - Anemia, unspecified Category: Medical Code(s): D64.9 - Anemia, unspecified (11) Pneumothorax, right Status: Acute Category: Medical Code(s): J93.9 - Pneumothorax, unspecified (12) Hyperkalemia Status: Acute Category: Medical Code(s): E87.5 - Hyperkalemia (13) Cardiopulmonary arrest with successful resuscitation Status: Acute Category: Medical Code(s): I46.9 - Cardiac arrest, cause unspecified (14) Ventricular tachycardia Status: Acute Category: Medical Code(s): I47.2 - Ventricular tachycardia (15) Left bundle branch block (LBBB) Status: Acute Category: Medical Code(s): I44.7 - Left bundle-branch block, unspecified - Assessment and plan all Dx Assessment and Plan for all problems:: #COVID-19 pneumonia: #Pulmonary embolism: #Acute hypoxic respiratory failure: 70-year-old yet to vaccinate no prior respiratory complaint no significant smoking history found to be COVID-19 positive needing mechanical ventilator support initial high ventilator settings, progressively improved currently on minimal vent settings however patient's mentation currently precluding extubation. Assessment: - VAP bundle Elevate head of the bed at 30 to 45 degrees Oral care with chlorhexidne GI ulcer prophylaxis - Famotidine 20mg IV BID Intubated . Mentation slightly improved from yesterday, patient opening eyes intermittently. CT head from 11/17 and CTA head and neck with and without contrast also did not show any acute intracranial abnormalities per lumbar 1 did not show any evidence of infection. TSH folate and serum ammonia within normal limits. Stat EEG do
[2020-11-28 13:40] LABS: Hematocrit 23.3 % (42.0-52.0)
[2020-11-28 13:56] LABS: Hemoglobin 6.9 g/dL (14.1-18.0)
[2020-11-28 15:14] LABS: VDRL, Cerebrospinal Fluid Non Reactive (Non Rea:<1:1)
--- NOTE | 2020-11-28 17:57 | PC.NURSE ---
Dr Martines notified of critical glucose of 537, 20 units already given per order '
--- NOTE | 2020-11-28 18:58 | PC.NURSE ---
Pt remains mechanically ventilated, no sedation running at this time. He will open eyes and follow but is unable to follow commands. His lungs are diminished t/o with occasional wheezes. He has had some loose bloody stools. He was bathed and a complete linen change done. His flores is to bedside draining dark colored urine with sediment noted. He has had approx 200 mls out this shift. He has a stage 2 to his bottom, a dressing is in place. He has +2 generalized edema. Scattered bruising noted to BUE. Daughter has called and updated on poc.
[2020-11-28 21:59] LABS: Hematocrit 23.7 % (42.0-52.0); Hemoglobin 7.4 g/dL (14.1-18.0)
[2020-11-29] VITALS (45 sets, daily range): BP systolic 107–163; BP diastolic 59–85; PULSE 80–120; RESP 23–37; TEMP 37.1–37.8; O2SAT 92–98; BMI 26.9
--- NOTE | 2020-11-29 04:04 | PC.NURSE ---
Tube feedings increased to 60ml/hr. No residual noted. Goal rate of 79ml/hr. NG flushed with 70ml of water per orders.
--- NOTE | 2020-11-29 05:21 | PC.NURSE ---
Small brown pasty bowel movement noted at this time. No visible blood.
--- NOTE | 2020-11-29 05:33 | PC.NURSE ---
End of shift note: Pt has been agitated and restless t/o the shift. He has been medicated per mar with Fentanyl IVP and Ativan PO which does help. Pt still not able to follow commands when eyes are open, he appears to look through you . Unable to assess barrel drainer. LS still diminished t/o. Chest tube remains in place, no output noted. Pt still with mild subq air to upper chest, more prominent on the left than the right. Remains intubated with VENT settings as follows: AC mode, RR 32, FiO2 60%, PEEP 10, TV 500, appears to be tolerating well. NG tube remains to the left nare, good position and patent. Tube feedings infusing at 60ml/hr, no residuals noted this shift. Pt due to be increased to 70ml/hr at 1600 today. BS hypoactive all quads. No bloody stools noted this shift. F/c patent and draining arnold colored urine, pt has had a good amount of urine output this shift. Edema remains essentially unchanged this shift from previous assessments, and generalized. Arms and legs have been elevated t/o the shift to attempt to decrease swelling. Pt is has been turned and repositioned Q2 hours. Dressings to coccyx and mid back remain C/D/I. Frequent oral secretions noted, and pt has had to be suctioned orally multiple times. Oral care given. Pt had a slight temperature t/o the shift, was medicated per mar with Tylenol. Remains tachy on telemetry with a BBB. BP Stable. No other changes noted, will continue to monitor.
--- NOTE | 2020-11-29 06:00 | XR_ITS ---
PROCEDURE INFORMATION: Exam: XR Chest Exam date and time: 11/29/2020 6:00 AM Age: 70 years old Clinical indication: Device placement; Ett placement (vent status); Patient HX: F/u vent; Additional info: Mechanical vent TECHNIQUE: Imaging protocol: XR of the chest. Views: 1 view. COMPARISON: CR XR CHEST PORTABLE 11/27/2020 5:38 AM FINDINGS: Tubes, catheters and devices: There is an endotracheal tube with its tip 7.9 cm above the eloisa. There is a right chest tube with its tip directed toward the superior aspect of the outer right pleural space. It should be advanced 3 cm. Monitor leads project over the chest. Lungs: Interstitial infiltrates versus atelectasis within both lung zee. No evidence of alveolar consolidation. Pleural spaces: Unremarkable. No pleural effusion. No pneumothorax. Heart/Mediastinum: Unremarkable. No cardiomegaly. Bones/joints: Unremarkable. Other findings: There is extensive subcutaneous emphysema noted over the chest wall and lower neck. IMPRESSION: 1. Endotracheal tube with its tip 7.9 cm above the eloisa. It should be advanced 3 cm. 2. No evidence of right pneumothorax. A right chest tube is in place. 3. Extensive subcutaneous emphysema noted over the chest. 4. Areas of interstitial consolidation, acute versus chronic. Progress examination is suggested.
[2020-11-29 06:28] LABS: Basophils % 0.2 % (0.1-2.0); Eosinophils # 0.2 K/mm3 (0.0-0.4); Eosinophils % 1.6 % (0.1-12.0); Hematocrit 25.2 % (42.0-52.0); Hemoglobin 7.9 g/dL (14.1-18.0); Lymphocytes # 0.6 K/mm3 (0.7-4.5); Lymphocytes % 4.1 % (10-50); Mean Corpuscular HGB Conc 31.4 g/dL (31.8-35.4); Mean Corpuscular Hemoglobin 30.3 pg (27.0-31.2); Mean Corpuscular Volume 96.7 fl (80-94); Mean Platelet Volume 10.2 fl (7.4-10.4); Monocytes # 0.5 K/mm3 (0.1-1.0); Monocytes % 3.4 % (1.7-9.3); Neutrophils # 13.6 K/mm3 (1.8-7.8); Neutrophils % 90.7 % (37.0-80.0); Platelet Count 166 K/mm3 (142-424); Red Blood Count 2.61 M/mm3 (4.60-6.20); Red Cell Distribution Width 18.3 % (11.5-17.5)
[2020-11-29 06:53] LABS: MANUAL DIFFERENTIAL MANUAL DIFFERENTIAL (MANUAL DIFF)
[2020-11-29 06:54] LABS: Chloride 108 mmol/L (98-107)
[2020-11-29 06:55] LABS: Potassium 3.4 mmoL/L (3.5-5.1); Sodium 149 mmol/L (136-145)
[2020-11-29 06:57] LABS: Creatinine Clearance Estimated 62 mL/min (50-200); Estimated Glomerular Filt Rate 47 ml/min (>60); GFR (African American) 56 ML/MIN (>60)
[2020-11-29 06:58] LABS: Anion Gap 10.4 mEq/L (5-15); Calcium 8.3 mg/dl (8.4-10.2); Carbon Dioxide 34 mmol/L (22.0-30.0); Glucose 145 mg/dl (74-100)
[2020-11-29 07:00] LABS: Blood Urea Nitrogen 80 mg/dl (9-20)
[2020-11-29 07:45] LABS: ABG Base Excess 6.6 mmol/L (-2.4-2.3); ABG HCO3 31.7 mmhg (22.0-26.0); ABG Oxygen Saturation 97 % (90-100); ABG PH 7.38 mmol/L (7.35-7.45); ABG PO2 92.3 mmhg (80-100); ABG TCO2 33.4 mmhg (23-27); Lactate Arterial 1.6 mmol/L (0.4-2.0)
[2020-11-29 07:47] LABS: Eosinophils % 1 % (0-3); Lymphocytes % 9 % (10-50); Monocytes % 1 % (2-9); Neutrophils % 89 % (42-76); Total Cells Counted 100
[2020-11-29 07:48] LABS: Anisocytosis 2+; Hypochromasia 2+; Macrocytosis 2+; Nucleated Red Blood Cells 1; Platelet Estimate Normal
[2020-11-29 08:12] LABS: Oxygen 60 %
[2020-11-29 08:13] LABS: ABG PCO2 55.1 mmhg (35.0-45.0); PEEP 10; Source Right Radial; Tidal Volume 500; Vent Rate 32
--- NOTE | 2020-11-29 13:00 | PC.NURSE ---
family meeting in [facility] room with (Silvana), daughter (Reshma), Dr. Sadler, and myself. Daughter (Charlee) was on facetime or speaker phone throughout meeting. Family wishes for pt to be transferred to [facility] or [facility]. Dr. Sadler to update primary team of family wishes. asked to see pt. I explained to her that covid pts are not allowed visitors unless the pt is actively dying and/or receiving EOL care. became upset, verbally cussed staff, and stormed out of the meeting. I spoke to Dara Lopez RN and confirmed covid visitation policy.
--- NOTE | 2020-11-29 13:00 | HMH.ACPN2 ---
Internal Medicine - PN: Subj *Date: 11/29/20 *Time: 08:00 Interval history: pt more awake today. turned head when name is spoken but does not follow commands Exam Vital signs and Labs for Last 24 Hours: Temp Pulse Resp BP Pulse Ox 99.0 F 103 H 29 H 136/78 97 11/29/20 08:00 11/29/20 12:00 11/29/20 10:00 11/29/20 10:00 11/29/20 10:00 Laboratory Results - last 24 hr 11/21/20 16:00: CSF VDRL Non reactive 11/28/20 13:26: Hgb 6.9 L, Hct 23.3 L 11/28/20 15:35: Blood Type A Negative, Antibody Screen Negative, Crossmatch (AHG) See Detail 11/28/20 21:49: Hgb 7.4 L, Hct 23.7 L 11/29/20 05:45: WBC 15.0 H, RBC 2.61 L, Hgb 7.9 L, Hct 25.2 L, MCV 96.7 H, MCH 30.3, MCHC 31.4 L, RDW 18.3 H, Plt Count 166, MPV 10.2, Neut % (Auto) 90.7 H, Lymph % (Auto) 4.1 L, [place] % (Auto) 3.4, Eos % (Auto) 1.6, Baso % (Auto) 0.2, Neut # (Auto) 13.6 H, Lymph # (Auto) 0.6 L, [place] # (Auto) 0.5, Eos # (Auto) 0.2, Baso # (Auto) 0.0, Total Counted 100, Neutrophils % (Manual) 89 H, Lymphocytes % (Manual) 9 L, Monocytes % (Manual) 1 L, Eosinophils % (Manual) 1, Nucleated RBCs 1, Platelet Estimate Normal, Hypochromasia 2+, Anisocytosis 2+, Macrocytosis 2+ 11/29/20 05:45: Sodium 149 H, Potassium 3.4 L, Chloride 108 H, Carbon Dioxide 34 H, Anion Gap 10.4, BUN 80 H, Creatinine 1.50 H, Estimated Creat Clear 62, Estimated GFR 47 L, Est GFR ( Amer) 56 L, Glucose 145 H, Calcium 8.3 L 11/29/20 07:21: Specimen Source Right radial, O2 % 60, ABG pH 7.38, ABG pCO2 55.1 H, ABG pO2 92.3, ABG HCO3 31.7 H, ABG Total CO2 33.4 H, ABG O2 Saturation 97, ABG Base Excess 6.6 H, Andrea Test N/a, ABG Lactate 1.6, Vent Rate 32, Tidal Volume 500, PEEP 10 I & O for Last 24 hours: Intake & Output 11/27/20 11/28/20 11/29/20 11/30/20 11:59 11:59 11:59 11:59 Intake Total 2050.666 / 2050.666 2100 / 2179 2124 / 2124 Output Total 1167 / 1287 891 / 916 1628 / 1628 Balance 883.666 / 191.923 9610 / 1263 496 / 496 Weight 212 lb 4 oz 207 lb 8 oz 203 lb 7.434 oz Microbiology Reports for the Last 24 Hours: Microbiology 11/28/20 13:45 Aspirate - Pulmonary Gram Stain - Final 11/17/20 14:03 Sputum - Endotracheal Tube Aspirate Gram Stain - Final 11/17/20 14:03 Sputum - Endotracheal Tube Aspirate Sputum Culture - Final Yeast - Constitutional no acute distress, chronically ill appearing - *Routine HEENT Exam Head: Present: normocephalic Eye: Present: PERRL ENT: Present: mucous membranes moist - *Routine Neck Exam Present: supple. Absent: lymphadenopathy - *Routine Respiratory Exam Present: patient mechanically ventilated Comments: chest tube in place dressing c/d/i sq air in chest and neck - *Routine Cardiovascular Exam Present: RRR - *Routine Abdominal Exam Present: soft, normoactive bowel sounds. Absent: tenderness - *Routine Extremities Exam Present: edema. Absent: cyanosis, clubbing - *Routine Skin Exam Present: warm. Absent: rash - *Routine Neurological Exam Present: alert Assessment and Plan (1) COVID-19 with pulmonary comorbidity Status: Acute Category: Medical Code(s): U07.1 - COVID-19; J98.4 - Other disorders of lung (2) Pulmonary embolism associated with COVID-19 Status: Acute Category: Medical Code(s): U07.1 - COVID-19; I26.99 - Other pulmonary embolism without acute cor pulmonale (3) Elevated troponin I level Status: Acute Category: Medical Code(s): R77.8 - Other specified abnormalities of plasma proteins (4) Left bundle branch block (LBBB) Status: Acute Category: Medical Code(s): I44.7 - Left bundle-branch block, unspecified (5) History of stroke Status: Acute Category: Medical Code(s): Z86.73 - Personal history of transient ischemic attack (TIA), and cerebral infarction without residual deficits (6) Elevated brain natriuretic peptide (BNP) level Status: Acute Category: Medical Code(s): R79.89 - Other specified abnormal findings of blood chemistry
--- NOTE | 2020-11-29 14:27 | HMH.PULMPN ---
Internal Medicine - PN: Subj *Date: 11/29/20 *Time: 14:27 Interval history: No acute respiratory events overnight. Exam - Constitutional Constitutional:: Present: comfortable - HENMT Exam HENMT: Present: normocephalic, atraumatic - Eye Exam Eyes:: Present: normal appearance both eyes and related structures - Neck Exam Comments: Subcutaneous emphysema noted, slightly improved - Respiratory Exam Respiratory:: Present: respiratory distress, rales - Cardiovascular Exam Cardiac:: Present: S1, S2 - GI Exam GI:: Present: soft - Skin Exam Skin: Present: warm, no rash - Neurological Exam Neurological: Absent: alert, awake, normal cognition - Extremities Exam Extremities: Present: no cyanosis, no clubbing, edema Assessment and Plan (1) COVID-19 with pulmonary comorbidity Status: Acute Category: Medical Code(s): U07.1 - COVID-19; J98.4 - Other disorders of lung (2) Pulmonary embolism associated with COVID-19 Status: Acute Category: Medical Code(s): U07.1 - COVID-19; I26.99 - Other pulmonary embolism without acute cor pulmonale (3) Elevated troponin I level Status: Acute Category: Medical Code(s): R77.8 - Other specified abnormalities of plasma proteins (4) Left bundle branch block (LBBB) Status: Acute Category: Medical Code(s): I44.7 - Left bundle-branch block, unspecified (5) History of stroke Status: Acute Category: Medical Code(s): Z86.73 - Personal history of transient ischemic attack (TIA), and cerebral infarction without residual deficits (6) Elevated brain natriuretic peptide (BNP) level Status: Acute Category: Medical Code(s): R79.89 - Other specified abnormal findings of blood chemistry (7) Peroneal DVT (deep venous thrombosis) Status: Acute Qualifiers: Laterality: bilateral Category: Medical Code(s): I82.459 - Acute embolism and thrombosis of unspecified peroneal vein (8) Pneumonia due to COVID-19 virus Status: Acute Category: Medical Code(s): U07.1 - COVID-19; J12.82 - Pneumonia due to coronavirus disease 2019 (9) Bradycardia Status: Acute Category: Medical Code(s): R00.1 - Bradycardia, unspecified (10) Anemia Status: Acute Qualifiers: Anemia type: unspecified type Qualified Code(s): D64.9 - Anemia, unspecified Category: Medical Code(s): D64.9 - Anemia, unspecified (11) Pneumothorax, right Status: Acute Category: Medical Code(s): J93.9 - Pneumothorax, unspecified (12) Hyperkalemia Status: Acute Category: Medical Code(s): E87.5 - Hyperkalemia (13) Cardiopulmonary arrest with successful resuscitation Status: Acute Category: Medical Code(s): I46.9 - Cardiac arrest, cause unspecified (14) Ventricular tachycardia Status: Acute Category: Medical Code(s): I47.2 - Ventricular tachycardia (15) Left bundle branch block (LBBB) Status: Acute Category: Medical Code(s): I44.7 - Left bundle-branch block, unspecified - Assessment and plan all Dx Assessment and Plan for all problems:: #COVID-19 pneumonia: #Pulmonary embolism: #Acute hypoxic respiratory failure: 70-year-old yet to vaccinate no prior respiratory complaint no significant smoking history found to be COVID-19 positive needing mechanical ventilator support initial high ventilator settings, progressively improved currently on minimal vent settings however patient's mentation currently precluding extubation. Had extensive discussion with the patient's and daughter today regarding possible plan of care including tracheostomy and long-term care support however patient's family. Patient's and both the daughters expressed their wishes are not to perform tracheostomy at this point of time despite understanding the risks and benefits of prolonged intubation and want the patient to be transferred for a second opinion/neurology evaluation given his improving altered mental status. Will initiate transfer Assessment:
--- NOTE | 2020-11-29 14:58 | PC.NURSE ---
spoke with [facility] on transfer Dr Ortiz he states there is nothing else they could do for pt and agree with the plan of care and would not add anything to his treatment. name placed on list at [facility] in [place].
--- NOTE | 2020-11-29 18:20 | PC.NURSE ---
shift summary: pt has been a 3T until 1800. Pt has just started following commands @ 1800 AEB nodding head yes and no and by opening and closing eyes when asked. called and reports that they spoke to Dr. Dominguez and will not accept him as a pt. Daughter (Charlee) has called multiple times today regarding POC. Her last call @ 182, she explains that the family wishes to go ahead with the tracheostomy procedure. Dr. Sadler has been updated. Pt has received 2 units of PRBCs today. UOP aprox 85mL this shift. Tubefeeds infusing @ 70mL/hr with goal of 79mL/hr. Protonix gtt infusing @ 10mL/hr. No BMs today. No evidence of bleeding today. (Silvana) contacted @ 1830 and has given verbal consent by phone to perform tracheostomy. Consent signed an on chart.
[2020-11-29 21:27] LABS: Basophils # 0.1 K/mm3 (0-0.2); Basophils % 0.3 % (0.1-2.0); Eosinophils # 0.2 K/mm3 (0.0-0.4); Eosinophils % 1.6 % (0.1-12.0); Hematocrit 29.2 % (42.0-52.0); Lymphocytes # 0.6 K/mm3 (0.7-4.5); Lymphocytes % 4.1 % (10-50); Mean Corpuscular HGB Conc 31.4 g/dL (31.8-35.4); Mean Corpuscular Hemoglobin 29.9 pg (27.0-31.2); Mean Corpuscular Volume 95.3 fl (80-94); Mean Platelet Volume 11.2 fl (7.4-10.4); Monocytes # 0.6 K/mm3 (0.1-1.0); Monocytes % 3.9 % (1.7-9.3); Neutrophils # 12.8 K/mm3 (1.8-7.8); Platelet Count 147 K/mm3 (142-424); Red Blood Count 3.06 M/mm3 (4.60-6.20); Red Cell Distribution Width 18.7 % (11.5-17.5); White Blood Count 14.2 K/mm3 (4.8-10.8)
[2020-11-29 21:48] LABS: MANUAL DIFFERENTIAL MANUAL DIFFERENTIAL (MANUAL DIFF)
[2020-11-29 22:06] LABS: Lymphocytes % 7 % (10-50); Monocytes % 1 % (2-9); Neutrophils % 92 % (42-76); Total Cells Counted 100
[2020-11-29 22:07] LABS: Platelet Estimate Normal
[2020-11-29 22:27] LABS: Hemoglobin 9.2 g/dL (14.1-18.0)
[2020-11-30] VITALS (33 sets, daily range): BP systolic 119–165; BP diastolic 63–81; PULSE 76–110; RESP 25–34; TEMP 37.1–37.7; O2SAT 92–98; BMI 27.6
--- NOTE | 2020-11-30 01:09 | PC.NURSE ---
0030 - Moderate sized soft formed bm noted. Small specks of bright red blood noted. Polymem dressing to coccyx changed at this time. Tube feedings increased to goal rate of 79ml/hr, no residual noted. Oral care with chlorhexadine performed at this time.
[2020-11-30 06:40] LABS: Basophils # 0.1 K/mm3 (0-0.2); Basophils % 0.4 % (0.1-2.0); Eosinophils # 0.4 K/mm3 (0.0-0.4); Eosinophils % 2.5 % (0.1-12.0); Hematocrit 29.3 % (42.0-52.0); Lymphocytes # 0.8 K/mm3 (0.7-4.5); Lymphocytes % 5.6 % (10-50); Mean Corpuscular HGB Conc 30.7 g/dL (31.8-35.4); Mean Corpuscular Hemoglobin 29.6 pg (27.0-31.2); Mean Corpuscular Volume 96.4 fl (80-94); Mean Platelet Volume 11.1 fl (7.4-10.4); Monocytes # 0.5 K/mm3 (0.1-1.0); Monocytes % 3.7 % (1.7-9.3); Neutrophils # 12.1 K/mm3 (1.8-7.8); Neutrophils % 87.7 % (37.0-80.0); Platelet Count 164 K/mm3 (142-424); Red Blood Count 3.04 M/mm3 (4.60-6.20); Red Cell Distribution Width 19.1 % (11.5-17.5); White Blood Count 13.8 K/mm3 (4.8-10.8)
[2020-11-30 06:42] LABS: MANUAL DIFFERENTIAL MANUAL DIFFERENTIAL (MANUAL DIFF)
[2020-11-30 06:46] LABS: Chloride 110 mmol/L (98-107); Potassium 3.5 mmoL/L (3.5-5.1)
[2020-11-30 06:49] LABS: Anion Gap 8.5 mEq/L (5-15); Calcium 8.2 mg/dl (8.4-10.2); Carbon Dioxide 35 mmol/L (22.0-30.0); Creatinine Clearance Estimated 56 mL/min (50-200); Estimated Glomerular Filt Rate 40 ml/min (>60); GFR (African American) 49 ML/MIN (>60); Glucose 150 mg/dl (74-100)
[2020-11-30 06:51] LABS: Blood Urea Nitrogen 91 mg/dl (9-20); Sodium 150 mmol/L (136-145)
--- NOTE | 2020-11-30 06:56 | PC.NURSE ---
Notified Dr Dominguez of critical labs this morning. No new orders given.
--- NOTE | 2020-11-30 06:57 | PC.NURSE ---
Addendum entered by Sera Freed RN 11/30/20 07:05: Pt being turned Q2. Original Note: End of shift note: Pt was attempting to follow commands at beginning of shift. Able to shake his head yes and no. When asked if he was any pain, he shook his head yes, was medicated per mar for pain. Pt restless at beginning of shift and not tolerated the tube, medicated per mar with Lorazepam and slept well t/o the night. Opens his eyes on command. Will attempt to open his mouth like he is trying to speak. Subq air has not changed. No drainage via the chest tube. Tolerating tube feedings well with rate at 79ml/hr (goal rate). Very little residuals noted. Pt had one moderate soft formed bm, small flecks of blood noted. Dressing to coccyx changed this shift. Partial bath and partial linen change this shift. Oral care with chlorhexadine performed frequently this shift. Tolerating well. Pt has been on cpap mode since approx 0555 this morning, so far tolerating well. Protonix gtt remains infusing. Edema remains unchanged. No fevers this shift. VSS. No other acute changes noted, will continue to monitor.
[2020-11-30 08:15] LABS: Lymphocytes % 4 % (10-50); Monocytes % 5 % (2-9); Neutrophils % 89 % (42-76); Nucleated Red Blood Cells 1; Platelet Estimate Normal; RBC Morphology Normal; Total Cells Counted 100
--- NOTE | 2020-11-30 09:18 | XR_ITS ---
PROCEDURE: XR CHEST PORTABLE CLINICAL HISTORY: PNM COMPARISON: CT CT CHEST WO CON from 11/15/2020 CR XR CHEST PORTABLE from 11/26/2020 CR XR CHEST PORTABLE from 11/27/2020 CR XR CHEST PORTABLE from 11/29/2020 FINDINGS: This is a fairly good inspiration. The chest tube is seen right upper chest. Prominent diffuse subcutaneous emphysema is again seen in the chest wall especially axillary regions since supraclavicular locations bilaterally. Diffuse bilateral infrahilar and lower lobe ill-defined opacities are again noted with no significant improvement from recent studies. The endotracheal tube remains in good position, the NG tube is seen descending the esophagus and into the upper portion of the stomach the tip up against the gastric greater curvature. Monitor lines are seen overlying the chest. IMPRESSION: Basically stable chest no significant interval improvement in the bilateral lower lung field airspace disease, possibly slight interval decrease in the amount of diffuse bilateral subcutaneous emphysema when compared to recent films. Dictated by: Dr. Tito Ashley MD 11/30/2020 10:59 Dr. Tito Ashley MD in [place] 11/30/2020 10:59
--- NOTE | 2020-11-30 12:00 | HMH.ACPN2 ---
Internal Medicine - PN: Subj *Date: 11/30/20 *Time: 18:59 Interval history: 70 YOM remains on ventilator, eyes are open, but he does not follow commands. Family meeting yesterday with Pulmonology and after family requested second opinion on patient's condition attempts were made to transfer. He is on waiting list for several Hospitals in [facility]. Exam Vital signs and Labs for Last 24 Hours: Temp Pulse Resp BP Pulse Ox 98.8 F 91 H 33 H 136/68 95 11/30/20 09:00 11/30/20 11:00 11/30/20 11:00 11/30/20 11:00 11/30/20 11:00 Laboratory Results - last 24 hr 11/28/20 15:35: Blood Type A Negative, Antibody Screen Negative, Crossmatch (AHG) See Detail 11/29/20 21:15: WBC 14.2 H, RBC 3.06 L, Hgb 9.2 L D, Hct 29.2 L, MCV 95.3 H, MCH 29.9, MCHC 31.4 L, RDW 18.7 H, Plt Count 147, MPV 11.2 H, Neut % (Auto) 90.0 H, Lymph % (Auto) 4.1 L, [place] % (Auto) 3.9, Eos % (Auto) 1.6, Baso % (Auto) 0.3, Neut # (Auto) 12.8 H, Lymph # (Auto) 0.6 L, [place] # (Auto) 0.6, Eos # (Auto) 0.2, Baso # (Auto) 0.1, Total Counted 100, Neutrophils % (Manual) 92 H, Lymphocytes % (Manual) 7 L, Monocytes % (Manual) 1 L, Platelet Estimate Normal 11/30/20 06:25: WBC 13.8 H, RBC 3.04 L, Hgb 9.0 L, Hct 29.3 L, MCV 96.4 H, MCH 29.6, MCHC 30.7 L, RDW 19.1 H, Plt Count 164, MPV 11.1 H, Neut % (Auto) 87.7 H, Lymph % (Auto) 5.6 L, [place] % (Auto) 3.7, Eos % (Auto) 2.5, Baso % (Auto) 0.4, Neut # (Auto) 12.1 H, Lymph # (Auto) 0.8, [place] # (Auto) 0.5, Eos # (Auto) 0.4, Baso # (Auto) 0.1, Total Counted 100, Neutrophils % (Manual) 89 H, Band Neutrophils % 2.0, Lymphocytes % (Manual) 4 L, Monocytes % (Manual) 5, Nucleated RBCs 1, Platelet Estimate Normal, RBC Morphology Normal 11/30/20 06:25: Sodium 150 H, Potassium 3.5, Chloride 110 H, Carbon Dioxide 35 H, Anion Gap 8.5, BUN 91 H, Creatinine 1.70 H, Estimated Creat Clear 56, Estimated GFR 40 L, Est GFR ( Amer) 49 L, Glucose 150 H, Calcium 8.2 L I & O for Last 24 hours: Intake & Output 11/27/20 11/28/20 11/29/20 11/30/20 23:59 23:59 23:59 23:59 Intake Total 2284 / 2416 2515 / 2515 2465 / 2633 737 / 737 Output Total 1398 / 1468 1375 / 1375 486 / 489 Balance 886 / 948 1140 / 1140 1979 / 2144 726 / 726 Weight 212 lb 4 oz 207 lb 8 oz 203 lb 7.434 oz 208 lb 1.862 oz Microbiology Reports for the Last 24 Hours: Microbiology 11/28/20 13:45 Aspirate - Pulmonary Gram Stain - Final 11/28/20 13:45 Aspirate - Pulmonary Bronchial Aspirate Culture - Preliminary - Constitutional no acute distress, chronically ill appearing - *Routine HEENT Exam Head: Present: normocephalic Eye: Present: EOMI ENT: Present: mucous membranes moist - *Routine Neck Exam Present: trachea midline. Absent: tracheal deviation - *Routine Respiratory Exam Present: patient mechanically ventilated, rales. Absent: accessory muscle use - *Routine Cardiovascular Exam Present: RRR - *Routine Abdominal Exam Present: soft, normoactive bowel sounds. Absent: tenderness, rigid - *Routine Extremities Exam Present: edema, pulses intact. Absent: cyanosis, clubbing - *Routine Skin Exam Present: dry. Absent: cyanosis, jaundice - *Routine Neurological Exam Present: alert, altered mental status. Absent: oriented X3 - Routine Psychiatric Exam Present: unable to assess Assessment and Plan (1) COVID-19 with pulmonary comorbidity Status: Acute Category: Medical Code(s): U07.1 - COVID-19; J98.4 - Other disorders of lung (2) Pulmonary embolism associated with COVID-19 Status: Acute Category: Medical Code(s): U07.1 - COVID-19; I26.99 - Other pulmonary embolism without acute cor pulmonale (3) Elevated troponin I level Status: Acute Category: Medical Code(s): R77.8 - Other specified abnormalities of plasma proteins (4) Left bundle branch block (LBBB) Status: Acute Category: Medical Code(s): I44.7 - Left bundle-branch block, unspecified (5) History of stroke Status: Acute Category: Medical
--- NOTE | 2020-11-30 12:15 | HMH.PULMPN ---
Internal Medicine - PN: Subj *Date: 11/30/20 *Time: 12:15 Interval history: No acute respiratory vents overnight. Exam - Constitutional Constitutional:: Present: no acute distress, comfortable - HENMT Exam HENMT: Present: normocephalic, atraumatic - Eye Exam Eyes:: Present: normal appearance both eyes and related structures - Neck Exam Neck:: Present: normal visual inspection - Respiratory Exam Respiratory:: Present: no respiratory distress, crackles - Cardiovascular Exam Cardiac:: Present: S1, S2 - GI Exam GI:: Present: soft - Skin Exam Skin: Present: warm - Neurological Exam Neurological: Absent: alert, awake, normal cognition - Extremities Exam Extremities: Present: no cyanosis, no clubbing, edema Assessment and Plan (1) COVID-19 with pulmonary comorbidity Status: Acute Category: Medical Code(s): U07.1 - COVID-19; J98.4 - Other disorders of lung (2) Pulmonary embolism associated with COVID-19 Status: Acute Category: Medical Code(s): U07.1 - COVID-19; I26.99 - Other pulmonary embolism without acute cor pulmonale (3) Elevated troponin I level Status: Acute Category: Medical Code(s): R77.8 - Other specified abnormalities of plasma proteins (4) Left bundle branch block (LBBB) Status: Acute Category: Medical Code(s): I44.7 - Left bundle-branch block, unspecified (5) History of stroke Status: Acute Category: Medical Code(s): Z86.73 - Personal history of transient ischemic attack (TIA), and cerebral infarction without residual deficits (6) Elevated brain natriuretic peptide (BNP) level Status: Acute Category: Medical Code(s): R79.89 - Other specified abnormal findings of blood chemistry (7) Peroneal DVT (deep venous thrombosis) Status: Acute Qualifiers: Laterality: bilateral Category: Medical Code(s): I82.459 - Acute embolism and thrombosis of unspecified peroneal vein (8) Pneumonia due to COVID-19 virus Status: Acute Category: Medical Code(s): U07.1 - COVID-19; J12.82 - Pneumonia due to coronavirus disease 2019 (9) Bradycardia Status: Acute Category: Medical Code(s): R00.1 - Bradycardia, unspecified (10) Anemia Status: Acute Qualifiers: Anemia type: unspecified type Qualified Code(s): D64.9 - Anemia, unspecified Category: Medical Code(s): D64.9 - Anemia, unspecified (11) Pneumothorax, right Status: Acute Category: Medical Code(s): J93.9 - Pneumothorax, unspecified (12) Hyperkalemia Status: Acute Category: Medical Code(s): E87.5 - Hyperkalemia (13) Cardiopulmonary arrest with successful resuscitation Status: Acute Category: Medical Code(s): I46.9 - Cardiac arrest, cause unspecified (14) Ventricular tachycardia Status: Acute Category: Medical Code(s): I47.2 - Ventricular tachycardia (15) Left bundle branch block (LBBB) Status: Acute Category: Medical Code(s): I44.7 - Left bundle-branch block, unspecified - Assessment and plan all Dx Assessment and Plan for all problems:: #COVID-19 pneumonia: #Pulmonary embolism: #Acute hypoxic respiratory failure: 70-year-old yet to vaccinate no prior respiratory complaint no significant smoking history found to be COVID-19 positive needing mechanical ventilator support initial high ventilator settings, progressively improved currently on minimal vent settings however patient's mentation currently precluding extubation. Had extensive discussion with the patient's and daughter today regarding possible plan of care including tracheostomy and long-term care support however patient's family. Patient's and both the daughters expressed their wishes are not to perform tracheostomy at this point of time despite understanding the risks and benefits of prolonged intubation and want the patient to be transferred for a second opinion/neurology evaluation given his improving altered mental status. Transfer was initiated by the primary however
[2020-11-30 19:59] LABS: POC Glucose,Bedside 319 (70-110)
[2020-12-01] VITALS (37 sets, daily range): BP systolic 105–177; BP diastolic 57–83; PULSE 88–113; RESP 26–37; TEMP 37.3–38.9; O2SAT 91–99; BMI 28.9
[2020-12-01 05:32] LABS: Basophils # 0.1 K/mm3 (0-0.2); Basophils % 0.7 % (0.1-2.0); Eosinophils # 0.3 K/mm3 (0.0-0.4); Eosinophils % 2.4 % (0.1-12.0); Hematocrit 32.2 % (42.0-52.0); Hemoglobin 9.7 g/dL (14.1-18.0); Lymphocytes # 0.6 K/mm3 (0.7-4.5); Lymphocytes % 4.8 % (10-50); Mean Corpuscular HGB Conc 30.2 g/dL (31.8-35.4); Mean Corpuscular Volume 99.4 fl (80-94); Mean Platelet Volume 10.8 fl (7.4-10.4); Monocytes # 0.6 K/mm3 (0.1-1.0); Monocytes % 4.6 % (1.7-9.3); Neutrophils # 11.5 K/mm3 (1.8-7.8); Neutrophils % 87.5 % (37.0-80.0); Platelet Count 153 K/mm3 (142-424); Red Blood Count 3.24 M/mm3 (4.60-6.20); Red Cell Distribution Width 18.5 % (11.5-17.5); White Blood Count 13.2 K/mm3 (4.8-10.8)
[2020-12-01 05:33] LABS: MANUAL DIFFERENTIAL MANUAL DIFFERENTIAL (MANUAL DIFF)
[2020-12-01 05:46] LABS: Anion Gap 9.3 mEq/L (5-15); Calcium 8.3 mg/dl (8.4-10.2); Carbon Dioxide 32 mmol/L (22.0-30.0); Chloride 111 mmol/L (98-107); Creatinine Clearance Estimated 67 mL/min (50-200); Estimated Glomerular Filt Rate 50 ml/min (>60); GFR (African American) 61 ML/MIN (>60); Glucose 125 mg/dl (74-100); Sodium 147 mmol/L (136-145)
[2020-12-01 05:54] LABS: Blood Urea Nitrogen 106 mg/dl (9-20); Potassium 5.3 mmoL/L (3.5-5.1)
--- NOTE | 2020-12-01 06:00 | XR_ITS ---
PROCEDURE INFORMATION: Exam: XR Chest Exam date and time: 12/01/2020 6:00 AM Age: 70 years old Clinical indication: Device placement; Ett placement (vent status); Patient HX: F/u, intubated TECHNIQUE: Imaging protocol: XR of the chest. Views: 1 view. COMPARISON: CR XR CHEST PORTABLE 11/30/2020 10:00 AM FINDINGS: Tubes, catheters and devices: Right chest tube remains in place, unchanged. Endotracheal tube remains in place with the tip above the eloisa. Nasogastric tube remains in place. Lungs: There continue to be opacities in both lungs, unchanged. Pleural spaces: Unremarkable. No pleural effusion. No pneumothorax. Heart/Mediastinum: Unremarkable. No cardiomegaly. Bones/joints: Unremarkable. Soft tissues: There is subcutaneous air throughout the chest and neck, unchanged. IMPRESSION: Stable chest.
[2020-12-01 06:06] LABS: Lymphocytes % 6 % (10-50); Neutrophils % 84 % (42-76); Total Cells Counted 100
[2020-12-01 06:07] LABS: Anisocytosis 1+; Hypochromasia 2+; Macrocytosis 1+; Platelet Estimate Normal; Rouleaux 2+
--- NOTE | 2020-12-01 06:13 | PC.NURSE ---
Pt has been restless this shift. Medicated per apr. Pt has had decreased urine output also. BP elevated. HR has been tachy this shift. Has opened eyes, but has not followed commands. No other concerns. Will continue to monitor.
[2020-12-01 07:52] LABS: ABG Base Excess 3.7 mmol/L (-2.4-2.3); ABG HCO3 29.1 mmhg (22.0-26.0); ABG Oxygen Saturation 98 % (90-100); ABG PH 7.36 mmol/L (7.35-7.45); ABG PO2 104.1 mmhg (80-100); ABG TCO2 30.7 mmhg (23-27)
[2020-12-01 07:55] LABS: Allen's Test Non Applicable; PEEP 10; Source Right Radial
[2020-12-01 07:56] LABS: ABG PCO2 52.3 mmhg (35.0-45.0)
--- NOTE | 2020-12-01 07:57 | HMH.ACPN2 ---
Internal Medicine - PN: Subj *Date: 12/01/20 *Time: 11:30 Interval history: She 10-year-old male patient resting in bed quietly intubated, sedation is turned off. Patient is alert and occasionally looking around the room does not follow any commands. He does appear comfortable Exam Vital signs and Labs for Last 24 Hours: Temp Pulse Resp BP Pulse Ox 99.9 F H 104 H 33 H 174/77 H 94 L 12/01/20 05:00 12/01/20 06:00 12/01/20 06:02 12/01/20 06:00 12/01/20 06:02 Laboratory Results - last 24 hr 11/30/20 06:25: Total Counted 100, Neutrophils % (Manual) 89 H, Band Neutrophils % 2.0, Lymphocytes % (Manual) 4 L, Monocytes % (Manual) 5, Nucleated RBCs 1, Platelet Estimate Normal, RBC Morphology Normal 11/30/20 19:50: POC Glucose 319 H* 12/01/20 05:10: WBC 13.2 H, RBC 3.24 L, Hgb 9.7 L, Hct 32.2 L, MCV 99.4 H, MCH 30.0, MCHC 30.2 L, RDW 18.5 H, Plt Count 153, MPV 10.8 H, Neut % (Auto) 87.5 H, Lymph % (Auto) 4.8 L, [place] % (Auto) 4.6, Eos % (Auto) 2.4, Baso % (Auto) 0.7, Neut # (Auto) 11.5 H, Lymph # (Auto) 0.6 L, [place] # (Auto) 0.6, Eos # (Auto) 0.3, Baso # (Auto) 0.1, Total Counted 100, Neutrophils % (Manual) 84 H, Band Neutrophils % 10.0 H, Lymphocytes % (Manual) 6 L, Platelet Estimate Normal, Hypochromasia 2+, Anisocytosis 1+, Macrocytosis 1+, Rouleaux 2+ 12/01/20 05:10: Sodium 147 H, Potassium 5.3 H D, Chloride 111 H, Carbon Dioxide 32 H, Anion Gap 9.3, BUN 106 H*, Creatinine 1.40 H, Estimated Creat Clear 67, Estimated GFR 50 L, Est GFR ( Amer) 61 D, Glucose 125 H, Calcium 8.3 L 12/01/20 08:00: Specimen Source Right radial, O2 % 100, ABG pH 7.36, ABG pCO2 52.3 H, ABG pO2 104.1 H, ABG HCO3 29.1 H, ABG Total CO2 30.7 H, ABG O2 Saturation 98, ABG Base Excess 3.7 H, Andrea Test Non applicable, Vent Rate 32, Tidal Volume 500, PEEP 10 I & O for Last 24 hours: Intake & Output 11/28/20 11/29/20 11/30/20 12/01/20 23:59 23:59 23:59 23:59 Intake Total 2515 / 2515 2465 / 2633 3643 / 4074 830 / 830 Output Total 1375 / 1375 486 / 489 41 / 51 Balance 1140 / 1140 1979 / 2144 3602 / 4023 808 / 808 Weight 207 lb 8 oz 203 lb 7.434 oz 208 lb 1.862 oz 218 lb 8 oz Microbiology Reports for the Last 24 Hours: Microbiology 11/28/20 13:45 Aspirate - Pulmonary Gram Stain - Final 11/28/20 13:45 Aspirate - Pulmonary Bronchial Aspirate Culture - Preliminary 11/28/20 13:26 Blood Blood Culture - Preliminary NO GROWTH AFTER 48 HOURS 11/28/20 13:26 Blood Blood Culture - Preliminary NO GROWTH AFTER 48 HOURS - Constitutional no acute distress - *Routine HEENT Exam Head: Present: normocephalic Eye: Present: EOMI ENT: Present: mucous membranes moist - *Routine Neck Exam Present: trachea midline, tracheal deviation - *Routine Respiratory Exam Present: patient mechanically ventilated, rales. Absent: accessory muscle use - *Routine Cardiovascular Exam Present: RRR - *Routine Abdominal Exam Present: soft, normoactive bowel sounds. Absent: firm - *Routine Extremities Exam Present: edema. Absent: cyanosis - *Routine Skin Exam Present: dry. Absent: cyanosis, erythema - *Routine Neurological Exam Present: alert, altered mental status. Absent: oriented X3 - Routine Psychiatric Exam Present: unable to assess Assessment and Plan (1) COVID-19 with pulmonary comorbidity Status: Acute Category: Medical Code(s): U07.1 - COVID-19; J98.4 - Other disorders of lung (2) Pulmonary embolism associated with COVID-19 Status: Acute Category: Medical Code(s): U07.1 - COVID-19; I26.99 - Other pulmonary embolism without acute cor pulmonale (3) Elevated troponin I level Status: Acute Category: Medical Code(s): R77.8 - Other specified abnormalities of plasma proteins (4) Left bundle branch block (LBBB) Status: Acute Category: Medical Code(s): I44.7 - Left bundle-branch block, unspecified (5) History of stroke Status: Acute Category:
[2020-12-01 09:20] LABS: Oxygen 60 %
[2020-12-01 09:21] LABS: Pressure Support 12
--- NOTE | 2020-12-01 15:48 | HMH.PULMPN ---
Internal Medicine - PN: Subj *Date: 12/01/20 *Time: 16:49 Interval history: No acute respiratory events overnight Exam - Constitutional Constitutional:: Present: no acute distress, comfortable - HENMT Exam HENMT: Present: normocephalic, atraumatic - Eye Exam Eyes:: Present: normal appearance both eyes and related structures - Neck Exam Neck:: Present: normal visual inspection - Respiratory Exam Respiratory:: Present: respiratory distress, crackles, rales - Cardiovascular Exam Cardiac:: Present: S1, S2 - GI Exam GI:: Present: soft - Skin Exam Skin: Present: warm - Neurological Exam Neurological: Absent: alert, awake, normal cognition - Extremities Exam Extremities: Present: no cyanosis, no clubbing, edema Assessment and Plan (1) COVID-19 with pulmonary comorbidity Status: Acute Category: Medical Code(s): U07.1 - COVID-19; J98.4 - Other disorders of lung (2) Pulmonary embolism associated with COVID-19 Status: Acute Category: Medical Code(s): U07.1 - COVID-19; I26.99 - Other pulmonary embolism without acute cor pulmonale (3) Elevated troponin I level Status: Acute Category: Medical Code(s): R77.8 - Other specified abnormalities of plasma proteins (4) Left bundle branch block (LBBB) Status: Acute Category: Medical Code(s): I44.7 - Left bundle-branch block, unspecified (5) History of stroke Status: Acute Category: Medical Code(s): Z86.73 - Personal history of transient ischemic attack (TIA), and cerebral infarction without residual deficits (6) Elevated brain natriuretic peptide (BNP) level Status: Acute Category: Medical Code(s): R79.89 - Other specified abnormal findings of blood chemistry (7) Peroneal DVT (deep venous thrombosis) Status: Acute Qualifiers: Laterality: bilateral Category: Medical Code(s): I82.459 - Acute embolism and thrombosis of unspecified peroneal vein (8) Pneumonia due to COVID-19 virus Status: Acute Category: Medical Code(s): U07.1 - COVID-19; J12.82 - Pneumonia due to coronavirus disease 2019 (9) Bradycardia Status: Acute Category: Medical Code(s): R00.1 - Bradycardia, unspecified (10) Anemia Status: Acute Qualifiers: Anemia type: unspecified type Qualified Code(s): D64.9 - Anemia, unspecified Category: Medical Code(s): D64.9 - Anemia, unspecified (11) Pneumothorax, right Status: Acute Category: Medical Code(s): J93.9 - Pneumothorax, unspecified (12) Hyperkalemia Status: Acute Category: Medical Code(s): E87.5 - Hyperkalemia (13) Cardiopulmonary arrest with successful resuscitation Status: Acute Category: Medical Code(s): I46.9 - Cardiac arrest, cause unspecified (14) Ventricular tachycardia Status: Acute Category: Medical Code(s): I47.2 - Ventricular tachycardia (15) Left bundle branch block (LBBB) Status: Acute Category: Medical Code(s): I44.7 - Left bundle-branch block, unspecified - Assessment and plan all Dx Assessment and Plan for all problems:: #COVID-19 pneumonia: #Pulmonary embolism: #Acute hypoxic respiratory failure: 70-year-old yet to vaccinate no prior respiratory complaint no significant smoking history found to be COVID-19 positive needing mechanical ventilator support initial high ventilator settings, progressively improved currently on minimal vent settings however patient's mentation currently precluding extubation. Patient 14 days post intubation. His mentation is still not improving. Extensive work-up performed so far did not show any obvious etiology for his altered mentation. Currently patient is having acute kidney injury worsening BUN that may also be contributing to his altered mentation. After extensive discussions with the family regarding goals of care family decided to pursue with full code, aggressive medical therapy along with possible tracheostomy and PEG tube and LTAC placement. So far the social work could not find
--- NOTE | 2020-12-01 22:51 | PC.NURSE ---
His catheter appeared to be full of sediment. Catheter irrigated via sterile technique. Urine output has increased since irrigation. Urine is dark yellow with sediment. He is being turned and repositioned q 2 hours. Oral care provided. He received a bed bath at the beginning of the shift. He was incontinent of bowel. Raegan-care provided per staff. He is now NSR with BBB on telemetry. HOB elevated.
[2020-12-02] VITALS (31 sets, daily range): BP systolic 110–155; BP diastolic 57–86; PULSE 75–100; RESP 22–28; TEMP 36.5–37.3; O2SAT 90–99
--- NOTE | 2020-12-02 02:55 | PC.NURSE ---
His O2 sats decreased to 82-83%. FiO2 increased to 60%. 100% Fio2 buttin oushed. Sats increased. Respiratory came snd turned his FiO2 back to 50% and turned off the 100% FiO2 for 3 minutes. His sats have started to drop again but are currently 91%.
--- NOTE | 2020-12-02 03:05 | PC.NURSE ---
His sats decreased to mid 80s. FiO2 increased to 60 via respiratory.
--- NOTE | 2020-12-02 05:00 | XR_ITS ---
PROCEDURE INFORMATION: Exam: XR Chest Exam date and time: 12/02/2020 5:00 AM Age: 70 years old Clinical indication: Device placement; Ett placement (vent status); Additional info: PT intubated. Covid vent status TECHNIQUE: Imaging protocol: XR of the chest. Views: 1 view. COMPARISON: CR XR CHEST PORTABLE 12/01/2020 5:21 AM FINDINGS: Tubes, catheters and devices: Endotracheal tube terminates approximately 6.5 cm above the eloisa. NG tube traverses the GE junction and passes off the inferior margin of the image. Right chest tube is in place. Lungs: Similar patchy bibasilar airspace opacities. Pleural spaces: No definite pleural effusion or pneumothorax. Heart/Mediastinum: Similar pneumomediastinum. Cardiomediastinal silhouette is within normal limits. Bones/joints: Unremarkable. Soft tissues: Similar extensive subcutaneous emphysema over the neck and thorax. IMPRESSION: 1. Endotracheal tube terminates approximately 6.5 cm above the eloisa, similar to prior. 2. Similar patchy bibasilar airspace opacities. 3. No definite pleural effusion or pneumothorax. 4. Right chest tube is in place.
[2020-12-02 06:02] LABS: Basophils # 0.1 K/mm3 (0-0.2); Basophils % 0.4 % (0.1-2.0); Eosinophils # 0.2 K/mm3 (0.0-0.4); Eosinophils % 1.2 % (0.1-12.0); Hemoglobin 9.7 g/dL (14.1-18.0); Lymphocytes # 0.7 K/mm3 (0.7-4.5); Lymphocytes % 5.2 % (10-50); Mean Corpuscular HGB Conc 29.3 g/dL (31.8-35.4); Mean Corpuscular Hemoglobin 29.8 pg (27.0-31.2); Mean Corpuscular Volume 101.5 fl (80-94); Mean Platelet Volume 10.1 fl (7.4-10.4); Monocytes # 0.6 K/mm3 (0.1-1.0); Neutrophils # 11.2 K/mm3 (1.8-7.8); Neutrophils % 88.1 % (37.0-80.0); Platelet Count 132 K/mm3 (142-424); Red Blood Count 3.25 M/mm3 (4.60-6.20); Red Cell Distribution Width 17.4 % (11.5-17.5); White Blood Count 12.7 K/mm3 (4.8-10.8)
[2020-12-02 06:03] LABS: Chloride 109 mmol/L (98-107); Potassium 5.7 mmoL/L (3.5-5.1); Sodium 146 mmol/L (136-145)
[2020-12-02 06:04] LABS: MANUAL DIFFERENTIAL MANUAL DIFFERENTIAL (MANUAL DIFF)
[2020-12-02 06:06] LABS: Anion Gap 10.7 mEq/L (5-15); Calcium 8.2 mg/dl (8.4-10.2); Carbon Dioxide 32 mmol/L (22.0-30.0); Glucose 138 mg/dl (74-100)
[2020-12-02 06:13] LABS: Creatinine Clearance Estimated 47 mL/min (50-200); Estimated Glomerular Filt Rate 30 ml/min (>60); GFR (African American) 36 ML/MIN (>60)
[2020-12-02 06:18] LABS: Blood Urea Nitrogen 114 mg/dl (9-20)
[2020-12-02 06:26] LABS: Anisocytosis 1+; Eosinophils % 1 % (0-3); Hypochromasia 2+; Lymphocytes % 6 % (10-50); Macrocytosis 2+; Neutrophils % 81 % (42-76); Platelet Estimate Normal; Total Cells Counted 100
--- NOTE | 2020-12-02 10:08 | HMH.ACPN2 ---
Internal Medicine - PN: Subj *Date: 12/02/20 *Time: 10:08 Interval history: obtunded with no resp to touch -no other acute changes Exam Vital signs and Labs for Last 24 Hours: Temp Pulse Resp BP Pulse Ox 98.3 F 89 26 H 139/65 97 12/02/20 08:00 12/02/20 08:00 12/02/20 08:00 12/02/20 08:00 12/02/20 08:00 Laboratory Results - last 24 hr 12/02/20 05:28: WBC 12.7 H, RBC 3.25 L, Hgb 9.7 L, Hct 33.0 L, MCV 101.5 H, MCH 29.8, MCHC 29.3 L, RDW 17.4, Plt Count 132 L, MPV 10.1, Neut % (Auto) 88.1 H, Lymph % (Auto) 5.2 L, [place] % (Auto) 5.0, Eos % (Auto) 1.2, Baso % (Auto) 0.4, Neut # (Auto) 11.2 H, Lymph # (Auto) 0.7, [place] # (Auto) 0.6, Eos # (Auto) 0.2, Baso # (Auto) 0.1, Total Counted 100, Neutrophils % (Manual) 81 H, Band Neutrophils % 12.0 H, Lymphocytes % (Manual) 6 L, Eosinophils % (Manual) 1, Platelet Estimate Normal, Hypochromasia 2+, Anisocytosis 1+, Macrocytosis 2+ 12/02/20 05:28: Sodium 146 H, Potassium 5.7 H, Chloride 109 H, Carbon Dioxide 32 H, Anion Gap 10.7, BUN 114 H*, Creatinine 2.20 H D, Estimated Creat Clear 47, Estimated GFR 30 L, Est GFR ( Amer) 36 L D, Glucose 138 H, Calcium 8.2 L I & O for Last 24 hours: Intake & Output 11/29/20 11/30/20 12/01/20 12/02/20 11:59 11:59 11:59 11:59 Intake Total 2124 / 2124 2435 / 2435 3736 / 3736 2639 / 2639 Output Total 1628 / 1630 29 / 29 52 / 52 1865 / 1865 Balance 496 / 494 2406 / 2406 3684 / 3684 774 / 774 Weight 203 lb 7.434 oz 208 lb 1.862 oz 218 lb 8 oz 226 lb 8 oz Microbiology Reports for the Last 24 Hours: Microbiology 11/28/20 13:45 Aspirate - Pulmonary Gram Stain - Final 11/28/20 13:45 Aspirate - Pulmonary Bronchial Aspirate Culture - Final Staphylococcus simulans Corynebacterium amycolatum/str - Constitutional obtunded - *Routine HEENT Exam Head: Present: normocephalic Eye: Absent: nystagmus ENT: Present: mucous membranes dry (has og tube ) - *Routine Neck Exam Absent: JVD - *Routine Respiratory Exam Present: patient mechanically ventilated - *Routine Cardiovascular Exam Present: RRR - *Routine Abdominal Exam Present: soft - *Routine Extremities Exam Present: edema - *Routine Skin Exam Present: mottling Comments: has sq air - *Routine Neurological Exam Present: altered mental status - Routine Psychiatric Exam Present: unable to assess Assessment and Plan (1) COVID-19 with pulmonary comorbidity Status: Acute Category: Medical Code(s): U07.1 - COVID-19; J98.4 - Other disorders of lung (2) Pulmonary embolism associated with COVID-19 Status: Acute Category: Medical Code(s): U07.1 - COVID-19; I26.99 - Other pulmonary embolism without acute cor pulmonale (3) Elevated troponin I level Status: Acute Category: Medical Code(s): R77.8 - Other specified abnormalities of plasma proteins (4) Left bundle branch block (LBBB) Status: Acute Category: Medical Code(s): I44.7 - Left bundle-branch block, unspecified (5) History of stroke Status: Acute Category: Medical Code(s): Z86.73 - Personal history of transient ischemic attack (TIA), and cerebral infarction without residual deficits (6) Elevated brain natriuretic peptide (BNP) level Status: Acute Category: Medical Code(s): R79.89 - Other specified abnormal findings of blood chemistry (7) Peroneal DVT (deep venous thrombosis) Status: Acute Qualifiers: Laterality: bilateral Category: Medical Code(s): I82.459 - Acute embolism and thrombosis of unspecified peroneal vein (8) Pneumonia due to COVID-19 virus Status: Acute Category: Medical Code(s): U07.1 - COVID-19; J12.82 - Pneumonia due to coronavirus disease 2019 (9) Bradycardia Status: Acute Category: Medical Code(s): R00.1 - Bradycardia, unspecified (10) Anemia Status: Acute Qualifiers: Anemia type: unspecified type Qualified Code(s): D64.9 - Anemia, unspecified
[2020-12-03] VITALS (38 sets, daily range): BP systolic 115–149; BP diastolic 58–70; PULSE 69–103; RESP 21–33; TEMP 36.6–37.2; O2SAT 89–100; BMI 29.9
--- NOTE | 2020-12-03 00:38 | PC.NURSE ---
He continues to be intubated. He is not following commands. Generalized edema. Continues with glucerna. Urine is dark yellow, clear.
--- NOTE | 2020-12-03 05:00 | XR_ITS ---
PROCEDURE INFORMATION: Exam: XR Chest Exam date and time: 12/03/2020 5:00 AM Age: 70 years old Clinical indication: Device placement; Ett placement (vent status); Additional info: PT intubated. Covid patient TECHNIQUE: Imaging protocol: XR of the chest. Views: 1 view. COMPARISON: CR XR CHEST PORTABLE 12/02/2020 5:15 AM FINDINGS: Tubes, catheters and devices: Endotracheal tube terminates approximately 5 cm above the eloisa. NG tube terminates in the region of the gastric fundus. Right chest tube is in place. Lungs: Similar to slightly worsened patchy bibasilar airspace opacities. Pleural spaces: No definite pleural effusion or pneumothorax. Heart/Mediastinum: Stable cardiomediastinal contours. Bones/joints: Unremarkable. Soft tissues: Similar extensive subcutaneous emphysema over the thorax and neck. IMPRESSION: 1. Endotracheal tube terminates approximately 5 cm above the eloisa. 2. Similar to slightly worsened patchy bibasilar airspace opacities. 3. Right chest tube is in place with no definite pleural effusion or pneumothorax.
[2020-12-03 05:27] LABS: Basophils % 0.3 % (0.1-2.0); Eosinophils # 0.2 K/mm3 (0.0-0.4); Lymphocytes # 0.4 K/mm3 (0.7-4.5); Mean Corpuscular HGB Conc 30.4 g/dL (31.8-35.4); Mean Corpuscular Hemoglobin 30.2 pg (27.0-31.2); Mean Corpuscular Volume 99.2 fl (80-94); Mean Platelet Volume 10.1 fl (7.4-10.4); Monocytes # 0.4 K/mm3 (0.1-1.0); Neutrophils # 9.6 K/mm3 (1.8-7.8); Neutrophils % 89.8 % (37.0-80.0); Platelet Count 125 K/mm3 (142-424); Red Blood Count 2.74 M/mm3 (4.60-6.20); Red Cell Distribution Width 17.2 % (11.5-17.5); White Blood Count 10.7 K/mm3 (4.8-10.8)
[2020-12-03 05:29] LABS: Hematocrit 27.2 % (42.0-52.0); Hemoglobin 8.3 g/dL (14.1-18.0)
[2020-12-03 05:30] LABS: MANUAL DIFFERENTIAL MANUAL DIFFERENTIAL (MANUAL DIFF)
[2020-12-03 05:42] LABS: Calcium 7.9 mg/dl (8.4-10.2); Carbon Dioxide 29 mmol/L (22.0-30.0); Chloride 107 mmol/L (98-107); Glucose 119 mg/dl (74-100); Hypochromasia 2+; Lymphocytes % 8 % (10-50); Macrocytosis 1+; Neutrophils % 84 % (42-76); Platelet Estimate Slight Decrease; Rouleaux 2+; Sodium 143 mmol/L (136-145); Total Cells Counted 100
[2020-12-03 05:50] LABS: Anion Gap 12.5 mEq/L (5-15); Potassium 5.5 mmoL/L (3.5-5.1)
[2020-12-03 05:51] LABS: Blood Urea Nitrogen 121 mg/dl (9-20)
[2020-12-03 05:52] LABS: Creatinine Clearance Estimated 51 mL/min (50-200); Estimated Glomerular Filt Rate 33 ml/min (>60); GFR (African American) 40 ML/MIN (>60)
--- NOTE | 2020-12-03 10:15 | PC.NURSE ---
Changed Pt's Junaid. Cleaned his skin and allowed it to dry before replacing with a new Junaid tube lara. Pt remained stable. Suctioned Pt via ETT x3 times for a large amount of thick chunky dark red bloody sputum.
--- NOTE | 2020-12-03 14:11 | HMH.ACPN2 ---
Internal Medicine - PN: Subj *Date: 12/03/20 *Time: 14:11 Interval history: Patient remains obtunded. Abby intubated, vent is set at 110 he is breathing. No significant adverse events overnight. Ultimately the plan is for him to go to a specialty hospital. Nursing staff is noting low urine output. We will place him on IV fluid transiently. He is receiving tube feeding, Glucerna, currently tolerating it well. Exam Vital signs and Labs for Last 24 Hours: Temp Pulse Resp BP Pulse Ox 98.1 F 85 24 116/61 92 L 12/03/20 13:00 12/03/20 13:00 12/03/20 13:00 12/03/20 13:00 12/03/20 13:00 Laboratory Results - last 24 hr 12/03/20 04:50: WBC 10.7, RBC 2.74 L, Hgb 8.3 L D, Hct 27.2 L, MCV 99.2 H, MCH 30.2, MCHC 30.4 L, RDW 17.2, Plt Count 125 L, MPV 10.1, Neut % (Auto) 89.8 H, Lymph % (Auto) 4.0 L, [place] % (Auto) 4.0, Eos % (Auto) 2.0, Baso % (Auto) 0.3, Neut # (Auto) 9.6 H, Lymph # (Auto) 0.4 L, [place] # (Auto) 0.4, Eos # (Auto) 0.2, Baso # (Auto) 0.0, Total Counted 100, Neutrophils % (Manual) 84 H, Band Neutrophils % 8.0, Lymphocytes % (Manual) 8 L, Platelet Estimate Slight decrease, Hypochromasia 2+, Macrocytosis 1+, Rouleaux 2+ 12/03/20 04:50: Sodium 143, Potassium 5.5 H, Chloride 107, Carbon Dioxide 29, Anion Gap 12.5, BUN 121 H*, Creatinine 2.00 H, Estimated Creat Clear 51, Estimated GFR 33 L, Est GFR ( Amer) 40 L, Glucose 119 H, Calcium 7.9 L I & O for Last 24 hours: Intake & Output 11/30/20 12/01/20 12/02/20 12/03/20 23:59 23:59 23:59 23:59 Intake Total 3643 / 4074 2693 / 2693 3405 / 3405 999 / 999 Output Total 41 / 51 47 / 47 2535 / 2785 1010 / 1010 Balance 3602 / 4023 2646 / 2646 870 / 620 -11 / -11 Weight 208 lb 1.862 oz 218 lb 8 oz 226 lb 8 oz 226 lb Microbiology Reports for the Last 24 Hours: Microbiology 11/28/20 13:26 Blood Blood Culture - Final NO GROWTH AFTER 5 DAYS 11/28/20 13:26 Blood Blood Culture - Final NO GROWTH AFTER 5 DAYS - Constitutional chronically ill appearing, somnolent, obtunded - *Routine HEENT Exam Head: Present: normocephalic Eye: Present: EOMI, PERRL ENT: Present: mucous membranes moist - *Routine Neck Exam Present: supple. Absent: lymphadenopathy - *Routine Respiratory Exam Present: patient mechanically ventilated. Absent: respiratory distress - *Routine Cardiovascular Exam Present: RRR - *Routine Abdominal Exam Present: soft, normoactive bowel sounds. Absent: tenderness - *Routine Extremities Exam Present: edema. Absent: cyanosis - *Routine Skin Exam Present: warm. Absent: rash - *Routine Neurological Exam Present: altered mental status. Absent: alert, oriented X3, normal speech, tremors Assessment and Plan (1) COVID-19 with pulmonary comorbidity Status: Acute Category: Medical Code(s): U07.1 - COVID-19; J98.4 - Other disorders of lung (2) Pulmonary embolism associated with COVID-19 Status: Acute Category: Medical Code(s): U07.1 - COVID-19; I26.99 - Other pulmonary embolism without acute cor pulmonale (3) Elevated troponin I level Status: Acute Category: Medical Code(s): R77.8 - Other specified abnormalities of plasma proteins (4) Left bundle branch block (LBBB) Status: Acute Category: Medical Code(s): I44.7 - Left bundle-branch block, unspecified (5) History of stroke Status: Acute Category: Medical Code(s): Z86.73 - Personal history of transient ischemic attack (TIA), and cerebral infarction without residual deficits (6) Elevated brain natriuretic peptide (BNP) level Status: Acute Category: Medical Code(s): R79.89 - Other specified abnormal findings of blood chemistry (7) Peroneal DVT (deep venous thrombosis) Status: Acute Qualifiers: Laterality: bilateral Category: Medical Code(s): I82.459 - Acute embolism and thrombosis of unspecified peroneal vein (8) Pneumonia due to COVID-19 virus Status: Acute Julia
[2020-12-04] VITALS (34 sets, daily range): BP systolic 110–158; BP diastolic 51–77; PULSE 70–106; RESP 1–31; TEMP 36.6–37.1; O2SAT 76–99; BMI 29.8
--- NOTE | 2020-12-04 01:40 | PC.NURSE ---
He has been agitated at periods r/o the shift. His pulse is irregular and is NSR in 70-80s at times and decreases into the 50s. His HOB is elevated. He is being turned and repositioned q 2 hours and PRN. He was incontinent of a BM. Raegan-care provided per staff. DSG changed on coccyx. f/c patent with yellow urine with sediment.
--- NOTE | 2020-12-04 05:00 | XR_ITS ---
PROCEDURE INFORMATION: Exam: XR Chest Exam date and time: 12/04/2020 5:00 AM Age: 70 years old Clinical indication: Device placement; Ett placement (vent status); Additional info: PT intubated. Covid TECHNIQUE: Imaging protocol: XR of the chest. Views: 1 view. COMPARISON: CR XR CHEST PORTABLE 12/03/2020 5:15 AM FINDINGS: Tubes, catheters and devices: ET tube is 5 cm from the eloisa. Right-sided pleural tube is noted. Lungs: Extensive airspace disease is noted bilaterally most prominent on left. Pleural spaces: No definite pneumothorax noted. Heart/Mediastinum: Subcutaneous emphysema is seen throughout extending into the mediastinum. Bones/joints: Unremarkable. IMPRESSION: Extensive stable infiltrates more prominent on the left
[2020-12-04 05:18] LABS: Basophils % 0.1 % (0.1-2.0); Eosinophils # 0.2 K/mm3 (0.0-0.4); Eosinophils % 2.4 % (0.1-12.0); Hemoglobin 7.9 g/dL (14.1-18.0); Lymphocytes # 0.5 K/mm3 (0.7-4.5); Lymphocytes % 4.8 % (10-50); Mean Corpuscular HGB Conc 30.4 g/dL (31.8-35.4); Mean Corpuscular Hemoglobin 30.3 pg (27.0-31.2); Mean Corpuscular Volume 99.7 fl (80-94); Mean Platelet Volume 10.2 fl (7.4-10.4); Monocytes # 0.4 K/mm3 (0.1-1.0); Monocytes % 4.3 % (1.7-9.3); Neutrophils # 8.4 K/mm3 (1.8-7.8); Neutrophils % 88.4 % (37.0-80.0); Platelet Count 116 K/mm3 (142-424); Red Blood Count 2.62 M/mm3 (4.60-6.20); Red Cell Distribution Width 17.2 % (11.5-17.5); White Blood Count 9.5 K/mm3 (4.8-10.8)
[2020-12-04 05:23] LABS: Hematocrit 26.1 % (42.0-52.0); MANUAL DIFFERENTIAL MANUAL DIFFERENTIAL (MANUAL DIFF)
[2020-12-04 05:28] LABS: Anion Gap 10.4 mEq/L (5-15); Calcium 7.8 mg/dl (8.4-10.2); Carbon Dioxide 30 mmol/L (22.0-30.0); Chloride 106 mmol/L (98-107); Glucose 98 mg/dl (74-100); Potassium 5.4 mmoL/L (3.5-5.1); Sodium 141 mmol/L (136-145)
[2020-12-04 05:35] LABS: Creatinine Clearance Estimated 51 mL/min (50-200); Estimated Glomerular Filt Rate 33 ml/min (>60); GFR (African American) 40 ML/MIN (>60)
[2020-12-04 05:39] LABS: Blood Urea Nitrogen 119 mg/dl (9-20)
[2020-12-04 05:42] LABS: Eosinophils % 1 % (0-3); Lymphocytes % 4 % (10-50); Monocytes % 2 % (2-9); Neutrophils % 84 % (42-76); Total Cells Counted 100
[2020-12-04 05:43] LABS: Anisocytosis 1+; Hypochromasia 1+; Macrocytosis 1+; Platelet Estimate Slight Decrease; Rouleaux 3+; Toxic Granulation 1+
--- NOTE | 2020-12-04 08:57 | PC.NURSE ---
Patient experienced two instances of bradycardia, heart rate decreased into the 40's and sustained. Patient's oxygen saturation decreased during episode. Cardiology at bedside for assessment. RN requested PRN atropine if patient becomes symptomatic. Informed provider that chest tube has had no output for a week and a half to two weeks. Requested removal. No further orders at this time
--- NOTE | 2020-12-04 09:38 | HMH.ACPN2 ---
Internal Medicine - PN: Subj *Date: 12/04/20 *Time: 08:30 Interval history: staff states hr dropping down to 40 then rebounding Exam Vital signs and Labs for Last 24 Hours: Temp Pulse Resp BP Pulse Ox 98.1 F 94 H 24 155/55 H 95 12/04/20 07:50 12/04/20 09:00 12/04/20 07:50 12/04/20 09:00 12/04/20 09:00 Laboratory Results - last 24 hr 12/04/20 04:45: WBC 9.5, RBC 2.62 L, Hgb 7.9 L, Hct 26.1 L, MCV 99.7 H, MCH 30.3, MCHC 30.4 L, RDW 17.2, Plt Count 116 L, MPV 10.2, Neut % (Auto) 88.4 H, Lymph % (Auto) 4.8 L, [place] % (Auto) 4.3, Eos % (Auto) 2.4, Baso % (Auto) 0.1, Neut # (Auto) 8.4 H, Lymph # (Auto) 0.5 L, [place] # (Auto) 0.4, Eos # (Auto) 0.2, Baso # (Auto) 0.0, Total Counted 100, Neutrophils % (Manual) 84 H, Band Neutrophils % 9.0 H, Lymphocytes % (Manual) 4 L, Monocytes % (Manual) 2, Eosinophils % (Manual) 1, Toxic Granulation 1+, Platelet Estimate Slight decrease, Hypochromasia 1+, Anisocytosis 1+, Macrocytosis 1+, Rouleaux 3+ 12/04/20 04:45: Sodium 141, Potassium 5.4 H, Chloride 106, Carbon Dioxide 30, Anion Gap 10.4, BUN 119 H*, Creatinine 2.00 H, Estimated Creat Clear 51, Estimated GFR 33 L, Est GFR ( Amer) 40 L, Glucose 98, Calcium 7.8 L I & O for Last 24 hours: Intake & Output 12/01/20 12/02/20 12/03/20 12/04/20 11:59 11:59 11:59 11:59 Intake Total 3736 / 3736 2639 / 2639 3628 / 3628 4520 / 4520 Output Total 52 / 52 2049 / 2074 1485 / 1500 1342 / 1342 Balance 3684 / 3684 589 / 564 2143 / 2128 3178 / 3178 Weight 218 lb 8 oz 226 lb 8 oz 226 lb 225 lb 6 oz Microbiology Reports for the Last 24 Hours: Microbiology 11/28/20 13:26 Blood Blood Culture - Final NO GROWTH AFTER 5 DAYS 11/28/20 13:26 Blood Blood Culture - Final NO GROWTH AFTER 5 DAYS - Constitutional no acute distress - *Routine HEENT Exam Head: Present: normocephalic Eye: Present: PERRL ENT: Present: mucous membranes moist Comments: ng feeding in place - *Routine Neck Exam Present: supple. Absent: lymphadenopathy - *Routine Respiratory Exam Present: patient mechanically ventilated - *Routine Cardiovascular Exam Present: RRR - *Routine Abdominal Exam Present: soft, normoactive bowel sounds. Absent: tenderness - *Routine Extremities Exam Absent: cyanosis, clubbing, edema - *Routine Skin Exam Present: warm. Absent: rash Comments: chest tube in place Assessment and Plan (1) COVID-19 with pulmonary comorbidity Status: Acute Category: Medical Code(s): U07.1 - COVID-19; J98.4 - Other disorders of lung (2) Pulmonary embolism associated with COVID-19 Status: Acute Category: Medical Code(s): U07.1 - COVID-19; I26.99 - Other pulmonary embolism without acute cor pulmonale (3) Elevated troponin I level Status: Acute Category: Medical Code(s): R77.8 - Other specified abnormalities of plasma proteins (4) Left bundle branch block (LBBB) Status: Acute Category: Medical Code(s): I44.7 - Left bundle-branch block, unspecified (5) History of stroke Status: Acute Category: Medical Code(s): Z86.73 - Personal history of transient ischemic attack (TIA), and cerebral infarction without residual deficits (6) Elevated brain natriuretic peptide (BNP) level Status: Acute Category: Medical Code(s): R79.89 - Other specified abnormal findings of blood chemistry (7) Peroneal DVT (deep venous thrombosis) Status: Acute Qualifiers: Laterality: bilateral Category: Medical Code(s): I82.459 - Acute embolism and thrombosis of unspecified peroneal vein (8) Pneumonia due to COVID-19 virus Status: Acute Category: Medical Code(s): U07.1 - COVID-19; J12.82 - Pneumonia due to coronavirus disease 2019 (9) Bradycardia Status: Acute Category: Medical Code(s): R00.1 - Bradycardia, unspecified (10) Anemia Status: Acute Qualifiers: Anemia type: unspecified type Qualified Code(s): D64.9 - Anemia,
--- NOTE | 2020-12-04 10:32 | HMH.PNCARD ---
Subjective Date: 12/04/20 Time: 09:45 Principal diagnosis: Covid, PE, CAD Interval history: This is a 70-year-old white gentleman who was admitted to the hospital for COVID-19 pneumonia and bilateral pulmonary emboli. The patient remains hospitalized since November 032020. He remains on the ventilator at this time. Cardiology was asked to come see the patient again during this hospitalization due to brief episodes of sinus bradycardia with a heart rate in the 40s. These episodes are lasting about 5 to 10 seconds, and then the patient rebounds back to sinus rhythm with a heart rate in the 80s. The last episode was through the night last night. While I am examining the patient his heart rate is in sinus rhythm with a rate in the 80s and 90s. He appears to be in no distress. He still remains mechanically ventilated and intubated. Exam Vital signs and Labs for Last 24 Hours: Temp Pulse Resp BP Pulse Ox 98.1 F 94 H 24 155/55 H 95 12/04/20 07:50 12/04/20 09:00 12/04/20 07:50 12/04/20 09:00 12/04/20 09:00 Laboratory Results - last 24 hr 12/04/20 04:45: WBC 9.5, RBC 2.62 L, Hgb 7.9 L, Hct 26.1 L, MCV 99.7 H, MCH 30.3, MCHC 30.4 L, RDW 17.2, Plt Count 116 L, MPV 10.2, Neut % (Auto) 88.4 H, Lymph % (Auto) 4.8 L, [place] % (Auto) 4.3, Eos % (Auto) 2.4, Baso % (Auto) 0.1, Neut # (Auto) 8.4 H, Lymph # (Auto) 0.5 L, [place] # (Auto) 0.4, Eos # (Auto) 0.2, Baso # (Auto) 0.0, Total Counted 100, Neutrophils % (Manual) 84 H, Band Neutrophils % 9.0 H, Lymphocytes % (Manual) 4 L, Monocytes % (Manual) 2, Eosinophils % (Manual) 1, Toxic Granulation 1+, Platelet Estimate Slight decrease, Hypochromasia 1+, Anisocytosis 1+, Macrocytosis 1+, Rouleaux 3+ 12/04/20 04:45: Sodium 141, Potassium 5.4 H, Chloride 106, Carbon Dioxide 30, Anion Gap 10.4, BUN 119 H*, Creatinine 2.00 H, Estimated Creat Clear 51, Estimated GFR 33 L, Est GFR ( Amer) 40 L, Glucose 98, Calcium 7.8 L I & O for Last 24 hours: Intake & Output 12/01/20 12/02/20 12/03/20 12/04/20 23:59 23:59 23:59 23:59 Intake Total 2693 / 2693 3405 / 3405 3002 / 3002 2667 / 2667 Output Total 47 / 47 2535 / 2785 1627 / 1777 840 / 840 Balance 2646 / 2646 870 / 620 1375 / 1225 1827 / 1827 Weight 218 lb 8 oz 226 lb 8 oz 226 lb 225 lb 6 oz Microbiology Reports for the Last 24 Hours: Microbiology 11/28/20 13:26 Blood Blood Culture - Final NO GROWTH AFTER 5 DAYS 11/28/20 13:26 Blood Blood Culture - Final NO GROWTH AFTER 5 DAYS Narrative: telemetry strip is sinus rhythm with a rate of 89. - Constitutional no acute distress, average body habitus - *Routine HEENT Exam Head: Present: normocephalic, atraumatic ENT: Present: mucous membranes moist - *Routine Neck Exam Absent: JVD, carotid bruit, lymphadenopathy - *Routine Respiratory Exam Present: patient mechanically ventilated, CTA bilaterally - *Routine Cardiovascular Exam Present: RRR, Normal S1, Normal S2. Absent: murmur - *Routine Abdominal Exam Present: soft, normoactive bowel sounds. Absent: tenderness - *Routine Extremities Exam Present: edema (Trace bilateral lower extremity edema), pulses intact, normal capillary refill. Absent: cyanosis, clubbing - *Routine Skin Exam Present: warm. Absent: rash - *Routine Neurological Exam Present: altered mental status (On the ventilator) Progress Note: A&P (1) Bradycardia Status: Acute (2) Hyperkalemia Status: Acute (3) COVID-19 with pulmonary comorbidity Status: Acute (4) Pulmonary embolism associated with COVID-19 Status: Acute (5) Elevated troponin I level Status: Acute (6) Left bundle branch block (LBBB) Status: Acute (7) History of stroke Status: Acute (8) Elevated brain natriuretic peptide (BNP) level Status: Acute (9) Peroneal DVT (deep venous thrombosis) Status: Acute (10) Pneumonia due to COVID-19 virus Status: Acute (11) Anemia Sta
--- NOTE | 2020-12-04 11:22 | HMH.PULMPN ---
Internal Medicine - PN: Subj *Date: 12/04/20 *Time: 11:29 Interval history: No acute respiratory events overnight Exam - Constitutional Constitutional:: Present: no acute distress, comfortable - HENMT Exam HENMT: Present: normocephalic - Eye Exam Eyes:: Present: normal appearance both eyes and related structures - Neck Exam Neck:: Present: normal visual inspection - Respiratory Exam Respiratory:: Present: no respiratory distress, crackles, rales - Cardiovascular Exam Cardiac:: Present: S1, S2 - GI Exam GI:: Present: soft - Skin Exam Skin: Present: warm - Neurological Exam Neurological: Absent: alert, awake, normal cognition - Extremities Exam Extremities: Present: no cyanosis, no clubbing, edema Assessment and Plan (1) Bradycardia Status: Acute Category: Medical Code(s): R00.1 - Bradycardia, unspecified (2) Hyperkalemia Status: Acute Category: Medical Code(s): E87.5 - Hyperkalemia (3) COVID-19 with pulmonary comorbidity Status: Acute Category: Medical Code(s): U07.1 - COVID-19; J98.4 - Other disorders of lung (4) Pulmonary embolism associated with COVID-19 Status: Acute Category: Medical Code(s): U07.1 - COVID-19; I26.99 - Other pulmonary embolism without acute cor pulmonale (5) Elevated troponin I level Status: Acute Category: Medical Code(s): R77.8 - Other specified abnormalities of plasma proteins (6) Left bundle branch block (LBBB) Status: Acute Category: Medical Code(s): I44.7 - Left bundle-branch block, unspecified (7) History of stroke Status: Acute Category: Medical Code(s): Z86.73 - Personal history of transient ischemic attack (TIA), and cerebral infarction without residual deficits (8) Elevated brain natriuretic peptide (BNP) level Status: Acute Category: Medical Code(s): R79.89 - Other specified abnormal findings of blood chemistry (9) Peroneal DVT (deep venous thrombosis) Status: Acute Qualifiers: Laterality: bilateral Category: Medical Code(s): I82.459 - Acute embolism and thrombosis of unspecified peroneal vein (10) Pneumonia due to COVID-19 virus Status: Acute Category: Medical Code(s): U07.1 - COVID-19; J12.82 - Pneumonia due to coronavirus disease 2019 (11) Anemia Status: Acute Qualifiers: Anemia type: unspecified type Qualified Code(s): D64.9 - Anemia, unspecified Category: Medical Code(s): D64.9 - Anemia, unspecified (12) Pneumothorax, right Status: Acute Category: Medical Code(s): J93.9 - Pneumothorax, unspecified (13) Cardiopulmonary arrest with successful resuscitation Status: Acute Category: Medical Code(s): I46.9 - Cardiac arrest, cause unspecified (14) Ventricular tachycardia Status: Acute Category: Medical Code(s): I47.2 - Ventricular tachycardia (15) Left bundle branch block (LBBB) Status: Acute Category: Medical Code(s): I44.7 - Left bundle-branch block, unspecified - Assessment and plan all Dx Assessment and Plan for all problems:: #COVID-19 pneumonia: #Pulmonary embolism: #Acute hypoxic respiratory failure: 70-year-old yet to vaccinate no prior respiratory complaint no significant smoking history found to be COVID-19 positive needing mechanical ventilator support initial high ventilator settings, progressively improved currently on minimal vent settings however patient's mentation currently precluding extubation. Patient 14 days post intubation. His mentation is still not improving. Extensive work-up performed so far did not show any obvious etiology for his altered mentation. Currently patient is having acute kidney injury, possible GI bleeding leading to BUN that may also be contributing to his altered mentation. After extensive discussions with the family regarding goals of care family decided to pursue with full code, aggressive medical therapy along with possible tracheostomy and PEG tube and LTAC placement. So far the social work c
--- NOTE | 2020-12-04 13:34 | ECG_ITS ---
APPROVED REPORT Exam: Resting ECG HR:94 bpm ECG Measurements Heart Rate 94 AXES SC 144 P 53 QRSd 142 QRS 2 QT 380 T 71 QTc 475 Conclusion Sinus rhythm with premature supraventricular complexes Left bundle branch block Abnormal ECG Electronically signed by : Alexx Salvador MD 12/04/2020 21:18:50
--- NOTE | 2020-12-04 13:38 | PC.NURSE ---
Patient experiencing EKG changes with p wave hidden behind t wave. EKG ordered. Cardiology notified. No further orders at this time
--- NOTE | 2020-12-04 18:19 | PC.WOUNDNOTE ---
9x6 unstageable coccyx; stage 2 near rectum 5x4
--- NOTE | 2020-12-04 18:22 | PC.WOUNDNOTE ---
1x1 stage one RLQ
--- NOTE | 2020-12-04 18:23 | PC.WOUNDNOTE ---
1x1 stage one RLQ
--- NOTE | 2020-12-04 18:24 | PC.WOUNDNOTE ---
1.5x 0.5 stage 2 LLQ
--- NOTE | 2020-12-04 18:24 | PC.WOUNDNOTE ---
Stage two 2x1 Left upper flank
--- NOTE | 2020-12-04 18:25 | PC.WOUNDNOTE ---
1x 0.5 stage 1 distal to left scapula
--- NOTE | 2020-12-04 18:26 | PC.WOUNDNOTE ---
Stage 2 1x1 Right side lateral to incision site
--- NOTE | 2020-12-04 18:35 | PC.NURSE ---
RN uploaded multiple wound notes; RN changed chest tube dressing; MD notified of 4 inches of congealed blood proximal to insertion site. Stoma powder and barrier ointment, dressing changed.
[2020-12-05] VITALS (31 sets, daily range): BP systolic 107–172; BP diastolic 56–87; PULSE 74–134; RESP 18–31; TEMP 36.5–37.4; O2SAT 90–97; BMI 29.6
[2020-12-05 07:01] LABS: Basophils % 0.2 % (0.1-2.0); Eosinophils # 0.2 K/mm3 (0.0-0.4); Eosinophils % 1.9 % (0.1-12.0); Hemoglobin 7.8 g/dL (14.1-18.0); Lymphocytes # 0.6 K/mm3 (0.7-4.5); Lymphocytes % 6.3 % (10-50); Mean Corpuscular HGB Conc 30.1 g/dL (31.8-35.4); Mean Corpuscular Hemoglobin 29.8 pg (27.0-31.2); Mean Corpuscular Volume 99.3 fl (80-94); Mean Platelet Volume 11.1 fl (7.4-10.4); Monocytes # 0.3 K/mm3 (0.1-1.0); Monocytes % 3.4 % (1.7-9.3); Neutrophils # 8.2 K/mm3 (1.8-7.8); Neutrophils % 88.3 % (37.0-80.0); Platelet Count 118 K/mm3 (142-424); Red Blood Count 2.62 M/mm3 (4.60-6.20); Red Cell Distribution Width 17.2 % (11.5-17.5); White Blood Count 9.3 K/mm3 (4.8-10.8)
[2020-12-05 07:07] LABS: MANUAL DIFFERENTIAL MANUAL DIFFERENTIAL (MANUAL DIFF)
[2020-12-05 07:10] LABS: Anion Gap 10.7 mEq/L (5-15); Calcium 7.9 mg/dl (8.4-10.2); Carbon Dioxide 27 mmol/L (22.0-30.0); Chloride 109 mmol/L (98-107); Creatinine Clearance Estimated 53 mL/min (50-200); Estimated Glomerular Filt Rate 35 ml/min (>60); GFR (African American) 43 ML/MIN (>60); Glucose 129 mg/dl (74-100); Potassium 5.7 mmoL/L (3.5-5.1); Sodium 141 mmol/L (136-145)
[2020-12-05 07:21] LABS: Blood Urea Nitrogen 118 mg/dl (9-20)
--- NOTE | 2020-12-05 08:03 | HMH.ACPN2 ---
Internal Medicine - PN: Subj *Date: 12/05/20 *Time: 12:31 Interval history: 70-year-old intubated male patient lying in bed eyes are open with spastic movements of head side to side, sedation has been off. He does not follow any commands. Long discussion with regarding patient's worsening medical condition. reports that if she could talk to patient he would get better faster, again explained graveness of patient's condition states I still believe he is getting better. Exam Vital signs and Labs for Last 24 Hours: Temp Pulse Resp BP Pulse Ox 98.1 F 93 H 20 140/80 92 L 12/05/20 07:40 12/05/20 07:40 12/05/20 07:40 12/05/20 07:40 12/05/20 07:40 Laboratory Results - last 24 hr 12/05/20 06:34: WBC 9.3, RBC 2.62 L, Hgb 7.8 L, Hct 26.0 L, MCV 99.3 H, MCH 29.8, MCHC 30.1 L, RDW 17.2, Plt Count 118 L, MPV 11.1 H, Neut % (Auto) 88.3 H, Lymph % (Auto) 6.3 L, [place] % (Auto) 3.4, Eos % (Auto) 1.9, Baso % (Auto) 0.2, Neut # (Auto) 8.2 H, Lymph # (Auto) 0.6 L, [place] # (Auto) 0.3, Eos # (Auto) 0.2, Baso # (Auto) 0.0 12/05/20 06:34: Sodium 141, Potassium 5.7 H, Chloride 109 H, Carbon Dioxide 27, Anion Gap 10.7, BUN 118 H*, Creatinine 1.90 H, Estimated Creat Clear 53, Estimated GFR 35 L, Est GFR ( Amer) 43 L, Glucose 129 H, Calcium 7.9 L I & O for Last 24 hours: Intake & Output 12/02/20 12/03/20 12/04/20 12/05/20 23:59 23:59 23:59 23:59 Intake Total 3405 / 3405 3002 / 3002 6689 / 6689 1924 / 1924 Output Total 2535 / 2785 1627 / 1777 2110 / 2170 800 / 800 Balance 870 / 620 1375 / 1225 4579 / 4519 1124 / 1124 Weight 226 lb 8 oz 226 lb 225 lb 6 oz 223 lb 5.252 oz - Constitutional no acute distress, chronically ill appearing - *Routine Neck Exam Present: trachea midline. Absent: tracheal deviation - *Routine Respiratory Exam Present: crackles. Absent: accessory muscle use - *Routine Cardiovascular Exam Present: RRR - *Routine Abdominal Exam Present: soft, normoactive bowel sounds. Absent: distended, firm - *Routine Extremities Exam Present: edema. Absent: cyanosis - *Routine Skin Exam Present: wounds. Absent: intact Comments: Stg II-III Coccyx, Bilat Buttocks - *Routine Neurological Exam Present: altered mental status - Routine Psychiatric Exam Present: unable to assess Assessment and Plan (1) COVID-19 with pulmonary comorbidity Status: Acute Category: Medical Code(s): U07.1 - COVID-19; J98.4 - Other disorders of lung (2) Pulmonary embolism associated with COVID-19 Status: Acute Category: Medical Code(s): U07.1 - COVID-19; I26.99 - Other pulmonary embolism without acute cor pulmonale (3) Elevated troponin I level Status: Acute Category: Medical Code(s): R77.8 - Other specified abnormalities of plasma proteins (4) Left bundle branch block (LBBB) Status: Acute Category: Medical Code(s): I44.7 - Left bundle-branch block, unspecified (5) History of stroke Status: Acute Category: Medical Code(s): Z86.73 - Personal history of transient ischemic attack (TIA), and cerebral infarction without residual deficits (6) Elevated brain natriuretic peptide (BNP) level Status: Acute Category: Medical Code(s): R79.89 - Other specified abnormal findings of blood chemistry (7) Peroneal DVT (deep venous thrombosis) Status: Acute Qualifiers: Laterality: bilateral Category: Medical Code(s): I82.459 - Acute embolism and thrombosis of unspecified peroneal vein (8) Pneumonia due to COVID-19 virus Status: Acute Category: Medical Code(s): U07.1 - COVID-19; J12.82 - Pneumonia due to coronavirus disease 2019 (9) Bradycardia Status: Acute Category: Medical Code(s): R00.1 - Bradycardia, unspecified (10) Anemia Status: Acute Qualifiers: Anemia type: unspecified type Qualified Code(s): D64.9 - Anemia, unspecified Category: Medical Code(s): D64.9 - Anemia, unspecified (11) Pneumothorax, right Status: Acute Categ
[2020-12-05 08:56] LABS: Lymphocytes % 8 % (10-50); Monocytes % 2 % (2-9); Neutrophils % 90 % (42-76); Total Cells Counted 100
[2020-12-05 08:57] LABS: Hypochromasia 1+; Macrocytosis 1+; Platelet Estimate Normal
--- NOTE | 2020-12-05 13:19 | HMH.PULMPN ---
Internal Medicine - PN: Subj *Date: 12/05/20 *Time: 13:19 Interval history: No acute respiratory events overnight. Exam - Constitutional Constitutional:: Present: comfortable - HENMT Exam HENMT: Present: normocephalic - Eye Exam Eyes:: Present: normal appearance both eyes and related structures - Neck Exam Neck:: Present: normal visual inspection - Respiratory Exam Respiratory:: Present: respiratory distress, rales - Cardiovascular Exam Cardiac:: Present: S1, S2 - GI Exam GI:: Present: soft - Skin Exam Skin: Present: warm, no rash - Neurological Exam Neurological: Absent: alert, awake, normal cognition - Extremities Exam Extremities: Present: no cyanosis, no clubbing, edema Assessment and Plan (1) COVID-19 with pulmonary comorbidity Status: Acute Category: Medical Code(s): U07.1 - COVID-19; J98.4 - Other disorders of lung (2) Pulmonary embolism associated with COVID-19 Status: Acute Category: Medical Code(s): U07.1 - COVID-19; I26.99 - Other pulmonary embolism without acute cor pulmonale (3) Elevated troponin I level Status: Acute Category: Medical Code(s): R77.8 - Other specified abnormalities of plasma proteins (4) Left bundle branch block (LBBB) Status: Acute Category: Medical Code(s): I44.7 - Left bundle-branch block, unspecified (5) History of stroke Status: Acute Category: Medical Code(s): Z86.73 - Personal history of transient ischemic attack (TIA), and cerebral infarction without residual deficits (6) Elevated brain natriuretic peptide (BNP) level Status: Acute Category: Medical Code(s): R79.89 - Other specified abnormal findings of blood chemistry (7) Peroneal DVT (deep venous thrombosis) Status: Acute Qualifiers: Laterality: bilateral Category: Medical Code(s): I82.459 - Acute embolism and thrombosis of unspecified peroneal vein (8) Pneumonia due to COVID-19 virus Status: Acute Category: Medical Code(s): U07.1 - COVID-19; J12.82 - Pneumonia due to coronavirus disease 2019 (9) Bradycardia Status: Acute Category: Medical Code(s): R00.1 - Bradycardia, unspecified (10) Anemia Status: Acute Qualifiers: Anemia type: unspecified type Qualified Code(s): D64.9 - Anemia, unspecified Category: Medical Code(s): D64.9 - Anemia, unspecified (11) Pneumothorax, right Status: Acute Category: Medical Code(s): J93.9 - Pneumothorax, unspecified (12) Hyperkalemia Status: Acute Category: Medical Code(s): E87.5 - Hyperkalemia (13) Cardiopulmonary arrest with successful resuscitation Status: Acute Category: Medical Code(s): I46.9 - Cardiac arrest, cause unspecified (14) Ventricular tachycardia Status: Acute Category: Medical Code(s): I47.2 - Ventricular tachycardia (15) Left bundle branch block (LBBB) Status: Acute Category: Medical Code(s): I44.7 - Left bundle-branch block, unspecified - Assessment and plan all Dx Assessment and Plan for all problems:: #COVID-19 pneumonia: #Pulmonary embolism: #Acute hypoxic respiratory failure: 70-year-old yet to vaccinate no prior respiratory complaint no significant smoking history found to be COVID-19 positive needing mechanical ventilator support initial high ventilator settings, progressively improved currently on minimal vent settings however patient's mentation currently precluding extubation. Patient 14 days post intubation. His mentation is still not improving. Extensive work-up performed so far did not show any obvious etiology for his altered mentation. Currently patient is having acute kidney injury, possible GI bleeding leading to BUN that may also be contributing to his altered mentation. After extensive discussions with the family regarding goals of care family decided to pursue with full code, aggressive medical therapy along with possible tracheostomy and PEG tube and LTAC placement. So far the social work could not find a place
--- NOTE | 2020-12-05 16:29 | PC.NURSE ---
Patient remains intubated, not receiving any sedation at this time, has been agitated at times this shift, treated with prn meds per emar, chest tube remains in place to water seal, no output noted this shift, tube feeding infusing at goal rate through NG tube, minimal GRV noted, FC patent and draining straw colored urine at bedside with large amount of sediment noted, patient has been turned q2h, oral care and suctioning provided, vss, will continue to monitor for changes.
[2020-12-06] VITALS (15 sets, daily range): BP systolic 97–130; BP diastolic 47–68; PULSE 89–108; RESP 21–31; TEMP 36.7–37.2; O2SAT 88–98; BMI 29.7
--- NOTE | 2020-12-06 06:43 | PC.NURSE ---
Pt had two episodes this shift of HR dropping to the 40s and O2 sat dropping to the low 80s. Both episodes last for 2-3 mins and pt recovered on his own. Vitals are currently stable, HR 100, BP 124/62, O2 98%
[2020-12-06 07:19] LABS: Basophils % 0.3 % (0.1-2.0); Eosinophils # 0.2 K/mm3 (0.0-0.4); Eosinophils % 1.6 % (0.1-12.0); Hematocrit 26.1 % (42.0-52.0); Hemoglobin 7.8 g/dL (14.1-18.0); Lymphocytes # 0.7 K/mm3 (0.7-4.5); Lymphocytes % 7.2 % (10-50); Mean Corpuscular HGB Conc 29.9 g/dL (31.8-35.4); Mean Corpuscular Hemoglobin 30.2 pg (27.0-31.2); Mean Corpuscular Volume 100.9 fl (80-94); Mean Platelet Volume 10.6 fl (7.4-10.4); Monocytes # 0.5 K/mm3 (0.1-1.0); Monocytes % 4.8 % (1.7-9.3); Neutrophils # 8.8 K/mm3 (1.8-7.8); Platelet Count 124 K/mm3 (142-424); Red Blood Count 2.59 M/mm3 (4.60-6.20); Red Cell Distribution Width 17.5 % (11.5-17.5); White Blood Count 10.2 K/mm3 (4.8-10.8)
[2020-12-06 07:23] LABS: MANUAL DIFFERENTIAL MANUAL DIFFERENTIAL (MANUAL DIFF)
[2020-12-06 07:31] LABS: Chloride 108 mmol/L (98-107); Sodium 142 mmol/L (136-145)
[2020-12-06 07:35] LABS: Anion Gap 11.2 mEq/L (5-15); Calcium 7.9 mg/dl (8.4-10.2); Carbon Dioxide 29 mmol/L (22.0-30.0); Glucose 124 mg/dl (74-100)
[2020-12-06 08:09] LABS: Creatinine Clearance Estimated 57 mL/min (50-200); Estimated Glomerular Filt Rate 38 ml/min (>60); GFR (African American) 46 ML/MIN (>60)
[2020-12-06 08:13] LABS: Blood Urea Nitrogen 126 mg/dl (9-20); Potassium 6.2 mmoL/L (3.5-5.1)
--- NOTE | 2020-12-06 08:24 | HMH.ACPN2 ---
Internal Medicine - PN: Subj *Date: 12/06/20 *Time: 08:24 Exam Vital signs and Labs for Last 24 Hours: Temp Pulse Resp BP Pulse Ox 98.9 F 100 H 26 H 97/50 L 95 12/06/20 06:30 12/06/20 08:00 12/06/20 08:00 12/06/20 08:00 12/06/20 08:00 Laboratory Results - last 24 hr 12/05/20 06:34: Total Counted 100, Neutrophils % (Manual) 90 H, Lymphocytes % (Manual) 8 L, Monocytes % (Manual) 2, Platelet Estimate Normal, Hypochromasia 1+, Macrocytosis 1+ 12/06/20 05:45: WBC 10.2, RBC 2.59 L, Hgb 7.8 L, Hct 26.1 L, MCV 100.9 H, MCH 30.2, MCHC 29.9 L, RDW 17.5, Plt Count 124 L, MPV 10.6 H, Neut % (Auto) 86.0 H, Lymph % (Auto) 7.2 L, [place] % (Auto) 4.8, Eos % (Auto) 1.6, Baso % (Auto) 0.3, Neut # (Auto) 8.8 H, Lymph # (Auto) 0.7, [place] # (Auto) 0.5, Eos # (Auto) 0.2, Baso # (Auto) 0.0 12/06/20 05:45: Sodium 142, Potassium 6.2 H*, Chloride 108 H, Carbon Dioxide 29, Anion Gap 11.2, BUN 126 H*, Creatinine 1.80 H, Estimated Creat Clear 57, Estimated GFR 38 L, Est GFR ( Amer) 46 L, Glucose 124 H, Calcium 7.9 L I & O for Last 24 hours: Intake & Output 12/03/20 12/04/20 12/05/20 12/06/20 11:59 11:59 11:59 11:59 Intake Total 3628 / 3628 4820 / 4970 5796 / 5796 1965 Output Total 1485 / 1500 1717 / 1717 2014 945 / 945 Balance 2143 / 2128 3103 / 3253 3781 / 3746 1021 / 1021 Weight 226 lb 225 lb 6 oz 223 lb 5.252 oz 224 lb 10.417 oz Assessment and Plan (1) COVID-19 with pulmonary comorbidity Status: Acute Category: Medical Code(s): U07.1 - COVID-19; J98.4 - Other disorders of lung (2) Pulmonary embolism associated with COVID-19 Status: Acute Category: Medical Code(s): U07.1 - COVID-19; I26.99 - Other pulmonary embolism without acute cor pulmonale (3) Elevated troponin I level Status: Acute Category: Medical Code(s): R77.8 - Other specified abnormalities of plasma proteins (4) Left bundle branch block (LBBB) Status: Acute Category: Medical Code(s): I44.7 - Left bundle-branch block, unspecified (5) History of stroke Status: Acute Category: Medical Code(s): Z86.73 - Personal history of transient ischemic attack (TIA), and cerebral infarction without residual deficits (6) Elevated brain natriuretic peptide (BNP) level Status: Acute Category: Medical Code(s): R79.89 - Other specified abnormal findings of blood chemistry (7) Peroneal DVT (deep venous thrombosis) Status: Acute Qualifiers: Laterality: bilateral Category: Medical Code(s): I82.459 - Acute embolism and thrombosis of unspecified peroneal vein (8) Pneumonia due to COVID-19 virus Status: Acute Category: Medical Code(s): U07.1 - COVID-19; J12.82 - Pneumonia due to coronavirus disease 2019 (9) Bradycardia Status: Acute Category: Medical Code(s): R00.1 - Bradycardia, unspecified (10) Anemia Status: Acute Qualifiers: Anemia type: unspecified type Qualified Code(s): D64.9 - Anemia, unspecified Category: Medical Code(s): D64.9 - Anemia, unspecified (11) Pneumothorax, right Status: Acute Category: Medical Code(s): J93.9 - Pneumothorax, unspecified (12) Hyperkalemia Status: Acute Category: Medical Code(s): E87.5 - Hyperkalemia (13) Cardiopulmonary arrest with successful resuscitation Status: Acute Category: Medical Code(s): I46.9 - Cardiac arrest, cause unspecified (14) Ventricular tachycardia Status: Acute Category: Medical Code(s): I47.2 - Ventricular tachycardia (15) Left bundle branch block (LBBB) Status: Acute Category: Medical Code(s): I44.7 - Left bundle-branch block, unspecified
[2020-12-06 08:28] LABS: Anisocytosis 1+; Eosinophils % 2 % (0-3); Hypochromasia 2+; Lymphocytes % 10 % (10-50); Macrocytosis 2+; Monocytes % 2 % (2-9); Neutrophils % 86 % (42-76); Platelet Estimate Normal; Total Cells Counted 100
--- NOTE | 2020-12-06 13:19 | XR_ITS ---
PROCEDURE: XR CHEST PORTABLE CLINICAL HISTORY: code blue COMPARISON: CT CT CHEST WO CON from 11/15/2020 CR XR CHEST PORTABLE from 12/02/2020 CR XR CHEST PORTABLE from 12/03/2020 CR XR CHEST PORTABLE from 12/04/2020 FINDINGS: There is diffuse subcutaneous emphysema. The endotracheal tube tip is slightly high 7 cm above the eloisa and could be advanced 2 or 3 cm. Nasogastric tube tip is in the region of the body of the stomach. Right-sided chest tube is in place. There is no obvious pneumothorax. There is pneumomediastinum and diffuse subcutaneous emphysema. Bilateral pneumonia noted. The left CP angle is not included on the exam. IMPRESSION: Endotracheal tube tip is slightly high approximately 7 cm above the eloisa and could be advanced approximately 2-3 cm. Diffuse subcutaneous emphysema and pneumomediastinum not significantly changed. No obvious pneumothorax. Right chest tube remains in place with bilateral pneumonia. Dictated by: Andrea Calloway MD 12/06/2020 13:35 Andrea Calloway MD in [facility] 12/06/2020 13:35
--- NOTE | 2020-12-06 13:24 | PC.NURSE ---
Ernesto Moore called to room at 1300. Per Diony Lewis RN, patient with significant bradycardia and asystole noted, ernesto moore called. Respiratory team, PharmD, Katy RN, Whit RN, Wes RN at bedside. Dr. Merchant from ED present. 1303-Epi x 1 in now, BP 76/45. 1306- Epi x 1 in now. BP 139/48 1306- 1g Calcium administered 1307 - 1g Calcium administered - total dose = 2g of calcium 1307 - Rhythm change noted - Vtach -shock delivered, compressions continue 1309 - FSBS 148 1310 - Pulse identified, Bundle branch block noted for rhythm. place back on vent, HR 125, BP 139/48, 89% 02 sats. 1313 - CXR ordered per Dr. Merchant. ACLS terminated. During ernesto moore, family notified per Lobo Sauceda SENSOR OPERATOR.
--- NOTE | 2020-12-06 13:28 | P.PCN_ITS ---
[facility] Procedure Note Procedure Note:: Patient is a 70-year-old male, in the ICU been on ventilator for 2 weeks, Covid pneumonia, renal dysfunction, experienced cardiac arrest at approximately 1:15 PM on 12/06/2020. Called to bedside patient intubated being bagged by respiratory therapy with 100% FiO2, CPR in progress 1 mg of IV epinephrine give n, we checked a blood sugar, 115, given 2 g of IV calcium, at the time of our third pulse check patient was in ventricular tachycardia with a rate of 180, defibrillated with 200 J we continued with another round of compressions for 2 minutes, during this round end-tidal CO2 isaak to 42, check for pulse, patient is in sinus tachycardia with rate of 140, apparently perfusing well with steady end-tidal, placed back on ventilator. Nursing staff spoke with patient's family, during the resuscitation, they appear to have unrealistic expectations of patient's ability to recover which is consistent with speaking with Dr. Dominguez on the phone. They are on their way to the ICU and I will attempt to speak with them in person, if able. ROSC obtained approximately 1:25 PM, planning to shoot a chest x-ray.
--- NOTE | 2020-12-06 14:43 | [facility].DCSUM ---
General - General Admission date:: 11/03/20 Discharge date: 12/06/20 HPI HPI: Patient is a 70-year-old male with a history of asthma who presented to the emergency room with shortness of breath. Patient was vaccinated for Covid with the Moderiba x2. Was earlier in the year. He has been caring for 2 family members who are Covid positive. Over the last 2 days he has had shortness of breath chills nausea. He uses albuterol at home. Serology detected Covid. Chest x-ray showed views airspace disease. CTA chest demonstrated bilateral pulmonary emboli and features suggesting interstitial pneumonitis more likely the result of Covid. Patient is admitted for further treatment and evaluation, has been started on Xarelto for anticoagulation. I suspect his pulmonary emboli are a sequela of his Covid infection. Patient has a remote history of stroke. Patient is currently on Vapotherm in no respiratory distress. Patient is followed by an outside physician. Patient is treated for chronic pain. He has some tenderness to palpation his right calf and lower leg Hospital Course Hospital Course: Patient is a 70-year-old male with a history of asthma who presented to the emergency room with shortness of breath. Patient was vaccinated for Covid with the Moderiba x2. Was earlier in the year. He has been caring for 2 family members who are Covid positive. Over the last 2 days he has had shortness of breath chills nausea. He uses albuterol at home. Serology detected Covid. Chest x-ray showed views airspace disease. CTA chest demonstrated bilateral pulmonary emboli and features suggesting interstitial pneumonitis more likely the result of Covid. Patient is admitted for further treatment and evaluation, has been started on Xarelto for anticoagulation. I suspect his pulmonary emboli are a sequela of his Covid infection. Patient has a remote history of stroke. Patient is currently on Vapotherm in no respiratory distress. Patient is followed by an outside physician. Patient is treated for chronic pain. He has some tenderness to palpation his right calf and lower leg Patient was admitted 11/03/2020 after suffering at home with Covid for 2 days and increasing shortness of breath, fever, and chills. After respiratory distress increased he presented to the emergency department, oxygen was escalated from nasal cannula to Vapotherm to BiPAP and was eventually intubated on 11/06/2020 Bilateral PEs revealed on Doppler studies Pneumomediastinum was revealed on chest x-ray as well as subcutaneous emphysema Chest CT revealed a pleural effusion and a chest tube was placed per surgery 11/06/20 Cardiology seen and recommends: 1. COVID-19 pneumonia, on high flow oxygen, steroids along with remdesivir and baricitinib per pulmonary. 2. Bilateral pulmonary emboli most likely related to COVID-19 hypercoagulability, on anticoagulation currently with heparin per pulmonary preference. 3. Elevated troponins likely secondary to above. Echocardiogram pending at this time. No plans for invasive procedure at this time but will continue to follow along with you. 3. Anemia, hemoglobin between 10-11. 4. History of coronary artery disease with coronary artery stenting greater than 5 years ago. 11/07/2020: Patient was on Vapotherm with increasing oxygen needs and was intubated per emergency department physician Dr. Wang. Chest x-ray showed proper placement of the ET tube. 11/08/2020: Cardiology seen for episodes of bradycardia with heart rate in the 30s. Beta-sky was discontinued as bradycardia was believed to be related to sedation on top of beta-sky therapy. Levophed continues to infuse for hypotension. Heparin infusing for Pulmonary Emboli and DVT 11/17/[address]: FINDINGS: No midline shift, mass effect, intracranial hemorrhage, hydrocephalus, or extra-axial fluid collection is evident. The calvarium has an unremarkable appe
--- NOTE | 2020-12-06 14:58 | PC.NURSE ---
1352- Patient Asystolic, Code Blue called, chest compressions started 1354- Epi given 1356- Pulse present 1357- Patient in Vtach per monitor, shock delivered at 200J 1358- 2nd shock delivered at 200J, CPR resumed 1400- Patient remains in vtach, 3rd shock delivered at 200J 1401- Calcium 1gm given 1404- Epi drip started 1406- Family made decision to change code status to DNR 1415- Patient Asystolic, and primary RN at bedside with family 1420- Time of called per Dr Merchant 1446- BENNIE contacted, Rep Reanna Morales Case #- [id number], ruled out for donation due to being covid positive 1447- Family remains at bedside, will continue to provide supportive care to family.
--- NOTE | 2020-12-06 15:54 | PC.NURSE ---
RESP CARE NOTE: Ventilator discontinued due to patient expiration. [id number]
--- NOTE | 2020-12-06 18:33 | PC.NURSE ---
[facility] and [facility] contacted at this time, they stated they would be providing transport for patient this evening.
--- NOTE | 2020-12-06 19:30 | [facility].DEATH ---
Pronouncement Note - Date and Time of Date of : 12/06/20 Time of : 14:20 - Additional Data Confirmation of : no pulse, no respirations, no heart sounds, pupils fixed and dilated Family: at bedside Attending/PCP notified?: Yes Attending physician: Pepe Dewey MD Was code activated?: Yes Autopsy requested?: No grazing examiner notified?: Yes Organ bank notified?: Yes Advance directives: No
== END 2020-12-06 21:02 | disposition expired | DRG 207 ==
LOC: ER 20:49 → 2ND 23:18 → ICU 11-06 16:25
PROVIDERS: Emergency Medicine; Family Medicine; Internal Medicine Pulmonary Disease; Nurse Practitioner Family; Admitting Provider Family Medicine; Emergency Provider Emergency Medicine; Visit Provider Family Medicine
DX: U07.1 COVID-19 (principal); J12.82 Pneumonia due to coronavirus disease 2019; I26.99 Other pulmonary embolism without acute cor pulmonale; J96.01 Acute respiratory failure with hypoxia; I82.459 Acute embolism and thrombosis of unspecified peroneal vein; J93.9 Pneumothorax, unspecified; I47.2 Ventricular tachycardia; I10 Essential (primary) hypertension; F17.210 Nicotine dependence, cigarettes, uncomplicated; Z95.5 Presence of coronary angioplasty implant and graft; D64.9 Anemia, unspecified; I25.10 Atherosclerotic heart disease of native coronary artery without angina pectoris; R00.1 Bradycardia, unspecified; E87.5 Hyperkalemia
CPT/HCPCS: 31500; 94002; 62272; 36556; 32556; 36415; 70450; 70496; 70498; 71045; 71250; 71275; 80048; 80053; 80061; 80202; 81001; 82042; 82140; 82272; 82746; 82803; 82945; 82962; 83605; 83735; 83880; 84100; 84145; 84155; 84443; 84484; 85007; 85014; 85018; 85025; 85378; 85610; 85651; 85730; 86140; 86592; 86850; 87040; 87070; 87077; 87081; 87186; 87205; 87529; 87899; 89051; 93005; 93306; 93970; 94003; 94640; 94660; 94761; 95816; 96365; 96366; 96367; 99284; C1751; C9803; G0328; J1610; J1956; J2704; J3370; P9016; Q9967; U0003; U0005